=== PATIENT | male | born 1950 | race Caucasian/White ===

== ENCOUNTER → 2018-01-29 08:25 | Outpatient (CLI) | payer MEDICARE, BC, SELFPAY ==
[2018-01-29 10:32] LABS: Anion Gap 7 (5-15); BUN 23 mg/dL (7-18); BUN/Creat Ratio 16.9 RATIO (10-20); Calcium,Total 8.6 mg/dL (8.5-10.1); Chloride 106 mmol/L (98-107); Cholesterol 206 mg/dL (200); Creatinine, Serum 1.36 mg/dL (0.70-1.30); EST Glomerular Filtration Rate 56 mL/min (>60); Est Glom Filt Rate - Afr Amer 67 mL/min (>60); Glucose 86 mg/dL (74-106); High Density Lipoprotein 40 mg/dL; PSA,Total - Annual Screen 2.56 ng/mL (0.00-4.00); Potassium 4.4 mmol/L (3.5-5.1); Sodium Level 143 mmol/L (136-145); Triglycerides 203 mg/dL; Very Low Density Lipoprotein 41 mg/dL (5-40)
== END ==
PROVIDERS: Family Provider Family Medicine; PCP Family Medicine; Visit Provider Family Medicine
DX: I10 Essential (primary) hypertension (principal); Z12.5 Encounter for screening for malignant neoplasm of prostate; E78.5 Hyperlipidemia, unspecified
CPT/HCPCS: 36415; 80048; 80061; 84153; G0103

== ENCOUNTER → 2018-05-14 08:52 | Outpatient (CLI) | payer MEDICARE, BC, SELFPAY ==
[2014-10-29 06:19] VITALS: BMI 26.1
[2018-05-14 10:35] LABS: Anion Gap 8 (5-15); BUN 18 mg/dL (7-18); BUN/Creat Ratio 16.1 RATIO (10-20); Calcium,Total 8.6 mg/dL (8.5-10.1); Chloride 108 mmol/L (98-107); Cholesterol 210 mg/dL (200); Creatinine, Serum 1.12 mg/dL (0.70-1.30); EST Glomerular Filtration Rate 69 mL/min (>60); Est Glom Filt Rate - Afr Amer 84 mL/min (>60); Glucose 83 mg/dL (74-106); High Density Lipoprotein 46 mg/dL; Potassium 4.2 mmol/L (3.5-5.1); Sodium Level 144 mmol/L (136-145); Triglycerides 176 mg/dL; Very Low Density Lipoprotein 35 mg/dL (5-40)
== END ==
PROVIDERS: Family Provider Family Medicine; PCP Family Medicine; Visit Provider Family Medicine
DX: I10 Essential (primary) hypertension (principal); E78.5 Hyperlipidemia, unspecified
CPT/HCPCS: 36415; 80048; 80061

== ENCOUNTER → 2019-02-03 15:52 | Outpatient (CLI) | payer MEDICARE, OTHER, SELFPAY ==
--- NOTE | 2019-02-03 15:54 | US_ITS ---
STUDY: THYROID ULTRASOUND REASON FOR EXAM: Male, 68 years old. Thyromegaly TECHNIQUE: Ultrasound evaluation of the thyroid was performed with real-time and static buenrostro-scale imaging. COMPARISON: None. FINDINGS: RIGHT LOBE: The right lobe of the thyroid gland measures 4.0 x 1.6 x 1.9 cm. There is a heterogeneous echotexture. There are no demonstrated solid, cystic or complex lesions. LEFT LOBE: The left lobe of the thyroid gland measures 3.3 x 1.5 x 1.7 cm. There is a heterogeneous echotexture. There are no demonstrated solid, cystic or complex lesions. ISTHMUS: The isthmus measures 4 mm . The regional lymph nodes are normal. US/Thyroid IMPRESSION: Mild heterogeneity of the thyroid without nodules noted. Electronically Signed: Maximo Eisenberg DO at 19:45 EST Tel [phone], Service support ,
== END ==
PROVIDERS: Family Provider Family Medicine; PCP Family Medicine; Referring Provider Family Medicine; Visit Provider Family Medicine
DX: E01.0 Iodine-deficiency related diffuse (endemic) goiter (principal)
CPT/HCPCS: 76536

== ENCOUNTER → 2019-02-04 09:18 | Outpatient (CLI) | payer MEDICARE, OTHER, SELFPAY ==
[2014-10-29 06:19] VITALS: BMI 26.1
[2019-02-04 10:30] LABS: Absolute Lymphocyte Count 1.39 X10^3/uL (0.83-4.51); Basophil# 0.05 X10^3/uL; Basophil% 0.8 % (0-1); Eosinophil# 0.36 X10^3/uL; Eosinophils% 5.8 % (0-5); Hematocrit 50.7 % (40-54); Hemoglobin 16.1 g/dL (13.0-16.5); Lymphocyte # 1.39 X10^3/ul (4.0); Lymphocyte % 22.2 % (19-41); Mean Corp Hgb Conc 31.8 g/dL (32-36); Mean Corpuscular Hgb 29.7 pg (27.0-32.0); Mean Corpuscular Volume 93.4 fL (80-94); Mean Platelet Vol. 9.6 fl (6.2-12.0); Monocyte# 0.48 X10^3/uL; Monocyte% 7.7 % (0-10); NRBC Flagged by Analyzer 0 % (0-5); Neutrophil # 3.95 X10^3/uL (2.7-7.7); Neutrophil % 63.2 % (47-70); Platelet Count 202 K/mm3 (150-450); RBC Distribution Width CV 13.6 % (11.6-14.6); RBC Distribution Width SD 46.1 fl (35.1-43.9); Red Blood Count 5.43 M/mm3 (4.6-6.2); White Blood Count 6.3 K/mm3 (4.4-11.0)
[2019-02-04 11:06] LABS: ALB/GLOB Ratio 1.1 RATIO (0.9-2.4); AST(SGOT) 12 U/L (15-37); Alanine Aminotransfer ALT/SGPT 17 U/L (16-61); Albumin, Serum 3.9 g/dL (3.2-5.0); Alkaline Phosphatase 92 U/L (45-117); Anion Gap 5 (5-15); BUN 22 mg/dL (7-18); BUN/Creat Ratio 17.5 RATIO (10-20); Calcium,Total 9.1 mg/dL (8.5-10.1); Chloride 107 mmol/L (98-107); Cholesterol 208 mg/dL (200); Creatinine, Serum 1.26 mg/dL (0.70-1.30); EST Glomerular Filtration Rate 60 mL/min (>60); Est Glom Filt Rate - Afr Amer 73 mL/min (>60); Globulin 3.7 g/dL (2.2-4.2); Glucose 89 mg/dL (74-106); High Density Lipoprotein 39 mg/dL; Potassium 3.8 mmol/L (3.5-5.1); Protein, Total 7.6 g/dL (6.4-8.2); Sodium Level 140 mmol/L (136-145); T4 Free Direct 0.84 ng/dL (0.76-1.46); Thyroid Stim Hormone (TSH) 3.54 uIU/mL (0.358-3.74); Triglycerides 264 mg/dL; Very Low Density Lipoprotein 53 mg/dL (5-40)
[2019-02-05 18:50] LABS: Anti-Thyroglobulin AB < 1.0 IU/mL (0.0-0.9); Thyroglobulin, Serum Qt. 14.5 ng/mL (1.4-29.2); Thyroid Peroxidase AB 11 IU/mL (0-34)
== END ==
PROVIDERS: Family Provider Family Medicine; PCP Family Medicine; Referring Provider Family Medicine; Visit Provider Family Medicine
DX: I10 Essential (primary) hypertension (principal); E78.5 Hyperlipidemia, unspecified; E01.0 Iodine-deficiency related diffuse (endemic) goiter
CPT/HCPCS: 36415; 80053; 80061; 84432; 84439; 84443; 85025; 86376; 86800

== ENCOUNTER → 2019-02-14 09:58 | Outpatient (CLI) | payer MEDICARE, OTHER, SELFPAY ==
[2014-10-29 06:19] VITALS: BMI 26.1
[2019-02-14 11:55] LABS: Anion Gap 6 (5-15); BUN 22 mg/dL (7-18); BUN/Creat Ratio 16.5 RATIO (10-20); Calcium,Total 8.8 mg/dL (8.5-10.1); Chloride 111 mmol/L (98-107); Creatinine, Serum 1.33 mg/dL (0.70-1.30); EST Glomerular Filtration Rate 57 mL/min (>60); Est Glom Filt Rate - Afr Amer 69 mL/min (>60); Glucose 123 mg/dL (74-106); Potassium 4.2 mmol/L (3.5-5.1); Sodium Level 145 mmol/L (136-145)
== END ==
PROVIDERS: Family Provider Family Medicine; PCP Family Medicine; Referring Provider Family Medicine; Visit Provider Family Medicine
DX: I10 Essential (primary) hypertension (principal)
CPT/HCPCS: 36415; 80048

== ENCOUNTER → 2019-03-12 15:51 | Outpatient (CLI) | payer MEDICARE, OTHER, SELFPAY ==
[2014-10-29 06:19] VITALS: BMI 26.1
[2019-03-12 17:46] LABS: PSA,Total - Annual Screen 3.08 ng/mL (0.00-4.00)
== END ==
PROVIDERS: Family Provider Family Medicine; PCP Family Medicine; Referring Provider Family Medicine; Visit Provider Family Medicine
DX: Z12.5 Encounter for screening for malignant neoplasm of prostate (principal)
CPT/HCPCS: 36415; 84153; G0103

== ENCOUNTER → 2019-09-15 08:39 | Outpatient (CLI) | payer MEDICARE, OTHER, SELFPAY ==
[2014-10-29 06:19] VITALS: BMI 26.1
[2019-09-15 09:57] LABS: Absolute Lymphocyte Count 1.19 X10^3/uL (0.83-4.51); Absolute Neutrophil Count 4.3 X10^3/uL (2.0-7.7); Basophil# 0.03 X10^3/uL; Basophil% 0.5 % (0-1); Eosinophil# 0.36 X10^3/uL; Eosinophils% 5.6 % (0-5); Hemoglobin 15.6 g/dL (13.0-16.5); Lymphocyte # 1.19 X10^3/ul (4.0); Lymphocyte % 18.5 % (19-41); Mean Corp Hgb Conc 31.8 g/dL (32-36); Mean Corpuscular Hgb 30.4 pg (27.0-32.0); Mean Corpuscular Volume 95.3 fL (80-94); Mean Platelet Vol. 9.7 fl (6.2-12.0); Monocyte# 0.53 X10^3/uL; Monocyte% 8.3 % (0-10); NRBC Flagged by Analyzer 0 % (0-5); Neutrophil # 4.27 X10^3/uL (2.7-7.7); Neutrophil % 66.5 % (47-70); Platelet Count 185 K/mm3 (150-450); RBC Distribution Width CV 13.9 % (11.6-14.6); RBC Distribution Width SD 48.3 fl (35.1-43.9); Red Blood Count 5.14 M/mm3 (4.6-6.2); White Blood Count 6.4 K/mm3 (4.4-11.0)
[2019-09-15 10:29] LABS: ALB/GLOB Ratio 0.9 RATIO (0.9-2.4); AST(SGOT) 14 U/L (15-37); Alanine Aminotransfer ALT/SGPT 25 U/L (16-61); Albumin, Serum 3.6 g/dL (3.2-5.0); Alkaline Phosphatase 89 U/L (45-117); Anion Gap 5 (5-15); BUN 23 mg/dL (7-18); BUN/Creat Ratio 17.3 RATIO (10-20); Chloride 109 mmol/L (98-107); Cholesterol 216 mg/dL (200); Creatinine, Serum 1.33 mg/dL (0.70-1.30); EST Glomerular Filtration Rate 57 mL/min (>60); Est Glom Filt Rate - Afr Amer 69 mL/min (>60); Globulin 3.8 g/dL (2.2-4.2); Glucose 104 mg/dL (74-106); High Density Lipoprotein 32 mg/dL; Potassium 4.3 mmol/L (3.5-5.1); Protein, Total 7.4 g/dL (6.4-8.2); Sodium Level 141 mmol/L (136-145); Triglycerides 432 mg/dL
== END ==
PROVIDERS: PCP Family Medicine; Referring Provider Family Medicine; Visit Provider Family Medicine
DX: I10 Essential (primary) hypertension (principal); E78.5 Hyperlipidemia, unspecified
CPT/HCPCS: 36415; 80053; 80061; 85025

== ENCOUNTER → 2019-12-11 08:16 | Outpatient (CLI) | payer MEDICARE, OTHER, SELFPAY ==
[2014-10-29 06:19] VITALS: BMI 26.1
[2019-12-11 10:16] LABS: Absolute Lymphocyte Count 1.33 X10^3/uL (0.83-4.51); Absolute Neutrophil Count 4.4 X10^3/uL (2.0-7.7); Basophil# 0.03 X10^3/uL; Basophil% 0.4 % (0-1); Eosinophil# 0.43 X10^3/uL; Eosinophils% 6.3 % (0-5); Hematocrit 47.6 % (40-54); Hemoglobin 15.2 g/dL (13.0-16.5); Lymphocyte # 1.33 X10^3/ul (4.0); Lymphocyte % 19.5 % (19-41); Mean Corp Hgb Conc 31.9 g/dL (32-36); Mean Corpuscular Volume 94.1 fL (80-94); Mean Platelet Vol. 9.4 fl (6.2-12.0); Monocyte% 8.8 % (0-10); NRBC Flagged by Analyzer 0 % (0-5); Neutrophil # 4.41 X10^3/uL (2.7-7.7); Neutrophil % 64.6 % (47-70); Platelet Count 226 K/mm3 (150-450); RBC Distribution Width CV 13.5 % (11.6-14.6); RBC Distribution Width SD 46.7 fl (35.1-43.9); Red Blood Count 5.06 M/mm3 (4.6-6.2); White Blood Count 6.8 K/mm3 (4.4-11.0)
[2019-12-11 10:34] LABS: PTHIN 104.3 pg/mL (18.4-80.1)
[2019-12-11 10:36] LABS: Vitamin D,25 Hydroxy 38.4 ng/mL
[2019-12-11 10:46] LABS: AST(SGOT) 16 U/L (15-37); Alanine Aminotransfer ALT/SGPT 27 U/L (16-61); Albumin, Serum 3.7 g/dL (3.2-5.0); Alkaline Phosphatase 94 U/L (45-117); Anion Gap 7 (5-15); BUN 21 mg/dL (7-18); BUN/Creat Ratio 18.1 RATIO (10-20); Chloride 104 mmol/L (98-107); Cholesterol 217 mg/dL (200); Creatinine, Serum 1.16 mg/dL (0.70-1.30); EST Glomerular Filtration Rate 66 mL/min (>60); Est Glom Filt Rate - Afr Amer 80 mL/min (>60); Globulin 3.8 g/dL (2.2-4.2); Glucose 91 mg/dL (74-106); High Density Lipoprotein 37 mg/dL; Potassium 4.3 mmol/L (3.5-5.1); Protein, Total 7.5 g/dL (6.4-8.2); Sodium Level 139 mmol/L (136-145); Triglycerides 287 mg/dL; Very Low Density Lipoprotein 57 mg/dL (5-40)
[2019-12-11 11:00] LABS: Protein, Urine (Random) 16.6 mg/dL (<11.9); Protein:Creat Ratio 392 mg/g CRE (0-200)
== END ==
PROVIDERS: PCP Family Medicine; Referring Provider Family Medicine; Visit Provider Family Medicine
DX: N18.3 Chronic kidney disease, stage 3 (moderate) (principal); E78.5 Hyperlipidemia, unspecified
CPT/HCPCS: 36415; 80053; 80061; 82306; 82570; 83970; 84156; 85025

== ENCOUNTER → 2020-04-14 08:09 | Outpatient (CLI) | payer MEDICARE, OTHER, SELFPAY ==
[2014-10-29 06:19] VITALS: BMI 26.1
[2020-04-14 08:12] LABS: Bacteria 0 SEEN /hpf (None Seen); Mucous, Urine 0 SEEN /hpf (<or=2+); Red Blood Cells-Urine 0 SEEN /hpf (0-5); Squamous Epithelial Cells - UA 0 SEEN /hpf (0-5); White Blood Cells 0 SEEN /hpf (0-5)
[2020-04-14 10:15] LABS: Absolute Lymphocyte Count 1.32 X10^3/uL (0.83-4.51); Absolute Neutrophil Count 3.9 X10^3/uL (2.0-7.7); Basophil# 0.03 X10^3/uL; Basophil% 0.5 % (0-1); Eosinophil# 0.53 X10^3/uL; Eosinophils% 8.5 % (0-5); Hematocrit 47.4 % (40-54); Hemoglobin 15.3 g/dL (13.0-16.5); Lymphocyte # 1.32 X10^3/ul (4.0); Lymphocyte % 21.2 % (19-41); Mean Corp Hgb Conc 32.3 g/dL (32-36); Mean Corpuscular Hgb 30.3 pg (27.0-32.0); Mean Corpuscular Volume 93.9 fL (80-94); Mean Platelet Vol. 9.7 fl (6.2-12.0); Monocyte# 0.44 X10^3/uL; Monocyte% 7.1 % (0-10); NRBC Flagged by Analyzer 0 % (0-5); Neutrophil % 62.4 % (47-70); Platelet Count 224 K/mm3 (150-450); RBC Distribution Width CV 13.8 % (11.6-14.6); RBC Distribution Width SD 47.2 fl (35.1-43.9); Red Blood Count 5.05 M/mm3 (4.6-6.2); White Blood Count 6.2 K/mm3 (4.4-11.0)
[2020-04-14 10:28] LABS: Color, Urine Yellow (Yellow); Glucose, Dipstick Normal (Normal); Ketone-Dipstick Negative (Negative); Leukocyte Esterase-Dipstick Negative /ul (Negative); Nitrite-Dipstick Negative (Negative); Occult Blood-Urine Negative /ul (Negative); Protein-Dipstick Negative (Negative); Specific Gravity, Urine 1.025 (1.002-1.030); Urine Bilirubin Dipstick Negative (Negative); Urine Clarity Clear (Clear); Urine Urobilinogen Normal (Normal); Urine pH 6.5 (5.0 - 8.0)
[2020-04-14 10:35] LABS: Protein, Urine (Random) 14.5 mg/dL (<11.9); Protein:Creat Ratio 148 mg/g CRE (0-200)
[2020-04-14 10:38] LABS: PTHIN 101.3 pg/mL (18.4-80.1)
[2020-04-14 10:39] LABS: AST(SGOT) 11 U/L (15-37); Alanine Aminotransfer ALT/SGPT 24 U/L (16-61); Albumin, Serum 3.7 g/dL (3.2-5.0); Alkaline Phosphatase 93 U/L (45-117); Anion Gap 5 (5-15); BUN 20 mg/dL (7-18); BUN/Creat Ratio 17.1 RATIO (10-20); Calcium,Total 8.9 mg/dL (8.5-10.1); Chloride 111 mmol/L (98-107); Cholesterol 195 mg/dL (200); Creatinine, Serum 1.17 mg/dL (0.70-1.30); EST Glomerular Filtration Rate 66 mL/min (>60); Est Glom Filt Rate - Afr Amer 79 mL/min (>60); Globulin 3.6 g/dL (2.2-4.2); Glucose 106 mg/dL (74-106); High Density Lipoprotein 40 mg/dL; Potassium 3.7 mmol/L (3.5-5.1); Protein, Total 7.3 g/dL (6.4-8.2); Sodium Level 143 mmol/L (136-145); Triglycerides 218 mg/dL; Very Low Density Lipoprotein 44 mg/dL (5-40)
== END ==
PROVIDERS: PCP Family Medicine; Referring Provider Family Medicine; Visit Provider Family Medicine
DX: I12.9 Hypertensive chronic kidney disease with stage 1 through stage 4 chronic kidney disease, or unspecified chronic kidney disease (principal); N18.30 Chronic kidney disease, stage 3 unspecified; E21.3 Hyperparathyroidism, unspecified; E78.5 Hyperlipidemia, unspecified
CPT/HCPCS: 36415; 80053; 80061; 81001; 82570; 83970; 84156; 85025

== ENCOUNTER 2020-05-26 07:41 | Outpatient (RCR) | payer MEDICARE, OTHER, SELFPAY ==
[2014-10-29 06:19] VITALS: BMI 26.1
[2020-05-26] MEDS: COVID-19 VACC, MRNA(PFIZER)/PF 30 MCG/0.3 ML SYRINGE IM (14:38)
[2020-06-16] MEDS: COVID-19 VACC, MRNA(PFIZER)/PF 30 MCG/0.3 ML SYRINGE IM (14:13)
== END 2020-05-26 23:59 ==
LOC: IMMUN 07:41
PROVIDERS: PCP Family Medicine; Visit Provider Family Medicine
DX: Z23 Encounter for immunization (principal)
CPT/HCPCS: 0001A; 0002A; 91300

== ENCOUNTER → 2020-07-29 10:43 | Outpatient (CLI) | payer MEDICARE, OTHER, SELFPAY ==
[2014-10-29 06:19] VITALS: BMI 26.1
[2020-07-29 10:54] LABS: Bacteria 0 SEEN /hpf (None Seen); Mucous, Urine 0 SEEN /hpf (<or=2+); Red Blood Cells-Urine 0 SEEN /hpf (0-5); Squamous Epithelial Cells - UA 0 SEEN /hpf (0-5); White Blood Cells 0 SEEN /hpf (0-5)
[2020-07-29 12:05] LABS: Absolute Lymphocyte Count 1.48 X10^3/uL (0.83-4.51); Absolute Neutrophil Count 3.7 X10^3/uL (2.0-7.7); Basophil# 0.03 X10^3/uL; Basophil% 0.5 % (0-1); Eosinophil# 0.45 X10^3/uL; Eosinophils% 6.9 % (0-5); Lymphocyte # 1.48 X10^3/ul (0.83-4.51); Lymphocyte % 22.7 % (19-41); Mean Corp Hgb Conc 32.7 g/dL (32-36); Mean Corpuscular Hgb 30.2 pg (27.0-32.0); Mean Corpuscular Volume 92.5 fL (80-94); Mean Platelet Vol. 9.9 fl (6.2-12.0); Monocyte# 0.82 X10^3/uL; Monocyte% 12.6 % (0-10); NRBC Flagged by Analyzer 0 % (0-5); Neutrophil # 3.74 X10^3/uL (2.7-7.7); Neutrophil % 57.1 % (47-70); Platelet Count 180 K/mm3 (150-450); RBC Distribution Width CV 13.4 % (11.6-14.6); White Blood Count 6.5 K/mm3 (4.4-11.0)
[2020-07-29 12:08] LABS: Color, Urine Yellow (Yellow); Glucose, Dipstick Normal (Normal); Ketone-Dipstick Negative (Negative); Leukocyte Esterase-Dipstick Negative /ul (Negative); Nitrite-Dipstick Negative (Negative); Occult Blood-Urine Negative /ul (Negative); Protein-Dipstick Negative (Negative); Urine Bilirubin Dipstick Negative (Negative); Urine Clarity Clear (Clear); Urine Urobilinogen Normal (Normal)
[2020-07-29 12:12] LABS: Protein, Urine (Random) 19.7 mg/dL (<11.9); Protein:Creat Ratio 189 mg/g CRE (0-200)
[2020-07-29 12:20] LABS: AST(SGOT) 18 U/L (15-37); Alanine Aminotransfer ALT/SGPT 22 U/L (16-61); Albumin, Serum 3.7 g/dL (3.2-5.0); Alkaline Phosphatase 86 U/L (45-117); Anion Gap 5 (5-15); BUN 21 mg/dL (7-18); BUN/Creat Ratio 15.8 RATIO (10-20); Calcium,Total 9.2 mg/dL (8.5-10.1); Chloride 106 mmol/L (98-107); Cholesterol 192 mg/dL (200); Creatinine, Serum 1.33 mg/dL (0.70-1.30); EST Glomerular Filtration Rate 57 mL/min (>60); Est Glom Filt Rate - Afr Amer 68 mL/min (>60); Globulin 3.8 g/dL (2.2-4.2); Glucose 93 mg/dL (74-106); High Density Lipoprotein 41 mg/dL; Phosphorus 3.2 mg/dL (2.5-4.9); Potassium 4.4 mmol/L (3.5-5.1); Protein, Total 7.5 g/dL (6.4-8.2); Sodium Level 139 mmol/L (136-145); Triglycerides 180 mg/dL; Very Low Density Lipoprotein 36 mg/dL (5-40)
[2020-07-29 12:46] LABS: PTHIN 122.8 pg/mL (18.4-80.1)
== END ==
PROVIDERS: PCP Family Medicine; Referring Provider Family Medicine; Visit Provider Family Medicine
DX: I12.9 Hypertensive chronic kidney disease with stage 1 through stage 4 chronic kidney disease, or unspecified chronic kidney disease (principal); N18.30 Chronic kidney disease, stage 3 unspecified; E21.3 Hyperparathyroidism, unspecified; E78.5 Hyperlipidemia, unspecified
CPT/HCPCS: 36415; 80053; 80061; 81001; 82570; 83970; 84100; 84156; 85025

== ENCOUNTER → 2020-12-05 16:59 | Outpatient (CLI) | payer MEDICARE, OTHER, SELFPAY ==
[2020-12-05 17:08] LABS: Bacteria 0 SEEN /hpf (None Seen); Mucous, Urine 0 SEEN /hpf (<or=2+); Red Blood Cells-Urine 0 SEEN /hpf (0-5); Squamous Epithelial Cells - UA 0 SEEN /hpf (0-5)
[2020-12-05 17:54] LABS: Absolute Lymphocyte Count 1.44 X10^3/uL (0.83-4.51); Absolute Neutrophil Count 4.3 X10^3/uL (2.0-7.7); Basophil# 0.03 X10^3/uL; Basophil% 0.4 % (0-1); Eosinophil# 0.56 X10^3/uL; Hemoglobin 15.4 g/dL (13.0-16.5); Lymphocyte # 1.44 X10^3/ul (0.83-4.51); Lymphocyte % 20.5 % (19-41); Mean Corp Hgb Conc 32.8 g/dL (32-36); Mean Corpuscular Hgb 30.1 pg (27.0-32.0); Mean Corpuscular Volume 91.8 fL (80-94); Mean Platelet Vol. 9.9 fl (6.2-12.0); Monocyte# 0.69 X10^3/uL; Monocyte% 9.8 % (0-10); NRBC Flagged by Analyzer 0 % (0-5); Neutrophil # 4.27 X10^3/uL (2.7-7.7); Platelet Count 197 K/mm3 (150-450); RBC Distribution Width CV 13.7 % (11.6-14.6); Red Blood Count 5.12 M/mm3 (4.6-6.2)
[2020-12-05 17:56] LABS: Color, Urine Yellow (Yellow); Glucose, Dipstick Normal (Normal); Ketone-Dipstick Negative (Negative); Leukocyte Esterase-Dipstick Negative /ul (Negative); Nitrite-Dipstick Negative (Negative); Occult Blood-Urine Negative /ul (Negative); Protein-Dipstick 15 mg/dl (Negative); Specific Gravity, Urine 1.025 (1.002-1.030); Urine Bilirubin Dipstick Negative (Negative); Urine Clarity Clear (Clear); Urine Urobilinogen Normal (Normal)
[2020-12-05 18:06] LABS: Protein:Creat Ratio 112 mg/g CRE (0-200)
[2020-12-05 18:12] LABS: White Blood Cells 0-5 SEEN /hpf (0-5)
[2020-12-05 19:06] LABS: AST(SGOT) 12 U/L (15-37); Alanine Aminotransfer ALT/SGPT 22 U/L (16-61); Albumin, Serum 3.6 g/dL (3.2-5.0); Alkaline Phosphatase 83 U/L (45-117); Anion Gap 8 (5-15); BUN 21 mg/dL (7-18); BUN/Creat Ratio 16.3 RATIO (10-20); Calcium,Total 8.9 mg/dL (8.5-10.1); Chloride 109 mmol/L (98-107); Cholesterol 188 mg/dL (200); Creatinine, Serum 1.29 mg/dL (0.70-1.30); EST Glomerular Filtration Rate 59 mL/min (>60); Est Glom Filt Rate - Afr Amer 71 mL/min (>60); Globulin 3.6 g/dL (2.2-4.2); Glucose 109 mg/dL (74-106); High Density Lipoprotein 32 mg/dL; Potassium 3.8 mmol/L (3.5-5.1); Protein, Total 7.2 g/dL (6.4-8.2); Sodium Level 143 mmol/L (136-145); Triglycerides 558 mg/dL
[2020-12-06 08:31] LABS: PTHIN 109.3 pg/mL (18.4-80.1)
== END ==
PROVIDERS: PCP Family Medicine; Referring Provider Family Medicine; Visit Provider Family Medicine
DX: N18.30 Chronic kidney disease, stage 3 unspecified (principal); E78.5 Hyperlipidemia, unspecified; E21.3 Hyperparathyroidism, unspecified
CPT/HCPCS: 36415; 80053; 80061; 81001; 82570; 83970; 84156; 85025

== ENCOUNTER 2021-06-08 07:24 | Outpatient (CLI) | payer MEDICARE, OTHER, SELFPAY ==
[2021-06-08 07:30] LABS: Bacteria 0 SEEN /hpf (None Seen); Mucous, Urine 0 SEEN /hpf (<or=2+); Red Blood Cells-Urine 0 SEEN /hpf (0-5); Squamous Epithelial Cells - UA 0 SEEN /hpf (0-5); White Blood Cells 0 SEEN /hpf (0-5)
[2021-06-08 09:57] LABS: Absolute Lymphocyte Count 1.41 X10^3/uL (0.83-4.51); Absolute Neutrophil Count 4.3 X10^3/uL (2.0-7.7); Basophil# 0.05 X10^3/uL; Basophil% 0.7 % (0-1); Eosinophil# 0.61 X10^3/uL; Eosinophils% 8.5 % (0-5); Hematocrit 48.4 % (40-54); Hemoglobin 15.9 g/dL (13.0-16.5); Lymphocyte # 1.41 X10^3/ul (0.83-4.51); Lymphocyte % 19.7 % (19-41); Mean Corp Hgb Conc 32.9 g/dL (32-36); Mean Corpuscular Hgb 30.6 pg (27.0-32.0); Mean Corpuscular Volume 93.3 fL (80-94); Mean Platelet Vol. 10.4 fl (6.2-12.0); Monocyte# 0.74 X10^3/uL; Monocyte% 10.4 % (0-10); NRBC Flagged by Analyzer 0 % (0-5); Neutrophil % 60.3 % (47-70); Platelet Count 201 K/mm3 (150-450); RBC Distribution Width CV 13.7 % (11.6-14.6); RBC Distribution Width SD 46.8 fl (35.1-43.9); Red Blood Count 5.19 M/mm3 (4.6-6.2); White Blood Count 7.1 K/mm3 (4.4-11.0)
[2021-06-08 09:58] LABS: Color, Urine Yellow (Yellow); Glucose, Dipstick Normal (Normal); Ketone-Dipstick Negative (Negative); Leukocyte Esterase-Dipstick Negative /ul (Negative); Nitrite-Dipstick Negative (Negative); Occult Blood-Urine Negative /ul (Negative); Protein-Dipstick 15 mg/dl (Negative); Specific Gravity, Urine 1.015 (1.002-1.030); Urine Bilirubin Dipstick Negative (Negative); Urine Clarity Clear (Clear); Urine Urobilinogen Normal (Normal); Urine pH 6.5 (5.0 - 8.0)
[2021-06-08 10:14] LABS: AST(SGOT) 11 U/L (15-37); Alanine Aminotransfer ALT/SGPT 22 U/L (16-61); Albumin, Serum 3.6 g/dL (3.2-5.0); Alkaline Phosphatase 87 U/L (45-117); Anion Gap 3 (5-15); BUN 20 mg/dL (7-18); BUN/Creat Ratio 16.9 RATIO (10-20); Calcium,Total 8.9 mg/dL (8.5-10.1); Chloride 107 mmol/L (98-107); Cholesterol 184 mg/dL (200); Creatinine, Serum 1.18 mg/dL (0.70-1.30); EST Glomerular Filtration Rate 65 mL/min (>60); Est Glom Filt Rate - Afr Amer 78 mL/min (>60); Globulin 3.6 g/dL (2.2-4.2); Glucose 98 mg/dL (74-106); High Density Lipoprotein 35 mg/dL; Phosphorus 3.2 mg/dL (2.5-4.9); Potassium 4.2 mmol/L (3.5-5.1); Protein, Total 7.2 g/dL (6.4-8.2); Sodium Level 141 mmol/L (136-145); Triglycerides 220 mg/dL; Very Low Density Lipoprotein 44 mg/dL (5-40)
[2021-06-08 11:34] LABS: PTHIN 139.9 pg/mL (18.4-80.1)
== END 2021-06-08 23:59 | disposition home or self-care (01) ==
LOC: MTLAB 07:26
PROVIDERS: PCP Family Medicine; Referring Provider Family Medicine; Visit Provider Family Medicine
DX: N18.30 Chronic kidney disease, stage 3 unspecified (principal); E78.5 Hyperlipidemia, unspecified
CPT/HCPCS: 36415; 80053; 80061; 81001; 83970; 84100; 85025

== ENCOUNTER 2021-06-09 09:48 | Outpatient (CLI) | payer MEDICARE, OTHER, SELFPAY | END 2021-06-09 23:59 | disposition home or self-care (01) | LOC: MFPLAB 09:49 | PROVIDERS: PCP Family Medicine; Referring Provider Family Medicine; Visit Provider Family Medicine | DX: Z00.00 Encounter for general adult medical examination without abnormal findings (principal) ==

== ENCOUNTER 2021-10-16 06:06 | Day surgery (SDC) | payer MEDICARE, OTHER, SELFPAY ==
[2021-10-16 06:36] VITALS: BP 119/70; PULSE 50; RESP 16; TEMP 36.7; O2SAT 98; BMI 27.1
--- NOTE | 2021-10-16 06:42 | PCM.HP.STD ---
[facility] - General General Date of Admission: 10/16/21 Date of Service: 10/16/21 Chief Complaint: Screening colonoscopy HPI Narrative BRADLEY VERMA, is a 71 M who presents for screening colonoscopy. He has past medical history of hypertension. He is not having any problems with his bowels. He is not abdominal pain. He is not have any nausea, vomiting or diarrhea. He does not have any chest pain or shortness of breath. Overall is in very good health. [facility] Medical History (Updated 10/11/21 @ 12:23 by Stacia Mary) Alcohol use Arthritis History of edema Hypertension Non-smoker Wears glasses Home Medications amlodipine 10 mg tablet 10 mg PO DAILY 10/11/21 [History Last Taken 10/15/21] lisinopril 20 mg tablet 20 mg PO DAILY 10/11/21 [History Last Taken 10/15/21] metoprolol tartrate 100 mg tablet 100 mg PO BID 10/11/21 [History Last Taken 10/15/21] Allergy/AdvReac Type Severity Reaction Status Date / Time No Known Allergies Allergy Verified 10/11/21 12:14 Surgical History (Updated 10/11/21 @ 12:23 by Stacia Mary) History of hydrocelectomy Hx of inguinal hernia repair Social History Smoking Status: Never smoker ROS Review of Systems ROS Unobtainable: other Constitutional Constitutional: Denies fatigue, fever(s), poor appetite, weight gain or weight loss ENT HEENT: Denies mouth lesions Cardiovascular Cardiovascular: Denies abdominal bloating, abdominal edema or abdominal pain Respiratory/Chest Respiratory/Chest: Denies change in mental status, change in phlegm color, chest congestion or chest tightness Gastrointestinal Gastrointestinal: Denies belching, bloating, change in bowel habits, change in stool character, chewing difficulty, coffee ground emesis, constipation, cramping, diarrhea, dyspepsia, dysphagia, early satiety, excessive flatus, fecal incontinence, heartburn, hematemesis, hematochezia, hemorrhoids, loose stools, melena, nausea, odynophagia, rectal bleeding, tenesmus, vomiting or weight changes Genitourinary Genitourinary: Denies abdominal discomfort, burning urination or itching Musculoskeletal Musculoskeletal: Reports as per HPI; Denies muscle weakness or myalgias Integumentary Integumentary: Denies jaundice Neurologic Neurologic: Denies lack of coordination or weakness Psychiatric Psychiatric: Denies confusion, depression, memory loss, mood swings, paranoia or suicidal ideation Endocrine Endocrinology: Denies systems reviewed and no addt'l complaints, except as documented Hematologic/Lymphatic Hematologic/Lymphatic: Denies anemia, easy bleeding, easy bruising or lymphadenopathy Allergic/Immunologic Allergic/Immunologic: Denies systems reviewed and no addt'l complaints, except as documented Physical Exam Const alert, oriented x3, no apparent distress, healthy appearing and well nourished General Appearance: cooperative, comfortable, well kempt and well developed Orientation / Consciousness: awake and oriented to person HEENT Head and Scalp: normocephalic and atraumatic Face and Sinus: normal facial exam Mouth: oral and palatal mucosa normal Eyes General Eye: normal appearance of both eyes Neck full ROM Lymph Lymphatic: no lymphadenopathy noted Chest inspection of chest normal Resp normal respiratory effort and no use of accessory muscles Cardio regular rate and regular rhythm GI normal to inspection, nondistended, normoactive bowel sounds, soft to palpation, non-tender, non-distended and no masses Auscultation: normoactive bowel sounds Palpation: soft Percussion: normal to percussion Rectal Exam: visual inspection normal and normal sphincter tone no CVA tenderness Back/Spine no CVA tenderness and normal ROM Extremity normal to inspection Peripheral Pulses: Yes pulses 2+ throughout Skin no rashes or lesions noted General Skin Exam: no breakdown, elasticity normal and turgor normal Neuro oriented x3 Motor Exam: strength 5/5 throughout Psych mental status grossly normal Appearance: grossly normal Attitude: calm Activity / Motor Behavior: appropriate eye contact Speech: normal speech Thought Process: normal thought process Thought Content: normal thought content Attention / Concentration: attention grossly intact Memory / Cognition: memory grossly intact Insight: insight good Judgement: judgement good Assessment & Plan Assessment/Plan (1) Encounter for screening for malignant neoplasm of colon: PLAN: 71-year-old gentleman comes in for screening colonoscopy. He was explained alternatives, risk, benefits including not withstanding bleeding, infection, sepsis, perforation, missed polyps, need for emergent surgery . He will have an ASA of 1.
[2021-10-16] MEDS: Lactated Ringers 1,000 ML 15 ML IV (06:51)
[2021-10-16 08:06] VITALS: BP 105/66; BP 119/70; PULSE 67; RESP 18; TEMP 36.7; O2SAT 90
--- NOTE | 2021-10-16 08:08 | OP.COLON_ITS ---
Patient Name: Lenin Trinh Procedure Date: 10/16/2021 7:42 AM Date of : 1950 Age: 71 Procedure: Colonoscopy Indications: Screening for colorectal malignant neoplasm Providers: Jonathan Willoughby DO Medicines: Monitored Anesthesia Care Patient Profile: This is a 71 year old male. Refer to note in patient chart for documentation of history and physical. Last Colonoscopy: 10 years ago. Complications: No immediate complications. Procedure: Pre-Anesthesia Assessment: - Prior to the procedure, a History and Physical was performed, and patient medications and allergies were reviewed. The patient is competent. The risks and benefits of the procedure and the sedation options and risks were discussed with the patient. All questions were answered and informed consent was obtained. Patient identification and proposed procedure were verified by the physician in the pre-procedure area. Mental Status Examination: alert and oriented. Airway Examination: normal oropharyngeal airway and neck mobility. Respiratory Examination: clear to auscultation. CV Examination: normal. Prophylactic Antibiotics: The patient does not require prophylactic antibiotics. Prior Anticoagulants: The patient has taken no previous anticoagulant or antiplatelet agents. After reviewing the risks and benefits, the patient was deemed in satisfactory condition to undergo the procedure. The anesthesia plan was to use moderate sedation / analgesia (conscious sedation). Immediately prior to administration of medications, the patient was re-assessed for adequacy to receive sedatives. The heart rate, respiratory rate, oxygen saturations, blood pressure, adequacy of pulmonary ventilation, and response to care were monitored throughout the procedure. The physical status of the patient was re-assessed after the procedure. After I obtained informed consent, the scope was passed under direct vision. Throughout the procedure, the patient's blood pressure, pulse, and oxygen saturations were monitored continuously. The pediatric colonoscope was introduced through the anus and advanced to the cecum, identified by appendiceal orifice and ileocecal valve. The colonoscopy was performed without difficulty. The patient tolerated the procedure well. The quality of the bowel preparation was adequate. Scope In: 7:50:34 AM Scope Withdrawal Time 0 hours 7 minutes 19 seconds Scope Out: 8:00:53 AM Total Procedure Duration Time 0 hours 10 minutes 19 seconds Findings: Multiple small and large-mouthed diverticula were found in the recto-sigmoid colon, sigmoid colon, descending colon and splenic flexure. There was no evidence of diverticular bleeding. Solid stool was found in the rectum, in the recto-sigmoid colon and in the sigmoid colon, interfering with visualization. Impression: - Diverticulosis in the recto-sigmoid colon, in the sigmoid colon, in the descending colon and at the splenic flexure. There was no evidence of diverticular bleeding. - Stool in the rectum, in the recto-sigmoid colon and in the sigmoid colon. - No specimens collected. Recommendation: - Discharge patient to home. - Resume previous diet. - Continue present medications. - Repeat colonoscopy in 5 years for surveillance. Procedure Code(s): --- Professional --- G0121, Colorectal cancer screening; colonoscopy on individual not meeting criteria for high risk CPT copyright 2017 [employer]. All rights reserved. The codes documented in this report are preliminary and upon medical billing coder review may be revised to meet current compliance requirements. Jonathan Willoughby DO 10/16/2021 8:07:39 AM This report has been signed electronically. Number of Addenda: 1 Note Initiated On: 10/16/2021 7:42 AM Addendum Number: 1 Addendum Date: 12/27/2021 6:10:33 AM MAC was used as sedation for this procedure. Jonathan Willoughby DO 12/27/2021 6:10:43 AM This report has been signed electronically.
--- NOTE | 2021-10-16 08:09 | OP.CCLET_ITS ---
12/27/2021 Samuel Bazan [address] [place] [address] Re : Colonoscopy procedure for Lenin Trinh Dear Dr. Bazan This procedure was performed on Saturday, October 16, 2021. My impressions and recommendations are as follows: Impressions : - Diverticulosis in the recto-sigmoid colon, in the sigmoid colon, in the descending colon and at the splenic flexure. There was no evidence of diverticular bleeding. - Stool in the rectum, in the recto-sigmoid colon and in the sigmoid colon. - No specimens collected. Recommendations : - Discharge patient to home. - Resume previous diet. - Continue present medications. - Repeat colonoscopy in 5 years for surveillance. My findings are described in the full procedure note, which is enclosed. If I can be of further assistance, please feel free to contact me at . Sincerely, Jonathan Willoughby, 10/16/2021 8:07:39 AM This report has been signed electronically.
[2021-10-16 08:10] VITALS: BP 119/70; BP 98/63; PULSE 64; RESP 18; O2SAT 96
[2021-10-16 08:15] VITALS: BP 119/70; BP 99/71; PULSE 64; RESP 18; O2SAT 97
[2021-10-16 08:20] VITALS: BP 119/70; BP 99/76; PULSE 65; RESP 18; TEMP 36.8; O2SAT 97
[2021-10-16 08:42] VITALS: BP 119/70
== END 2021-10-16 08:48 | disposition home or self-care (01) ==
LOC: EN 06:06 → AC 06:07
PROVIDERS: PCP Family Medicine; Referring Provider Family Medicine; Visit Provider Internal Medicine Gastroenterology
PROC: 0DJD8ZZ Inspection of Lower Intestinal Tract, Via Natural or Artificial Opening Endoscopic (ICD-10-PCS; CPT 45378; principal; 2021-10-16 07:10)
DX: Z12.11 Encounter for screening for malignant neoplasm of colon (principal); K57.30 Diverticulosis of large intestine without perforation or abscess without bleeding; I10 Essential (primary) hypertension; M19.90 Unspecified osteoarthritis, unspecified site
CPT/HCPCS: G0121; J2405

== ENCOUNTER → 2021-12-06 | Outpatient (CLI) | payer MEDICARE, OTHER, SELFPAY ==
[2021-12-06 08:15] LABS: Bacteria 0 SEEN /hpf (None Seen); Mucous, Urine 0 SEEN /hpf (<or=2+); Red Blood Cells-Urine 0 SEEN /hpf (0-5); Squamous Epithelial Cells - UA 0 SEEN /hpf (0-5); White Blood Cells 0 SEEN /hpf (0-5)
[2021-12-06 10:07] LABS: Basophil# 0.04 X10^3/uL; Basophil% 0.5 % (0-1); Eosinophil# 0.59 X10^3/uL; Eosinophils% 6.9 % (0-5); Hematocrit 50.1 % (40-54); Hemoglobin 16.8 g/dL (13.0-16.5); Lymphocyte % 15.2 % (19-41); Mean Corp Hgb Conc 33.5 g/dL (32-36); Mean Corpuscular Hgb 31.5 pg (27.0-32.0); Mean Platelet Vol. 10.1 fl (6.2-12.0); Monocyte# 0.62 X10^3/uL; Monocyte% 7.2 % (0-10); NRBC Flagged by Analyzer 0 % (0-5); Neutrophil # 5.98 X10^3/uL (2.7-7.7); Neutrophil % 69.8 % (47-70); Platelet Count 186 K/mm3 (150-450); RBC Distribution Width CV 13.9 % (11.6-14.6); RBC Distribution Width SD 47.7 fl (35.1-43.9); Red Blood Count 5.33 M/mm3 (4.6-6.2); White Blood Count 8.6 K/mm3 (4.4-11.0)
[2021-12-06 10:08] LABS: Color, Urine Yellow (Yellow); Glucose, Dipstick Normal (Normal); Ketone-Dipstick Negative (Negative); Leukocyte Esterase-Dipstick Negative /ul (Negative); Nitrite-Dipstick Negative (Negative); Occult Blood-Urine Negative /ul (Negative); Protein-Dipstick Negative (Negative); Urine Bilirubin Dipstick Negative (Negative); Urine Clarity Clear (Clear); Urine Urobilinogen Normal (Normal)
[2021-12-06 10:34] LABS: AST(SGOT) 20 U/L (15-37); Alanine Aminotransfer ALT/SGPT 27 U/L (16-61); Albumin, Serum 3.8 g/dL (3.2-5.0); Alkaline Phosphatase 84 U/L (45-117); Anion Gap 6 (5-15); BUN 16 mg/dL (7-18); BUN/Creat Ratio 14.3 RATIO (10-20); Calcium,Total 9.3 mg/dL (8.5-10.1); Chloride 106 mmol/L (98-107); Cholesterol 175 mg/dL (200); Creatinine, Serum 1.12 mg/dL (0.70-1.30); EST Glomerular Filtration Rate 69 mL/min (>60); Est Glom Filt Rate - Afr Amer 83 mL/min (>60); Globulin 3.9 g/dL (2.2-4.2); Glucose 107 mg/dL (74-106); High Density Lipoprotein 37 mg/dL; PSA,Total - Annual Screen 3.26 ng/mL (0.00-4.00); Potassium 4.4 mmol/L (3.5-5.1); Protein, Total 7.7 g/dL (6.4-8.2); Sodium Level 138 mmol/L (136-145); Triglycerides 288 mg/dL; Very Low Density Lipoprotein 58 mg/dL (5-40)
[2021-12-06 10:38] LABS: PTHIN 117.2 pg/mL (18.4-80.1)
[2021-12-06 22:46] LABS: Hemoglobin A1c 5.9 % (3.8-5.6)
== END | disposition home or self-care (01) ==
LOC: MFPLAB 08:13
PROVIDERS: PCP Family Medicine; Referring Provider Family Medicine; Visit Provider Family Medicine
DX: R73.09 Other abnormal glucose (principal); I10 Essential (primary) hypertension; Z12.5 Encounter for screening for malignant neoplasm of prostate
CPT/HCPCS: 36415; 80053; 80061; 81001; 83036; 83970; 84153; 85025; G0103

== ENCOUNTER → 2022-06-12 | Outpatient (CLI) | payer MEDICARE, OTHER, SELFPAY ==
[2022-06-12 12:30] LABS: Protein:Creat Ratio 263 mg/g CRE (0-200)
[2022-06-12 12:56] LABS: AST(SGOT) 16 U/L (15-37); Alanine Aminotransfer ALT/SGPT 24 U/L (16-61); Albumin, Serum 3.8 g/dL (3.2-5.0); Alkaline Phosphatase 86 U/L (45-117); Anion Gap 6 (5-15); BUN 21 mg/dL (7-18); BUN/Creat Ratio 17.9 RATIO (10-20); Calcium,Total 9.1 mg/dL (8.5-10.1); Chloride 106 mmol/L (98-107); Cholesterol 205 mg/dL (200); Creatinine, Serum 1.17 mg/dL (0.70-1.30); EST Glomerular Filtration Rate 65 mL/min (>60); Est Glom Filt Rate - Afr Amer 79 mL/min (>60); Globulin 3.7 g/dL (2.2-4.2); Glucose 101 mg/dL (74-106); High Density Lipoprotein 39 mg/dL; Protein, Total 7.5 g/dL (6.4-8.2); Sodium Level 141 mmol/L (136-145); Triglycerides 273 mg/dL; Very Low Density Lipoprotein 55 mg/dL (5-40)
[2022-06-12 12:59] LABS: Vitamin D,25 Hydroxy 25.4 ng/mL
[2022-06-12 13:05] LABS: Absolute Lymphocyte Count 1.47 X10^3/uL (0.83-4.51); Absolute Neutrophil Count 4.5 X10^3/uL (2.0-7.7); Basophil# 0.05 X10^3/uL; Basophil% 0.7 % (0-1); Eosinophil# 0.54 X10^3/uL; Eosinophils% 7.5 % (0-5); Hematocrit 50.5 % (40-54); Lymphocyte # 1.47 X10^3/ul (0.83-4.51); Lymphocyte % 20.3 % (19-41); Mean Corp Hgb Conc 31.7 g/dL (32-36); Mean Corpuscular Hgb 29.7 pg (27.0-32.0); Mean Corpuscular Volume 93.9 fL (80-94); Mean Platelet Vol. 10.5 fl (6.2-12.0); Monocyte# 0.62 X10^3/uL; Monocyte% 8.6 % (0-10); NRBC Flagged by Analyzer 0 % (0-5); Neutrophil # 4.53 X10^3/uL (2.7-7.7); Neutrophil % 62.6 % (47-70); PTHIN 107.5 pg/mL (18.4-80.1); Platelet Count 222 K/mm3 (150-450); RBC Distribution Width SD 48.2 fl (35.1-43.9); Red Blood Count 5.38 M/mm3 (4.6-6.2); White Blood Count 7.2 K/mm3 (4.4-11.0)
[2022-06-12 16:48] LABS: Hemoglobin A1c 5.7 % (3.8-5.6)
== END | disposition home or self-care (01) ==
LOC: MFPLAB 10:17
PROVIDERS: PCP Family Medicine; Referring Provider Family Medicine; Visit Provider Family Medicine
DX: I12.9 Hypertensive chronic kidney disease with stage 1 through stage 4 chronic kidney disease, or unspecified chronic kidney disease (principal); N18.30 Chronic kidney disease, stage 3 unspecified; R73.09 Other abnormal glucose; E78.5 Hyperlipidemia, unspecified
CPT/HCPCS: 36415; 80053; 80061; 82306; 82570; 83036; 83970; 84156; 85025

== ENCOUNTER → 2022-10-17 | Outpatient (CLI) | payer MEDICARE, OTHER, SELFPAY ==
[2022-10-17 08:07] LABS: Bacteria 0 SEEN /hpf (None Seen); Mucous, Urine 0 SEEN /hpf (<or=2+); Red Blood Cells-Urine 0 SEEN /hpf (0-5); Squamous Epithelial Cells - UA 0 SEEN /hpf (0-5); White Blood Cells 0 SEEN /hpf (0-5)
[2022-10-17 10:44] LABS: Absolute Lymphocyte Count 1.47 X10^3/uL (0.83-4.51); Absolute Neutrophil Count 3.5 X10^3/uL (2.0-7.7); Basophil# 0.03 X10^3/uL; Basophil% 0.5 % (0-1); Eosinophil# 0.52 X10^3/uL; Eosinophils% 8.5 % (0-5); Hematocrit 50.1 % (40-54); Lymphocyte # 1.47 X10^3/ul (0.83-4.51); Lymphocyte % 24.1 % (19-41); Mean Corp Hgb Conc 31.9 g/dL (32-36); Mean Platelet Vol. 10.3 fl (6.2-12.0); Monocyte# 0.56 X10^3/uL; Monocyte% 9.2 % (0-10); NRBC Flagged by Analyzer 0 % (0-5); Neutrophil % 57.4 % (47-70); Platelet Count 180 K/mm3 (150-450); RBC Distribution Width CV 14.1 % (11.6-14.6); RBC Distribution Width SD 48.3 fl (35.1-43.9); Red Blood Count 5.33 M/mm3 (4.6-6.2); White Blood Count 6.1 K/mm3 (4.4-11.0)
[2022-10-17 10:57] LABS: Protein, Urine (Random) 14.9 mg/dL (<11.9); Protein:Creat Ratio 210 mg/g CRE (0-200)
[2022-10-17 11:00] LABS: Color, Urine Yellow (Yellow); Glucose, Dipstick Normal (Normal); Ketone-Dipstick Negative (Negative); Leukocyte Esterase-Dipstick Negative /ul (Negative); Nitrite-Dipstick Negative (Negative); Occult Blood-Urine Negative /ul (Negative); Protein-Dipstick Negative (Negative); Urine Bilirubin Dipstick Negative (Negative); Urine Clarity Clear (Clear); Urine Urobilinogen Normal (Normal)
[2022-10-17 11:24] LABS: PTHIN 128.9 pg/mL (18.4-80.1)
[2022-10-17 11:53] LABS: AST(SGOT) 15 U/L (15-37); Alanine Aminotransfer ALT/SGPT 24 U/L (16-61); Albumin, Serum 3.6 g/dL (3.2-5.0); Alkaline Phosphatase 82 U/L (45-117); Anion Gap 3 (5-15); BUN 23 mg/dL (7-18); BUN/Creat Ratio 18.9 RATIO (10-20); Calcium,Total 8.6 mg/dL (8.5-10.1); Chloride 109 mmol/L (98-107); Cholesterol 182 mg/dL (200); Creatinine, Serum 1.22 mg/dL (0.70-1.30); EST Glomerular Filtration Rate 62 mL/min (>60); Est Glom Filt Rate - Afr Amer 75 mL/min (>60); Globulin 3.6 g/dL (2.2-4.2); Glucose 97 mg/dL (74-106); High Density Lipoprotein 35 mg/dL; Phosphorus 2.8 mg/dL (2.5-4.9); Potassium 4.3 mmol/L (3.5-5.1); Protein, Total 7.2 g/dL (6.4-8.2); Sodium Level 140 mmol/L (136-145); Thyroid Stim Hormone (TSH) 4.33 uIU/mL (0.358-3.74); Triglycerides 267 mg/dL; Very Low Density Lipoprotein 53 mg/dL (5-40)
[2022-10-17 16:11] LABS: Hemoglobin A1c 5.8 % (3.8-5.6)
[2022-10-19 08:37] LABS: T4 Free Direct 0.78 ng/dL (0.76-1.46)
[2022-10-22 17:07] LABS: Anti-Thyroglobulin AB < 1.0 IU/mL (0.0-0.9); Thyroglobulin, Serum Qt. 14.9 ng/mL (1.4-29.2); Thyroid Peroxidase AB < 9 IU/mL (0-34)
== END | disposition home or self-care (01) ==
LOC: MFPLAB 08:05
PROVIDERS: PCP Family Medicine; Visit Provider Family Medicine
DX: R79.89 Other specified abnormal findings of blood chemistry (principal); N18.30 Chronic kidney disease, stage 3 unspecified; I12.9 Hypertensive chronic kidney disease with stage 1 through stage 4 chronic kidney disease, or unspecified chronic kidney disease; R73.02 Impaired glucose tolerance (oral)
CPT/HCPCS: 36415; 80053; 80061; 81001; 82570; 83036; 83970; 84100; 84156; 84432; 84439; 84443; 85025; 86376; 86800

== ENCOUNTER → 2023-03-05 | Outpatient (CLI) | payer MEDICARE, OTHER, SELFPAY ==
[2023-03-05 08:07] LABS: Bacteria 0 SEEN /hpf (None Seen); Mucous, Urine 0 SEEN /hpf (<or=2+); Red Blood Cells-Urine 0 SEEN /hpf (0-5); Squamous Epithelial Cells - UA 0 SEEN /hpf (0-5); White Blood Cells 0 SEEN /hpf (0-5)
[2023-03-05 10:03] LABS: Color, Urine Yellow (Yellow); Glucose, Dipstick Normal (Normal); Ketone-Dipstick Negative (Negative); Leukocyte Esterase-Dipstick Negative /ul (Negative); Nitrite-Dipstick Negative (Negative); Occult Blood-Urine Negative /ul (Negative); Protein-Dipstick Negative (Negative); Urine Bilirubin Dipstick Negative (Negative); Urine Clarity Clear (Clear); Urine Urobilinogen Normal (Normal)
[2023-03-05 10:10] LABS: Absolute Lymphocyte Count 1.65 X10^3/uL (0.83-4.51); Absolute Neutrophil Count 4.2 X10^3/uL (2.0-7.7); Basophil# 0.04 X10^3/uL; Basophil% 0.6 % (0-1); Eosinophil# 0.59 X10^3/uL; Eosinophils% 8.1 % (0-5); Hematocrit 49.1 % (40-54); Hemoglobin 15.8 g/dL (13.0-16.5); Lymphocyte # 1.65 X10^3/ul (0.83-4.51); Lymphocyte % 22.8 % (19-41); Mean Corp Hgb Conc 32.2 g/dL (32-36); Mean Corpuscular Hgb 30.3 pg (27.0-32.0); Mean Corpuscular Volume 94.1 fL (80-94); Mean Platelet Vol. 10.4 fl (6.2-12.0); Monocyte% 9.7 % (0-10); NRBC Flagged by Analyzer 0 % (0-5); Neutrophil # 4.23 X10^3/uL (2.7-7.7); Neutrophil % 58.4 % (47-70); Platelet Count 207 K/mm3 (150-450); Red Blood Count 5.22 M/mm3 (4.6-6.2); White Blood Count 7.2 K/mm3 (4.4-11.0)
[2023-03-05 10:17] LABS: Protein:Creat Ratio 271 mg/g CRE (0-200)
[2023-03-05 10:37] LABS: PTHIN 142.5 pg/mL (18.4-80.1)
[2023-03-05 10:39] LABS: ALB/GLOB Ratio 0.9 RATIO (0.9-2.4); AST(SGOT) 13 U/L (15-37); Alanine Aminotransfer ALT/SGPT 22 U/L (16-61); Albumin, Serum 3.7 g/dL (3.2-5.0); Alkaline Phosphatase 79 U/L (45-117); Anion Gap 5 (5-15); BUN 20 mg/dL (7-18); BUN/Creat Ratio 17.1 RATIO (10-20); Calcium,Total 9.3 mg/dL (8.5-10.1); Chloride 110 mmol/L (98-107); Cholesterol 194 mg/dL (200); Creatinine, Serum 1.17 mg/dL (0.70-1.30); EST Glomerular Filtration Rate 65 mL/min (>60); Est Glom Filt Rate - Afr Amer 79 mL/min (>60); Globulin 3.9 g/dL (2.2-4.2); Glucose 94 mg/dL (74-106); High Density Lipoprotein 39 mg/dL; PSA,Total - Annual Screen 3.68 ng/mL (0.00-4.00); Phosphorus 3.2 mg/dL (2.5-4.9); Potassium 4.2 mmol/L (3.5-5.1); Protein, Total 7.6 g/dL (6.4-8.2); Sodium Level 141 mmol/L (136-145); T4 Free Direct 0.84 ng/dL (0.76-1.46); Thyroid Stim Hormone (TSH) 5.79 uIU/mL (0.358-3.74); Triglycerides 213 mg/dL; Very Low Density Lipoprotein 43 mg/dL (5-40)
[2023-03-05 10:41] LABS: Vitamin D,25 Hydroxy 26.8 ng/mL
[2023-03-05 10:59] LABS: Hemoglobin A1c 5.8 % (3.8-5.6)
== END | disposition home or self-care (01) ==
LOC: MFPLAB 08:04
PROVIDERS: PCP Family Medicine; Visit Provider Family Medicine
DX: Z12.5 Encounter for screening for malignant neoplasm of prostate (principal); N18.30 Chronic kidney disease, stage 3 unspecified; R73.02 Impaired glucose tolerance (oral); E78.1 Pure hyperglyceridemia; I12.9 Hypertensive chronic kidney disease with stage 1 through stage 4 chronic kidney disease, or unspecified chronic kidney disease
CPT/HCPCS: 80053; 80061; 81001; 82306; 82570; 83036; 83970; 84100; 84153; 84156; 84439; 84443; 85025; G0103

== ENCOUNTER → 2023-07-09 | Outpatient (CLI) | payer MEDICARE, OTHER, SELFPAY ==
[2023-07-09 08:02] LABS: Bacteria 0 SEEN /hpf (None Seen); Mucous, Urine 0 SEEN /hpf (<or=2+); Red Blood Cells-Urine 0 SEEN /hpf (0-5); Squamous Epithelial Cells - UA 0 SEEN /hpf (0-5); White Blood Cells 0 SEEN /hpf (0-5)
[2023-07-09 09:57] LABS: Color, Urine Yellow (Yellow); Glucose, Dipstick Normal (Normal); Ketone-Dipstick Negative (Negative); Leukocyte Esterase-Dipstick Negative /ul (Negative); Nitrite-Dipstick Negative (Negative); Occult Blood-Urine Negative /ul (Negative); Protein-Dipstick Negative (Negative); Urine Bilirubin Dipstick Negative (Negative); Urine Clarity Clear (Clear); Urine Urobilinogen Normal (Normal)
[2023-07-09 09:58] LABS: Absolute Lymphocyte Count 1.55 X10^3/uL (0.83-4.51); Basophil# 0.07 X10^3/uL; Basophil% 0.9 % (0-1); Eosinophil# 0.61 X10^3/uL; Eosinophils% 7.7 % (0-5); Hematocrit 50.4 % (40-54); Hemoglobin 16.3 g/dL (13.0-16.5); Lymphocyte # 1.55 X10^3/ul (0.83-4.51); Lymphocyte % 19.4 % (19-41); Mean Corp Hgb Conc 32.3 g/dL (32-36); Mean Corpuscular Hgb 29.5 pg (27.0-32.0); Mean Corpuscular Volume 91.3 fL (80-94); Mean Platelet Vol. 9.9 fl (6.2-12.0); Monocyte# 0.72 X10^3/uL; NRBC Flagged by Analyzer 0 % (0-5); Neutrophil # 4.99 X10^3/uL (2.7-7.7); Neutrophil % 62.6 % (47-70); Platelet Count 187 K/mm3 (150-450); RBC Distribution Width CV 13.9 % (11.6-14.6); RBC Distribution Width SD 46.7 fl (35.1-43.9); Red Blood Count 5.52 M/mm3 (4.6-6.2)
[2023-07-09 10:19] LABS: PTHIN 80.7 pg/mL (18.4-80.1)
[2023-07-09 10:25] LABS: Hemoglobin A1c 5.8 % (3.8-5.6)
[2023-07-09 10:32] LABS: ALB/GLOB Ratio 0.9 RATIO (0.9-2.4); AST(SGOT) 18 U/L (15-37); Alanine Aminotransfer ALT/SGPT 23 U/L (16-61); Albumin, Serum 3.6 g/dL (3.2-5.0); Alkaline Phosphatase 78 U/L (45-117); Anion Gap 6 (5-15); BUN 23 mg/dL (7-18); BUN/Creat Ratio 17.8 RATIO (10-20); Calcium,Total 9.1 mg/dL (8.5-10.1); Chloride 105 mmol/L (98-107); Cholesterol 185 mg/dL (200); Creatinine, Serum 1.29 mg/dL (0.70-1.30); EST Glomerular Filtration Rate 58 mL/min (>60); Est Glom Filt Rate - Afr Amer 70 mL/min (>60); Globulin 3.8 g/dL (2.2-4.2); Glucose 103 mg/dL (74-106); High Density Lipoprotein 36 mg/dL; Phosphorus 3.2 mg/dL (2.5-4.9); Potassium 3.8 mmol/L (3.5-5.1); Protein, Total 7.4 g/dL (6.4-8.2); Sodium Level 140 mmol/L (136-145); T4 Free Direct 0.83 ng/dL (0.76-1.46); Thyroid Stim Hormone (TSH) 4.92 uIU/mL (0.358-3.74); Triglycerides 293 mg/dL; Very Low Density Lipoprotein 59 mg/dL (5-40)
[2023-07-09 10:38] LABS: Protein, Urine (Random) 18.9 mg/dL (<11.9); Protein:Creat Ratio 289 mg/g CRE (0-200)
== END | disposition home or self-care (01) ==
PROVIDERS: PCP Family Medicine; Referring Provider Family Medicine; Visit Provider Family Medicine
DX: I12.9 Hypertensive chronic kidney disease with stage 1 through stage 4 chronic kidney disease, or unspecified chronic kidney disease (principal); N18.30 Chronic kidney disease, stage 3 unspecified; E03.8 Other specified hypothyroidism; R73.02 Impaired glucose tolerance (oral)
CPT/HCPCS: 36415; 80053; 80061; 81001; 82570; 83036; 83970; 84100; 84156; 84439; 84443; 85025

== ENCOUNTER 2023-08-07 03:38 | Emergency (ER) | payer MEDICARE, OTHER, SELFPAY ==
[2023-08-07 03:41] VITALS: BP 123/50; PULSE 73; RESP 18; TEMP 39.1; O2SAT 98; BMI 29.9
[2023-08-07 03:43] VITALS: BP 123/50; PULSE 83; RESP 19; TEMP 39.1; O2SAT 96
--- NOTE | 2023-08-07 03:45 | ED.VIS.LOWEX ---
HPI History of Present Illness Chief Complaint: General Illness Informant: patient and EMS Narrative Narrative: Patient woke up around 2 hours ago at 1:30 AM feeling cold and having chills, states he decided to put on his close and get back into bed to try to get warm. Eventually he got up and checked his temperature and he was measuring 100.5. He had an unusual pain in his right medial thigh so he called EMS bring him to the hospital now the pain is barely there anymore but he still feels cold. No other symptoms. [place] fine when he went to bed. No known sick contacts. No travel out of the area. No unusual food intake. Lives with his who is not ill right now. Does not do any IV drugs. No recent hospitalization or surgery. [facility] Medical History Wears glasses Alcohol use Arthritis Non-smoker History of edema Hypertension Home Medications ?Medication ?Instructions ?Recorded ?Last Taken ?Type amlodipine 10 mg tablet 10 mg PO DAILY 10/11/21 10/15/21 History lisinopril 20 mg tablet 20 mg PO DAILY 10/11/21 10/15/21 History metoprolol tartrate 100 mg tablet 100 mg PO BID 10/11/21 10/15/21 History levofloxacin 750 mg tablet 750 mg PO Q24H #5 tabs 08/07/23 Unknown Rx Allergy/AdvReac Type Severity Reaction Status Date / Time No Known Allergies Allergy Verified 10/11/21 12:14 Surgical History Hx of inguinal hernia repair History of hydrocelectomy Social History Smoking Status: Never smoker ROS ROS ED Constitutional Constitutional ED: Reports chills and fever(s) Eyes Eyes: Denies change in vision or diplopia ENT ENT ED: Denies rhinorrhea or sore throat Cardiovascular Cardiovascular: Denies chest pain or palpitations Respiratory/Chest Respiratory/Chest: Denies cough or dyspnea Gastrointestinal Gastrointestinal: Denies abdominal pain, diarrhea, nausea or vomiting Genitourinary Genitourinary ED: Denies dysuria or hematuria Musculoskeletal Musculoskeletal: Reports as per HPI and extremity pain; Denies back pain or neck pain Integumentary Denies abscess or rash Neurologic Neurologic: Denies headache(s), paresthesias or weakness Psychiatric Psychiatric: Denies anxiety or suicidal thoughts EXAM Physical Exam Const Vital Signs: 08/07/23 03:41 08/07/23 03:43 08/07/23 03:48 Temperature 102.3 F H 102.3 F H Temperature Source Oral Oral Pulse Rate 73 83 Respiratory Rate 18 19 H Respiratory Effort Normal Respiratory Pattern Normal Blood Pressure 123/50 H 123/50 H Blood Pressure Mean 74 74 Pulse Ox 98 96 Oxygen Delivery Method Room Air Room Air Positive well nourished and well developed General Appearance ED: well developed and NAD HEENT Reports moist mucous membranes HEENT Narrative: TMs normal bilaterally. Throat normal. normocephalic and atraumatic Eyes PERRL and EOMs intact bilaterally Neck full ROM and supple Neck Narrative: No cervical lymphadenopathy. Full range of motion no meningismus. Chest Wall inspection of chest normal and palpation of chest normal Resp normal respiratory effort and clear to auscultation bilaterally Cardio regular rate, regular rhythm and no murmurs GI non-tender and non-distended Auscultation: normoactive bowel sounds Palpation: soft Back/Spine no CVA tenderness General Back: other FROM Extremity normal to inspection Extremity Narrative: Normal inspection of right thigh which is nontender, there is no palpable cords, rash, lesions, or palpable lymphadenopathy in the groin/medial thigh. Full range of motion all joints all 4 extremities, all compartments soft and nondistended. No asymmetry in the lower extremities. No wounds or nidus for any obvious infection. General Extremety ED: Negative for edema, pulses abnormal or tenderness General Extremity: Negative for edema or pulses abnormal Neuro oriented x3, CN's II-XII intact bilaterally and no sensory deficits noted Sensorium / Orientation: awake and alert Motor Exam: strength 5/5 throughout Psych mental status grossly normal Skin no rashes or lesions noted and no wounds MDM MDM MDM Narrative Medical decision making narrative: Patient here is a 102.3 temperature. He took aspirin earlier were given him Tylenol, he does not have any other symptoms right now. Going to screen him for causes of fevers with labs to put in contacts, COVID/influenza/RSV swab, chest x-ray, urinalysis. My interpretation 2 view chest x-ray shows no acute infiltrates; radiology's interpretation is that there may be atelectasis versus an early infiltrate in the right lower lobe. Given his lack of symptoms and normal exam, normal pulse oximetry, lack of tachycardia my suspicion is that this is atelectasis. However I can appreciate the fact that he is 73. The rest of his testing is noted. There is no other clear sign of an etiology for his fever. He was given Tylenol he is doing very well right now he is asymptomatic and his leg does not hurt anymore. It is normal on inspection and palpation. I reassured him and family, discussed with 2 other family members that arrived a little after the initial evaluation. Also did a COVID/influenza/RSV swab that is negative. They are in agreement, this could very easily be a different virus. Could also be early pneumonia that he has not developed symptoms with. Could also be shingles that started hurting him in the leg and has not developed a rash yet, I do not think there is a blood clot since his leg is normal and symmetric and asymptomatic at this time, and there is no sign of cellulitis to treat right now. I am going to give him a [id number] prescription for Levaquin, if he develops respiratory symptoms specifically then I recommend taking the prescription until it is completely gone, otherwise I would follow-up with his doctor for repeat evaluation. Lab Data Attestation: I reviewed the patient's lab results. Labs: Laboratory Results - last 24 hr 08/07/23 08/07/23 04:15 04:30 WBC 13.9 H RBC 5.18 Hgb 15.5 Hct 47.7 MCV 92.1 MCH 29.9 MCHC 32.5 RDW Std Deviation 47.1 H RDW Coeff of Taisha 13.7 Plt Count 159 MPV 9.1 Immature Gran % (Auto) 0.600 Neut % (Auto) 91.3 H Lymph % (Auto) 4.2 L [place] % (Auto) 2.0 Eos % (Auto) 1.5 Baso % (Auto) 0.4 Absolute Neuts (auto) 12.7 H Absolute Lymphs (auto) 0.59 L Nucleated RBC % 0 Sodium 140 Potassium 3.7 Chloride 106 Carbon Dioxide 26.0 Anion Gap 8 BUN 32 H Creatinine 1.45 H Estim Creat Clear Calc 52.37 Est GFR (MDRD) Af Amer 61 Est GFR (MDRD) Non-Af 51 L BUN/Creatinine Ratio 22.1 H Glucose 126 H Calcium 9.1 Urine Color Yellow Urine Clarity Clear Urine pH 7.0 Ur Specific [place] 1.010 Urine Protein Negative Urine Glucose (UA) Normal Urine Ketones Negative Urine Occult Blood Negative Urine Nitrite Negative Urine Bilirubin Negative Urine Urobilinogen Normal Ur Leukocyte Esterase Negative Urine RBC 0 SEEN Urine WBC 0 SEEN Ur Squamous Epith Cells 0 SEEN Urine Bacteria 0 SEEN Urine Mucus 0 SEEN Radiography Diagnostic Testing: Clinical Impression(s) from Imaging Studies Chest X-Ray 08/07/23 03:53 IMPRESSION: Patchy lingular airspace disease atelectasis may represent pneumonia. Electronically Signed: Evelin Banuelos MD at 5:02 EDT Reading Location ID and State: [address] [place] [address] , Service support , Discharge Plan Triage Chief Complaint: General Illness Other Complaint: Lower Extremity Injury ED Provider: Sid Kang Dx/Rx/DC Orders Clinical Impression: Fever Instructions: ED FUO Adult Prescriptions: New levofloxacin 750 mg tablet 750 mg PO Q24H Qty: 5 0RF No Action metoprolol tartrate 100 mg Tablet 100 mg PO BID lisinopril 20 mg Tablet 20 mg PO DAILY amlodipine 10 mg Tablet 10 mg PO DAILY Primary Care Provider: Samuel Bazan Referrals: Samuel Bazan MD [Primary Care Provider] - (call for follow up appt) Activity Restrictions/Additional Instructions: Fill and take antibiotic if you develop respiratory symptoms such as cough, trouble breathing, significant congestion. Print Language: [place] Disposition Disposition: Home, Self Care
--- NOTE | 2023-08-07 03:53 | RAD_ITS ---
STUDY: X-RAY CHEST REASON FOR EXAM: Male, 73 years old patient with fever. TECHNIQUE: PA and lateral views of the chest. COMPARISON: Prior comparison studies are not available for review at this time. FINDINGS: Cardiac monitoring leads are present. Lungs are expanded. There is suggestion for a patchy lingular airspace disease and possible pneumonia. There is no demonstrated pleural abnormality. Normal size heart. Normal mediastinum and abdon. Normal visualized pulmonary arteries. There is atherosclerotic calcification of the aortic arch with tortuosity. There are diffuse degenerative changes of the visualized thoracic spine. Normal visualized ribs, clavicles, and shoulders. There is no demonstrated abnormality of the visualized soft tissue structures of the upper abdomen. RAD/Chest PA and Lateral IMPRESSION: Patchy lingular airspace disease atelectasis may represent pneumonia. Electronically Signed: Evelin Baunelos MD at 5:02 EDT ,
[2023-08-07 04:21] LABS: Absolute Lymphocyte Count 0.59 X10^3/uL (0.83-4.51); Absolute Neutrophil Count 12.7 X10^3/uL (2.0-7.7); Basophil# 0.05 X10^3/uL; Basophil% 0.4 % (0-1); Eosinophil# 0.21 X10^3/uL; Eosinophils% 1.5 % (0-5); Hematocrit 47.7 % (40-54); Hemoglobin 15.5 g/dL (13.0-16.5); Lymphocyte # 0.59 X10^3/ul (0.83-4.51); Lymphocyte % 4.2 % (19-41); Mean Corp Hgb Conc 32.5 g/dL (32-36); Mean Corpuscular Hgb 29.9 pg (27.0-32.0); Mean Corpuscular Volume 92.1 fL (80-94); Mean Platelet Vol. 9.1 fl (6.2-12.0); Monocyte# 0.28 X10^3/uL; NRBC Flagged by Analyzer 0 % (0-5); Neutrophil # 12.72 X10^3/uL (2.7-7.7); Neutrophil % 91.3 % (47-70); POSITIVE DIFFERENTIAL YES; Platelet Count 159 K/mm3 (150-450); RBC Distribution Width CV 13.7 % (11.6-14.6); RBC Distribution Width SD 47.1 fl (35.1-43.9); Red Blood Count 5.18 M/mm3 (4.6-6.2); White Blood Count 13.9 K/mm3 (4.4-11.0)
[2023-08-07] MEDS: Acetaminophen 500 MG Tablet 1000 MG PO (04:21)
[2023-08-07 04:42] LABS: Bacteria 0 SEEN /hpf (None Seen); Mucous, Urine 0 SEEN /hpf (<or=2+); Red Blood Cells-Urine 0 SEEN /hpf (0-5); Squamous Epithelial Cells - UA 0 SEEN /hpf (0-5); White Blood Cells 0 SEEN /hpf (0-5)
[2023-08-07 04:43] LABS: Color, Urine Yellow (Yellow); Glucose, Dipstick Normal (Normal); Ketone-Dipstick Negative (Negative); Leukocyte Esterase-Dipstick Negative /ul (Negative); Nitrite-Dipstick Negative (Negative); Occult Blood-Urine Negative /ul (Negative); Protein-Dipstick Negative (Negative); Urine Bilirubin Dipstick Negative (Negative); Urine Clarity Clear (Clear); Urine Urobilinogen Normal (Normal)
[2023-08-07 04:53] LABS: Anion Gap 8 (5-15); BUN 32 mg/dL (7-18); BUN/Creat Ratio 22.1 RATIO (10-20); Calcium,Total 9.1 mg/dL (8.5-10.1); Chloride 106 mmol/L (98-107); Creatinine, Serum 1.45 mg/dL (0.70-1.30); EST Glomerular Filtration Rate 51 mL/min (>60); Est Glom Filt Rate - Afr Amer 61 mL/min (>60); Estimated Creatinine Clearance 52.37 ml/min; Glucose 126 mg/dL (74-106); Potassium 3.7 mmol/L (3.5-5.1); Sodium Level 140 mmol/L (136-145)
[2023-08-07 06:05] VITALS: BP 115/64; PULSE 68; RESP 17; TEMP 36.9; O2SAT 98
== END 2023-08-07 06:06 | disposition home or self-care (01) ==
PROVIDERS: Emergency Provider Emergency Medicine; PCP Family Medicine; Visit Provider Emergency Medicine
DX: R50.9 Fever, unspecified (principal); I10 Essential (primary) hypertension
CPT/HCPCS: 71046; 80048; 81001; 85025; 87631; 99283; A4216

== ENCOUNTER → 2023-08-09 | Outpatient (CLI) | payer MEDICARE, OTHER, SELFPAY ==
--- NOTE | 2023-08-09 10:23 | VDLE_ITS ---
Reason For Study: Right leg edema RIGHT LEFT GSV is normal. CFV is compressible, spontaneous, phasic, CFV is compressible, spontaneous, phasic, competent, and demonstrates normal competent and demonstrates normal augmentation. augmentation. FV is compressible, spontaneous, phasic, competent and demonstrates normal augmentation. POP V is compressible, spontaneous, phasic, competent and demonstrates normal augmentation. T/P Trunk is compressible. PTV is compressible. RT PerV is compressible. Multiple vascularized lymph nodes noted in the right groin with the largest measuring 2.97 x 1.3 cm. Procedure This is a venous duplex using B-mode, color flow and spectral Doppler. Exam performed in department. A preliminary report was called and/or faxed to Dr. Bazan. VL/Venous Duplex US, Unilateral Interpretation Summary There is no evidence of right lower extremity deep vein thrombosis. Right great saphenous vein appears patent and compressible segmentally. Several right groin lymph nodes no oumar the largest being 2.97 x 1.3 cm Normal flow patterns left common femoral vein Ordering Physician: Samuel Bazan Referring Physician: Samuel Bazan Performed By: Dolores Travis RVT
--- NOTE | 2023-08-09 11:13 | RAD_ITS ---
INDICATION: CHEST PAIN EXAMINATION/TECHNIQUE: X-RAY - XR Chest 2 Views COMPARISON: 08/07/2023 FINDINGS: LINES/DEVICES: None. LUNGS: No consolidation, edema or effusion. No pneumothorax. MEDIASTINUM AND CARDIOVASCULAR STRUCTURES: Cardiac silhouette not enlarged. Central airways and mediastinal contour are unremarkable. BONES AND SOFT TISSUES: No acute changes. RAD/Chest PA and Lateral IMPRESSION: No radiographic evidence of acute cardiopulmonary disease. Electronically Signed: Romeo Whittington MD at 20:23 EDT ,
== END | disposition home or self-care (01) ==
PROVIDERS: PCP Family Medicine; Referring Provider Family Medicine; Visit Provider Family Medicine
DX: R60.0 Localized edema (principal); R93.89 Abnormal findings on diagnostic imaging of other specified body structures
CPT/HCPCS: 71046; 93971

== ENCOUNTER 2023-08-12 16:15 | Inpatient (IN) | payer MEDICARE, OTHER, SELFPAY ==
[2023-08-12 16:16] VITALS: BP 107/64; PULSE 55; RESP 18; TEMP 36.3; O2SAT 96; BMI 28.5
[2023-08-12 17:21] LABS: Hematocrit 46.2 % (40-54); Hemoglobin 15.2 g/dL (13.0-16.5); Mean Corp Hgb Conc 32.9 g/dL (32-36); Mean Corpuscular Hgb 30.2 pg (27.0-32.0); Mean Corpuscular Volume 91.8 fL (80-94); Mean Platelet Vol. 9.3 fl (6.2-12.0); POSITIVE COUNT YES; POSITIVE MORPHOLOGY YES; Platelet Count 226 K/mm3 (150-450); RBC Distribution Width CV 14.6 % (11.6-14.6); RBC Distribution Width SD 48.8 fl (35.1-43.9); Red Blood Count 5.03 M/mm3 (4.6-6.2); White Blood Count 11.8 K/mm3 (4.4-11.0)
[2023-08-12 17:22] LABS: Differential Indicated MANUAL DIFF
[2023-08-12] MEDS: Piperacil/Tazobactam 4.5 GM in 0.9% Normal Saline (100mL MB+) 100 ML IV (17:28)
[2023-08-12 17:33] LABS: International Normalized Ratio 1.2; Prothrombin Time (Protime)PT. 15.3 SECONDS (11.7-14.9)
[2023-08-12 17:34] LABS: Partial Thromboplast Time 30.6 Seconds (24.1-36.2)
[2023-08-12 17:41] LABS: AST(SGOT) 23 U/L (15-37); Alanine Aminotransfer ALT/SGPT 41 U/L (16-61); Albumin, Serum 2.8 g/dL (3.2-5.0); Alkaline Phosphatase 88 U/L (45-117); Anion Gap 4 (5-15); BUN 46 mg/dL (7-18); BUN/Creat Ratio 25.4 RATIO (10-20); Bilirubin, Direct 0.11 mg/dL (0.00-0.30); Calcium,Total 9.1 mg/dL (8.5-10.1); Chloride 105 mmol/L (98-107); Creatinine, Serum 1.81 mg/dL (0.70-1.30); EST Glomerular Filtration Rate 39 mL/min (>60); Est Glom Filt Rate - Afr Amer 48 mL/min (>60); Estimated Creatinine Clearance 42.31 ml/min; Globulin 4.4 g/dL (2.2-4.2); Glucose 111 mg/dL (74-106); Potassium 3.7 mmol/L (3.5-5.1); Protein, Total 7.2 g/dL (6.4-8.2); Sodium Level 138 mmol/L (136-145)
--- NOTE | 2023-08-12 17:52 | EX.ED.DYSGE1 ---
HPI History of Present Illness Chief Complaint: Lower Extremity Injury Informant: patient and spouse/S.O. [facility] Medical History Wears glasses Alcohol use Arthritis Non-smoker History of edema Hypertension Home Medications ?Medication ?Instructions ?Recorded ?Last Taken ?Type amlodipine 10 mg tablet 10 mg PO DAILY 10/11/21 08/12/23 History lisinopril 20 mg tablet 20 mg PO DAILY 10/11/21 08/12/23 History hydrochlorothiazide 12.5 mg tablet 12.5 mg PO DAILY 08/07/23 08/12/23 History doxycycline monohydrate 100 mg 100 mg PO BID 08/12/23 08/12/23 History capsule metoprolol succinate 100 mg 100 mg PO DAILY 08/12/23 08/12/23 History tablet,extended release 24 hr Allergy/AdvReac Type Severity Reaction Status Date / Time No Known Allergies Allergy Verified 08/12/23 16:16 Surgical History Hx of inguinal hernia repair History of hydrocelectomy Social History Smoking Status: Never smoker ROS ROS ED Constitutional Constitutional ED: Reports fever(s); Denies chills or weight loss Eyes Eyes: Denies change in vision or diplopia ENT ENT ED: Denies ear pain, rhinorrhea or sore throat Cardiovascular Cardiovascular: Denies chest pain, orthopnea, palpitations or racing heartbeat Respiratory/Chest Respiratory/Chest: Denies cough, dyspnea or orthopnea Gastrointestinal Gastrointestinal: Denies abdominal pain, diarrhea, nausea or vomiting Genitourinary Genitourinary ED: Denies dysuria, hematuria or urinary frequency Musculoskeletal Musculoskeletal: Denies arthralgias, back pain, myalgias or neck pain Integumentary Reports rash; Denies abscess Neurologic Neurologic: Denies headache(s) or weakness Psychiatric Psychiatric: Denies anxiety, depression, suicidal ideation or suicidal thoughts Endocrine Endocrinology: Denies polydipsia, polyphagia or polyuria Allergic/Immunologic Allergic/Immunologic ED: Denies mouth swelling, tongue swelling or urticaria EXAM Physical Exam Const Vital Signs: 08/12/23 16:16 Temperature 97.3 F L Temperature Source Temporal Pulse Rate 55 L Respiratory Rate 18 Blood Pressure 107/64 Blood Pressure Mean 78 Pulse Ox 96 Oxygen Delivery Method Room Air Positive well nourished and well developed General Appearance ED: well developed HEENT Reports normocephalic, head/scalp atraumatic and moist mucous membranes Eyes PERRL and EOMs intact bilaterally Neck no lymphadenopathy, supple and no JVD Resp normal respiratory effort and clear to auscultation bilaterally Cardio regular rate, regular rhythm and no murmurs GI normal to inspection, nondistended, normoactive bowel sounds and non-tender Palpation: soft Back/Spine no CVA tenderness and normal ROM Extremity Extremity Narrative: Right leg and foot demonstrates erythema increased warmth and swelling. Tender to palpation. General Extremety ED: Yes edema General Extremity: edema right lower extremity Neuro oriented x3 and CN's II-XII intact bilaterally Sensorium / Orientation: alert Motor Exam: strength 5/5 throughout Psych mental status grossly normal Mood & Affect: Negative for depressed or tearful Skin no rashes or lesions noted and no wounds MDM MDM MDM Narrative Medical decision making narrative: White count is slightly elevated 11.8. Normal coags. His creatinine however is elevated at 1.81 with a BUN of 46. He denies any change in urine. He states he has been hydrating. Lactic acid is normal. Went ahead and obtain blood cultures. Also provided vancomycin and Zosyn to the patient and IV fluids. We are waiting on a urine specimen. My plan is admission to the hospital. I am wondering if he could have a streptococcal infection and nephritis secondary. The calf is still nontender and the thigh is asymptomatic. He recently underwent a duplex ultrasound send do not feel strongly need to repeat this at this time. History & Record Review Discussion w/independent historian: Patient and Family Lab Data Attestation: I reviewed the patient's lab results. Labs: Laboratory Results - last 24 hr 08/12/23 08/12/23 17:00 18:07 WBC 11.8 H RBC 5.03 Hgb 15.2 Hct 46.2 MCV 91.8 MCH 30.2 MCHC 32.9 RDW Std Deviation 48.8 H RDW Coeff of Taisha 14.6 Plt Count 226 MPV 9.3 Neut % (Auto) Not Reportable Absolute Neuts (auto) 8.9 H Absolute Lymphs (auto) 1.88 Total Counted 100 Neutrophils % (Manual) 74 H Band Neutrophils % 1 Lymphocytes % (Manual) 16 L Monocytes % (Manual) 8 Eosinophils % (Manual) 1 Diff Path Review May foll Platelet Estimate ADEQUATE RBC Morphology NORM C+C PT 15.3 H INR 1.2 APTT 30.6 Sodium 138 Potassium 3.7 Chloride 105 Carbon Dioxide 29.0 Anion Gap 4 L BUN 46 H Creatinine 1.81 H Estim Creat Clear Calc 42.31 Est GFR (MDRD) Af Amer 48 L Est GFR (MDRD) Non-Af 39 L BUN/Creatinine Ratio 25.4 H Glucose 111 H Lactic Acid 1.0 Calcium 9.1 Total Bilirubin 0.50 Direct Bilirubin 0.11 AST 23 ALT 41 Alkaline Phosphatase 88 Total Protein 7.2 Albumin 2.8 L Globulin 4.4 H Urine Color Yellow Urine Clarity Clear Urine pH 5.0 Ur Specific [place] 1.025 Urine Protein 15 H Urine Glucose (UA) Normal Urine Ketones Negative Urine Occult Blood Negative Urine Nitrite Negative Urine Bilirubin Negative Urine Urobilinogen 1 H Ur Leukocyte Esterase Negative Urine RBC 0 SEEN Urine WBC 0 SEEN Ur Squamous Epith Cells 0 SEEN Urine Bacteria 0 SEEN Urine Mucus 0 SEEN Management Discussion w/another healthcare provider: Hospitalist (Dr. Leahy) Discharge Plan Dx/Rx/DC Orders Clinical Impression: AMRITA (acute kidney injury), Cellulitis of leg, right Disposition Disposition: Acute Care Hospital [facility]
[2023-08-12 17:53] LABS: Eosinophil 1 % (0-5); Lymphocyte 16 % (19-41); Monocyte 8 % (0-10); Neutrophil-Band 1 % (0-5); Neutrophil-Segmented 74 % (47-70); Total Cells Counted 100 (MANUAL DIFF)
[2023-08-12 17:54] LABS: Platelet Estimate ADEQUATE (ADEQ); Red Cell Morphology NORM C+C NORMAL (NORM C&C)
[2023-08-12 17:55] LABS: Absolute Lymphocyte Count 1.88 X10^3/uL (0.83-4.51); Absolute Neutrophil Count 8.9 X10^3/uL (2.0-7.7)
[2023-08-12] MEDS: 0.9% Normal Saline (1000mL) 1,000 ML 200 ML IV (18:00)
[2023-08-12] MEDS: Vancomycin HCl 2,000 MG in 0.9% Normal Saline (500mL Bag) 500 ML 250 MG IV (18:09)
[2023-08-12 18:44] LABS: Bacteria 0 SEEN /hpf (None Seen); Glucose, Dipstick Normal (Normal); Ketone-Dipstick Negative (Negative); Leukocyte Esterase-Dipstick Negative /ul (Negative); Mucous, Urine 0 SEEN /hpf (<or=2+); Nitrite-Dipstick Negative (Negative); Occult Blood-Urine Negative /ul (Negative); Protein-Dipstick 15 mg/dl (Negative); Red Blood Cells-Urine 0 SEEN /hpf (0-5); Specific Gravity, Urine 1.025 (1.002-1.030); Squamous Epithelial Cells - UA 0 SEEN /hpf (0-5); Urine Bilirubin Dipstick Negative (Negative); Urine Urobilinogen 1 mg/dl (Normal); White Blood Cells 0 SEEN /hpf (0-5)
--- NOTE | 2023-08-12 18:45 | PCM.HP.STD ---
HPI - General General Date of Admission: 08/12/23 Date of Service: 08/12/23 Chief Complaint: lower extremity injury HPI Narrative BRADLEY VERMA, is a 73 M with a PMH as outlined who presents via the ED on 08/12/2023 with a complaint of right leg pain which had been going on for about 5 days. He started having a fever 5 fays ago and came in to the ED. He was discharged home on PO levaquin. He subsequently developed swelling and redness of his RLE. He went to his PCP where he had a duplex that was negative and started on PO doxycycline. His redness and swelling of the RLE however worsened, with associated pain.. He now thinks he may have been injured by piece of metal which possibly cut him through his jeans a month ago. He denied any chest pain, shortness of breath, palpitations, dizziness, nausea or vomiting or any other. Never had cellulitis like this before and denies being diabetic. Review of systems otherwise negative. Vitals in the ED were BP of 107/64, IN of 55, RR of 18, temp of 97.3F and oxygen sats of 96% on room air. CBC showed wbc of 11.8, Hb of 15.2, platelets of 226. INR is 1.2. Chemistry showed sodium of 138, potassium of 3.7, bicarb of 29 and Cr of 1.81, with baseline being normal. He is being admitted for cellulitis of the RLE, failed outpatient therapy. [facility] Medical History Wears glasses Alcohol use Arthritis Non-smoker History of edema Hypertension Home Medications ?Medication ?Instructions ?Recorded ?Last Taken ?Type amlodipine 10 mg tablet 10 mg PO DAILY 10/11/21 08/12/23 History lisinopril 20 mg tablet 20 mg PO DAILY 10/11/21 08/12/23 History hydrochlorothiazide 12.5 mg tablet 12.5 mg PO DAILY 08/07/23 08/12/23 History doxycycline monohydrate 100 mg 100 mg PO BID 08/12/23 08/12/23 History capsule metoprolol succinate 100 mg 100 mg PO DAILY 08/12/23 08/12/23 History tablet,extended release 24 hr Allergy/AdvReac Type Severity Reaction Status Date / Time No Known Allergies Allergy Verified 08/12/23 16:16 Surgical History Hx of inguinal hernia repair History of hydrocelectomy Social History Smoking Status: Never smoker ROS Constitutional Constitutional: Reports fever(s); Denies anorexia, chills, fatigue, malaise or weakness Eyes Eyes: Denies change in vision ENT HEENT: Denies dysphagia or sore throat Cardiovascular Cardiovascular: Denies chest pain, dyspnea on exertion, edema, lightheadedness, orthopnea, palpitations, paroxysmal nocturnal dyspnea or rapid heart rate Respiratory/Chest Respiratory/Chest: Denies cough, dyspnea, shortness of breath at rest, shortness of breath with exertion or wheezing Gastrointestinal Gastrointestinal: Denies abdominal pain, constipation, diarrhea, nausea or vomiting Genitourinary Genitourinary: Denies burning urination Musculoskeletal Musculoskeletal: Denies back pain or joint swelling Neurologic Neurologic: Denies confusion, dizziness, focal weakness, headache(s), numbness, paresthesias, seizure-like activity, seizures or syncope Psychiatric Psychiatric: Denies anxiety or depression Endocrine Endocrinology: Denies change in body appearance Vital Signs Vital Signs Vital Signs: 08/12/23 16:16 Temperature 97.3 F L Temperature Source Temporal Pulse Rate 55 L Respiratory Rate 18 Blood Pressure 107/64 Blood Pressure Mean 78 Pulse Ox 96 Oxygen Delivery Method Room Air Weight Weight: 204 lb 9.6 oz Body Mass Index (BMI) 28.5 Physical Exam Const alert, oriented x3 and no apparent distress General Appearance: cooperative and uncooperative HEENT normocephalic, head/scalp atraumatic, hearing grossly normal bilaterally, moist oral mucous membranes and oropharynx normal Mouth: oral and palatal mucosa normal Eyes PERRL, EOMs intact bilaterally and conjunctivae normal Neck no lymphadenopathy, supple and no JVD Resp normal respiratory effort, no retractions, no use of accessory muscles and clear to auscultation bilaterally Cardio regular rate, regular rhythm, S1 normal heart sound, S2 normal heart sound and no murmurs GI normal to inspection, nondistended, normoactive bowel sounds, soft to palpation, non-tender and non-distended Extremity Extremity Narrative: RLE is edematous from foot to just below the knee, with diffuse erythema and 2+ pitting pedal edema; moderate differential warmth. DP pulse palpable Skin Skin Narrative: as under extremities Neuro CN's II-XII intact bilaterally, moves all extremities and no focal motor deficits Sensorium / Orientation: awake and alert Motor Exam: strength 5/5 throughout Psych affect normal Results Lab / Micro Data 08/12/23 17:00 08/12/23 17:00 Labs: Laboratory Results - last 24 hr 08/12/23 17:00: WBC 11.8 H, RBC 5.03, Hgb 15.2, Hct 46.2, MCV 91.8, MCH 30.2, MCHC 32.9, RDW Std Deviation 48.8 H, RDW Coeff of Taisha 14.6, Plt Count 226, MPV 9.3, Neut % (Auto) Not Reportable, Absolute Neuts (auto) 8.9 H, Absolute Lymphs (auto) 1.88, Total Counted 100, Neutrophils % (Manual) 74 H, Band Neutrophils % 1, Lymphocytes % (Manual) 16 L, Monocytes % (Manual) 8, Eosinophils % (Manual) 1, Diff Path Review July, Platelet Estimate ADEQUATE, RBC Morphology NORM C+C, PT 15.3 H, INR 1.2, APTT 30.6, Sodium 138, Potassium 3.7, Chloride 105, Carbon Dioxide 29.0, Anion Gap 4 L, BUN 46 H, Creatinine 1.81 H, Estim Creat Clear Calc 42.31, Est GFR (MDRD) Af Amer 48 L, Est GFR (MDRD) Non-Af 39 L, BUN/Creatinine Ratio 25.4 H, Glucose 111 H, Lactic Acid 1.0, Calcium 9.1, Total Bilirubin 0.50, Direct Bilirubin 0.11, AST 23, ALT 41, Alkaline Phosphatase 88, Total Protein 7.2, Albumin 2.8 L, Globulin 4.4 H Assessment & Plan Assessment/Plan (1) Cellulitis of leg, right: (2) AMRITA (acute kidney injury): PLAN: Plan #Cellulitis of RLE failed outpatient therapy. Was placed on oral doxycycline by his PCP but his right lower extremity redness and swelling persisted. Symptoms have been going on for about 4 to 5 days. He had a duplex done on outpatient basis 3 days ago and it was negative for any evidence of DVT. Admit to [facility]. Hydrate gently with IV fluids on account of AMRITA. Started on IV vancomycin and Zosyn in the ED. will continue with iV unasyn. Blood cultures pending. MRSA nasal screeen ordered . Tylenol and p.o. oxycodone as well as IV morphine prn for pain Apply Justo wraps to lower extremity. #AMRITA: Creatinine is 1.81 with a baseline of around 1.1. Creatinine was 1.45 on 08/07/2023. Will hydrate with IV fluids. Likely prerenal. Should improve with administration of fluids. If it does not improve with hydration, will work up further for AMRITA with urine electrolytes and renal USG hold lisinopril and hCTZ # Hypertension: On amlodipine, lisinopril and hydrochlorothiazide as well as metoprolol. Hold hydrochlorothiazide and lisinopril on account of AMRITA. IV hydralazine as needed. DVT prophylaxis: Lovenox renally dosed CODE STATUS: Full code Patient counseled extensively about different types of CODE STATUS including full code, DNR CCA and DNR CCA. Patient elects to be full code. Total [id number] time 17 minutes. Charges/Coding Visit Charges Inpatient E&M: 27195 Init Hosp L3 Procedures Hospitalists Procedures: [id number] Advncd Care Plan 30 Min
[2023-08-12 18:53] LABS: Color, Urine Yellow (Yellow); Urine Clarity Clear (Clear)
[2023-08-12 20:00] VITALS: BP 115/65; PULSE 59; RESP 18; TEMP 36.5; O2SAT 96
[2023-08-12 20:19] VITALS: BMI 28.3
[2023-08-12] MEDS: Acetaminophen 325 MG Tablet 650 MG PO (20:37)
[2023-08-12] MEDS: 0.9% Normal Saline (1000mL) 1,000 ML 150 ML IV (20:38)
[2023-08-12 20:41] VITALS: BP 125/70; PULSE 53; RESP 16; TEMP 37.1; O2SAT 98
[2023-08-12] MEDS: Ampicillin/Sulbactam 3 GM in 0.9% Normal Saline (100mL MB+) 100 ML IV (23:09)
[2023-08-13 03:39] VITALS: BP 120/61; PULSE 58; RESP 18; TEMP 36.4; O2SAT 99
[2023-08-13] MEDS: Acetaminophen 325 MG Tablet 650 MG PO ×4 (03:57→23:37)
[2023-08-13] MEDS: 0.9% Normal Saline (1000mL) 1,000 ML 150 ML IV (05:00)
[2023-08-13] MEDS: Ampicillin/Sulbactam 3 GM in 0.9% Normal Saline (100mL MB+) 100 ML IV ×4 (05:55→23:08)
[2023-08-13 06:39] LABS: Hematocrit 42.9 % (40-54); Hemoglobin 13.8 g/dL (13.0-16.5); Mean Corp Hgb Conc 32.2 g/dL (32-36); Mean Corpuscular Hgb 29.7 pg (27.0-32.0); Mean Corpuscular Volume 92.3 fL (80-94); Mean Platelet Vol. 9.4 fl (6.2-12.0); POSITIVE COUNT YES; POSITIVE MORPHOLOGY YES; Platelet Count 205 K/mm3 (150-450); RBC Distribution Width CV 14.5 % (11.6-14.6); RBC Distribution Width SD 49.2 fl (35.1-43.9); Red Blood Count 4.65 M/mm3 (4.6-6.2); White Blood Count 11.3 K/mm3 (4.4-11.0)
[2023-08-13 07:03] LABS: Differential Indicated MANUAL DIFF
[2023-08-13 07:18] LABS: Anion Gap 8 (5-15); BUN 32 mg/dL (7-18); BUN/Creat Ratio 27.1 RATIO (10-20); Calcium,Total 8.1 mg/dL (8.5-10.1); Chloride 108 mmol/L (98-107); Creatinine, Serum 1.18 mg/dL (0.70-1.30); EST Glomerular Filtration Rate 64 mL/min (>60); Est Glom Filt Rate - Afr Amer 78 mL/min (>60); Estimated Creatinine Clearance 62.77 ml/min; Glucose 101 mg/dL (74-106); Potassium 3.6 mmol/L (3.5-5.1); Sodium Level 141 mmol/L (136-145)
[2023-08-13 08:05] VITALS: BP 118/66; PULSE 55; RESP 16; TEMP 37; O2SAT 94
--- NOTE | 2023-08-13 09:02 | PN.HOSP_ITS ---
Subjective Subjective Doing well, redness has improved. No issues overnight Objective Data Objective Data Vital Signs: Vital Signs Temp Pulse Resp BP Pulse Ox O2 Del Method 98.6 F 55 L 16 118/66 94 Room Air 08/13/23 08:05 08/13/23 08:05 08/13/23 08:05 08/13/23 08:05 08/13/23 08:05 08/13/23 08:05 Oxygen Delivery Method Room Air Weight: 197 lb 5.019 oz Body Mass Index (BMI) 28.3 Intake & Output: Intake and Output for Last 24 Hours 08/12/23 08/13/23 08/14/23 03:59 03:59 03:59 Intake Total 2478.67 / 2478.67 712 / 712 Balance 2478.67 / 2478.67 712 / 712 Lab / Micro Data 08/13/23 05:33 08/13/23 05:33 Labs: Laboratory Results - last 24 hr 08/12/23 17:00: WBC 11.8 H, RBC 5.03, Hgb 15.2, Hct 46.2, MCV 91.8, MCH 30.2, MCHC 32.9, RDW Std Deviation 48.8 H, RDW Coeff of Taisha 14.6, Plt Count 226, MPV 9.3, Neut % (Auto) Not Reportable, Absolute Neuts (auto) 8.9 H, Absolute Lymphs (auto) 1.88, Total Counted 100, Neutrophils % (Manual) 74 H, Band Neutrophils % 1, Lymphocytes % (Manual) 16 L, Monocytes % (Manual) 8, Eosinophils % (Manual) 1, Diff Path Review July, Platelet Estimate ADEQUATE, RBC Morphology NORM C+C, PT 15.3 H, INR 1.2, APTT 30.6, Sodium 138, Potassium 3.7, Chloride 105, Carbon Dioxide 29.0, Anion Gap 4 L, BUN 46 H, Creatinine 1.81 H, Estim Creat Clear Calc 42.31, Est GFR (MDRD) Af Amer 48 L, Est GFR (MDRD) Non-Af 39 L, B UN/Creatinine Ratio 25.4 H, Glucose 111 H, Lactic Acid 1.0, Calcium 9.1, Total Bilirubin 0.50, Direct Bilirubin 0.11, AST 23, ALT 41, Alkaline Phosphatase 88, Total Protein 7.2, Albumin 2.8 L, Globulin 4.4 H 08/12/23 18:07: Urine Color Yellow, Urine Clarity Clear, Urine pH 5.0, Ur Specific [place] 1.025, Urine Protein 15 H, Urine Glucose (UA) Normal, Urine Ketones Negative, Urine Occult Blood Negative, Urine Nitrite Negative, Urine Bilirubin Negative, Urine Urobilinogen 1 H, Ur Leukocyte Esterase Negative, Urine RBC 0 SEEN, Urine WBC 0 SEEN, Ur Squamous Epith Cells 0 SEEN, Urine Bacteria 0 SEEN, Urine Mucus 0 SEEN 08/13/23 05:33: WBC 11.3 H, RBC 4.65, Hgb 13.8, Hct 42.9, MCV 92.3, MCH 29.7, MCHC 32.2, RDW Std Deviation 49.2 H, RDW Coeff of Taisha 14.5, Plt Count 205, MPV 9.4, Neut % (Auto) Not Reportable, Sodium 141, Potassium 3.6, Chloride 108 H, Carbon Dioxide 25.0, Anion Gap 8, BUN 32 H, Creatinine 1.18, Estim Creat Clear Calc 62.77, Est GFR (MDRD) Af Amer 78, Est GFR (MDRD) Non-Af 64, BUN/Creatinine Ratio 27.1 H, Glucose 101, Calcium 8.1 L Physical Exam Narrative General: Alert, Oriented x3, Cooperative, No apparent distress HEENT: Atraumatic, PERRLA, EOMI, Normocephalic Oral: Moist Mucosa Neck: Supple, No JVD Lungs:, Normal air movement, No rhonchi, No wheeze, No rales Cardiovascular: Regular rate, Regular Rhythm, Normal S1, Normal S2, No murmurs Abdomen: Soft, Non Tender, Non-Distended, No Hepato-splenomegaly Extremities: No edema, Capillary Refill Less than 3 Seconds Skin: Cellulitis in the right lower extremity improved Musculoskeletal: No Tenderness to Palpation of Joints or Extremities Neurological: No focal neurological deficits, Motor Exam 5/5 strength throughout, Sensory exam intact to light touch and pain Psych/Mental Status: Normal Affect, Appropriate Assessment & Plan Assessment/Plan (1) Cellulitis of leg, right: (2) AMRITA (acute kidney injury): PLAN: Plan 1. Right lower extremity cellulitis/AMRITA ? She failed outpatient therapy with Levaquin and doxycycline ? Blood cultures are pending ? Continue with Vanco and Unasyn ? MRSA nasal screen is pending if negative can discontinue vancomycin ? Renal function back to baseline, AMRITA has resolved we will monitor 2. Essential HTN ? Continue with his home amlodipine and metoprolol, and can resume his hydrochlorothiazide and lisinopril tomorrow ? We will monitor make adjustments as necessary DVT: Lovenox Charges/Coding Visit Charges Inpatient E&M: 89834 Subs Hosp L2
[2023-08-13 09:43] LABS: M R Staph aureus DNA By PCR Negative (Negative); Probe Check PASS; Specimen Processing Control PASS; Staph aureus DNA By PCR POSITIVE (Negative)
[2023-08-13 10:06] VITALS: BP 124/76; PULSE 64; O2SAT 98
[2023-08-13] MEDS: amLODIPine 10 MG Tablet PO (10:09)
[2023-08-13 10:10] VITALS: BP 124/76; PULSE 64
[2023-08-13] MEDS: Metoprolol(XL)Succ 100 MG Tablet PO (10:10)
--- NOTE | 2023-08-13 10:55 | CASEMGMT ---
FLORI EDWARD Assessment: Face to Face with pt for initial transition planning/care coordination assessment. FLORI EDWARD introduced self and role at [facility], pt voices understanding and consents to assessment. Pt is A&O x4 and answers all questions appropriately at this time. Pt lying in bed in no distress. Care providers, pharmacy, and demographics verified/updated. Admitting Dx: cellulitis of Right Leg PCP:Hortensia Specialists:Denies Preferred Pharmacy:[facility] Insurance: [facility] [place]: yes LNOK: Ghazala Trinh, ; Lacey Wise, dtr Living Arrangements: Pt lives with in a single story home with 2 steps to enter. Pt reports he is I in ADL's and denies concerns at home. Transportation: Pt drives self and denies concerns with transportation. DME:Pt does not use any AD but has a shower chair, canes and walker available HHC/SNF: Denies hx of Pt states no concerns with going home at time of dc. Pt reports he does not have open wounds. He states that currently his leg is being wrapped and he or his could do this at home. Pt states no further concerns/needs. CM to follow. Advised pt to ask CM if any further question/concerns/needs arise, voices understanding. Pt Goal: Home Plan: Home Cailin RUBY CM
[2023-08-13 10:56] LABS: Lymphocyte 11 % (19-41); Monocyte 10 % (0-10); Myelocyte 2 % (0-0); Neutrophil-Band 1 % (0-5); Neutrophil-Segmented 76 % (47-70); Total Cells Counted 100 (MANUAL DIFF)
[2023-08-13 10:58] LABS: Platelet Estimate ADEQUATE (ADEQ); Red Cell Morphology NORM C+C NORMAL (NORM C&C)
[2023-08-13 12:17] VITALS: BP 115/59; PULSE 62; RESP 18; TEMP 36.7; O2SAT 98
[2023-08-13 12:24] LABS: Absolute Lymphocyte Count 1.25 X10^3/uL (0.83-4.51); Absolute Neutrophil Count 8.7 X10^3/uL (2.0-7.7)
[2023-08-13] MEDS: 0.9% Normal Saline (1000mL) 1,000 ML 100 ML IV (14:25)
[2023-08-13] MEDS: oxyCODONE 5 MG Tablet PO (21:14)
[2023-08-13 21:20] VITALS: BP 131/63; PULSE 55; RESP 17; TEMP 36.8; O2SAT 96
[2023-08-14] MEDS: Ampicillin/Sulbactam 3 GM in 0.9% Normal Saline (100mL MB+) 100 ML IV ×4 (05:01→23:13)
[2023-08-14] MEDS: oxyCODONE 5 MG Tablet PO ×4 (05:03→23:19)
[2023-08-14 05:31] VITALS: BP 128/79; PULSE 53; RESP 17; TEMP 36.7; O2SAT 97
[2023-08-14 07:25] LABS: Hematocrit 43.3 % (40-54); Hemoglobin 13.9 g/dL (13.0-16.5); Mean Corp Hgb Conc 32.1 g/dL (32-36); Mean Corpuscular Hgb 29.9 pg (27.0-32.0); Mean Corpuscular Volume 93.1 fL (80-94); Mean Platelet Vol. 9.1 fl (6.2-12.0); POSITIVE COUNT YES; POSITIVE MORPHOLOGY YES; Platelet Count 231 K/mm3 (150-450); RBC Distribution Width CV 14.4 % (11.6-14.6); RBC Distribution Width SD 49.2 fl (35.1-43.9); Red Blood Count 4.65 M/mm3 (4.6-6.2); White Blood Count 9.5 K/mm3 (4.4-11.0)
[2023-08-14 07:26] LABS: Differential Indicated MANUAL DIFF
[2023-08-14 07:54] LABS: Anion Gap 4 (5-15); BUN 19 mg/dL (7-18); BUN/Creat Ratio 18.8 RATIO (10-20); Calcium,Total 8.5 mg/dL (8.5-10.1); Chloride 109 mmol/L (98-107); Creatinine, Serum 1.01 mg/dL (0.70-1.30); EST Glomerular Filtration Rate 77 mL/min (>60); Est Glom Filt Rate - Afr Amer 93 mL/min (>60); Estimated Creatinine Clearance 73.34 ml/min; Glucose 105 mg/dL (74-106); Sodium Level 138 mmol/L (136-145)
[2023-08-14] MEDS: Morphine 2 MG/ML Syringe IV (08:30)
[2023-08-14 08:32] VITALS: PULSE 62
[2023-08-14] MEDS: amLODIPine 10 MG Tablet PO (08:32)
[2023-08-14] MEDS: Metoprolol(XL)Succ 100 MG Tablet PO (08:32)
[2023-08-14 09:07] LABS: Eosinophil 7 % (0-5); Lymphocyte 17 % (19-41); Metamyelocyte 1 % (0-1); Monocyte 5 % (0-10); Myelocyte 1 % (0-0); Neutrophil-Band 1 % (0-5); Neutrophil-Segmented 66 % (47-70); Platelet Estimate ADEQUATE (ADEQ); Promyelocyte 2 % (0-0); Red Cell Morphology NORM C+C NORMAL (NORM C&C); Total Cells Counted 100 (MANUAL DIFF)
[2023-08-14 09:08] LABS: Absolute Neutrophil Count 6.4 X10^3/uL (2.0-7.7)
--- NOTE | 2023-08-14 09:10 | PN.HOSP_ITS ---
Subjective Subjective Doing well, no issues overnight. Redness is improved Objective Data Objective Data Vital Signs: Vital Signs Temp Pulse Resp BP Pulse Ox O2 Del Method 98.1 F 62 17 128/79 H 97 Room Air 08/14/23 05:31 08/14/23 08:32 08/14/23 05:31 08/14/23 05:31 08/14/23 05:31 08/14/23 05:31 Oxygen Delivery Method Room Air Weight: 197 lb 5.019 oz Body Mass Index (BMI) 28.3 Intake & Output: Intake and Output for Last 24 Hours 08/13/23 08/14/23 08/15/23 03:59 03:59 03:59 Intake Total 2478.67 / 2478.67 4198.0 / 4198.0 232 / 232 Output Total 850 / 850 500 / 500 Balance 2478.67 / 2478.67 3348.0 / 3348.0 -268 / -268 Lab / Micro Data 08/14/23 06:41 08/14/23 06:41 Labs: Laboratory Results - last 24 hr 08/13/23 05:33: Absolute Neuts (auto) 8.7 H, Absolute Lymphs (auto) 1.25, Total Counted 100, Neutrophils % (Manual) 76 H, Band Neutrophils % 1, Lymphocytes % (Manual) 11 L, Monocytes % (Manual) 10, Myelocytes % 2 H, Diff Path Review Teresa proctor, Platelet Estimate ADEQUATE, RBC Morphology NORM C+C 08/13/23 07:53: S.aureus Protein A PCR POSITIVE H, MRSA (PCR) Negative 08/14/23 06:41: WBC 9.5, RBC 4.65, Hgb 13.9, Hct 43.3, MCV 93.1, MCH 29.9, MCHC 32.1, RDW Std Deviation 49.2 H, RDW Coeff of Taisha 14.4, Plt Count 231, MPV 9.1, Neut % (Auto) Not Reportable, Absolute Neuts (auto) 6.4, Absolute Lymphs (auto) 1.60, Total Counted 100, Neutrophils % (Manual) 66, Band Neutrophils % 1, L ymphocytes % (Manual) 17 L, Monocytes % (Manual) 5, Eosinophils % (Manual) 7 H, Metamyelocytes % 1, Myelocytes % 1 H, Promyelocytes % 2 H, Diff Path Review May hitesh, Platelet Estimate ADEQUATE, RBC Morphology NORM C+C, Sodium 138, Potassium 4.0, Chloride 109 H, Carbon Dioxide 25.0, Anion Gap 4 L, BUN 19 H, Creatinine 1.01, Estim Creat Clear Calc 73.34, Est GFR (MDRD) Af Amer 93, Est GFR (MDRD) Non-Af 77, BUN/Creatinine Ratio 18.8, Glucose 105, Calcium 8.5 Physical Exam Narrative General: Alert, Oriented x3, Cooperative, No apparent distress HEENT: Atraumatic, PERRLA, EOMI, Normocephalic Oral: Moist Mucosa Neck: Supple, No JVD Lungs:, Normal air movement, No rhonchi, No wheeze, No rales Cardiovascular: Regular rate, Regular Rhythm, Normal S1, Normal S2, No murmurs Abdomen: Soft, Non Tender, Non-Distended, No Hepato-splenomegaly Extremities: No edema, Capillary Refill Less than 3 Seconds Skin: Cellulitis in the right lower extremity improved Musculoskeletal: No Tenderness to Palpation of Joints or Extremities Neurological: No focal neurological deficits, Motor Exam 5/5 strength throughout, Sensory exam intact to light touch and pain Psych/Mental Status: Normal Affect, Appropriate Assessment & Plan Assessment/Plan (1) Cellulitis of leg, right: (2) AMRITA (acute kidney injury): PLAN: Plan 1. Right lower extremity cellulitis/AMRITA ?He failed outpatient therapy with Levaquin and doxycycline ? Blood cultures are pending ?MRSA screen is negative, continue with just Unasyn ? Renal function back to baseline, AMRITA has resolved we will monitor 2. Essential HTN ? Continue with his home amlodipine and metoprolol, and can resume his hydrochlorothiazide and lisinopril tomorrow ? We will monitor make adjustments as necessary DVT: Lovenox Charges/Coding Visit Charges Inpatient E&M: 74686 Subs Hosp L2
[2023-08-14 09:32] VITALS: BP 138/78; PULSE 62; RESP 16; TEMP 36.5; O2SAT 96
--- NOTE | 2023-08-14 11:34 | CT_ITS ---
CT RIGHT LOWER EXTREMITY WITH 3-D IMAGING CLINICAL INDICATION: Leg pain and swelling, DVT negative -- Right lower extremity. TECHNIQUE: Axial CT images of the right lower extremity was performed following the intravenous administration of 100 mL Isovue-300 contrast material. Coronal and sagittal reformats were provided. The protocol utilizes one or more of the following dose reduction techniques: automated exposure control, adjustment of mA and/or kV according to patient size,and/or use of iterative reconstruction technique. RADIATION DOSAGE (If Supplied By Facility): CTDIvol = ( 15.35 ) mGy, DLP = ( 983.16 ) mGycm COMPARISON: No relevant prior comparison study available. FINDINGS: Bones: There is a 3 mm subchondral cyst in the medial talar dome. There are small benign subcortical cysts in the distal tibial metaphysis and distal fibular metaphysis. Osseous structures are intact without evidence of fracture or dislocation. No lytic or blastic osseous masses. Soft Tissues: There are 2 focal areas of atrophy and fatty infiltration in the soleus muscle (axial series 2 images 89-117), probably the sequelae of prior old injuries. The deep soft tissue structures are otherwise unremarkable. There is a posterior calcaneal tuberosity spur with small calcifications in the distal Achilles tendon. There is mild subcutaneous soft tissue edema around the calf and moderate subcutaneous soft tissue edema around the ankle. There is no drainable fluid collection or abscess. CT/Extremity Lower WITH Contrast IMPRESSION: 2 focal areas of atrophy and fatty infiltration in the soleus muscle, probably the sequelae of prior old injuries. Posterior calcaneal tuberosity spur with small calcifications in the distal Achilles tendon. Mild subcutaneous soft tissue edema around the calf and moderate subcutaneous soft tissue edema around the ankle. Electronically Signed: Alvaro Watt MD at 12:31 EDT ,
[2023-08-14] MEDS: Acetaminophen 325 MG Tablet 650 MG PO ×2 (11:35→23:19)
[2023-08-14 11:47] VITALS: BP 138/97; PULSE 59; RESP 16; TEMP 36.7; O2SAT 97
[2023-08-14 15:13] VITALS: BP 134/73; PULSE 61; RESP 16; TEMP 36.7; O2SAT 99
[2023-08-14 15:24] LABS: Pathologist Review Reviewed
[2023-08-14 15:33] LABS: Pathologist Review Reviewed
[2023-08-14 15:40] LABS: Pathologist Review Reviewed
[2023-08-14 21:00] VITALS: BP 136/76; PULSE 55; RESP 16; TEMP 36.9; O2SAT 95
[2023-08-14] MEDS: 0.9% Saline Lock 10 ML Syringe IV (23:14)
[2023-08-15 03:04] VITALS: BP 126/66; PULSE 55; RESP 16; TEMP 36.7; O2SAT 93
[2023-08-15] MEDS: 0.9% Normal Saline (250mL Bag) 250 ML 15 ML IV (05:43)
[2023-08-15] MEDS: oxyCODONE 5 MG Tablet PO ×2 (05:44→09:49)
[2023-08-15] MEDS: Ampicillin/Sulbactam 3 GM in 0.9% Normal Saline (100mL MB+) 100 ML IV (05:44)
[2023-08-15] MEDS: Acetaminophen 325 MG Tablet 650 MG PO (05:44)
[2023-08-15] MEDS: amLODIPine 10 MG Tablet PO (07:52)
[2023-08-15 07:53] VITALS: PULSE 58
[2023-08-15] MEDS: Metoprolol(XL)Succ 100 MG Tablet PO (07:53)
[2023-08-15 08:23] VITALS: BP 129/84; PULSE 58; RESP 16; TEMP 36.8; O2SAT 97
--- NOTE | 2023-08-15 10:09 | DCINST_ITS ---
Discharge Instructions Diet Discharge Diet: No restrictions Activity Discharge Activity: Return to Normal Activity Dressing / Incision Call your doctor if you observe: Fever of 101 or Higher, Shortness of breath, Dizziness, Fainting spells, Swelling in the ankles, Chest pain and Increased palpitations (irregular heartbeat) Follow Up Care Test Results: Test results from this visit will be discussed in further detail at your follow- up appointment, if applicable. Discharge Plan Admission Admit Date/Time: 08/12/23 19:10 Attending Provider: Ish Lujan Primary Care Provider: Samuel Bazan Consulting Providers: Daria Leahy Discharge Orders/Prescriptions Prescriptions: New amoxicillin-pot clavulanate 875-125 mg tablet 1 tab PO BID 5 Days Qty: 10 0RF Continued lisinopril 20 mg Tablet 20 mg PO DAILY amlodipine 10 mg Tablet 10 mg PO DAILY hydrochlorothiazide 12.5 mg tablet 12.5 mg PO DAILY metoprolol succinate 100 mg tablet extended release 24 hr 100 mg PO DAILY Discontinued doxycycline monohydrate 100 mg capsule 100 mg PO BID Referrals / Follow Up: Samuel Bazan MD [Primary Care Provider] - Within 1 Week Disposition Disposition (needs filled in before D/C Order can be placed): Home, Self Care
--- NOTE | 2023-08-15 11:00 | CASEMGMT ---
FLORI CM into pt room, pt at bedside. Pt denies any homegoing needs. He states that he feels much better than yesterday. Pt has a walker at home that he can use should he need it.
--- NOTE | 2023-08-15 12:02 | PHA.DC.MR.R ---
Pharmacy [place] Med Reconciliation Pharmacy Service has performed discharge medication reconciliation for this patient. Medication education papers prepared, patient being wheeled out when counseling was attempted. Medications reviewed. The patient's discharge medication list was reviewed for discrepancies and discrepancies were resolved. Medications at Discharge Home Medications amlodipine 10 mg tablet 10 mg PO DAILY 10/11/21 lisinopril 20 mg tablet 20 mg PO DAILY 10/11/21 hydrochlorothiazide 12.5 mg tablet 12.5 mg PO DAILY 08/07/23 metoprolol succinate 100 mg tablet,extended release 24 hr 100 mg PO DAILY 08/12/23 amoxicillin 875 mg-potassium clavulanate 125 mg tablet 1 tab PO BID 5 days #10 tabs 08/15/23
--- NOTE | 2023-08-15 14:17 | PCM.DC.SUM ---
Providers Date of Admission: 08/12/23 Primary Care Physician: Dr. Samuel Bazan MD Reason For Visit: CELLULITIS OF THE RIGHT LEG Diagnosis Discharge Diagnosis (1) Cellulitis of leg, right: Status: Acute Code(s): L03.115 - Cellulitis of right lower limb (2) AMRITA (acute kidney injury): Status: Acute Code(s): N17.9 - Acute kidney failure, unspecified Medications at Discharge Home Medications amlodipine 10 mg tablet 10 mg PO DAILY 10/11/21 lisinopril 20 mg tablet 20 mg PO DAILY 10/11/21 hydrochlorothiazide 12.5 mg tablet 12.5 mg PO DAILY 08/07/23 metoprolol succinate 100 mg tablet,extended release 24 hr 100 mg PO DAILY 08/12/23 amoxicillin 875 mg-potassium clavulanate 125 mg tablet 1 tab PO BID 5 days #10 tabs 08/15/23 Hospital Course Operations None Procedures None Summary of Care Provided Minutes Spent on Discharge: 33 Hospital Course: Per HPI: BRADLEY VERMA, is a 73 M with a PMH as outlined who presents via the ED on 08/12/2023 with a complaint of right leg pain which had been going on for about 5 days. He started having a fever 5 fays ago and came in to the ED. He was discharged home on PO levaquin. He subsequently developed swelling and redness of his RLE. He went to his PCP where he had a duplex that was negative and started on PO doxycycline. His redness and swelling of the RLE however worsened, with associated pain.. He now thinks he may have been injured by piece of metal which possibly cut him through his jeans a month ago. He denied any chest pain, shortness of breath, palpitations, dizziness, nausea or vomiting or any other. Never had cellulitis like this before and denies being diabetic. Review of systems otherwise negative. Vitals in the ED were BP of 107/64, NC of 55, RR of 18, temp of 97.3F and oxygen sats of 96% on room air. CBC showed wbc of 11.8, Hb of 15.2, platelets of 226. INR is 1.2. Chemistry showed sodium of 138, potassium of 3.7, bicarb of 29 and Cr of 1.81, with baseline being normal. He is being admitted for cellulitis of the RLE, failed outpatient therapy. Hospital Course: 1. Right lower extremity cellulitis/AMRITA?73-year-old male presented to the hospital with failure of outpatient antibiotic therapy for right lower extremity cellulitis. No obvious wounds or he said that he did scratch his leg against a metal object truck. Blood cultures have been negative and his cellulitis has improved with vancomycin and Unasyn. The vancomycin was discontinued during his hospitalization secondary to a negative MRSA screen. He was continued on Unasyn and had reduction in both swelling, redness, though he was having some pain throughout his hospitalization especially with ambulation. He had had a lower extremity Doppler on 08/09/2023 which was negative for DVT so a CT of his right lower extremity was done which did not show any focal abscess or compartment syndrome. Today his blood cultures came back negative so I discussed with him the plan for possible discharge she expressed understanding of the risk benefits of going home and would like to go home today. Will continue with 5 more days of Augmentin with outpatient follow-up to his PCP. Today he also noted that his pain was significantly improved and he can ambulate without any significant discomfort. I did discuss with him the possibility of narcotics however he he felt that his pain was well-controlled with ibuprofen. Of note on admission his renal function was elevated to creatinine of 1.81 and he was started on IV fluids and his renal function improved to 1.01 on the day of discharge. Physical Exam Narrative General: Alert, Oriented x3, Cooperative, No apparent distress HEENT: Atraumatic, PERRLA, EOMI, Normocephalic Oral: Moist Mucosa Neck: Supple, No JVD Lungs:, Normal air movement, No rhonchi, No wheeze, No rales Cardiovascular: Regular rate, Regular Rhythm, Normal S1, Normal S2, No murmurs Abdomen: Soft, Non Tender, Non-Distended, No Hepato-splenomegaly Extremities: No edema, Capillary Refill Less than 3 Seconds Skin: Cellulitis in the right lower extremity improved Musculoskeletal: No Tenderness to Palpation of Joints or Extremities Neurological: No focal neurological deficits, Motor Exam 5/5 strength throughout, Sensory exam intact to light touch and pain Psych/Mental Status: Normal Affect, Appropriate Weight / BMI Weight Weight: 197 lb 5.019 oz Body Mass Index (BMI) 28.3 ABG / Lab / Microbiology Data 08/14/23 06:41 08/14/23 06:41 Laboratory: Laboratory Results - last 24 hr 08/12/23 17:00: Diff Path Review Reviewed 08/13/23 05:33: Diff Path Review Reviewed 08/14/23 06:41: Diff Path Review Reviewed Microbiology: Microbiology 08/12/23 17:14 Blood Culture (Wb) - Anticubital Right Blood Culture - Preliminary No growth in 48 hours. 08/12/23 17:00 Blood Culture (Wb) - Anticubital Left Blood Culture - Preliminary No growth in 48 hours. D/C Instructions Discharge Diet: No restrictions Call your doctor if you observe: Fever of 101 or Higher, Shortness of breath, Dizziness, Fainting spells, Swelling in the ankles, Chest pain and Increased palpitations (irregular heartbeat) Meaningful Use Info Meaningful Use Meaningful Use Diagnoses (Choose all that apply): None applicable Ischemic Stroke Statin Dosing Therapy Reference: STATIN DOSE THERAPY REFERENCE: * Patients > 75 years receive moderate or high dose statin therapy. * Patients 75 years or YOUNGER should receive HIGH intensity statin dose unless contraindicated. You will be required to document reason for non-treatment if statin daily dose does not meet guidelines. HIGH DOSE STATIN THERAPY DAILY Atorvastatin > than or = to 40 mg Rosuvastatin > than or = to 20 mg Amlodipine + Atorvastatin > than or = to 2.5/40 mg Ezetimibe + Simvastatin 10/80 mg Simvastatin 80mg Discharge Plan Admission Admit Date/Time: 08/12/23 19:10 Attending Provider: Ish Lujan Primary Care Provider: Samuel Bazan Consulting Providers: Daria Leahy Discharge Orders/Prescriptions Prescriptions: New amoxicillin-pot clavulanate 875-125 mg tablet 1 tab PO BID 5 Days Qty: 10 0RF Continued lisinopril 20 mg Tablet 20 mg PO DAILY amlodipine 10 mg Tablet 10 mg PO DAILY hydrochlorothiazide 12.5 mg tablet 12.5 mg PO DAILY metoprolol succinate 100 mg tablet extended release 24 hr 100 mg PO DAILY Discontinued doxycycline monohydrate 100 mg capsule 100 mg PO BID Referrals / Follow Up: Samuel Bazan MD [Primary Care Provider] - 08/22/23 11:20 am Disposition Disposition (needs filled in before D/C Order can be placed): Home, Self Care Charges/Coding Visit Charges Inpatient E&M: 40697 Disch Hosp >30min
== END 2023-08-15 11:54 | disposition home or self-care (01) | DRG 603 ==
LOC: ED 18:03 → MS3 19:34
PROVIDERS: Admitting Provider Student in an Organized Health Care Education/Training Program; Emergency Provider Emergency Medicine; PCP Family Medicine; Visit Provider Family Medicine
DX: L03.115 Cellulitis of right lower limb (principal); N17.9 Acute kidney failure, unspecified; I10 Essential (primary) hypertension; Z79.899 Other long term (current) drug therapy
CPT/HCPCS: 36415; 71046; 73701; 80048; 80076; 81001; 83605; 85025; 85610; 85730; 87040; 87640; 93971; 97162; 97530; 99283; J7030; J7040; J7050; Q9967; A4216; J0295

== ENCOUNTER → 2023-09-03 | Outpatient (CLI) | payer MEDICARE, OTHER, SELFPAY ==
[2023-09-03 16:37] LABS: Anion Gap 8 (5-15); BUN 26 mg/dL (7-18); BUN/Creat Ratio 19.4 RATIO (10-20); Calcium,Total 9.3 mg/dL (8.5-10.1); Chloride 107 mmol/L (98-107); Creatinine, Serum 1.34 mg/dL (0.70-1.30); EST Glomerular Filtration Rate 56 mL/min (>60); Est Glom Filt Rate - Afr Amer 67 mL/min (>60); Glucose 129 mg/dL (74-106); Potassium 3.7 mmol/L (3.5-5.1); Sodium Level 140 mmol/L (136-145)
== END | disposition home or self-care (01) ==
LOC: MTLAB 11:36
PROVIDERS: PCP Family Medicine; Referring Provider Family Medicine; Visit Provider Family Medicine
DX: I10 Essential (primary) hypertension (principal)
CPT/HCPCS: 36415; 80048

== ENCOUNTER → 2023-12-05 | Outpatient (CLI) | payer MEDICARE, OTHER, SELFPAY ==
[2023-12-05 10:02] LABS: Absolute Lymphocyte Count 1.47 X10^3/uL (0.83-4.51); Absolute Neutrophil Count 4.8 X10^3/uL (2.0-7.7); Basophil# 0.04 X10^3/uL; Basophil% 0.5 % (0-1); Eosinophil# 0.55 X10^3/uL; Eosinophils% 7.2 % (0-5); Hematocrit 48.3 % (40-54); Hemoglobin 15.2 g/dL (13.0-16.5); Lymphocyte # 1.47 X10^3/ul (0.83-4.51); Lymphocyte % 19.3 % (19-41); Mean Corp Hgb Conc 31.5 g/dL (32-36); Mean Corpuscular Hgb 29.5 pg (27.0-32.0); Mean Corpuscular Volume 93.6 fL (80-94); Mean Platelet Vol. 10.1 fl (6.2-12.0); Monocyte# 0.74 X10^3/uL; Monocyte% 9.7 % (0-10); NRBC Flagged by Analyzer 0 % (0-5); Neutrophil % 62.9 % (47-70); Platelet Count 167 K/mm3 (150-450); RBC Distribution Width CV 14.4 % (11.6-14.6); RBC Distribution Width SD 49.6 fl (35.1-43.9); Red Blood Count 5.16 M/mm3 (4.6-6.2); White Blood Count 7.6 K/mm3 (4.4-11.0)
[2023-12-05 10:35] LABS: PTHIN 105.5 pg/mL (18.4-80.1)
[2023-12-05 10:38] LABS: Vitamin D,25 Hydroxy 32.2 ng/mL
[2023-12-05 10:39] LABS: Protein, Urine (Random) 25.6 mg/dL (<11.9); Protein:Creat Ratio 219 mg/g CRE (0-200)
[2023-12-05 10:40] LABS: Hemoglobin A1c 5.8 % (3.8-5.6)
[2023-12-05 10:53] LABS: ALB/GLOB Ratio 1.1 RATIO (0.9-2.4); AST(SGOT) 13 U/L (15-37); Alanine Aminotransfer ALT/SGPT 20 U/L (16-61); Albumin, Serum 3.6 g/dL (3.2-5.0); Alkaline Phosphatase 78 U/L (45-117); Anion Gap 4 (5-15); BUN 24 mg/dL (7-18); BUN/Creat Ratio 19.5 RATIO (10-20); Calcium,Total 9.1 mg/dL (8.5-10.1); Chloride 105 mmol/L (98-107); Cholesterol 182 mg/dL (200); Creatinine, Serum 1.23 mg/dL (0.70-1.30); EST Glomerular Filtration Rate 61 mL/min (>60); Est Glom Filt Rate - Afr Amer 74 mL/min (>60); Globulin 3.2 g/dL (2.2-4.2); Glucose 109 mg/dL (74-106); High Density Lipoprotein 35 mg/dL; Potassium 4.1 mmol/L (3.5-5.1); Protein, Total 6.8 g/dL (6.4-8.2); Sodium Level 139 mmol/L (136-145); Triglycerides 341 mg/dL; Very Low Density Lipoprotein 68 mg/dL (5-40)
== END | disposition home or self-care (01) ==
LOC: MFPLAB 08:51
PROVIDERS: PCP Family Medicine; Visit Provider Family Medicine
DX: E03.8 Other specified hypothyroidism (principal); N18.30 Chronic kidney disease, stage 3 unspecified; E78.1 Pure hyperglyceridemia; R73.02 Impaired glucose tolerance (oral)
CPT/HCPCS: 36415; 80053; 80061; 82306; 82570; 83036; 83970; 84156; 84439; 84443; 85025

== ENCOUNTER → 2023-12-13 | Outpatient (CLI) | payer MEDICARE, OTHER, SELFPAY | END | disposition home or self-care (01) | LOC: MFPLAB 16:43 | PROVIDERS: PCP Family Medicine; Visit Provider Family Medicine | DX: Z00.00 Encounter for general adult medical examination without abnormal findings (principal) ==

== ENCOUNTER → 2024-04-09 | Outpatient (CLI) | payer MEDICARE, OTHER, SELFPAY ==
[2024-04-09 09:12] LABS: Bacteria 0 SEEN /hpf (None Seen); Mucous, Urine 0 SEEN /hpf (<or=2+); Red Blood Cells-Urine 0 SEEN /hpf (0-5); Squamous Epithelial Cells - UA 0 SEEN /hpf (0-5); White Blood Cells 0 SEEN /hpf (0-5)
[2024-04-09 10:20] LABS: Absolute Lymphocyte Count 1.56 X10^3/uL (0.83-4.51); Absolute Neutrophil Count 3.9 X10^3/uL (2.0-7.7); Basophil# 0.03 X10^3/uL; Basophil% 0.5 % (0-1); Eosinophil# 0.45 X10^3/uL; Eosinophils% 6.8 % (0-5); Hematocrit 49.4 % (40-54); Hemoglobin 15.9 g/dL (13.0-16.5); Lymphocyte # 1.56 X10^3/ul (0.83-4.51); Lymphocyte % 23.5 % (19-41); Mean Corp Hgb Conc 32.2 g/dL (32-36); Mean Corpuscular Volume 93.2 fL (80-94); Mean Platelet Vol. 9.4 fl (6.2-12.0); Monocyte# 0.64 X10^3/uL; Monocyte% 9.7 % (0-10); NRBC Flagged by Analyzer 0 % (0-5); Neutrophil # 3.93 X10^3/uL (2.7-7.7); Neutrophil % 59.2 % (47-70); Platelet Count 191 K/mm3 (150-450); RBC Distribution Width CV 14.6 % (11.6-14.6); RBC Distribution Width SD 49.8 fl (35.1-43.9); White Blood Count 6.6 K/mm3 (4.4-11.0)
[2024-04-09 10:29] LABS: Color, Urine Yellow (Yellow); Glucose, Dipstick Normal (Normal); Ketone-Dipstick Negative (Negative); Leukocyte Esterase-Dipstick Negative /ul (Negative); Nitrite-Dipstick Negative (Negative); Occult Blood-Urine Negative /ul (Negative); Protein-Dipstick Negative (Negative); Urine Bilirubin Dipstick Negative (Negative); Urine Clarity Clear (Clear); Urine Urobilinogen Normal (Normal)
[2024-04-09 10:46] LABS: PTHIN 106.1 pg/mL (18.4-80.1)
[2024-04-09 10:49] LABS: ALB/GLOB Ratio 0.9 RATIO (0.9-2.4); AST(SGOT) 16 U/L (15-37); Alanine Aminotransfer ALT/SGPT 20 U/L (16-61); Albumin, Serum 3.4 g/dL (3.2-5.0); Alkaline Phosphatase 72 U/L (45-117); Anion Gap 7 (5-15); BUN 26 mg/dL (7-18); BUN/Creat Ratio 18.6 RATIO (10-20); Calcium,Total 9.1 mg/dL (8.5-10.1); Chloride 107 mmol/L (98-107); EST Glomerular Filtration Rate 53 mL/min (>60); Est Glom Filt Rate - Afr Amer 64 mL/min (>60); Globulin 3.7 g/dL (2.2-4.2); Glucose 95 mg/dL (74-106); Magnesium 2.3 mg/dL (1.6-2.6); Phosphorus 2.9 mg/dL (2.5-4.9); Potassium 4.2 mmol/L (3.5-5.1); Protein, Total 7.1 g/dL (6.4-8.2); Sodium Level 141 mmol/L (136-145); T4 Free Direct 0.79 ng/dL (0.76-1.46)
[2024-04-09 10:50] LABS: Protein, Urine (Random) 15.2 mg/dL (<11.9); Protein:Creat Ratio 130 mg/g CRE (0-200)
[2024-04-09 11:12] LABS: Hemoglobin A1c 5.9 % (3.8-5.6)
[2024-04-09 11:26] LABS: Vitamin D,25 Hydroxy 25.1 ng/mL
== END | disposition home or self-care (01) ==
LOC: MFPLAB 08:32
PROVIDERS: PCP Family Medicine; Referring Provider Family Medicine; Visit Provider Family Medicine
DX: I12.9 Hypertensive chronic kidney disease with stage 1 through stage 4 chronic kidney disease, or unspecified chronic kidney disease (principal); N18.30 Chronic kidney disease, stage 3 unspecified; E03.8 Other specified hypothyroidism; R73.02 Impaired glucose tolerance (oral)

== ENCOUNTER → 2024-08-04 | Outpatient (CLI) | payer MEDICARE, OTHER, SELFPAY ==
[2024-08-04 07:08] LABS: Bacteria 0 SEEN /hpf (None Seen); Mucous, Urine 0 SEEN /hpf (<or=2+); Red Blood Cells-Urine 0 SEEN /hpf (0-5); Squamous Epithelial Cells - UA 0 SEEN /hpf (0-5)
[2024-08-04 09:59] LABS: Absolute Lymphocyte Count 1.52 X10^3/uL (0.83-4.51); Absolute Neutrophil Count 5.2 X10^3/uL (2.0-7.7); Basophil# 0.05 X10^3/uL; Basophil% 0.6 % (0-1); Eosinophil# 0.31 X10^3/uL; Hematocrit 49.1 % (40-54); Hemoglobin 16.1 g/dL (13.0-16.5); Lymphocyte # 1.52 X10^3/ul (0.83-4.51); Lymphocyte % 19.5 % (19-41); Mean Corp Hgb Conc 32.8 g/dL (32-36); Mean Corpuscular Hgb 30.4 pg (27.0-32.0); Mean Corpuscular Volume 92.8 fL (80-94); Monocyte# 0.72 X10^3/uL; Monocyte% 9.2 % (0-10); NRBC Flagged by Analyzer 0 % (0-5); Neutrophil # 5.18 X10^3/uL (2.7-7.7); Neutrophil % 66.3 % (47-70); Platelet Count 180 K/mm3 (150-450); RBC Distribution Width CV 14.1 % (11.6-14.6); RBC Distribution Width SD 47.9 fl (35.1-43.9); Red Blood Count 5.29 M/mm3 (4.6-6.2); White Blood Count 7.8 K/mm3 (4.4-11.0)
[2024-08-04 10:14] LABS: Color, Urine Yellow (Yellow); Glucose, Dipstick Normal (Normal); Ketone-Dipstick Negative (Negative); Leukocyte Esterase-Dipstick Negative /ul (Negative); Nitrite-Dipstick Negative (Negative); Occult Blood-Urine Negative /ul (Negative); Protein-Dipstick 15 mg/dl (Negative); Urine Bilirubin Dipstick Negative (Negative); Urine Clarity Clear (Clear); Urine Urobilinogen Normal (Normal)
[2024-08-04 10:30] LABS: White Blood Cells 0-5 SEEN /hpf (0-5)
[2024-08-04 10:38] LABS: PTHIN 64 pg/mL (11-61)
[2024-08-04 10:41] LABS: Hemoglobin A1c 6.4 % (<=5.6)
[2024-08-04 10:52] LABS: ALB/GLOB Ratio 1.3 RATIO (0.9-2.4); AST(SGOT) 19 U/L (<=37); Alanine Aminotransfer ALT/SGPT 13 U/L (<=46); Albumin, Serum 4.1 g/dL (3.4-4.8); Alkaline Phosphatase 80 U/L (40-129); Anion Gap 14 (5-15); BUN 28 mg/dL (4-19); BUN/Creat Ratio 21.9 RATIO (10-20); Calcium,Total 9.3 mg/dL (7.6-11.0); Carbon Dioxide 26.6 mmol/L (21.0-32.0); Chloride 101 mmol/L (98-108); Cholesterol 203 mg/dL (<=200); Creatinine, Serum 1.29 mg/dL (0.70-1.20); EST Glomerular Filtration Rate 58 (>60); Globulin 3.1 g/dL (2.2-4.2); Glucose 100 mg/dL (70-99); High Density Lipoprotein 32 mg/dL; Low Density Lipoprotein Calc. 104 mg/dL; Potassium 3.8 mmol/L (3.3-5.1); Protein, Total 7.2 g/dL (5.9-8.4); Sodium Level 142 mmol/L (133-145); Total Bilirubin 0.68 mg/dL (0.00-1.30); Triglycerides 337 mg/dL; Very Low Density Lipoprotein 67 mg/dL (5-40); Vitamin D,25 Hydroxy 47.8 ng/mL (30-100); cholesterol:hdl ratio screen 6.44
== END | disposition home or self-care (01) ==
LOC: MTLAB 07:02
PROVIDERS: PCP Family Medicine; Referring Provider Family Medicine; Visit Provider Family Medicine
DX: E03.8 Other specified hypothyroidism (principal); R73.02 Impaired glucose tolerance (oral); I10 Essential (primary) hypertension; E55.9 Vitamin D deficiency, unspecified; E21.3 Hyperparathyroidism, unspecified
CPT/HCPCS: 36415; 80053; 80061; 81001; 82306; 83036; 83970; 84439; 84443; 85025

== ENCOUNTER 2024-10-18 12:49 | Emergency (ER) | payer MEDICARE, OTHER, SELFPAY ==
[2024-10-18 12:50] VITALS: BP 165/90; PULSE 50; RESP 14; TEMP 36.9; O2SAT 99; BMI 27.7
--- OUTSIDE RECORDS SUMMARY | 2024-10-18 13:54 | XMS RPT_ITS | CCD ---
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 Samuel Stuart Primary Care Provider Hortensia SOLO, Dr. Samuel Stuart Attending Provider [phone] Hortensia SOLO, Dr. Samuel Stuart Referring Provider Ish Lujan Attending Unavailable Samuel Bazan Primary Care Unavailable Zayraam, Daria Debby Consulting Unavailable Zayraam, Daria Debby Admitting Unavailable Ish Lujan Consulting Unavailable Samuel Bazan Attending Unavailable Samuel Bazan Primary Care Unavailable Samuel Bazan Attending Unavailable Samuel Bazan Referring Unavailable Samuel Bazan Primary Care Unavailable Samuel Bazan Attending Unavailable Samuel Bazan Primary Care Unavailable Samuel Bazan Attending Unavailable Samuel Bazan Referring Unavailable Samuel Bazan Primary Care Unavailable Ish Lujan Attending Unavailable Samuel Bazan Primary Care Unavailable Zayraam, Daria Debby Admitting Unavailable Zayraam, Daria Debby Consulting Unavailable Samuel Bazan Attending Unavailable Samuel Bazan Referring Unavailable Samuel Bazan Primary Care Unavailable Samuel Bazan Primary Care Unavailable Koram, Daria Debby Consulting Unavailable Koram, Daria Debby Attending Unavailable Koram, Daria Debby Admitting Unavailable Medications Current Medications Medication Drug Class(es) Dates Sig (Normalized) Sig (Original) acetaminophen 325 mg / oxyCODONE hydrochloride 5 mg oral tablet (2 sources) Opioid Agonist Start: 10-30-19 15 take 1 tablet by mouth every four hours as needed Oxycodone-Acetaminophe n Active 1 TABLET PO EVERY 4 HOURS NEEDED October 29, 2014 7:11am amLODIPine 10 mg oral tablet (5 sources) Dihydropyridine Calcium Channel Conor Start: 10-12-19 take 1 tablet by mouth once daily Amlodipine 10 mg Tablet Active 10 mg PO DAILY October 11, 2021 12:00am amoxicillin 875 mg / clavulanate 125 mg oral tablet (1 source) Penicillin-class Antibacterial Start: 08-15-19 Amoxicillin-Pot Clavulanate 875-125 mg tablet Active 1 {tbl} PO TWICE A DAY 12 27August 15, 2023 12:00am ciprofloxacin 500 mg oral tablet (2 sources) Quinolone Antimicrobial Start: 10-30-19 take 500 mg by mouth twice daily Ciprofloxacin Hcl Active 500 MG PO TWICE A DAY October 29, 2014 7:12am hydroCHLOROthiazide 12.5 mg oral tablet (1 source) Thiazide Diuretic Start: 08-07-19 take 1 tablet by mouth once daily Hydrochlorothiazide 12.5 mg tablet Active 12.5 mg PO DAILY August 07, 2023 12:00am lisinopril 20 mg oral tablet (5 sources) Angiotensin Converting Enzyme Inhibitor Start: 10-12-19 take 1 tablet by mouth once daily Lisinopril 20 mg Tablet Active 20 mg PO DAILY October 11, 2021 12:00am 24 hr metoprolol succinate 100 mg extended release oral tablet (6 sources) beta-Adrenergic Conor Start: 08-12-19 take 1 tablet by mouth once daily Metoprolol Succinate 100 mg tablet extended release 24 hr Active 100 mg PO DAILY August 12, 2023 12:00am Start: 10-11-2021 End: 08-12-2023 take 1 tablet by mouth twice daily Metoprolol Tartrate 100 mg Tablet Discontinued 100 mg PO TWICE A DAY October 11, 2021 12:00am August 12, 2023 6:03pm Completed/Discontinued Medications Medication Drug Class(es) Dates Sig (Normalized) Sig (Original) doxycycline monohydrate 100 mg oral capsule (1 source) Tetracycline-class Drug Start: 08-12-2023 End: 08-15-2023 take 1 capsule by mouth twice daily Doxycycline Monohydrate 100 mg capsule Discontinued 100 mg PO TWICE A DAY August 12, 2023 12:00am August 15, 2023 10:10am levoFLOXacin 750 mg oral tablet (1 source) Quinolone Antimicrobial Start: 08-07-2023 End: 08-12-2023 take 1 tablet by mouth every twenty-four hours Levofloxacin 750 mg tablet Discontinued 750 mg PO Q24H August 07, 2023 12:00am August 12, 2023 5:36pm Problems Active Problems Problem Classification Problem Date Documented Da te Episodic/Chronic Essential hypertension (1 source) Essential (primary) hypertension; Translations: [Essential (primary) hypertension] Onset: 09-12-2023 Chronic Fever of unknown origin (1 source) Fever; Translations: [Fever, unspecified] 08-15-2023 Episodic Hypertension with complications and secondary hypertension (1 source) Hypertensive chronic kidney disease with stage 1 through stage 4 chronic kidney disease, or unspecified chronic kidney disease; Translations: [Hypertensive chronic kidney disease with stage 1 through stage 4 chronic kidney disease, or unspecified chronic kidney disease] Onset: 04-29-2024 Chronic Other screening for suspected conditions (not mental disorders or infectious disease) (5 sources) Patient encounter status; Translations: [Encounter for screening for malignant neoplasm of colon] 06-30-2021 Episodic Thyroid disorders (1 source) Other specified hypothyroidism; Translations: [Other specified hypothyroidism] Onset: 08-10-2024 Chronic Past or Other Problems Problem Classification Problem Date Documented Da te Episodic/Chronic Acute and unspecified renal failure (2 sources) Acute renal failure syndrome; Translations: [Acute kidney failure, unspecified] Onset: 08-15-2023 08-23-2023 Episodic Skin and subcutaneous tissue infections (3 sources) Cellulitis of right lower limb; Translations: [Cellulitis of right lower limb] Onset: 08-15-2023 08-23-2023 Episodic Results Test Name Value Interpretation Reference Range Facility Absolute lymphocyte countOrd ered By: Samuel Bazan on 08-04-2024 Lymphocytes Auto (Unsp spec) [#/Vol] 1.52 10*3/uL 0.83-4.51 [facility] Absolute neutrophil countOrd ered By: Samuel Bazan on 08-04-2024 Neutrophils (Bld) [#/Vol] 5.2 10*3/uL 2.0-7.7 [facility] Anion gap in Serum or Plasma Ordered By: Samuel Bazan on 08-04-2024 Anion gap [Moles/Vol] 14 mmol/L - [facility] Automated lymphocyte count a s percentage of total leukocytesOrdered By: Samuel Bazan on 08-04-2024 Lymphocytes/100 WBC Auto (Unsp spec) 19.5 % 19-41 [facility] BUN/creatinine ratioOrdered By: Samuel Hortensia on 08-04-2024 Urea nitrogen/Creatinine [Mass ratio] 21.9 mg/mg High 10-20 [facility] Basophil percentageOrdered B y: Samuel Bazan on 08-04-2024 Basophils/100 WBC (Bld) 0.6 % 0-1 [facility] Bilirubin Test strip Ql (U)O rdered By: Samuel Bazan on 08-04-2024 Bilirubin Ql (U) Negative Negative [facility] Bilirubin, totalOrdered By: Samuel Bazan on 08-04-2024 Bilirubin [Mass/Vol] 0.68 mg/dL 0.00-1.30 [facility] CBC W/Diff, Automatedon 07-23 Absolute Lymph 1.52 X10 3/uL Normal 0.83-4.51 [facility] Comment on above: Order Comment: Y Performed By: #### L 100.0100, L503.6005, L300.3900, L300.4310, L500.2500, L500.3400 #### [facility] [address] [place], [address] Absolute Neut 5.2 X10 3/uL Normal 2.0-7.7 [facility] Comment on above: Order Comment: Y Performed By: #### L 100.0100, L503.6005, L300.3900, L300.4310, L500.2500, L500.3400 #### [facility] [address] [place], [address] Basophils/100 WBC (Bld) 0.6 % Normal 0-1 [facility] Comment on above: Order Comment: Y Performed By: #### L 100.0100, L503.6005, L300.3900, L300.4310, L500.2500, L500.3400 #### [facility] [address] [place], [address] Eosinophils/100 WBC (Bld) 4.0 % Normal 0-5 [facility] Comment on above: Order Comment: Y Performed By: #### L 100.0100, L503.6005, L300.3900, L300.4310, L500.2500, L500.3400 #### [facility] [address] [place], [address] Erythrocyte distribution width (RBC) [Ratio] 14.1 % Normal 11.6-14.6 [facility] Comment on above: Order Comment: Y Performed By: #### L 100.0100, L503.6005, L300.3900, L300.4310, L500.2500, L500.3400 #### [facility] [address] [place], [address] Hematocrit (Bld) [Volume fraction] 49.1 % Normal 40-54 [facility] Comment on above: Order Comment: Y Performed By: #### L 100.0100, L503.6005, L300.3900, L300.4310, L500.2500, L500.3400 #### [facility] [address] [place], [address] Hemoglobin (Bld) [Mass/Vol] 16.1 g/dL Normal 13.0-16.5 [facility] Comment on above: Order Comment: Y Performed By: #### L 100.0100, L503.6005, L300.3900, L300.4310, L500.2500, L500.3400 #### [facility] [address] [place], [address] IG% 0.400 Normal 0.0-0.9 [facility] Comment on above: Order Comment: Y Result Comment: IG% - Immature Granulocytes (promyelocytes, myelocytes and metamyelocytes) > 1% indicates that a LEFT SHIFT is Present. Performed By: #### L 100.0100, L503.6005, L300.3900, L300.4310, L500.2500, L500.3400 #### [facility] [address] [place], [address] Lymphocytes/100 WBC (Bld) 19.5 % Normal 19-41 [facility] Comment on above: Order Comment: Y Performed By: #### L 100.0100, L503.6005, L300.3900, L300.4310, L500.2500, L500.3400 #### [facility] [address] [place], [address] MCH (RBC) [Entitic mass] 30.4 pg Normal 27.0-32.0 [facility] Comment on above: Order Comment: Y Performed By: #### L 100.0100, L503.6005, L300.3900, L300.4310, L500.2500, L500.3400 #### [facility] [address] [place], [address] MCHC (RBC) [Mass/Vol] 32.8 g/dL Normal 32-36 [facility] Comment on above: Order Comment: Y Performed By: #### L 100.0100, L503.6005, L300.3900, L300.4310, L500.2500, L500.3400 #### [facility] [address] [place], [address] MCV (RBC) [Entitic vol] 92.8 fL Normal 80-94 [facility] Comment on above: Order Comment: Y Performed By: #### L 100.0100, L503.6005, L300.3900, L300.4310, L500.2500, L500.3400 #### [facility] [address] [place], [address] Monocytes/100 WBC (Bld) 9.2 % Normal 0-10 [facility] Comment on above: Order Comment: Y Performed By: #### L 100.0100, L503.6005, L300.3900, L300.4310, L500.2500, L500.3400 #### [facility] [address] [place], [address] Neutrophils/100 WBC (Bld) 66.3 % Normal 47-70 [facility] Comment on above: Order Comment: Y Performed By: #### L 100.0100, L503.6005, L300.3900, L300.4310, L500.2500, L500.3400 #### [facility] [address] [place], [address] Nucleated RBC (Bld) [#/Vol] 0 10*3/uL Normal 0-5 [facility] Comment on above: Order Comment: Y Performed By: #### L 100.0100, L503.6005, L300.3900, L300.4310, L500.2500, L500.3400 #### [facility] [address] [place], [address] Platelet mean volume (Bld) [Entitic vol] 10.0 fL Normal 6.2-12.0 [facility] Comment on above: Order Comment: Y Performed By: #### L 100.0100, L503.6005, L300.3900, L300.4310, L500.2500, L500.3400 #### [facility] [address] [place], [address] Platelets (Bld) [#/Vol] 180 10*3/uL Normal 150-450 [facility] Comment on above: Order Comment: Y Performed By: #### L 100.0100, L503.6005, L300.3900, L300.4310, L500.2500, L500.3400 #### [facility] [address] [place], [address] RBC (Bld) [#/Vol] 5.29 10*6/uL Normal 4.6-6.2 [facility] Comment on above: Order Comment: Y Performed By: #### L 100.0100, L503.6005, L300.3900, L300.4310, L500.2500, L500.3400 #### [facility] [address] [place], [place], [id number] RDW SD 47.9 fl High 35.1-43.9 [facility] Comment on above: Order Comment: Y Performed By: #### L 100.0100, L503.6005, L300.3900, L300.4310, L500.2500, L500.3400 #### [facility] [address] [place], [place], [id number] WBC (Bld) [#/Vol] 7.8 10*3/uL Normal 4.4-11.0 [facility] Comment on above: Order Comment: Y Performed By: #### L 100.0100, L503.6005, L300.3900, L300.4310, L500.2500, L500.3400 #### [facility] [address] [place], [place], [id number] Calculated very low density lipoprotein (VLDL) cholesterol measurementOrdered By: Samuel Bazan on 08-04-2024 Calculated very low density lipoprotein (VLDL) cholesterol measurement 67 mg/dL High 5-40 [facility] Carbon dioxide, total [Moles /volume] in Central venous bloodOrdered By: Samuel Bazan on 08-04-2024 CO2 [Moles/Vol] 26.6 mmol/L 21.0-32.0 [facility] Chloride assayOrdered By: Ca Bazan on 08-04-2024 Chloride [Moles/Vol] 101 mmol/L 98-108 [facility] Comprehensive Metabolic Prof ilon 08-04-2024 Albumin [Mass/Vol] 4.1 g/dL Normal 3.4-4.8 [facility] Comment on above: Order Comment: Y Performed By: #### L 100.0100, L503.6005, L300.3900, L300.4310, L500.2500, L500.3400 #### [facility] [address] [place], [address] Albumin/Globulin [Mass ratio] 1.3 {ratio} Normal 0.9-2.4 [facility] Comment on above: Order Comment: Y Performed By: #### L 100.0100, L503.6005, L300.3900, L300.4310, L500.2500, L500.3400 #### [facility] [address] [place], [address] ALK PHOS 80 U/L Normal 40-129 [facility] Comment on above: Order Comment: Y Performed By: #### L 100.0100, L503.6005, L300.3900, L300.4310, L500.2500, L500.3400 #### [facility] [address] [place], [address] ALT [Catalytic activity/Vol] 13 U/L Normal <=46 [facility] Comment on above: Order Comment: Y Performed By: #### L 100.0100, L503.6005, L300.3900, L300.4310, L500.2500, L500.3400 #### [facility] [address] [place], [address] AST [Catalytic activity/Vol] 19 U/L Normal <=37 [facility] Comment on above: Order Comment: Y Performed By: #### L 100.0100, L503.6005, L300.3900, L300.4310, L500.2500, L500.3400 #### [facility] [address] [place], [address] Bilirubin [Mass/Vol] 0.68 mg/dL Normal 0.00-1.30 [facility] Comment on above: Order Comment: Y Performed By: #### L 100.0100, L503.6005, L300.3900, L300.4310, L500.2500, L500.3400 #### [facility] [address] [place], [address] BUN/CRE 21.9 RATIO High 10-20 [facility] Comment on above: Order Comment: Y Performed By: #### L 100.0100, L503.6005, L300.3900, L300.4310, L500.2500, L500.3400 #### [facility] [address] [place], [address] Calcium [Mass/Vol] 9.3 mg/dL Normal 7.6-11.0 [facility] Comment on above: Order Comment: Y Performed By: #### L 100.0100, L503.6005, L300.3900, L300.4310, L500.2500, L500.3400 #### [facility] [address] [place], [address] Chloride [Moles/Vol] 101 mmol/L Normal 98-108 [facility] Comment on above: Order Comment: Y Performed By: #### L 100.0100, L503.6005, L300.3900, L300.4310, L500.2500, L500.3400 #### [facility] [address] [place], [address] CO2 [Moles/Vol] 26.6 mmol/L Normal 21.0-32.0 [facility] Comment on above: Order Comment: Y Performed By: #### L 100.0100, L503.6005, L300.3900, L300.4310, L500.2500, L500.3400 #### [facility] [address] [place], [address] Creatinine [Mass/Vol] 1.29 mg/dL High 0.70-1.20 [facility] Comment on above: Order Comment: Y Performed By: #### L 100.0100, L503.6005, L300.3900, L300.4310, L500.2500, L500.3400 #### [facility] [address] [place], [address] GAP 14 Normal 5-15 [facility] Comment on above: Order Comment: Y Performed By: #### L 100.0100, L503.6005, L300.3900, L300.4310, L500.2500, L500.3400 #### [facility] [address] [place], [address] GFR/1.73 sq M.predicted among non-blacks MDRD (S/P/Bld) [Vol rate/Area] 58 mL/min/{1.73_m2} Low >60 [facility] Comment on above: Order Comment: Y Result Comment: mL/m in/1.73m2 CKD-EPI Creatinine Equation (2020) Performed By: #### L 100.0100, L503.6005, L300.3900, L300.4310, L500.2500, L500.3400 #### [facility] [address] [place], [address] Globulin (S) [Mass/Vol] 3.1 g/dL Normal 2.2-4.2 [facility] Comment on above: Order Comment: Y Performed By: #### L 100.0100, L503.6005, L300.3900, L300.4310, L500.2500, L500.3400 #### [facility] [address] [place], [address] Glucose [Mass/Vol] 100 mg/dL High 70-99 [facility] Comment on above: Order Comment: Y Performed By: #### L 100.0100, L503.6005, L300.3900, L300.4310, L500.2500, L500.3400 #### [facility] [address] [place], [address] Potassium [Moles/Vol] 3.8 mmol/L Normal 3.3-5.1 [facility] Comment on above: Order Comment: Y Performed By: #### L 100.0100, L503.6005, L300.3900, L300.4310, L500.2500, L500.3400 #### [facility] [address] [place], [address] Sodium [Moles/Vol] 142 mmol/L Normal 133-145 [facility] Comment on above: Order Comment: Y Performed By: #### L 100.0100, L503.6005, L300.3900, L300.4310, L500.2500, L500.3400 #### [facility] [address] [place], [address] T PROT 7.2 g/dL Normal 5.9-8.4 [facility] Comment on above: Order Comment: Y Performed By: #### L 100.0100, L503.6005, L300.3900, L300.4310, L500.2500, L500.3400 #### [facility] [address] [place], [address] Urea nitrogen [Mass/Vol] 28 mg/dL High 4-19 [facility] Comment on above: Order Comment: Y Performed By: #### L 100.0100, L503.6005, L300.3900, L300.4310, L500.2500, L500.3400 #### [facility] [address] [place], [address] Eosinophil percentageOrdered By: Samuel Bazan on 08-04-2024 Eosinophils/100 WBC (Bld) 4.0 % 0-5 [facility] Erythrocyte distribution wid th ratioOrdered By: Samuel Bazan on 08-04-2024 Erythrocyte distribution width (RBC) [Ratio] 14.1 % 11.6-14.6 [facility] Erythrocyte distribution wid th standard deviationOrdered By: Samuel Bazan on 08-04-2024 Erythrocyte distribution width (RBC) [Ratio] 47.9 fl High 35.1-43.9 [facility] Glomerular filtration rate ( GFR) estimation/1.73 sq m using serum, plasma, or whole bOrdered By: Samuel Bazan on 08-04-2024 GFR/1.73 sq M.predicted among non-blacks MDRD (S/P/Bld) [Vol rate/Area] 58 mL/min/{1.73_m2} Low >60 [facility] Comment on above: mL/min/1.73m2 CKD-EP I Creatinine Equation (2020) Hematocrit Auto (Bld) [Volum e fraction]Ordered By: Samuel Bazan on 08-04-2024 Hematocrit (Bld) [Volume fraction] 49.1 % 40-54 [facility] Hemoglobin A1con 08-04-2024 HbA1c (Bld) [Mass fraction] 6.4 % High <=5.6 [facility] Comment on above: Order Comment: Y Result Comment: Norm al < 5.7 % Prediabetic 5.7 - 6.4 % Diabetic >or= 6.5 % Please note range changes. Performed By: #### L 100.0100, L503.6005, L300.3900, L300.4310, L500.2500, L500.3400 #### [facility] [address] [place], [address] Hemoglobin A1c percentageOrd ered By: Samuel Bazan on 08-04-2024 HbA1c (Bld) [Mass fraction] 6.4 % High <5.7 [facility] Comment on above: Normal < 5.7 % Predi abetic 5.7 - 6.4 % Diabetic >or= 6.5 % Please note range changes. Hemoglobin measurementOrdere d By: Samuel Bazan on 08-04-2024 Hemoglobin (Bld) [Mass/Vol] 16.1 g/dL 13.0-16.5 [facility] Immature granulocytes/100 WB C Auto (Bld)Ordered By: Samuel Bazan on 08-04-2024 Immature granulocytes/100 WBC (Bld) 0.400 % 0.0-0.9 [facility] Comment on above: IG% - Immature Granu locytes (promyelocytes, myelocytes and metamyelocytes) > 1% indicates that a LEFT SHIFT is Present. Ketones Test strip Ql (U)Ord ered By: Samuel Bazan on 08-04-2024 Ketones Ql (U) Negative Negative [facility] LDL calc ser/plasOrdered By: Samuel Bazan on 08-04-2024 Cholesterol in LDL [Mass/Vol] 104 mg/dL [facility] Comment on above: Clpduugghx=902-614 m g/dL & Higher Ougu=374 mg/dL or greater Laboratory - Chemistry and C hemistry - challengeOrdered By: Samuel Bazan on 08-04-2024 AST [Catalytic activity/Vol] 19 U/L <38 [facility] Lipid Profileon 08-04-2024 CHOL:HDL 6.44 Normal [facility] Comment on above: Order Comment: Y Performed By: #### L 100.0100, L503.6005, L300.3900, L300.4310, L500.2500, L500.3400 #### [facility] [address] [place], [address] Cholesterol [Mass/Vol] 203 mg/dL High <=200 [facility] Comment on above: Order Comment: Y Result Comment: Chol esterol level, Desirable <200 mg/dL Borderline high cholesterol 200-239 mg/dL High cholesterol >=240 mg/dL Recommendations of the NCEP Adult Treatment Panel for the following risk-cutoff thresholds for the [place] population. Performed By: #### L 100.0100, L503.6005, L300.3900, L300.4310, L500.2500, L500.3400 #### [facility] [address] [place], [address] Cholesterol in HDL [Mass/Vol] 32 mg/dL Low [facility] Comment on above: Order Comment: Y Result Comment: [place] onal Cholesterol Education Program (NCEP) guidelines: <40 mg/dL: Low HDL-cholesterol (major risk factor for CHD) >= 60 mg/dL: High HDL-cholesterol (negative risk factor for CHD) HDL-cholesterol is affected by a number of factors, e.g. smoking, exercise, hormones, sex and age. Performed By: #### L 100.0100, L503.6005, L300.3900, L300.4310, L500.2500, L500.3400 #### [facility] [address] [place], [address] Cholesterol in LDL [Mass/Vol] 104 mg/dL Normal [facility] Comment on above: Order Comment: Y Result Comment: Bord vburnl=080-147 mg/dL Higher Ledm=522 mg/dL or greater Performed By: #### L 100.0100, L503.6005, L300.3900, L300.4310, L500.2500, L500.3400 #### [facility] [address] [place], [address] Cholesterol in VLDL [Mass/Vol] 67 mg/dL High 5-40 [facility] Comment on above: Order Comment: Y Performed By: #### L 100.0100, L503.6005, L300.3900, L300.4310, L500.2500, L500.3400 #### [facility] [address] [place], [address] Triglyceride [Mass/Vol] 337 mg/dL High [facility] Comment on above: Order Comment: Y Result Comment: The drugs N-Acetylcysteine and Metamizole may falsely depress this assay. Normal range: <150 mg/dL Borderline High: 150-199 mg/dL High: 200-499 mg/dL Very High: >500 mg/dL Performed By: #### L 100.0100, L503.6005, L300.3900, L300.4310, L500.2500, L500.3400 #### [facility] [address] [place], [address] MCV (mean corpuscular volume ) determinationOrdered By: Samuel Bazan on 08-04-2024 MCV (RBC) [Entitic vol] 92.8 fL 80-94 [facility] Mean corpuscular hemoglobin (MCH) determinationOrdered By: Samuel Bazan on 08-04-2024 MCH (RBC) [Entitic mass] 30.4 pg 27.0-32.0 [facility] Mean corpuscular hemoglobin concentration (MCHC) determinationOrdered By: Samuel Bazan on 08-04-2024 MCHC (RBC) [Mass/Vol] 32.8 g/dL 32-36 [facility] Mean platelet volume determi nationOrdered By: Samuel Bazan on 08-04-2024 Platelet mean volume (Bld) [Entitic vol] 10.0 fL 6.2-12.0 [facility] Microscopic analysis of urin e for red blood cells (RBC)Ordered By: Samuel Bazan on 08-04-2024 Microscopic analysis of urine for red blood cells (RBC) 0 SEEN /hpf 0-5 [facility] Monocyte percentageOrdered B y: Samuel Bazan on 08-04-2024 Monocytes/100 WBC (Bld) 9.2 % 0-10 [facility] Mucus LM Ql (Urine sed)Order ed By: Samuel Bazan on 08-04-2024 Mucus Ql (Urine sed) 0 SEEN /hpf [facility] Neutrophil percentageOrdered By: Samuel Bazan on 08-04-2024 Neutrophils/100 WBC (Bld) 66.3 % 47-70 [facility] Nitrite Test strip Ql (U)Ord ered By: Samuel Bazan on 08-04-2024 Nitrite Ql (U) Negative Negative [facility] Nucleated red blood cell per centageOrdered By: Samuel Bazan on 08-04-2024 Nucleated RBC/100 WBC (Bld) [Ratio] 0 % 0-5 [facility] PTHINon 08-04-2024 PTH 64 pg/mL High 11-61 [facility] Comment on above: Order Comment: Y Performed By: #### L 100.0100, L503.6005, L300.3900, L300.4310, L500.2500, L500.3400 #### [facility] [address] [place], [place], [phone] Platelet countOrdered By: Ca Bazan on 08-04-2024 Platelets (Bld) [#/Vol] 180 10*3/uL 150-450 [facility] Potassium measurement (mass/ volume)Ordered By: Samuel Bazan on 08-04-2024 Potassium (Unsp spec) [Mass/Vol] 3.8 mmol/L 3.3-5.1 [facility] Protein Test strip Ql (U)Ord ered By: Samuel Bazan on 08-04-2024 Protein Ql (U) 15 mg/dl High Negative [facility] RBC Auto (Bld) [#/Vol]Ordere d By: Samuel Bazan on 08-04-2024 RBC (Bld) [#/Vol] 5.29 10*6/uL 4.6-6.2 [facility] Screening total cholesterol/ high density lipoprotein (HDL) cholesterol ratioOrdered By: Samuel Bazan on 08-04-2024 Cholesterol.total/Choles terol in HDL [Mass ratio] 6.44 {ratio} [facility] Serum creatinine measurement (mass/volume)Ordered By: Samuel Bazan on 08-04-2024 Creatinine [Mass/Vol] 1.29 mg/dL High 0.70-1.20 [facility] Serum globulin measurementOr dered By: Samuel Bazan on 08-04-2024 Globulin (S) [Mass/Vol] 3.1 g/dL 2.2-4.2 [facility] Serum glucose measurement (m ass/volume)Ordered By: Saumel Bazan on 08-04-2024 Glucose [Mass/Vol] 100 mg/dL High 70-99 [facility] Serum or plasma alanine hill otransferase (ALT) measurementOrdered By: Samuel Bazan on 08-04-2024 ALT [Catalytic activity/Vol] 13 U/L <47 [facility] Serum or plasma albumin chemo urement (mass/volume)Ordered By: Samuel Bazan on 08-04-2024 Albumin [Mass/Vol] 4.1 g/dL 3.4-4.8 [facility] Serum or plasma albumin/glob ulin mass ratioOrdered By: Samuel Bazan on 08-04-2024 Albumin/Globulin [Mass ratio] 1.3 {ratio} 0.9-2.4 [facility] Serum or plasma alkaline marianne sphatase measurementOrdered By: Samuel Bazan on 08-04-2024 ALP [Catalytic activity/Vol] 80 U/L 40-129 [facility] Serum or plasma calcium chemo urement (mass/volume)Ordered By: Samuel Bazan on 08-04-2024 Calcium [Mass/Vol] 9.3 mg/dL 7.6-11.0 [facility] Serum or plasma cholesterol in HDL measurement (mass/volume)Ordered By: Samuel Bazan on 08-04-2024 Cholesterol in HDL [Mass/Vol] 32 mg/dL Low >40 [facility] Comment on above: National Cholesterol Education Program (NCEP) guidelines:<40 mg/dL: Low HDL-cholesterol (major risk factor for CHD)>= 60 mg/dL: High HDL-cholesterol (negative risk factor for CHD)HDL-cholesterol is affected by a number of factors, e.g. smoking, exercise, hormones, sex and age. Serum or plasma cholesterol measurement (mass/volume)Ordered By: Samuel Bazan on 08-04-2024 Cholesterol [Mass/Vol] 203 mg/dL High <201 [facility] Comment on above: Cholesterol level, D esirable <200 mg/dLBorderline high cholesterol 200-239 mg/dLHigh cholesterol >=240 mg/dLRecommendations of the NCEP Adult Treatment Panel for the following risk-cutoff thresholds for the [place] population. Serum or plasma urea nitroge n measurement (mass/volume)Ordered By: Samuel Bazan on 08-04-2024 Urea nitrogen [Mass/Vol] 28 mg/dL High 4-19 [facility] Sodium levelOrdered By: Samuel Bazan on 08-04-2024 Sodium [Moles/Vol] 142 mmol/L 133-145 [facility] Squamous epithelial cells de tection in urine sediment by light microscopyOrdered By: Samuel Bazan on 08-04-2024 Epithelial cells.squamous LM Ql (Urine sed) 0 SEEN /hpf 0-5 [facility] T4 Free Directon 08-04-2024 T4 FREE DIRECT 0.80 ng/dL Normal 0.76-1.46 [facility] Comment on above: Order Comment: Order Date: 01/17/25Order Info: [id number] - CMPOrder Info: [id number] - LIPIDOrder Info: [id number] - TSHOrder Info: [id number] - T4F Performed By: #### L 100.0100, L503.6005, L300.3900, L300.4310, L500.2500, L500.3400 #### [facility] [address] [place], [place], [phone] T4 freeOrdered By: Samuel cheney on 08-04-2024 Free T4 [Mass/Vol] 0.80 ng/dL 0.76-1.46 [facility] TSH DL <= 0.005 mIU/L QnOrde red By: Samuel Bazan on 08-04-2024 TSH Qn 4.040 uIU/mL 0.300-4.200 [facility] Thyroid Stim Hormone (TSH)on 08-04-2024 TSH 4.040 uIU/mL Normal 0.300-4.200 [facility] Comment on above: Order Comment: Y Performed By: #### L 100.0100, L503.6005, L300.3900, L300.4310, L500.2500, L500.3400 #### [facility] [address] [place], [place], [id number] Total proteinOrdered By: Gabo Bazan on 08-04-2024 Protein [Mass/Vol] 7.2 g/dL 5.9-8.4 [facility] Triglycerides measurementOrd ered By: Samuel Bazan on 08-04-2024 Triglyceride [Mass/Vol] 337 mg/dL High <199 [facility] Comment on above: The drugs N-Acetylcy steine and Metamizole may falsely depress this assay. Normal range: <150 mg/dLBorderline High: 150-199 mg/dLHigh: 200-499 mg/dLVery High: >500 mg/dL Urinalysis, Completeon 08-04 WBC 0-5 SEEN Normal 0-5 [facility] Comment on above: Order Comment: Urine , Random Performed By: #### L 400.0001, L506.1001 #### [facility] [address] [place], [address] BACTERIA 0 SEEN Normal None Seen [facility] Comment on above: Order Comment: Urine , Random Performed By: #### L 400.0001, L506.1001 #### [facility] [address] [place], [address] EPI,SQUAMOUS 0 SEEN Normal 0-5 [facility] Comment on above: Order Comment: Urine , Random Performed By: #### L 400.0001, L506.1001 #### [facility] [address] [place], [address] Mucus Ql (Urine sed) 0 SEEN Normal [facility] Comment on above: Order Comment: Urine , Random Performed By: #### L 400.0001, L506.1001 #### [facility] [address] [place], [address] RBC 0 SEEN Normal 0-5 [facility] Comment on above: Order Comment: Urine , Random Performed By: #### L 400.0001, L506.1001 #### [facility] [address] [place], [address] Urine clarityOrdered By: Gabo Bazan on 08-04-2024 Clarity (U) Clear Clear [facility] Urine color determinationOrd ered By: Samuel Bazan on 08-04-2024 Color (U) Yellow Yellow [facility] Urine glucose detectionOrder ed By: Samuel Bazan on 08-04-2024 Glucose Ql (U) Normal mg/dl Normal [facility] Urine leukocyte esterase det ection by dipstickOrdered By: Samuel Bazan on 08-04-2024 Leukocyte esterase Test strip Ql (U) Negative Negative [facility] Urine pHOrdered By: Samuel jama on 08-04-2024 pH (U) 7.0 [pH] 5.0 - 8.0 [facility] Urine sediment bacteria coun t by microscopy (number/high power field)Ordered By: Samuel Bazan on 08-04-2024 Bacteria LM.HPF (Urine sed) [#/Area] 0 /[HPF] None Seen [facility] Urine specific gravity measu rementOrdered By: Samuel Bazan on 08-04-2024 Specific gravity (U) [Rel density] 1.010 1.002-1.030 [facility] Urine urobilinogen measureme ntOrdered By: Samuel Bazan on 08-04-2024 Urobilinogen Ql (U) Normal mg/dl Normal [facility] Vitamin D,25 Hydroxyon 08-04 Vitamin D 25-OH 47.8 ng/mL Normal 30-100 [facility] Comment on above: Order Comment: Order Date: 04/10/24 Order Info: [id number] - CMP Order Info: [id number] - LIPID Order Info: [id number] - TSH Order Info: [id number] - T4F Result Comment: Nohelia min D Status Deficiency: <20 ng/mL (50nmol/L) Insufficiency: 20-30 ng/mL (50-75 nmol/L) Sufficiency: 30-100 ng/mL (75-250 nmol/L) Toxicity: >100 ng/mL (>250 nmol/L) Performed By: #### L 400.0001, L506.1001 #### [facility] [place] [address], [address] White blood cell (WBC) count Ordered By: Samuel Bazan on 08-04-2024 WBC (Bld) [#/Vol] 7.8 10*3/uL 4.4-11.0 [facility] White blood cell countOrdere d By: Samuel Bazan on 08-04-2024 White blood cell count 0-5 SEEN /hpf 0-5 [facility] CBC W/Diff, Automatedon 03-25 Absolute Lymph 1.56 X10 3/uL Normal 0.83-4.51 [facility] Comment on above: Order Comment: Order Date: 12/13/23Order Info: [id number] - CBCD Performed By: #### L 100.0100, L503.6005, L300.3900, L300.4310, L500.2500, L500.3400 #### [facility] [address] [place], [address] Absolute Neut 3.9 X10 3/uL Normal 2.0-7.7 [facility] Comment on above: Order Comment: Order Date: 12/13/23Order Info: 018- - CBCD Performed By: #### L 100.0100, L503.6005, L300.3900, L300.4310, L500.2500, L500.3400 #### [facility] [address] [place], [address] Basophils/100 WBC (Bld) 0.5 % Normal 0-1 [facility] Comment on above: Order Comment: Order Date: 12/13/23Order Info: 018- - CBCD Performed By: #### L 100.0100, L503.6005, L300.3900, L300.4310, L500.2500, L500.3400 #### [facility] [address] [place], [address] Eosinophils/100 WBC (Bld) 6.8 % High 0-5 [facility] Comment on above: Order Comment: Order Date: 12/13/23Order Info: 018- - CBCD Performed By: #### L 100.0100, L503.6005, L300.3900, L300.4310, L500.2500, L500.3400 #### [facility] [address] [place], [address] Erythrocyte distribution width (RBC) [Ratio] 14.6 % Normal 11.6-14.6 [facility] Comment on above: Order Comment: Order Date: 12/13/23Order Info: 018- - CBCD Performed By: #### L 100.0100, L503.6005, L300.3900, L300.4310, L500.2500, L500.3400 #### [facility] [address] [place], [address] Hematocrit (Bld) [Volume fraction] 49.4 % Normal 40-54 [facility] Comment on above: Order Comment: Order Date: 12/13/23Order Info: [id number] - CBCD Performed By: #### L 100.0100, L503.6005, L300.3900, L300.4310, L500.2500, L500.3400 #### [facility] [address] [place], [address] Hemoglobin (Bld) [Mass/Vol] 15.9 g/dL Normal 13.0-16.5 [facility] Comment on above: Order Comment: Order Date: 12/13/23Order Info: [id number] - CBCD Performed By: #### L 100.0100, L503.6005, L300.3900, L300.4310, L500.2500, L500.3400 #### [facility] [address] [place], [address] IG% 0.300 Normal 0.0-0.9 [facility] Comment on above: Order Comment: Order Date: 12/13/23Order Info: [id number] - CBCD Result Comment: IG% - Immature Granulocytes (promyelocytes, myelocytes and metamyelocytes) > 1% indicates that a LEFT SHIFT is Present. Performed By: #### L 100.0100, L503.6005, L300.3900, L300.4310, L500.2500, L500.3400 #### [facility] [address] [place], [address] Lymphocytes/100 WBC (Bld) 23.5 % Normal 19-41 [facility] Comment on above: Order Comment: Order Date: 12/13/23Order Info: [id number] - CBCD Performed By: #### L 100.0100, L503.6005, L300.3900, L300.4310, L500.2500, L500.3400 #### [facility] [address] [place], [address] MCH (RBC) [Entitic mass] 30.0 pg Normal 27.0-32.0 [facility] Comment on above: Order Comment: Order Date: 12/13/23Order Info: 018- - CBCD Performed By: #### L 100.0100, L503.6005, L300.3900, L300.4310, L500.2500, L500.3400 #### [facility] [address] [place], [address] MCHC (RBC) [Mass/Vol] 32.2 g/dL Normal 32-36 [facility] Comment on above: Order Comment: Order Date: 12/13/23Order Info: 183- - CBCD Performed By: #### L 100.0100, L503.6005, L300.3900, L300.4310, L500.2500, L500.3400 #### [facility] [address] [place], [address] MCV (RBC) [Entitic vol] 93.2 fL Normal 80-94 [facility] Comment on above: Order Comment: Order Date: 12/13/23Order Info: 018- - CBCD Performed By: #### L 100.0100, L503.6005, L300.3900, L300.4310, L500.2500, L500.3400 #### [facility] [address] [place], [address] Monocytes/100 WBC (Bld) 9.7 % Normal 0-10 [facility] Comment on above: Order Comment: Order Date: 12/13/23Order Info: 018- - CBCD Performed By: #### L 100.0100, L503.6005, L300.3900, L300.4310, L500.2500, L500.3400 #### [facility] [address] [place], [address] Neutrophils/100 WBC (Bld) 59.2 % Normal 47-70 [facility] Comment on above: Order Comment: Order Date: 12/13/23Order Info: [id number] - CBCD Performed By: #### L 100.0100, L503.6005, L300.3900, L300.4310, L500.2500, L500.3400 #### [facility] [address] [place], [address] Nucleated RBC (Bld) [#/Vol] 0 10*3/uL Normal 0-5 [facility] Comment on above: Order Comment: Order Date: 12/13/23Order Info: 018- - CBCD Performed By: #### L 100.0100, L503.6005, L300.3900, L300.4310, L500.2500, L500.3400 #### [facility] [address] [place], [address] Platelet mean volume (Bld) [Entitic vol] 9.4 fL Normal 6.2-12.0 [facility] Comment on above: Order Comment: Order Date: 12/13/23Order Info: 018-1 - CBCD Performed By: #### L 100.0100, L503.6005, L300.3900, L300.4310, L500.2500, L500.3400 #### [facility] [address] [place], [address] Platelets (Bld) [#/Vol] 191 10*3/uL Normal 150-450 [facility] Comment on above: Order Comment: Order Date: 12/13/23Order Info: 018-1 - CBCD Performed By: #### L 100.0100, L503.6005, L300.3900, L300.4310, L500.2500, L500.3400 #### [facility] [address] [place], [address] RBC (Bld) [#/Vol] 5.30 10*6/uL Normal 4.6-6.2 [facility] Comment on above: Order Comment: Order Date: 12/13/23Order Info: 018- - CBCD Performed By: #### L 100.0100, L503.6005, L300.3900, L300.4310, L500.2500, L500.3400 #### [facility] [address] [place], [address] RDW SD 49.8 fl High 35.1-43.9 [facility] Comment on above: Order Comment: Order Date: 12/13/23Order Info: 018- - CBCD Performed By: #### L 100.0100, L503.6005, L300.3900, L300.4310, L500.2500, L500.3400 #### [facility] [address] [place], [place], [id number] WBC (Bld) [#/Vol] 6.6 10*3/uL Normal 4.4-11.0 [facility] Comment on above: Order Comment: Order Date: 12/13/23Order Info: [id number] - CBCD Performed By: #### L 100.0100, L503.6005, L300.3900, L300.4310, L500.2500, L500.3400 #### [facility] [address] [place], [address] Comprehensive Metabolic Prof [facility] 04-09-2024 Albumin [Mass/Vol] 3.4 g/dL Normal 3.2-5.0 [facility] Comment on above: Order Comment: Order Date: 12/13/23Order Info: [id number] - CMPOrder Info: [id number] - PHOSOrder Info: [id number] - MGOrder Info: [id number] - TSHOrder Info: 3024-7 - T4F Performed By: #### L 100.0100, L503.6005, L300.3900, L300.4310, L500.2500, L500.3400 #### [facility] [address] [place], [address] Albumin/Globulin [Mass ratio] 0.9 {ratio} Normal 0.9-2.4 [facility] Comment on above: Order Comment: Order Date: 12/13/23Order Info: [id number] - CMPOrder Info: 7-1 - PHOSOrder Info: [id number] - MGOrder Info: [id number] - TSHOrder Info: 3024-7 - T4F Performed By: #### L 100.0100, L503.6005, L300.3900, L300.4310, L500.2500, L500.3400 #### [facility] [address] [place], [address] ALK P 72 U/L Normal 45-117 [facility] Comment on above: Order Comment: Order Date: 12/13/23Order Info: 785- - CMPOrder Info: [id number] - PHOSOrder Info: [id number] - MGOrder Info: [id number] - TSHOrder Info: 3024-7 - T4F Performed By: #### L 100.0100, L503.6005, L300.3900, L300.4310, L500.2500, L500.3400 #### [facility] [address] [place], [address] ALT [Catalytic activity/Vol] 20 U/L Normal 16-61 [facility] Comment on above: Order Comment: Order Date: 12/13/23Order Info: 785-1 - CMPOrder Info: 2776- - PHOSOrder Info: [id number] - MGOrder Info: [id number] - TSHOrder Info: 3024-7 - T4F Performed By: #### L 100.0100, L503.6005, L300.3900, L300.4310, L500.2500, L500.3400 #### [facility] [address] [place], [address] AST [Catalytic activity/Vol] 16 U/L Normal 15-37 [facility] Comment on above: Order Comment: Order Date: 12/13/23Order Info: [id number] - CMPOrder Info: 7- - PHOSOrder Info: [id number] - MGOrder Info: [id number] - TSHOrder Info: 3024-7 - T4F Performed By: #### L 100.0100, L503.6005, L300.3900, L300.4310, L500.2500, L500.3400 #### [facility] [address] [place], [address] Bilirubin [Mass/Vol] 0.80 mg/dL Normal 0.20-1.00 [facility] Comment on above: Order Comment: Order Date: 12/13/23Order Info: 785-1 - CMPOrder Info: [id number] - PHOSOrder Info: [id number] - MGOrder Info: [id number] - TSHOrder Info: 3024-7 - T4F Result Comment: For patients on eltrombopag therapy, use of Dimension [place] TBIL is not recommended. Performed By: #### L 100.0100, L503.6005, L300.3900, L300.4310, L500.2500, L500.3400 #### [facility] [address] [place], [address] BUN/CRE 18.6 RATIO Normal 10-20 [facility] Comment on above: Order Comment: Order Date: 12/13/23Order Info: 07- - CMPOrder Info: [id number] - PHOSOrder Info: [id number] - MGOrder Info: [id number] - TSHOrder Info: 3024-7 - T4F Performed By: #### L 100.0100, L503.6005, L300.3900, L300.4310, L500.2500, L500.3400 #### [facility] [address] [place], [address] CA,Total 9.1 mg/dL Normal 8.5-10.1 [facility] Comment on above: Order Comment: Order Date: 12/13/23Order Info: 86-1 - CMPOrder Info: [id number] - PHOSOrder Info: [id number] - MGOrder Info: [id number] - TSHOrder Info: 3024-7 - T4F Performed By: #### L 100.0100, L503.6005, L300.3900, L300.4310, L500.2500, L500.3400 #### [facility] [address] [place], [address] Chloride [Moles/Vol] 107 mmol/L Normal 98-107 [facility] Comment on above: Order Comment: Order Date: 12/13/23Order Info: 785- - CMPOrder Info: [id number] - PHOSOrder Info: [id number] - MGOrder Info: 6-3 - TSHOrder Info: 3024-7 - T4F Performed By: #### L 100.0100, L503.6005, L300.3900, L300.4310, L500.2500, L500.3400 #### [facility] [address] [place], [address] CO2 [Moles/Vol] 28.0 mmol/L Normal 21.0-32.0 [facility] Comment on above: Order Comment: Order Date: 12/13/23Order Info: [id number] - CMPOrder Info: [id number] - PHOSOrder Info: [id number] - MGOrder Info: 6-3 - TSHOrder Info: 3024-7 - T4F Performed By: #### L 100.0100, L503.6005, L300.3900, L300.4310, L500.2500, L500.3400 #### [facility] [address] [place], [address] Creatinine [Mass/Vol] 1.40 mg/dL High 0.70-1.30 [facility] Comment on above: Order Comment: Order Date: 12/13/23Order Info: 785- - CMPOrder Info: [id number] - PHOSOrder Info: [id number] - MGOrder Info: 3 - TSHOrder Info: 3027 - T4F Result Comment: The validity of the calculated GFR GFRAA in patients over 70 years has not been determined. Clinical correlation is essential. Performed By: #### L 100.0100, L503.6005, L300.3900, L300.4310, L500.2500, L500.3400 #### [facility] [address] [place], [address] EST GFR - AA 64 mL/min Normal >60 [facility] Comment on above: Order Comment: Order Date: 12/13/23Order Info: 07 - CMPOrder Info: [id number] - PHOSOrder Info: [id number] - MGOrder Info: 3 - TSHOrder Info: 3027 - T4F Result Comment: Afri can [place] GFR Calc Performed By: #### L 100.0100, L503.6005, L300.3900, L300.4310, L500.2500, L500.3400 #### [facility] [address] [place], [place], [phone]) GAP 7 Normal 5-15 [facility] Comment on above: Order Comment: Order Date: 12/13/23Order Info: [id number] - CMPOrder Info: [id number] - PHOSOrder Info: [id number] - MGOrder Info: 3 - TSHOrder Info: 3027 - T4F Performed By: #### L 100.0100, L503.6005, L300.3900, L300.4310, L500.2500, L500.3400 #### [facility] [address] [place], [place], [phone] (433) GFR/1.73 sq M.predicted among non-blacks MDRD (S/P/Bld) [Vol rate/Area] 53 mL/min/{1.73_m2} Low >60 [facility] Comment on above: Order Comment: Order Date: 12/13/23Order Info: 07- - CMPOrder Info: [id number] - PHOSOrder Info: [id number] - MGOrder Info: [id number] - TSHOrder Info: 3024-7 - T4F Result Comment: Non- GFR Calc Performed By: #### L 100.0100, L503.6005, L300.3900, L300.4310, L500.2500, L500.3400 #### [facility] [address] [place], [address] Globulin (S) [Mass/Vol] 3.7 g/dL Normal 2.2-4.2 [facility] Comment on above: Order Comment: Order Date: 12/13/23Order Info: 785- - CMPOrder Info: [id number] - PHOSOrder Info: [id number] - MGOrder Info: [id number] - TSHOrder Info: 302-7 - T4F Performed By: #### L 100.0100, L503.6005, L300.3900, L300.4310, L500.2500, L500.3400 #### [facility] [address] [place], [address] Glucose [Mass/Vol] 95 mg/dL Normal 74-106 [facility] Comment on above: Order Comment: Order Date: 12/13/23Order Info: 07 - CMPOrder Info: [id number] - PHOSOrder Info: [id number] - MGOrder Info: 3 - TSHOrder Info: 3024-7 - T4F Performed By: #### L 100.0100, L503.6005, L300.3900, L300.4310, L500.2500, L500.3400 #### [facility] [address] [place], [address] Potassium [Moles/Vol] 4.2 mmol/L Normal 3.5-5.1 [facility] Comment on above: Order Comment: Order Date: 12/13/23Order Info: 785- - CMPOrder Info: [id number] - PHOSOrder Info: [id number] - MGOrder Info: 6-3 - TSHOrder Info: 3024-7 - T4F Performed By: #### L 100.0100, L503.6005, L300.3900, L300.4310, L500.2500, L500.3400 #### [facility] [address] [place], [address] Sodium [Moles/Vol] 141 mmol/L Normal 136-145 [facility] Comment on above: Order Comment: Order Date: 12/13/23Order Info: 785-1 - CMPOrder Info: [id number] - PHOSOrder Info: [id number] - MGOrder Info: [id number] - TSHOrder Info: 3024-7 - T4F Performed By: #### L 100.0100, L503.6005, L300.3900, L300.4310, L500.2500, L500.3400 #### [facility] [address] [place], [address] T PROT 7.1 g/dL Normal 6.4-8.2 [facility] Comment on above: Order Comment: Order Date: 12/13/23Order Info: 86-1 - CMPOrder Info: [id number] - PHOSOrder Info: [id number] - MGOrder Info: 6-3 - TSHOrder Info: 3024-7 - T4F Performed By: #### L 100.0100, L503.6005, L300.3900, L300.4310, L500.2500, L500.3400 #### [facility] [address] [place], [address] Urea nitrogen [Mass/Vol] 26 mg/dL High 7-18 [facility] Comment on above: Order Comment: Order Date: 12/13/23Order Info: [id number] - CMPOrder Info: [id number] - PHOSOrder Info: [id number] - MGOrder Info: [id number] - TSHOrder Info: 3024-7 - T4F Performed By: #### L 100.0100, L503.6005, L300.3900, L300.4310, L500.2500, L500.3400 #### [facility] [address] [place], [address] Hemoglobin A1con 04-09-2024 HbA1c (Bld) [Mass fraction] 5.9 % High 3.8-5.6 [facility] Comment on above: Order Comment: Order Date: 12/13/23Order Info: [id number] - A1C Result Comment: Norm al < 5.7 % Prediabetic 5.7 - 6.4 % Diabetic >or= 6.5 % Please note range changes. Performed By: #### L 100.0100, L503.6005, L300.3900, L300.4310, L500.2500, L500.3400 #### [facility] [address] [place], [address] Magnesiumon 04-09-2024 Magnesium [Mass/Vol] 2.3 mg/dL Normal 1.6-2.6 [facility] Comment on above: Order Comment: Order Date: 12/13/23Order Info: [id number] - CMPOrder Info: [id number] - PHOSOrder Info: [id number] - MGOrder Info: [id number] - TSHOrder Info: [id number] - T4F Performed By: #### L 100.0100, L503.6005, L300.3900, L300.4310, L500.2500, L500.3400 #### [facility] [address] [place], [address] PTHINon 04-09-2024 PTH 106.1 pg/mL High 18.4-80.1 [facility] Comment on above: Order Comment: Order Date: 12/13/23Order Info: [id number] - PTHIN Performed By: #### L 100.0100, L503.6005, L300.3900, L300.4310, L500.2500, L500.3400 #### [facility] [address] [place], [address] Phosphoruson 04-09-2024 Phosphate [Mass/Vol] 2.9 mg/dL Normal 2.5-4.9 [facility] Comment on above: Order Comment: Order Date: 12/13/23Order Info: [id number] - CMPOrder Info: [id number] - PHOSOrder Info: [id number] - MGOrder Info: [id number] - TSHOrder Info: [id number] - T4F Performed By: #### L 100.0100, L503.6005, L300.3900, L300.4310, L500.2500, L500.3400 #### [facility] [address] [place], [address] Protein+Creatinine Ratio,Uri neon 04-09-2024 PROT:CRE RATIO 130 mg/g CRE Normal 0-200 [facility] Comment on above: Performed By: #### L 100.0100, L503.6005, L300.3900, L300.4310, L500.2500, L500.3400 #### [facility] [address] [place], [address] Protein (U) [Mass/Vol] 15.2 mg/dL High <11.9 [facility] Comment on above: Performed By: #### L 100.0100, L503.6005, L300.3900, L300.4310, L500.2500, L500.3400 #### [facility] [address] [place], [address] UR CREAT 117.00 mg/dL Normal NO RANGE EST. [facility] Comment on above: Performed By: #### L 100.0100, L503.6005, L300.3900, L300.4310, L500.2500, L500.3400 #### [facility] [address] [place], [address] T4 Free Directon 04-09-2024 T4 FREE DIRECT 0.79 ng/dL Normal 0.76-1.46 [facility] Comment on above: Order Comment: Order Date: 12/13/23Order Info: [id number] - CMPOrder Info: [id number] - PHOSOrder Info: [id number] - MGOrder Info: 6-3 - TSHOrder Info: [id number] - T4F Performed By: #### L 100.0100, L503.6005, L300.3900, L300.4310, L500.2500, L500.3400 #### [facility] [address] [place], [place], [address] Thyroid Stim Hormone (TSH)on 04-09-2024 TSH 4.530 uIU/mL High 0.358-3.740 [facility] Comment on above: Order Comment: Order Date: 12/13/23Order Info: [id number] - CMPOrder Info: [id number] - PHOSOrder Info: - MGOrder Info: 6-3 - TSHOrder Info: [id number] - T4F Performed By: #### L 100.0100, L503.6005, L300.3900, L300.4310, L500.2500, L500.3400 #### [facility] [address] [place], [place], [id number] Urinalysis, Completeon 04-09 BACTERIA 0 SEEN Normal None Seen [facility] Comment on above: Order Comment: CLEAN CATCH Performed By: #### L 100.0100, L503.6005, L300.3900, L300.4310, L500.2500, L500.3400 #### [facility] [address] [place], [place], [id number] EPI,SQUAMOUS 0 SEEN Normal 0-5 [facility] Comment on above: Order Comment: CLEAN CATCH Performed By: #### L 100.0100, L503.6005, L300.3900, L300.4310, L500.2500, L500.3400 #### [facility] [address] [place], [address] Mucus Ql (Urine sed) 0 SEEN Normal [facility] Comment on above: Order Comment: CLEAN CATCH Performed By: #### L 100.0100, L503.6005, L300.3900, L300.4310, L500.2500, L500.3400 #### [facility] [address] [place], [address] RBC 0 SEEN Normal 0-5 [facility] Comment on above: Order Comment: CLEAN CATCH Performed By: #### L 100.0100, L503.6005, L300.3900, L300.4310, L500.2500, L500.3400 #### [facility] [address] [place], [address] WBC 0 SEEN Normal 0-5 [facility] Comment on above: Order Comment: CLEAN CATCH Performed By: #### L 100.0100, L503.6005, L300.3900, L300.4310, L500.2500, L500.3400 #### [facility] [address] [place], [address] Vitamin D,25 Hydroxyon 04-09 Vitamin D 25-OH 25.1 ng/mL Normal [facility] Comment on above: Order Comment: Y Result Comment: Nohelia min D 25(OH) Status Range Deficiency <20 ng/mL (50nmol/L) Insufficiency 20 - 30 ng/mL (50 - 75 nmol/L) Sufficiency 30 - 100 ng/mL (75 - 250 nmol/L) Toxicity >100 ng/mL (>250 nmol/L) Performed By: #### L 100.0100, L503.6005, L300.3900, L300.4310, L500.2500, L500.3400 #### [facility] [address] [place], [address] CBC W/Diff, Automatedon 11-23 Absolute Lymph 1.47 X10 3/uL Normal 0.83-4.51 [facility] Comment on above: Order Comment: Order Date: 07/10/23Order Info: [id number] - CBCD Performed By: #### L 100.0100, L503.6005, L300.3900, L300.4310, L500.2500, L500.3400 #### [facility] [address] [place], [address] Absolute Neut 4.8 X10 3/uL Normal 2.0-7.7 [facility] Comment on above: Order Comment: Order Date: 07/10/23Order Info: 018- - CBCD Performed By: #### L 100.0100, L503.6005, L300.3900, L300.4310, L500.2500, L500.3400 #### [facility] [address] [place], [address] Basophils/100 WBC (Bld) 0.5 % Normal 0-1 [facility] Comment on above: Order Comment: Order Date: 07/10/23Order Info: [id number] - CBCD Performed By: #### L 100.0100, L503.6005, L300.3900, L300.4310, L500.2500, L500.3400 #### [facility] [address] [place], [address] Eosinophils/100 WBC (Bld) 7.2 % High 0-5 [facility] Comment on above: Order Comment: Order Date: 07/10/23Order Info: [id number] - CBCD Performed By: #### L 100.0100, L503.6005, L300.3900, L300.4310, L500.2500, L500.3400 #### [facility] [address] [place], [address] Erythrocyte distribution width (RBC) [Ratio] 14.4 % Normal 11.6-14.6 [facility] Comment on above: Order Comment: Order Date: 07/10/23Order Info: [id number] - CBCD Performed By: #### L 100.0100, L503.6005, L300.3900, L300.4310, L500.2500, L500.3400 #### [facility] [address] [place], [address] Hematocrit (Bld) [Volume fraction] 48.3 % Normal 40-54 [facility] Comment on above: Order Comment: Order Date: 07/10/23Order Info: [id number] - CBCD Performed By: #### L 100.0100, L503.6005, L300.3900, L300.4310, L500.2500, L500.3400 #### [facility] [address] [place], [address] Hemoglobin (Bld) [Mass/Vol] 15.2 g/dL Normal 13.0-16.5 [facility] Comment on above: Order Comment: Order Date: 07/10/23Order Info: [id number] - CBCD Performed By: #### L 100.0100, L503.6005, L300.3900, L300.4310, L500.2500, L500.3400 #### [facility] [address] [place], [address] IG% 0.400 Normal 0.0-0.9 [facility] Comment on above: Order Comment: Order Date: 07/10/23Order Info: [id number] - CBCD Result Comment: IG% - Immature Granulocytes (promyelocytes, myelocytes and metamyelocytes) > 1% indicates that a LEFT SHIFT is Present. Performed By: #### L 100.0100, L503.6005, L300.3900, L300.4310, L500.2500, L500.3400 #### [facility] [address] [place], [address] Lymphocytes/100 WBC (Bld) 19.3 % Normal 19-41 [facility] Comment on above: Order Comment: Order Date: 07/10/23Order Info: [id number] - CBCD Performed By: #### L 100.0100, L503.6005, L300.3900, L300.4310, L500.2500, L500.3400 #### [facility] [address] [place], [address] MCH (RBC) [Entitic mass] 29.5 pg Normal 27.0-32.0 [facility] Comment on above: Order Comment: Order Date: 07/10/23Order Info: [id number] - CBCD Performed By: #### L 100.0100, L503.6005, L300.3900, L300.4310, L500.2500, L500.3400 #### [facility] [address] [place], [address] MCHC (RBC) [Mass/Vol] 31.5 g/dL Low 32-36 [facility] Comment on above: Order Comment: Order Date: 07/10/23Order Info: [id number] - CBCD Performed By: #### L 100.0100, L503.6005, L300.3900, L300.4310, L500.2500, L500.3400 #### [facility] [address] [place], [address] MCV (RBC) [Entitic vol] 93.6 fL Normal 80-94 [facility] Comment on above: Order Comment: Order Date: 07/10/23Order Info: [id number] - CBCD Performed By: #### L 100.0100, L503.6005, L300.3900, L300.4310, L500.2500, L500.3400 #### [facility] [address] [place], [address] Monocytes/100 WBC (Bld) 9.7 % Normal 0-10 [facility] Comment on above: Order Comment: Order Date: 07/10/23Order Info: [id number] - CBCD Performed By: #### L 100.0100, L503.6005, L300.3900, L300.4310, L500.2500, L500.3400 #### [facility] [address] [place], [address] Neutrophils/100 WBC (Bld) 62.9 % Normal 47-70 [facility] Comment on above: Order Comment: Order Date: 07/10/23Order Info: [id number] - CBCD Performed By: #### L 100.0100, L503.6005, L300.3900, L300.4310, L500.2500, L500.3400 #### [facility] [address] [place], [address] Nucleated RBC (Bld) [#/Vol] 0 10*3/uL Normal 0-5 [facility] Comment on above: Order Comment: Order Date: 07/10/23Order Info: [id number]- - CBCD Performed By: #### L 100.0100, L503.6005, L300.3900, L300.4310, L500.2500, L500.3400 #### [facility] [address] [place], [address] Platelet mean volume (Bld) [Entitic vol] 10.1 fL Normal 6.2-12.0 [facility] Comment on above: Order Comment: Order Date: 07/10/23Order Info: [id number]- - CBCD Performed By: #### L 100.0100, L503.6005, L300.3900, L300.4310, L500.2500, L500.3400 #### [facility] [address] [facility] [place] [place], [address] Platelets (Bld) [#/Vol] 167 10*3/uL Normal 150-450 [facility] Comment on above: Order Comment: Order Date: 07/10/23Order Info: [id number] - CBCD Performed By: #### L 100.0100, L503.6005, L300.3900, L300.4310, L500.2500, L500.3400 #### [facility] [address] [place], [address] RBC (Bld) [#/Vol] 5.16 10*6/uL Normal 4.6-6.2 [facility] Comment on above: Order Comment: Order Date: 07/10/23Order Info: [id number] - CBCD Performed By: #### L 100.0100, L503.6005, L300.3900, L300.4310, L500.2500, L500.3400 #### [facility] [address] [place], [address] RDW SD 49.6 fl High 35.1-43.9 [facility] Comment on above: Order Comment: Order Date: 07/10/23Order Info: [id number] - CBCD Performed By: #### L 100.0100, L503.6005, L300.3900, L300.4310, L500.2500, L500.3400 #### [facility] [address] [place], [address] WBC (Bld) [#/Vol] 7.6 10*3/uL Normal 4.4-11.0 [facility] Comment on above: Order Comment: Order Date: 07/10/23Order Info: [id number] - CBCD Performed By: #### L 100.0100, L503.6005, L300.3900, L300.4310, L500.2500, L500.3400 #### [facility] [address] [place], [place], [id number] [phone] Comprehensive Metabolic Prof kson 12-05-2023 Albumin [Mass/Vol] 3.6 g/dL Normal 3.2-5.0 [facility] Comment on above: Order Comment: Order Date: 07/10/23Order Info: [id number] - CMPOrder Info: - LIPIDOrder Info: [id number] - TSHOrder Info: 7 - T4F Performed By: #### L 100.0100, L503.6005, L300.3900, L300.4310, L500.2500, L500.3400 #### [facility] [address] [place], [address] Albumin/Globulin [Mass ratio] 1.1 {ratio} Normal 0.9-2.4 [facility] Comment on above: Order Comment: Order Date: 07/10/23Order Info: 785- - CMPOrder Info: - LIPIDOrder Info: [id number] - TSHOrder Info: [id number] - T4F Performed By: #### L 100.0100, L503.6005, L300.3900, L300.4310, L500.2500, L500.3400 #### [facility] [address] [place], [address] ALK P 78 U/L Normal 45-117 [facility] Comment on above: Order Comment: Order Date: 07/10/23Order Info: [id number] - CMPOrder Info: - LIPIDOrder Info: [id number] - TSHOrder Info: [id number] - T4F Performed By: #### L 100.0100, L503.6005, L300.3900, L300.4310, L500.2500, L500.3400 #### [facility] [address] [place], [address] ALT [Catalytic activity/Vol] 20 U/L Normal 16-61 [facility] Comment on above: Order Comment: Order Date: 07/10/23Order Info: [id number]- - CMPOrder Info: - LIPIDOrder Info: [id number] - TSHOrder Info: 7 - T4F Performed By: #### L 100.0100, L503.6005, L300.3900, L300.4310, L500.2500, L500.3400 #### [facility] [address] [place], [address] AST [Catalytic activity/Vol] 13 U/L Low 15-37 [facility] Comment on above: Order Comment: Order Date: 07/10/23Order Info: [id number] - CMPOrder Info: [id number] - LIPIDOrder Info: [id number] - TSHOrder Info: [id number] - T4F Performed By: #### L 100.0100, L503.6005, L300.3900, L300.4310, L500.2500, L500.3400 #### [facility] [address] [place], [address] Bilirubin [Mass/Vol] 0.80 mg/dL Normal 0.20-1.00 [facility] Comment on above: Order Comment: Order Date: 07/10/23Order Info: [id number] - CMPOrder Info: [id number] - LIPIDOrder Info: 3 - TSHOrder Info: 3027 - T4F Result Comment: For patients on eltrombopag therapy, use of Dimension [place] TBIL is not recommended. Performed By: #### L 100.0100, L503.6005, L300.3900, L300.4310, L500.2500, L500.3400 #### [facility] [address] [place], [address] BUN/CRE 19.5 RATIO Normal 10-20 [facility] Comment on above: Order Comment: Order Date: 07/10/23Order Info: 07-1 - CMPOrder Info: [id number] - LIPIDOrder Info: [id number] - TSHOrder Info: [id number] - T4F Performed By: #### L 100.0100, L503.6005, L300.3900, L300.4310, L500.2500, L500.3400 #### [facility] [address] [place], [address] CA,Total 9.1 mg/dL Normal 8.5-10.1 [facility] Comment on above: Order Comment: Order Date: 07/10/23Order Info: 86-1 - CMPOrder Info: [id number] - LIPIDOrder Info: [id number] - TSHOrder Info: 3024-7 - T4F Performed By: #### L 100.0100, L503.6005, L300.3900, L300.4310, L500.2500, L500.3400 #### [facility] [address] [place], [address] Chloride [Moles/Vol] 105 mmol/L Normal 98-107 [facility] Comment on above: Order Comment: Order Date: 07/10/23Order Info: 86-1 - CMPOrder Info: [id number] - LIPIDOrder Info: 3 - TSHOrder Info: [id number] - T4F Performed By: #### L 100.0100, L503.6005, L300.3900, L300.4310, L500.2500, L500.3400 #### [facility] [address] [place], [address] CO2 [Moles/Vol] 30.0 mmol/L Normal 21.0-32.0 [facility] Comment on above: Order Comment: Order Date: 07/10/23Order Info: 86-1 - CMPOrder Info: [id number] - LIPIDOrder Info: [id number] - TSHOrder Info: 3024-7 - T4F Performed By: #### L 100.0100, L503.6005, L300.3900, L300.4310, L500.2500, L500.3400 #### [facility] [address] [place], [address] Creatinine [Mass/Vol] 1.23 mg/dL Normal 0.70-1.30 [facility] Comment on above: Order Comment: Order Date: 07/10/23Order Info: 86-1 - CMPOrder Info: [id number] - LIPIDOrder Info: [id number] - TSHOrder Info: 3024-7 - T4F Result Comment: The validity of the calculated GFR GFRAA in patients over 70 years has not been determined. Clinical correlation is essential. Performed By: #### L 100.0100, L503.6005, L300.3900, L300.4310, L500.2500, L500.3400 #### [facility] [address] [place], [address] EST GFR - AA 74 mL/min Normal >60 [facility] Comment on above: Order Comment: Order Date: 07/10/23Order Info: [id number] - CMPOrder Info: [id number] - LIPIDOrder Info: 3 - TSHOrder Info: 7 - T4F Result Comment: Afri can Trinidadian GFR Calc Performed By: #### L 100.0100, L503.6005, L300.3900, L300.4310, L500.2500, L500.3400 #### [facility] [address] [place], [address] GAP 4 Low 5-15 [facility] Comment on above: Order Comment: Order Date: 07/10/23Order Info: [id number] - CMPOrder Info: [id number] - LIPIDOrder Info: 3 - TSHOrder Info: 7 - T4F Performed By: #### L 100.0100, L503.6005, L300.3900, L300.4310, L500.2500, L500.3400 #### [facility] [address] [place], [place], [address] GFR/1.73 sq M.predicted among non-blacks MDRD (S/P/Bld) [Vol rate/Area] 61 mL/min/{1.73_m2} Normal >60 [facility] Comment on above: Order Comment: Order Date: 07/10/23Order Info: [id number] - CMPOrder Info: [id number] - LIPIDOrder Info: [id number] - TSHOrder Info: [id number] - T4F Result Comment: Non- GFR Calc Performed By: #### L 100.0100, L503.6005, L300.3900, L300.4310, L500.2500, L500.3400 #### [facility] [address] [place], [address] Globulin (S) [Mass/Vol] 3.2 g/dL Normal 2.2-4.2 [facility] Comment on above: Order Comment: Order Date: 07/10/23Order Info: 785- - CMPOrder Info: [id number] - LIPIDOrder Info: 3 - TSHOrder Info: 7 - T4F Performed By: #### L 100.0100, L503.6005, L300.3900, L300.4310, L500.2500, L500.3400 #### [facility] [address] [place], [address] Glucose [Mass/Vol] 109 mg/dL High 74-106 [facility] Comment on above: Order Comment: Order Date: 07/10/23Order Info: [id number] - CMPOrder Info: - LIPIDOrder Info: [id number] - TSHOrder Info: 7 - T4F Result Comment: Fast ing Glucose result from 100 to 125 mg/dL suggests IMPAIRED HOMEOSTASIS per A.D.A. criteria. Performed By: #### L 100.0100, L503.6005, L300.3900, L300.4310, L500.2500, L500.3400 #### [facility] [address] [place], [address] Potassium [Moles/Vol] 4.1 mmol/L Normal 3.5-5.1 [facility] Comment on above: Order Comment: Order Date: 07/10/23Order Info: [id number] - CMPOrder Info: [id number] - LIPIDOrder Info: 3 - TSHOrder Info: [id number] - T4F Performed By: #### L 100.0100, L503.6005, L300.3900, L300.4310, L500.2500, L500.3400 #### [facility] [address] [place], [address] Sodium [Moles/Vol] 139 mmol/L Normal 136-145 [facility] Comment on above: Order Comment: Order Date: 07/10/23Order Info: [id number] - CMPOrder Info: [id number] - LIPIDOrder Info: [id number] - TSHOrder Info: 3024-7 - T4F Performed By: #### L 100.0100, L503.6005, L300.3900, L300.4310, L500.2500, L500.3400 #### [facility] [address] [place], [address] T PROT 6.8 g/dL Normal 6.4-8.2 [facility] Comment on above: Order Comment: Order Date: 07/10/23Order Info: [id number] - CMPOrder Info: [id number] - LIPIDOrder Info: 6-3 - TSHOrder Info: 3024-7 - T4F Performed By: #### L 100.0100, L503.6005, L300.3900, L300.4310, L500.2500, L500.3400 #### [facility] [address] [place], [address] Urea nitrogen [Mass/Vol] 24 mg/dL High 7-18 [facility] Comment on above: Order Comment: Order Date: 07/10/23Order Info: [id number] - CMPOrder Info: [id number] - LIPIDOrder Info: [id number] - TSHOrder Info: 3024-7 - T4F Performed By: #### L 100.0100, L503.6005, L300.3900, L300.4310, L500.2500, L500.3400 #### [facility] [address] [place], [address] Hemoglobin A1con 12-05-2023 HbA1c (Bld) [Mass fraction] 5.8 % High 3.8-5.6 [facility] Comment on above: Order Comment: Order Date: 07/10/23Order Info: [id number] - A1C Result Comment: Norm al < 5.7 % Prediabetic 5.7 - 6.4 % Diabetic >or= 6.5 % Please note range changes. Performed By: #### L 100.0100, L503.6005, L300.3900, L300.4310, L500.2500, L500.3400 #### [facility] [address] [place], [address] Lipid Profileon 12-05-2023 Cholesterol [Mass/Vol] 182 mg/dL Normal 200 [facility] Comment on above: Order Comment: Order Date: 07/10/23Order Info: [id number] - CMPOrder Info: [id number] - LIPIDOrder Info: [id number] - TSHOrder Info: [id number] - T4F Result Comment: <200 mg/dL Desirable 200-240 mg/dL Borderline >240 mg/dL High Risk Performed By: #### L 100.0100, L503.6005, L300.3900, L300.4310, L500.2500, L500.3400 #### [facility] [address] [place], [address] Cholesterol in HDL [Mass/Vol] 35 mg/dL Low [facility] Comment on above: Order Comment: Order Date: 07/10/23Order Info: [id number] - CMPOrder Info: [id number] - LIPIDOrder Info: [id number] - TSHOrder Info: [id number] - T4F Result Comment: The drugs N-Acetylcysteine and Metamizole may falsely depress this assay. Reference Range HDL <40 mg/dL Low HDL Cholesterol HDL >or= 60 mg/dL High HDL Cholesterol Performed By: #### L 100.0100, L503.6005, L300.3900, L300.4310, L500.2500, L500.3400 #### [facility] [address] [place], [address] Cholesterol in LDL [Mass/Vol] 79 mg/dL Normal 0-130 [facility] Comment on above: Order Comment: Order Date: 07/10/23Order Info: [id number] - CMPOrder Info: [id number] - LIPIDOrder Info: 6-3 - TSHOrder Info: 3024-7 - T4F Performed By: #### L 100.0100, L503.6005, L300.3900, L300.4310, L500.2500, L500.3400 #### [facility] [address] [place], [address] Cholesterol in VLDL [Mass/Vol] 68 mg/dL High 5-40 [facility] Comment on above: Order Comment: Order Date: 07/10/23Order Info: [id number] - CMPOrder Info: [id number] - LIPIDOrder Info: 6-3 - TSHOrder Info: 3024-7 - T4F Performed By: #### L 100.0100, L503.6005, L300.3900, L300.4310, L500.2500, L500.3400 #### [facility] [address] [place], [address] Triglyceride [Mass/Vol] 341 mg/dL High [facility] Comment on above: Order Comment: Order Date: 07/10/23Order Info: [id number] - CMPOrder Info: [id number] - LIPIDOrder Info: 6-3 - TSHOrder Info: [id number] - T4F Result Comment: The drugs N-Acetylcysteine and Metamizole may falsely depress this assay. Serum Triglycerides Reference Interval Normal <150 mg/dL Borderline high 150 - 199 mg/dL High 200 - 499 mg/dL Very High > or = 500 mg/dL Performed By: #### L 100.0100, L503.6005, L300.3900, L300.4310, L500.2500, L500.3400 #### [facility] [address] [place], [address] PTHINon 12-05-2023 PTH 105.5 pg/mL High 18.4-80.1 [facility] Comment on above: Order Comment: Order Date: 07/10/23Order Info: [id number] - PTHIN Performed By: #### L 100.0100, L503.6005, L300.3900, L300.4310, L500.2500, L500.3400 #### [facility] [address] [place], [address] Protein+Creatinine Ratio,Uri neon 12-05-2023 PROT:CRE RATIO 219 mg/g CRE High 0-200 [facility] Comment on above: Performed By: #### L 501.0900 #### [facility] [address] [place], [address] Protein (U) [Mass/Vol] 25.6 mg/dL High <11.9 [facility] Comment on above: Performed By: #### L 501.0900 #### [facility] [address] [place], [address] UR CREAT 117.00 mg/dL Normal NO RANGE EST. [facility] Comment on above: Performed By: #### L 501.0900 #### [facility] [address] [place], [address] T4 Free Directon 12-05-2023 T4 FREE DIRECT 0.80 ng/dL Normal 0.76-1.46 [facility] Comment on above: Order Comment: Order Date: 07/10/23Order Info: [id number] - CMPOrder Info: [id number] - LIPIDOrder Info: [id number] - TSHOrder Info: [id number] - T4F Performed By: #### L 100.0100, L503.6005, L300.3900, L300.4310, L500.2500, L500.3400 #### [facility] [address] [place], [address] Thyroid Stim Hormone (TSH)on 12-05-2023 TSH 4.730 uIU/mL High 0.358-3.740 [facility] [facility] Comment on [facility]: Order Comment: Order Date: 07/10/23Order Info: [id number] - CMPOrder Info: [id number] - LIPIDOrder Info: [id number] - TSHOrder Info: [id number] - T4F Performed By: #### L 100.0100, L503.6005, L300.3900, L300.4310, L500.2500, L500.3400 #### [facility] [address] [place], [address] Vitamin D,25 Hydroxyon 12-04 Vitamin D 25-OH 32.2 ng/mL Normal [facility] Comment on above: Order Comment: Order Date: 07/10/23Order Info: [id number] - [id number] Result Comment: Nohelia min D 25(OH) Status Range Deficiency <20 ng/mL (50nmol/L) Insufficiency 20 - 30 ng/mL (50 - 75 nmol/L) Sufficiency 30 - 100 ng/mL (75 - 250 nmol/L) Toxicity >100 ng/mL (>250 nmol/L) Performed By: #### L 100.0100, L503.6005, L300.3900, L300.4310, L500.2500, L500.3400 #### [facility] [address] [place], [address] Basic Metabolic Profile (BMP )on 09-03-2023 BUN/CRE 19.4 RATIO Normal 10-20 [facility] Comment on above: Order Comment: Y Performed By: #### L 100.0100, L503.6005, L300.3900, L300.4310, L500.2500, L500.3400 #### [facility] [address] [place], [address] CA,Total 9.3 mg/dL Normal 8.5-10.1 [facility] Comment on above: Order Comment: Y Performed By: #### L 100.0100, L503.6005, L300.3900, L300.4310, L500.2500, L500.3400 #### [facility] [address] [place], [address] Chloride [Moles/Vol] 107 mmol/L Normal 98-107 [facility] Comment on above: Order Comment: Y Performed By: #### L 100.0100, L503.6005, L300.3900, L300.4310, L500.2500, L500.3400 #### [facility] [address] [place], [address] CO2 [Moles/Vol] 25.0 mmol/L Normal 21.0-32.0 [facility] Comment on above: Order Comment: Y Performed By: #### L 100.0100, L503.6005, L300.3900, L300.4310, L500.2500, L500.3400 #### [facility] [address] [place], [address] Creatinine [Mass/Vol] 1.34 mg/dL High 0.70-1.30 [facility] Comment on above: Order Comment: Y Result Comment: The validity of the calculated GFR GFRAA in patients over 70 years has not been determined. Clinical correlation is essential. Performed By: #### L 100.0100, L503.6005, L300.3900, L300.4310, L500.2500, L500.3400 #### [facility] [address] [place], [address] EST GFR - AA 67 mL/min Normal >60 [facility] Comment on above: Order Comment: Y Result Comment: Afri can Trinidadian GFR Calc Performed By: #### L 100.0100, L503.6005, L300.3900, L300.4310, L500.2500, L500.3400 #### [facility] [address] [place], [address] GAP 8 Normal 5-15 [facility] Comment on above: Order Comment: Y Performed By: #### L 100.0100, L503.6005, L300.3900, L300.4310, L500.2500, L500.3400 #### [facility] [address] [place], [address] GFR/1.73 sq M.predicted among non-blacks MDRD (S/P/Bld) [Vol rate/Area] 56 mL/min/{1.73_m2} Low >60 [facility] Comment on above: Order Comment: Y Result Comment: Non- GFR Calc Performed By: #### L 100.0100, L503.6005, L300.3900, L300.4310, L500.2500, L500.3400 #### [facility] [address] [place], [address] Glucose [Mass/Vol] 129 mg/dL High 74-106 [facility] Comment on above: Order Comment: Y Result Comment: Fast ing Glucose result greater than or equal to 126 mg/dL suggests DIABETES MELLITUS per A.D.A. criteria. Performed By: #### L 100.0100, L503.6005, L300.3900, L300.4310, L500.2500, L500.3400 #### [facility] [address] [place], [address] Potassium [Moles/Vol] 3.7 mmol/L Normal 3.5-5.1 [facility] Comment on above: Order Comment: Y Performed By: #### L 100.0100, L503.6005, L300.3900, L300.4310, L500.2500, L500.3400 #### [facility] [address] [place], [address] Sodium [Moles/Vol] 140 mmol/L Normal 136-145 [facility] Comment on above: Order Comment: Y Performed By: #### L 100.0100, L503.6005, L300.3900, L300.4310, L500.2500, L500.3400 #### [facility] [address] [place], [address] Urea nitrogen [Mass/Vol] 26 mg/dL High 7-18 [facility] Comment on above: Order Comment: Y Performed By: #### L 100.0100, L503.6005, L300.3900, L300.4310, L500.2500, L500.3400 #### [facility] [address] [place], [address] Culture, Blood (WB)on 2023 CUB No growth in 5 days. Normal [facility] Comment on above: Performed By: #### L 100.0100, L503.6005, L300.3900, L300.4310, L500.2500, L500.3400 #### [facility] [address] [place], [address] Discharge Instructionon 07-24 Discharge Instruction [facility] Medical Records Department [address] [place] [address] Instructions for Home/Discharge Instructions 08/15/23 1009 MR#: [id number] Acct: [id number] Name: BRADLEY VERMA Rep #: [id number] : 1950 73 From: Ish Lujan MD PCP: Dr. Samuel Bazan MD Status:ADM IN Discharge Instructions Diet Discharge Diet: No restrictions Activity Discharge Activity: Return to Normal Activity Dressing / Incision Call your doctor if you observe: Fever of 101 or Higher, Shortness of breath, Dizziness, Fainting spells, Swelling in the ankles, Chest pain and Increased palpitations (irregular heartbeat) Follow Up Care Test Results: Test results from this visit will be discussed in further detail at your follow-up appointment, if applicable. Discharge Plan Admission Admit Date/Time: 08/12/23 19:10 Attending Provider: Ish Lujan Primary Care Provider: Samuel Bazan Consulting Providers: Daria Leahy Discharge Orders/Prescriptions Prescriptions: New amoxicillin-pot clavulanate 875-125 mg tablet 1 tab PO BID 5 Days Qty: 10 0RF Continued lisinopril 20 mg Tablet 20 mg PO DAILY amlodipine 10 mg Tablet 10 mg PO DAILY hydrochlorothiazide 12.5 mg tablet 12.5 mg PO DAILY metoprolol succinate 100 mg tablet extended release 24 hr 100 mg PO DAILY Discontinued doxycycline monohydrate 100 mg capsule 100 mg PO BID Referrals / Follow Up: Samuel Bazan MD [Primary Care Provider] - Within 1 Week Disposition Disposition (needs filled in before D/C Order can be placed): Home, Self Care 08/15/23 1011 Ish Lujan MD CC: Dr. Samuel Bazan MD; Dr. Daria Leahy MD Signed Normal [facility] Basic Metabolic Profile (BMP )on 08-14-2023 BUN/CRE 18.8 RATIO Normal - [facility] Comment on above: Performed By: #### L 100.0100, L503.6005, L300.3900, L300.4310, L500.2500, L500.3400 #### [facility] [address] [place], [address] CA,Total 8.5 mg/dL Normal 8.5-10.1 [facility] Comment on above: Performed By: #### L 100.0100, L503.6005, L300.3900, L300.4310, L500.2500, L500.3400 #### [facility] [address] [place], [address] Chloride [Moles/Vol] 109 mmol/L High 98-107 [facility] Comment on above: Performed By: #### L 100.0100, L503.6005, L300.3900, L300.4310, L500.2500, L500.3400 #### [facility] [address] [place], [address] CO2 [Moles/Vol] 25.0 mmol/L Normal 21.0-32.0 [facility] Comment on above: Performed By: #### L 100.0100, L503.6005, L300.3900, L300.4310, L500.2500, L500.3400 #### [facility] [address] [place], [address] Creatinine [Mass/Vol] 1.01 mg/dL Normal 0.70-1.30 [facility] Comment on above: Result Comment: The validity of the calculated GFR GFRAA in patients over 70 years has not been determined. Clinical correlation is essential. Performed By: #### L 100.0100, L503.6005, L300.3900, L300.4310, L500.2500, L500.3400 #### [facility] [address] [place], [address] ECRCL 73.34 ml/min Normal [facility] Comment on above: Performed By: #### L 100.0100, L503.6005, L300.3900, L300.4310, L500.2500, L500.3400 #### [facility] [address] [place], [address] EST GFR - AA 93 mL/min Normal >60 [facility] Comment on above: Result Comment: Afri can Trinidadian GFR Calc Performed By: #### L 100.0100, L503.6005, L300.3900, L300.4310, L500.2500, L500.3400 #### [facility] [address] [place], [address] GAP 4 Low 5-15 [facility] Comment on above: Performed By: #### L 100.0100, L503.6005, L300.3900, L300.4310, L500.2500, L500.3400 #### [facility] [address] [place], [address] GFR/1.73 sq M.predicted among non-blacks MDRD (S/P/Bld) [Vol rate/Area] 77 mL/min/{1.73_m2} Normal >60 [facility] Comment on above: Result Comment: Non- GFR Calc Performed By: #### L 100.0100, L503.6005, L300.3900, L300.4310, L500.2500, L500.3400 #### [facility] [address] [place], [address] Glucose [Mass/Vol] 105 mg/dL Normal 74-106 [facility] Comment on above: Result Comment: Fast ing Glucose result from 100 to 125 mg/dL suggests IMPAIRED HOMEOSTASIS per A.D.A. criteria. Performed By: #### L 100.0100, L503.6005, L300.3900, L300.4310, L500.2500, L500.3400 #### [facility] [address] [place], [address] Potassium [Moles/Vol] 4.0 mmol/L Normal 3.5-5.1 [facility] Comment on above: Performed By: #### L 100.0100, L503.6005, L300.3900, L300.4310, L500.2500, L500.3400 #### [facility] [address] [place], [address] Sodium [Moles/Vol] 138 mmol/L Normal 136-145 [facility] Comment on above: Performed By: #### L 100.0100, L503.6005, L300.3900, L300.4310, L500.2500, L500.3400 #### [facility] [address] [place], [address] Urea nitrogen [Mass/Vol] 19 mg/dL High 7-18 [facility] Comment on above: Performed By: #### L 100.0100, L503.6005, L300.3900, L300.4310, L500.2500, L500.3400 #### [facility] [address] [place], [address] CBC W/Diff, Automatedon 05-2 PATH REV Reviewed Normal [facility] Comment on above: Result Comment: Neut rophilic leukocytosis. Clinical correlation suggested. Moncho Espinosa D.O. 08/14/23 Pathologist comment added AMENDED REPORT 08/14/23 1540 PATH REV previously reported as: May foll Performed By: #### L 100.0100, L503.6005, L300.3900, L300.4310, L500.2500, L500.3400 #### [facility] [address] [place], [address] PATH REV Reviewed Normal [facility] Comment on above: Result Comment: Neut rophilic leukocytosis. Clinical correlation suggested. Moncho Espinosa D.O. 08/14/23 Pathologist comment added AMENDED REPORT 08/14/23 1533 PATH REV previously reported as: May foll Performed By: #### L 100.0100, L503.6005, L300.3900, L300.4310, L500.2500, L500.3400 #### [facility] [address] [place], [place], [address] PATH REV Reviewed Normal [facility] Comment on above: Result Comment: MILD NEUTROPHILIC LEFT SHIFT Clinical correlation suggested. Moncho Espinosa D.O. 08/14/23 AMENDED REPORT 08/14/23 1523 PATH REV previously reported as: May foll Performed By: #### L 100.0100, L503.6005, L300.3900, L300.4310, L500.2500, L500.3400 #### [facility] [address] [place], [address] Extremity Lower WITH Contras ton 08-14-2023 Extremity Lower WITH Contrast [facility] [address] [place], [place] [id number] Extremity Lower WITH Contrast MR#: [id number] Acct: [id number] Name: BRADLEY VERMA Rep #: [id number] : 1950 M 73 From: Alvaro Watt MD PCP: Dr. Samuel Bazan MD Status: ADM IN Study: Extremity Lower WITH Contrast Date of Exam: Exam# [id number] Ordering Dr: Ish Lujan MD [id number] CT RIGHT LOWER EXTREMITY WITH 3-D IMAGING CLINICAL INDICATION: Leg pain and swelling, DVT negative -- Right lower extremity. TECHNIQUE: Axial CT images of the right lower extremity was performed following the intravenous administration of 100 mL Isovue-300 contrast material. Coronal and sagittal reformats were provided. The protocol utilizes one or more of the following dose reduction techniques: automated exposure control, adjustment of mA and/or kV according to patient size,and/or use of iterative reconstruction technique. RADIATION DOSAGE (If Supplied By Facility): CTDIvol = ( 15.35 ) mGy, DLP = ( 983.16 ) mGycm COMPARISON: No relevant prior comparison study available. FINDINGS: Bones: There is a 3 mm subchondral cyst in the medial talar dome. There are small benign subcortical cysts in the distal tibial metaphysis and distal fibular metaphysis. Osseous structures are intact without evidence of fracture or dislocation. No lytic or blastic osseous masses. Soft Tissues: There are 2 focal areas of atrophy and fatty infiltration in the soleus muscle (axial series 2 images 89-117), probably the sequelae of prior old injuries. The deep soft tissue structures are otherwise unremarkable. There is a posterior calcaneal tuberosity spur with small calcifications in the distal Achilles tendon. There is mild subcutaneous soft tissue edema around the calf and moderate subcutaneous soft tissue edema around the ankle. There is no drainable fluid collection or abscess. CT/Extremity Lower WITH Contrast IMPRESSION: 2 focal areas of atrophy and fatty infiltration in the soleus muscle, probably the sequelae of prior old injuries. Posterior calcaneal tuberosity spur with small calcifications in the distal Achilles tendon. Mild subcutaneous soft tissue edema around the calf and moderate subcutaneous soft tissue edema around the ankle. Electronically Signed: Alvaro Watt MD at 12:31 EDT , CC: Dr. Samuel Bazan MD; Dr. Ish Lujan MD [employer]: Signed Normal [facility] Basic Metabolic Profile (BMP )on 08-13-2023 BUN/CRE 27.1 RATIO High 10-20 [facility] Comment on above: Performed By: #### L 100.0100, L503.6005, L300.3900, L300.4310, L500.2500, L500.3400 #### [facility] [address] [place], [address] CA,Total 8.1 mg/dL Low 8.5-10.1 [facility] Comment on above: Performed By: #### L 100.0100, L503.6005, L300.3900, L300.4310, L500.2500, L500.3400 #### [facility] [address] [place], [address] Chloride [Moles/Vol] 108 mmol/L High 98-107 [facility] Comment on above: Performed By: #### L 100.0100, L503.6005, L300.3900, L300.4310, L500.2500, L500.3400 #### [facility] [address] [place], [address] CO2 [Moles/Vol] 25.0 mmol/L Normal 21.0-32.0 [facility] Comment on above: Performed By: #### L 100.0100, L503.6005, L300.3900, L300.4310, L500.2500, L500.3400 #### [facility] [address] [place], [address] Creatinine [Mass/Vol] 1.18 mg/dL Normal 0.70-1.30 [facility] Comment on above: Result Comment: The validity of the calculated GFR GFRAA in patients over 70 years has not been determined. Clinical correlation is essential. Performed By: #### L 100.0100, L503.6005, L300.3900, L300.4310, L500.2500, L500.3400 #### [facility] [address] [place], [address] ECRCL 62.77 ml/min Normal [facility] Comment on above: Performed By: #### L 100.0100, L503.6005, L300.3900, L300.4310, L500.2500, L500.3400 #### [facility] [address] [place], [address] EST GFR - AA 78 mL/min Normal >60 [facility] Comment on above: Result Comment: Afri can Trinidadian GFR Calc Performed By: #### L 100.0100, L503.6005, L300.3900, L300.4310, L500.2500, L500.3400 #### [facility] [address] [place], [address] GAP 8 Normal 5-15 [facility] Comment on above: Performed By: #### L 100.0100, L503.6005, L300.3900, L300.4310, L500.2500, L500.3400 #### [facility] [address] [place], [address] GFR/1.73 sq M.predicted among non-blacks MDRD (S/P/Bld) [Vol rate/Area] 64 mL/min/{1.73_m2} Normal >60 [facility] Comment on above: Result Comment: Non- GFR Calc Performed By: #### L 100.0100, L503.6005, L300.3900, L300.4310, L500.2500, L500.3400 #### [facility] [address] [place], [address] Glucose [Mass/Vol] 101 mg/dL Normal 74-106 [facility] Comment on above: Result Comment: Fast ing Glucose result from 100 to 125 mg/dL suggests IMPAIRED HOMEOSTASIS per A.D.A. criteria. Performed By: #### L 100.0100, L503.6005, L300.3900, L300.4310, L500.2500, L500.3400 #### [facility] [address] [place], [address] Potassium [Moles/Vol] 3.6 mmol/L Normal 3.5-5.1 [facility] Comment on above: Performed By: #### L 100.0100, L503.6005, L300.3900, L300.4310, L500.2500, L500.3400 #### [facility] [address] [place], [address] Sodium [Moles/Vol] 141 mmol/L Normal 136-145 [facility] Comment on above: Performed By: #### L 100.0100, L503.6005, L300.3900, L300.4310, L500.2500, L500.3400 #### [facility] [address] [place], [address] Urea nitrogen [Mass/Vol] 32 mg/dL High 7-18 [facility] Comment on above: Performed By: #### L 100.0100, L503.6005, L300.3900, L300.4310, L500.2500, L500.3400 #### [facility] [address] [place], [address] MRSA Wound DNA by PCRon 07-24 MRSA DNA ASSAY Negative Normal Negative [facility] Comment on above: Order Comment: nares Performed By: #### L 100.0100, L503.6005, L300.3900, L300.4310, L500.2500, L500.3400 #### [facility] [address] [place], [address] SA DNA ASSAY Positive Abnormal Negative [facility] Comment on above: Order Comment: nares Performed By: #### L 100.0100, L503.6005, L300.3900, L300.4310, L500.2500, L500.3400 #### [facility] [address] [place], [address] Basic Metabolic Profile (BMP )on 08-12-2023 BUN/CRE 25.4 RATIO High 01-11 [facility] Comment on above: Performed By: #### L 100.0100, L503.6005, L300.3900, L300.4310, L500.2500, L500.3400 #### [facility] [address] [place], [address] CA,Total 9.1 mg/dL Normal 8.5-10.1 [facility] Comment on above: Performed By: #### L 100.0100, L503.6005, L300.3900, L300.4310, L500.2500, L500.3400 #### [facility] [address] [place], [address] Chloride [Moles/Vol] 105 mmol/L Normal 98-107 [facility] Comment on above: Performed By: #### L 100.0100, L503.6005, L300.3900, L300.4310, L500.2500, L500.3400 #### [facility] [address] [place], [address] CO2 [Moles/Vol] 29.0 mmol/L Normal 21.0-32.0 [facility] Comment on above: Performed By: #### L 100.0100, L503.6005, L300.3900, L300.4310, L500.2500, L500.3400 #### [facility] [address] [place], [address] Creatinine [Mass/Vol] 1.81 mg/dL High 0.70-1.30 [facility] Comment on above: Result Comment: The validity of the calculated GFR GFRAA in patients over 70 years has not been determined. Clinical correlation is essential. Performed By: #### L 100.0100, L503.6005, L300.3900, L300.4310, L500.2500, L500.3400 #### [facility] [address] [place], [address] ECRCL 42.31 ml/min Normal [facility] Comment on above: Performed By: #### L 100.0100, L503.6005, L300.3900, L300.4310, L500.2500, L500.3400 #### [facility] [address] [place], [address] EST GFR - AA 48 mL/min Low >60 [facility] Comment on above: Result Comment: Afri can Trinidadian GFR Calc Performed By: #### L 100.0100, L503.6005, L300.3900, L300.4310, L500.2500, L500.3400 #### [facility] [address] [place], [address] GAP 4 Low 5-15 [facility] Comment on above: Performed By: #### L 100.0100, L503.6005, L300.3900, L300.4310, L500.2500, L500.3400 #### [facility] [address] [place], [place], [id number] GFR/1.73 sq M.predicted among non-blacks MDRD (S/P/Bld) [Vol rate/Area] 39 mL/min/{1.73_m2} Low >60 [facility] Comment on above: Result Comment: Non- GFR Calc Performed By: #### L 100.0100, L503.6005, L300.3900, L300.4310, L500.2500, L500.3400 #### [facility] [address] [place], [address] Glucose [Mass/Vol] 111 mg/dL High 74-106 [facility] Comment on above: Result Comment: Fast ing Glucose result from 100 to 125 mg/dL suggests IMPAIRED HOMEOSTASIS per A.D.A. criteria. Performed By: #### L 100.0100, L503.6005, L300.3900, L300.4310, L500.2500, L500.3400 #### [facility] [address] [place], [address] Potassium [Moles/Vol] 3.7 mmol/L Normal 3.5-5.1 [facility] Comment on above: Performed By: #### L 100.0100, L503.6005, L300.3900, L300.4310, L500.2500, L500.3400 #### [facility] [address] [place], [address] Sodium [Moles/Vol] 138 mmol/L Normal 136-145 [facility] Comment on above: Performed By: #### L 100.0100, L503.6005, L300.3900, L300.4310, L500.2500, L500.3400 #### [facility] [address] [place], [address] Urea nitrogen [Mass/Vol] 46 mg/dL High 7-18 [facility] Comment on above: Performed By: #### L 100.0100, L503.6005, L300.3900, L300.4310, L500.2500, L500.3400 #### [facility] [address] [place], [address] Emergency Department Summary on 08-12-2023 Emergency Department Summary [facility] Medical Records Department [address] [place] [address] Emergency Department Summary 08/12/23 MR#: [id number] Acct: [id number] Name: BRADLEY VERMA Rep #: [id number] : 1950 73 From: Moreno Sharp DO PCP: Dr. Samuel Bazan MD Status:ADM IN Location: MT3 [id number] [facility] History of Present Illness Chief Complaint: Lower Extremity Injury Informant: patient and spouse/[facility] Medical History Wears glasses Alcohol use Arthritis Non-smoker History of edema Hypertension Home Medications ???Medication ???Instructions ???Recorded ???Last Taken ???Type amlodipine 10 mg tablet 10 mg PO DAILY 10/11/21 08/12/23 History lisinopril 20 mg tablet 20 mg PO DAILY 10/11/21 08/12/23 History hydrochlorothiazide 12.5 mg tablet 12.5 mg PO DAILY 08/07/23 08/12/23 History doxycycline monohydrate 100 mg 100 mg PO BID 08/12/23 08/12/23 History capsule metoprolol succinate 100 mg 100 mg PO DAILY 08/12/23 08/12/23 History tablet,extended release 24 hr Allergy/AdvReac Type Severity Reaction Status Date / Time No Known Allergies Allergy Verified 08/12/23 16:16 Surgical History Hx of inguinal hernia repair History of hydrocelectomy Social History Smoking Status: Never smoker ROS ROS ED Constitutional Constitutional ED: Reports fever(s); Denies chills or weight loss Eyes Eyes: Denies change in vision or diplopia ENT ENT ED: Denies ear pain, rhinorrhea or sore throat Cardiovascular Cardiovascular: Denies chest pain, orthopnea, palpitations or racing heartbeat Respiratory/Chest Respiratory/Chest: Denies cough, dyspnea or orthopnea Gastrointestinal Gastrointestinal: Denies abdominal pain, diarrhea, nausea or vomiting Genitourinary Genitourinary ED: Denies dysuria, hematuria or urinary frequency Musculoskeletal Musculoskeletal: Denies arthralgias, back pain, myalgias or neck pain Integumentary Reports rash; Denies abscess Neurologic Neurologic: Denies headache(s) or weakness Psychiatric Psychiatric: Denies anxiety, depression, suicidal ideation or suicidal thoughts Endocrine Endocrinology: Denies polydipsia, polyphagia or polyuria Allergic/Immunologic Allergic/Immunologic ED: Denies mouth swelling, tongue swelling or urticaria EXAM Physical Exam Const Vital Signs: 08/12/23 16:16 Temperature 97.3 F L Temperature Source Temporal Pulse Rate 55 L Respiratory Rate 18 Blood Pressure 107/64 Blood Pressure Mean 78 Pulse Ox 96 Oxygen Delivery Method Room Air Positive well nourished and well developed General Appearance ED: well developed HEENT Reports normocephalic, head/scalp atraumatic and moist mucous membranes Eyes PERRL and EOMs intact bilaterally Neck no lymphadenopathy, supple and no JVD Resp normal respiratory effort and clear to auscultation bilaterally Cardio regular rate, regular rhythm and no murmurs GI normal to inspection, nondistended, normoactive bowel sounds and non-tender Palpation: soft Back/Spine no CVA tenderness and normal ROM Extremity Extremity Narrative: Right leg and foot demonstrates erythema increased warmth and swelling. Tender to palpation. General Extremety ED: Yes edema General Extremity: edema right lower extremity Neuro oriented x3 and CN's II-XII intact bilaterally Sensorium / Orientation: alert Motor Exam: strength 5/5 throughout Psych mental status grossly normal Mood Affect: Negative for depressed or tearful Skin no rashes or lesions noted and no wounds MDM MDM MDM Narrative Medical decision making narrative: White count is slightly elevated 11.8. Normal coags. His creatinine however is elevated at 1.81 with a BUN of 46. He denies any change in urine. He states he has been hydrating. Lactic acid is normal. Went ahead and obtain blood cultures. Also provided vancomycin and Zosyn to the patient and IV fluids. We are waiting on a urine specimen. My plan is admission to the hospital. I am wondering if he could have a streptococcal infection and nephritis secondary. The calf is still nontender and the thigh is asymptomatic. He recently underwent a duplex ultrasound send do not feel strongly need to repeat this at this time. History Record Review Discussion w/independent historian: Patient and Family Lab Data Attestation: I reviewed the patient's lab results. Labs: Laboratory Results - last 24 hr 08/12/23 08/12/23 17:00 18:07 WBC 11.8 H RBC 5.03 Hgb 15.2 Hct 46.2 MCV 91.8 MCH 30.2 MCHC 32.9 RDW Std Deviation 48.8 H RDW Coeff of Taisha 14.6 Plt Count 226 MPV 9.3 Neut % (Auto) Not Repor (more content not included)... Normal [facility] H AND P Exam - [place] 08-12-2023 H&P Exam - Hospitalist [facility] Medical Records Department [address] [place] [address] H P Exam - Hospitalist 08/12/23 1845 MR#: [id number] Acct: [id number] Name: BRADLEY VERMA Rep #: [id number] : 1950 73 From: Daria Leahy MD PCP: Dr. Samuel Bazan MD Status:ADM IN [place] [facility] [place] HPI - General General Date of Admission: 08/12/23 Date of Service: 08/12/23 Chief Complaint: lower extremity injury HPI Narrative BRADLEY VERMA, is a 73 M with a PMH as outlined who presents via the ED on 08/12/2023 with a complaint of right leg pain which had been going on for about 5 days. He started having a fever 5 fays ago and came in to the ED. He was discharged home on PO levaquin. He subsequently developed swelling and redness of his RLE. He went to his PCP where he had a duplex that was negative and started on PO doxycycline. His redness and swelling of the RLE however worsened, with associated pain.. He now thinks he may have been injured by piece of metal which possibly cut him through his jeans a month ago. He denied any chest pain, shortness of breath, palpitations, dizziness, nausea or vomiting or any other. Never had cellulitis like this before and denies being diabetic. Review of systems otherwise negative. Vitals in the ED were BP of 107/64, UT of 55, RR of 18, temp of 97.3F and oxygen sats of 96% on room air. CBC showed wbc of 11.8, Hb of 15.2, platelets of 226. INR is 1.2. Chemistry showed sodium of 138, potassium of 3.7, bicarb of 29 and Cr of 1.81, with baseline being normal. He is being admitted for cellulitis of the RLE, failed outpatient therapy. [facility] Medical History Wears glasses Alcohol use Arthritis Non-smoker History of edema Hypertension Home Medications ???Medication ???Instructions ???Recorded ???Last Taken ???Type amlodipine 10 mg tablet 10 mg PO DAILY 10/11/21 08/12/23 History lisinopril 20 mg tablet 20 mg PO DAILY 10/11/21 08/12/23 History hydrochlorothiazide 12.5 mg tablet 12.5 mg PO DAILY 08/07/23 08/12/23 History doxycycline monohydrate 100 mg 100 mg PO BID 08/12/23 08/12/23 History capsule metoprolol succinate 100 mg 100 mg PO DAILY 08/12/23 08/12/23 History tablet,extended release 24 hr Allergy/AdvReac Type Severity Reaction Status Date / Time No Known Allergies Allergy Verified 08/12/23 16:16 Surgical History Hx of inguinal hernia repair History of hydrocelectomy Social History Smoking Status: Never smoker ROS Constitutional Constitutional: Reports fever(s); Denies anorexia, chills, fatigue, malaise or weakness Eyes Eyes: Denies change in vision ENT HEENT: Denies dysphagia or sore throat Cardiovascular Cardiovascular: Denies chest pain, dyspnea on exertion, edema, lightheadedness, orthopnea, palpitations, paroxysmal nocturnal dyspnea or rapid heart rate Respiratory/Chest Respiratory/Chest: Denies cough, dyspnea, shortness of breath at rest, shortness of breath with exertion or wheezing Gastrointestinal Gastrointestinal: Denies abdominal pain, constipation, diarrhea, nausea or vomiting Genitourinary Genitourinary: Denies burning urination Musculoskeletal Musculoskeletal: Denies back pain or joint swelling Neurologic Neurologic: Denies confusion, dizziness, focal weakness, headache(s), numbness, paresthesias, seizure-like activity, seizures or syncope Psychiatric Psychiatric: Denies anxiety or depression Endocrine Endocrinology: Denies change in body appearance Vital Signs Vital Signs Vital Signs: 08/12/23 16:16 Temperature 97.3 F L Temperature Source Temporal Pulse Rate 55 L Respiratory Rate 18 Blood Pressure 107/64 Blood Pressure Mean 78 Pulse Ox 96 Oxygen Delivery Method Room Air Weight Weight: 204 lb 9.6 oz Body Mass Index (BMI) 28.5 Physical Exam Const alert, oriented x3 and no apparent distress General Appearance: cooperative and uncooperative HEENT normocephalic, head/scalp atraumatic, hearing grossly normal bilaterally, moist oral mucous membranes and oropharynx normal Mouth: oral and palatal mucosa normal Eyes PERRL, EOMs intact bilaterally and conjunctivae normal Neck no lymphadenopathy, supple and no JVD Resp normal respiratory effort, no retractions, no use of accessory muscles and clear to auscultation bilaterally Cardio regular rate, regular rhythm, S1 normal heart sound, S2 normal heart sound and no murmurs GI normal to inspection, nondistended, normoactive bowel sounds, soft to palpation, non-tender and non- distended Extremity Extremity Narrative: RLE is edematous from foot to just below the knee, with diffuse erythema and 2+ (more content not included)... Normal [facility] Lactic Acidon 08-12-2023 Lactate [Moles/Vol] 1.0 mmol/L Normal 0.4-1.9 [facility] Comment on above: Order Comment: Y Performed By: #### L 100.0100, L503.6005, L300.3900, L300.4310, L500.2500, L500.3400 #### [facility] [address] [place], [address] Liver Profileon 08-12-2023 Albumin [Mass/Vol] 2.8 g/dL Low 3.2-5.0 [facility] Comment on above: Performed By: #### L 100.0100, L503.6005, L300.3900, L300.4310, L500.2500, L500.3400 #### [facility] [address], [place], [id number] ALK P 88 U/L Normal 45-117 [facility] Comment on above: Performed By: #### L 100.0100, L503.6005, L300.3900, L300.4310, L500.2500, L500.3400 #### [facility] [address] [place], [address] ALT [Catalytic activity/Vol] 41 U/L Normal 16-61 [facility] Comment on above: Performed By: #### L 100.0100, L503.6005, L300.3900, L300.4310, L500.2500, L500.3400 #### [facility] [address] [place], [address] AST [Catalytic activity/Vol] 23 U/L Normal 15-37 [facility] Comment on above: Performed By: #### L 100.0100, L503.6005, L300.3900, L300.4310, L500.2500, L500.3400 #### [facility] [address] [place], [address] Bilirubin [Mass/Vol] 0.50 mg/dL Normal 0.20-1.00 [facility] Comment on above: Result Comment: For patients on eltrombopag therapy, use of Dimension Pritchett TBIL is not recommended. Performed By: #### L 100.0100, L503.6005, L300.3900, L300.4310, L500.2500, L500.3400 #### [facility] [address] [place], [address] Bilirubin.direct [Mass/Vol] 0.11 mg/dL Normal 0.00-0.30 [facility] Comment on above: Performed By: #### L 100.0100, L503.6005, L300.3900, L300.4310, L500.2500, L500.3400 #### [facility] [address] [place], [address] Globulin (S) [Mass/Vol] 4.4 g/dL High 2.2-4.2 [facility] Comment on above: Performed By: #### L 100.0100, L503.6005, L300.3900, L300.4310, L500.2500, L500.3400 #### [facility] [address] [place], [address] T PROT 7.2 g/dL Normal 6.4-8.2 [facility] Comment on above: Performed By: #### L 100.0100, L503.6005, L300.3900, L300.4310, L500.2500, L500.3400 #### [facility] [address] [place], [address] Partial Thromboplast Timeon 08-12-2023 aPTT Coag (Bld) [Time] 30.6 s Normal 24.1-36.2 [facility] Comment on above: Performed By: #### L 100.0100, L503.6005, L300.3900, L300.4310, L500.2500, L500.3400 #### [facility] [address] [place], [address] Prothrombin Time w/INRon INR Coag (PPP) [Relative time] 1.2 {INR} Normal [facility] Comment on above: Performed By: #### L 100.0100, L503.6005, L300.3900, L300.4310, L500.2500, L500.3400 #### [facility] [address] [place], [address] PT Coag (PPP) [Time] 15.3 s High 11.7-14.9 [facility] Comment on above: Performed By: #### L 100.0100, L503.6005, L300.3900, L300.4310, L500.2500, L500.3400 #### [facility] [address] [place], [address] Urinalysis, Completeon 08-11 BACTERIA 0 SEEN Normal None Seen [facility] Comment on above: Order Comment: ELMA CTOR TO SPECIFY Performed By: #### L 400.0001 #### [facility] [address] [place], [address] EPI,SQUAMOUS 0 SEEN Normal 0-5 [facility] Comment on above: Order Comment: ELMA CTOR TO SPECIFY Performed By: #### L 400.0001 #### [facility] [address] [place], [address] Mucus Ql (Urine sed) 0 SEEN Normal [facility] Comment on above: Order Comment: ELMA CTOR TO SPECIFY Performed By: #### L 400.0001 #### [facility] [address] [place], [address] RBC 0 SEEN Normal 0-5 [facility] Comment on above: Order Comment: ELMA CTOR TO SPECIFY Performed By: #### L 400.0001 #### [facility] [address] [place], [address] WBC 0 SEEN Normal 0-[address] [place] [address] Comment on above: Order Comment: ELMA CTOR TO SPECIFY Performed By: #### L 400.0001 #### [facility] [address] [place], [address] Absolute lymphocyte countOrd ered By: Samuel Bazan on 07-09-2023 Lymphocytes Auto (Unsp spec) [#/Vol] 1.55 10*3/uL 0.83-4.51 [facility] Automated lymphocyte count a s percentage of total leukocytesOrdered By: Samuel Bazan on 07-09-2023 Lymphocytes/100 WBC Auto (Unsp spec) 19.4 % 19-41 [facility] Basophil percentageOrdered B y: Samuel Bazan on 07-09-2023 Basophil percentage 0 SEEN /hpf 0-5 [facility] Basophil percentage 3.2 mg/dL 2.5-4.9 [facility] Basophils/100 WBC (Bld) 0.9 % 0-1 [facility] Bilirubin [Mass/Vol] 0.80 mg/dL 0.20-1.00 [facility] Comment on above: For patients on eltr ombopag therapy, use of Dimension [place]tt TBIL is not recommended. Chloride [Moles/Vol] 105 mmol/L 98-107 [facility] Cholesterol [Mass/Vol] 185 mg/dL <200 [facility] Comment on above: <200 mg/dL Desirable 200-240 mg/dL Borderline >240 mg/dL High Risk Eosinophils/100 WBC (Bld) 7.7 % 0-5 [facility] Glucose [Mass/Vol] 103 mg/dL 74-106 [facility] Comment on above: Fasting Glucose resu lt from 100 to 125 mg/dL suggests IMPAIRED HOMEOSTASIS per A.D.A. criteria. Hemoglobin (Bld) [Mass/Vol] 16.3 g/dL 13.0-16.5 [facility] Monocytes/100 WBC (Bld) 9.0 % 0-10 [facility] Neutrophils (Bld) [#/Vol] 5.0 10*3/uL 2.0-7.7 [facility] Neutrophils/100 WBC (Bld) 62.6 % 47-70 [facility] Potassium [Moles/Vol] 3.8 mmol/L 3.5-5.1 [facility] Protein [Mass/Vol] 7.4 g/dL 6.4-8.2 [facility] Sodium [Moles/Vol] 140 mmol/L 136-145 [facility] Triglyceride [Mass/Vol] 293 mg/dL <199 [facility] Comment on above: The drugs N-Acetylcy steine and Metamizole may falsely depress this assay.Serum Triglycerides Reference Interval Normal <150 mg/dL Borderline high 150 - 199 mg/dL High 200 - 499 mg/dL Very High > or = 500 mg/dL WBC (Bld) [#/Vol] 8.0 10*3/uL 4.4-11.0 [facility] Bilirubin Test strip Ql (U)O rdered By: Samuel Bazan on 07-09-2023 Bilirubin Ql (U) Negative Negative [facility] Determination of erythrocyte mean corpuscular volume (MCV)Ordered By: Samuel Bazan on 07-09-2023 MCV (RBC) [Entitic vol] 91.3 fL 80-94 [facility] Erythrocyte distribution wid th ratioOrdered By: Samuel Bazan on 07-09-2023 Erythrocyte distribution width (RBC) [Ratio] 13.9 % 11.6-14.6 [facility] Erythrocyte distribution wid th standard deviationOrdered By: Samuel Bazan on 07-09-2023 Erythrocyte distribution width (RBC) [Entitic vol] 46.7 fL 35.1-43.9 [facility] Hematocrit Auto (Bld) [Volum e fraction]Ordered By: Samuel Bazan on 07-09-2023 Hematocrit (Bld) [Volume fraction] 50.4 % 40-54 [facility] Immature granulocytes/100 WB C Auto (Bld)Ordered By: Samuel Bazan on 07-09-2023 Immature granulocytes/100 WBC (Bld) 0.400 % 0.0-0.9 [facility] Comment on above: IG% - Immature Granu locytes (promyelocytes, myelocytes and metamyelocytes) > 1% indicates that a LEFT SHIFT is Present. Ketones Test strip Ql (U)Ord ered By: Samuel Bazan on 07-09-2023 Ketones Ql (U) Negative Negative [facility] - Chemistry and C hemistry - challengeOrdered By: Samuel Bazan on 07-09-2023 Albumin/Globulin [Mass ratio] 0.9 {ratio} 0.9-2.4 [facility] ALP [Catalytic activity/Vol] 78 U/L 45-117 [facility] ALT [Catalytic activity/Vol] 23 U/L 16-61 [facility] Cholesterol in HDL [Mass/Vol] 36 mg/dL >40 [facility] Comment on above: The drugs N-Acetylcy steine and Metamizole may falsely depress this assay. Reference Range HDL <40 mg/dL Low HDL Cholesterol HDL >or= 60 mg/dL High HDL Cholesterol Cholesterol in LDL [Mass/Vol] 90 mg/dL 0-130 [facility] CO2 [Moles/Vol] 29.0 mmol/L 21.0-32.0 [facility] Globulin (S) [Mass/Vol] 3.8 g/dL 2.2-4.2 [facility] Urea nitrogen/Creatinine [Mass ratio] 17.8 mg/mg 10-20 [facility] - Hematology and Cell countsOrdered By: Samuel Bazan on 07-09-2023 MCH (RBC) [Entitic mass] 29.5 pg 27.0-32.0 [facility] MCHC (RBC) [Mass/Vol] 32.3 g/dL 32-36 [facility] Nucleated RBC/100 WBC (Bld) [Ratio] 0 % 0-5 [facility] Platelet mean volume (Bld) [Entitic vol] 9.9 fL 6.2-12.0 [facility] Platelets (Bld) [#/Vol] 187 10*3/uL 150-450 [facility] Mucus LM Ql (Urine sed)Order ed By: Samuel Bazan on 07-09-2023 Mucus Ql (Urine sed) 0 SEEN /hpf [facility] Nitrite Test strip Ql (U)Ord ered By: Samuel Bazan on 07-09-2023 Nitrite Ql (U) Negative Negative [facility] No Panel InformationOrdered By: Samuel Bazan on 07-09-2023 Estimated GFR (MDRD) Amer 70 mL/min >60 [facility] Comment on above: GFR Calc Estimated GFR (MDRD) Non-Af Amer 58 mL/min >60 [facility] Comment on above: Non- GFR Calc Parathyroid Hormone (Intact) 80.7 pg/mL 18.4-80.1 [facility] Urine RBC 0 SEEN /hpf 0-5 [facility] VLDL Cholesterol 59 mg/dL 5-40 [facility] Protein Test strip Ql (U)Ord ered By: Samuel Bazan on 07-09-2023 Protein Ql (U) Negative Negative [facility] RBC Auto (Bld) [#/Vol]Ordere d By: Samuel Bazan on 07-09-2023 RBC (Bld) [#/Vol] 5.52 10*6/uL 4.6-6.2 [facility] Serum or plasma calcium chemo urement (mass/volume)Ordered By: Samuel Bazan on 07-09-2023 Calcium [Mass/Vol] 9.1 mg/dL 8.5-10.1 [facility] Serum or plasma creatinine m easurement (mass/volume)Ordered By: Samuel Bazan on 07-09-2023 Creatinine [Mass/Vol] 1.29 mg/dL 0.70-1.30 [facility] Comment on above: The validity of the calculated GFR & GFRAA in patients over 70 years has not been determined. Clinical correlation is essential. Serum or plasma thyroid stim ulating hormone (TSH) measurement (units/volume)Ordered By: Samuel Bazan on 07-09-2023 TSH Qn 4.92 uIU/mL 0.358-3.74 [facility] Serum or plasma urea nitroge n measurement (mass/volume)Ordered By: Samuel Bazan on 07-09-2023 Urea nitrogen [Mass/Vol] 23 mg/dL 7-18 [facility] Squamous epithelial cells de tection in urine sediment by light microscopyOrdered By: Samuel Bazan on 07-09-2023 Epithelial cells.squamous LM Ql (Urine sed) 0 SEEN /hpf 0-5 [facility] Thin prep Papanicolaou smear with manual screeningOrdered By: Samuel Bazan on 07-09-2023 Protein (U) [Mass/Vol] 18.9 mg/dL 0.0-11.8 [facility] Thin prep Papanicolaou smear with manual screening 3.6 g/dL 3.2-5.0 [facility] Thin prep Papanicolaou smear with manual screening 18 U/L 15-37 [facility] Thin prep Papanicolaou smear with manual screening 6 5-15 [facility] Thin prep Papanicolaou smear with manual screening 0.83 ng/dL 0.76-1.46 [facility] Urine blood detectionOrdered By: Samuel Bazan on 07-09-2023 RBC Ql (U) Negative Negative [facility] Urine clarityOrdered By: Gabo Bazan on 07-09-2023 Clarity (U) Clear Clear [facility] Urine color determinationOrd ered By: Samuel Bazan on 07-09-2023 Color (U) Yellow Yellow [facility] Urine creatinine measurement (mass/volume)Ordered By: Samuel Bazan on 07-09-2023 Creatinine (U) [Mass/Vol] 65.30 mg/dL NO RANGE EST. [facility] Urine glucose detectionOrder ed By: Samuel Bazan on 07-09-2023 Glucose Ql (U) Normal mg/dl Normal [facility] Urine leukocyte esterase det ection by dipstickOrdered By: Samuel Bazan on 07-09-2023 Leukocyte esterase Test strip Ql (U) Negative Negative [facility] Urine pHOrdered By: Samuel jama on 07-09-2023 pH (U) 7.0 [pH] 5.0 - 8.0 [facility] Urine protein/creatinine mas s ratioOrdered By: Samuel Bazan on 07-09-2023 Protein/Creatinine (U) [Mass ratio] 289 mg/g CRE 0-200 [facility] Urine sediment bacteria coun t by microscopy (number/high power field)Ordered By: Samuel Bazan on 07-09-2023 Bacteria LM.HPF (Urine sed) [#/Area] 0 /[HPF] None Seen [facility] Urine specific gravity measu rementOrdered By: Samuel Bazan on 07-09-2023 Specific gravity (U) [Rel density] 1.010 1.002-1.030 [facility] Urine urobilinogen measureme ntOrdered By: Samuel Bazan on 07-09-2023 Urobilinogen Ql (U) Normal mg/dl Normal [facility] Whole blood hemoglobin A1c/t otal hemoglobin ratio (mass fraction)Ordered By: Samuel Bazan on 07-09-2023 HbA1c (Bld) [Mass fraction] 5.8 % 3.8-5.6 [facility] Comment on above: Normal < 5.7 % Predi abetic 5.7 - 6.4 % Diabetic >or= 6.5 % Please note range changes. Absolute lymphocyte countOrd ered By: Samuel Bazan on 03-05-2023 Lymphocytes Auto (Unsp spec) [#/Vol] 1.65 10*3/uL 0.83-4.51 [facility] Basophil percentageOrdered B y: Samuel Bazan on 03-05-2023 Basophil percentage 0 SEEN /hpf 0-5 [facility] Basophil percentage 3.2 mg/dL 2.5-4.9 [facility] Basophils/100 WBC (Bld) 0.6 % 0-1 [facility] Bilirubin [Mass/Vol] 0.50 mg/dL 0.20-1.00 [facility] Comment on above: For patients on eltr ombopag therapy, use of Dimension Pritchett TBIL is not recommended. Chloride [Moles/Vol] 110 mmol/L 98-107 [facility] Cholesterol [Mass/Vol] 194 mg/dL <200 [facility] Comment on above: <200 mg/dL Desirable 200-240 mg/dL Borderline >240 mg/dL High Risk Eosinophils/100 WBC (Bld) 8.1 % 0-5 [facility] Glucose [Mass/Vol] 94 mg/dL 74-106 [facility] Neutrophils (Bld) [#/Vol] 4.2 10*3/uL 2.0-7.7 [facility] Neutrophils/100 WBC (Bld) 58.4 % 47-70 [facility] Potassium [Moles/Vol] 4.2 mmol/L 3.5-5.1 [facility] Protein [Mass/Vol] 7.6 g/dL 6.4-8.2 [facility] Sodium [Moles/Vol] 141 mmol/L 136-145 [facility] Triglyceride [Mass/Vol] 213 mg/dL <199 [facility] Comment on above: The drugs N-Acetylcy steine and Metamizole may falsely depress this assay.Serum Triglycerides Reference Interval Normal <150 mg/dL Borderline high 150 - 199 mg/dL High 200 - 499 mg/dL Very High > or = 500 mg/dL WBC (Bld) [#/Vol] 7.2 10*3/uL 4.4-11.0 [facility] Bilirubin Test strip Ql (U)O rdered By: Samuel Bazan on 03-05-2023 Bilirubin Ql (U) Negative Negative [facility] Blood erythrocytes count (nu mber/volume)Ordered By: Samuel Bazan on 03-05-2023 RBC (Bld) [#/Vol] 5.22 10*6/uL 4.6-6.2 [facility] Blood hemoglobin measurement (mass/volume)Ordered By: Samuel Bazan on 03-05-2023 Hemoglobin (Bld) [Mass/Vol] 15.8 g/dL 13.0-16.5 [facility] Blood lymphocytes/100 leukoc ytesOrdered By: Samuel Bazan on 03-05-2023 Lymphocytes/100 WBC (Bld) 22.8 % 19-41 [facility] Blood monocytes/100 leukocyt esOrdered By: Samuel Bazan on 03-05-2023 Monocytes/100 WBC (Bld) 9.7 % 0-10 [facility] Blood platelet mean volumeOr dered By: Samuel Bazan on 03-05-2023 Platelet mean volume (Bld) [Entitic vol] 10.4 fL 6.2-12.0 [facility] Determination of erythrocyte mean corpuscular volume (MCV)Ordered By: Samuel Bazan on 03-05-2023 MCV (RBC) [Entitic vol] 94.1 fL 80-94 [facility] Hematocrit Auto (Bld) [Volum e fraction]Ordered By: Samuel Bazan on 03-05-2023 Hematocrit (Bld) [Volume fraction] 49.1 % 40-54 [facility] Ketones Test strip Ql (U)Ord ered By: Samuel Bazan on 03-05-2023 Ketones Ql (U) Negative Negative [facility] - Chemistry and C hemistry - challengeOrdered By: Samuel Bazan on 03-05-2023 ALP [Catalytic activity/Vol] 79 U/L 45-117 [facility] ALT [Catalytic activity/Vol] 22 U/L 16-61 [facility] CO2 [Moles/Vol] 26.0 mmol/L 21.0-32.0 [facility] Free T4 [Mass/Vol] 0.84 ng/dL 0.76-1.46 [facility] Globulin (S) [Mass/Vol] 3.9 g/dL 2.2-4.2 [facility] Urea nitrogen/Creatinine [Mass ratio] 17.1 mg/mg 10-20 [facility] - Hematology and Cell countsOrdered By: Samuel Bazan on 03-05-2023 Erythrocyte distribution width (RBC) [Entitic vol] 48.0 fL 35.1-43.9 [facility] Erythrocyte distribution width (RBC) [Ratio] 14.0 % 11.6-14.6 [facility] Immature granulocytes/100 WBC (Bld) 0.400 % 0.0-0.9 [facility] Comment on above: IG% - Immature Granu locytes (promyelocytes, myelocytes and metamyelocytes) > 1% indicates that a LEFT SHIFT is Present. MCH (RBC) [Entitic mass] 30.3 pg 27.0-32.0 [facility] Nucleated RBC/100 WBC (Bld) [Ratio] 0 % 0-5 [facility] MCHC Auto (RBC) [Mass/Vol]Or dered By: Samuel Bazan on 03-05-2023 MCHC (RBC) [Mass/Vol] 32.2 g/dL 32-36 [facility] Mucus LM Ql (Urine sed)Order ed By: Samuel Bazan on 03-05-2023 Mucus Ql (Urine sed) 0 SEEN /hpf [facility] Nitrite Test strip Ql (U)Ord ered By: Samuel Bazan on 03-05-2023 Nitrite Ql (U) Negative Negative [facility] No Panel InformationOrdered By: Samuel Bazan on 03-05-2023 Estimated GFR (MDRD) Amer 79 mL/min >60 [facility] Comment on above: GFR Calc Estimated GFR (MDRD) Non-Af Amer 65 mL/min >60 [facility] Comment on above: Non- GFR Calc Parathyroid Hormone (Intact) 142.5 pg/mL 18.4-80.1 [facility] Prostate Specific Antigen Screen 3.68 ng/mL 0.00-4.00 [facility] Comment on above: This test was perfor med using the TPSA assay method for the[employer] chemistry system. Values obtained with differentassay methods cannot be used interchangably.When changing PSA assays in the course of monitoring apatient, additional sequential testing should be carriedout to confirm baseline values. Thyroid Stimulating Hormone (TSH) 5.79 uIU/mL 0.358-3.74 [facility] Vitamin D 25-Hydroxy 26.8 ng/mL [facility] Comment on above: Vitamin D 25(OH) Sta tus Range Deficiency <20 ng/mL (50nmol/L) Insufficiency 20 - 30 ng/mL (50 - 75 nmol/L) Sufficiency 30 - 100 ng/mL (75 - 250 nmol/L) Toxicity >100 ng/mL (>250 nmol/L) Platelets bldOrdered By: Gabo Bazan on 03-05-2023 Platelets (Bld) [#/Vol] 207 10*3/uL 150-450 [facility] Protein Test strip Ql (U)Ord ered By: Samuel Bazan on 03-05-2023 Protein Ql (U) Negative Negative [facility] Serum or plasma albumin chemo urement (mass/volume)Ordered By: Samuel Bazan on 03-05-2023 Albumin [Mass/Vol] 3.7 g/dL 3.2-5.0 [facility] Serum or plasma albumin/glob ulin mass ratioOrdered By: Samuel Bazan on 03-05-2023 Albumin/Globulin [Mass ratio] 0.9 {ratio} 0.9-2.4 [facility] Serum or plasma calcium chemo urement (mass/volume)Ordered By: Samuel Bazan on 03-05-2023 Calcium [Mass/Vol] 9.3 mg/dL 8.5-10.1 [facility] Serum or plasma cholesterol in HDL measurement (mass/volume)Ordered By: Samuel Bazan on 03-05-2023 Cholesterol in HDL [Mass/Vol] 39 mg/dL >40 [facility] Comment on above: The drugs N-Acetylcy steine and Metamizole may falsely depress this assay. Reference Range HDL <40 mg/dL Low HDL Cholesterol HDL >or= 60 mg/dL High HDL Cholesterol Serum or plasma cholesterol in VLDL measurement (mass/volume)Ordered By: Samuel Bazan on 03-05-2023 Cholesterol in VLDL [Mass/Vol] 43 mg/dL 5-40 [facility] Serum or plasma creatinine m easurement (mass/volume)Ordered By: Samuel Bazan on 03-05-2023 Creatinine [Mass/Vol] 1.17 mg/dL 0.70-1.30 [facility] Comment on above: The validity of the calculated GFR & GFRAA in patients over 70 years has not been determined. Clinical correlation is essential. Serum or plasma low density lipoprotein (LDL) cholesterol measurement (mass/volume)Ordered By: Samuel Bazan on 03-05-2023 Cholesterol in LDL [Mass/Vol] 112 mg/dL 0-130 [facility] Serum or plasma urea nitroge n measurement (mass/volume)Ordered By: Samuel Bazan on 03-05-2023 Urea nitrogen [Mass/Vol] 20 mg/dL 7-18 [facility] Squamous epithelial cells de tection in urine sediment by light microscopyOrdered By: Samuel Bazan on 03-05-2023 Epithelial cells.squamous LM Ql (Urine sed) 0 SEEN /hpf 0-5 [facility] Thin prep Papanicolaou smear with manual screeningOrdered By: Samuel Bazan on 03-05-2023 Thin prep Papanicolaou smear with manual screening 13 U/L 15-37 [facility] Thin prep Papanicolaou smear with manual screening 5 5-15 [facility] Urine blood detectionOrdered By: Samuel Bazan on 03-05-2023 RBC Ql (U) Negative Negative [facility] RBC Ql (U) 0 SEEN /hpf 0-5 [facility] Urine clarityOrdered By: Gabo Bazan on 03-05-2023 Clarity (U) Clear Clear [facility] Urine color determinationOrd ered By: Samuel Bazan on 03-05-2023 Color (U) Yellow Yellow [facility] Urine creatinine measurement (mass/volume)Ordered By: Samuel Bazan on 03-05-2023 Creatinine (U) [Mass/Vol] 55.40 mg/dL NO RANGE EST. [facility] Urine glucose detectionOrder ed By: Samuel Bazan on 03-05-2023 Glucose Ql (U) Normal mg/dl Normal [facility] Urine leukocyte esterase det ection by dipstickOrdered By: Samuel Bazan on 03-05-2023 Leukocyte esterase Test strip Ql (U) Negative Negative [facility] Urine pHOrdered By: Samuel jama on 03-05-2023 pH (U) 7.0 [pH] 5.0 - 8.0 [facility] Urine protein measurement (m ass/volume)Ordered By: Samuel Bazan on 03-05-2023 Protein (U) [Mass/Vol] 15.0 mg/dL 0.0-11.8 [facility] Urine protein/creatinine mas s ratioOrdered By: Samuel Bazan on 03-05-2023 Protein/Creatinine (U) [Mass ratio] 271 mg/g CRE 0-200 [facility] Urine sediment bacteria coun t by microscopy (number/high power field)Ordered By: Samuel Bazan on 03-05-2023 Bacteria LM.HPF (Urine sed) [#/Area] 0 /[HPF] None Seen [facility] Urine specific gravity measu rementOrdered By: Samuel Bazan on 03-05-2023 Specific gravity (U) [Rel density] 1.010 1.002-1.030 [facility] Urobilinogen Auto test strip Ql (U)Ordered By: Samuel Bazan on 03-05-2023 Urobilinogen Ql (U) Normal mg/dl Normal [facility] Whole blood hemoglobin A1c/t otal hemoglobin ratio (mass fraction)Ordered By: Samuel Bazan on 03-05-2023 HbA1c (Bld) [Mass fraction] 5.8 % 3.8-5.6 [facility] Comment on above: Normal < 5.7 % Predi abetic 5.7 - 6.4 % Diabetic >or= 6.5 % Please note range changes. Absolute lymphocyte countOrd ered By: Samuel Bazan on 10-17-2022 Lymphocytes Auto (Unsp spec) [#/Vol] 1.47 10*3/uL 0.83-4.51 [facility] Basophil percentageOrdered B y: Samuel Bazan on 10-17-2022 Basophil percentage 0 SEEN /hpf 0-5 [facility] Basophil percentage 2.8 mg/dL 2.5-4.9 [facility] Basophils/100 WBC (Bld) 0.5 % 0-1 [facility] Bilirubin [Mass/Vol] 0.80 mg/dL 0.20-1.00 [facility] Comment on above: For patients on eltr ombopag therapy, use of Dimension [place] TBIL is not recommended. Chloride [Moles/Vol] 109 mmol/L 98-107 [facility] Cholesterol [Mass/Vol] 182 mg/dL <200 [facility] Comment on above: <200 mg/dL Desirable 200-240 mg/dL Borderline >240 mg/dL High Risk Eosinophils/100 WBC (Bld) 8.5 % 0-5 [facility] Glucose [Mass/Vol] 97 mg/dL 74-106 [facility] Neutrophils (Bld) [#/Vol] 3.5 10*3/uL 2.0-7.7 [facility] Neutrophils/100 WBC (Bld) 57.4 % 47-70 [facility] Potassium [Moles/Vol] 4.3 mmol/L 3.5-5.1 [facility] Protein [Mass/Vol] 7.2 g/dL 6.4-8.2 [facility] Sodium [Moles/Vol] 140 mmol/L 136-145 [facility] Triglyceride [Mass/Vol] 267 mg/dL <199 [facility] Comment on above: The drugs N-Acetylcy steine and Metamizole may falsely depress this assay.Serum Triglycerides Reference Interval Normal <150 mg/dL Borderline high 150 - 199 mg/dL High 200 - 499 mg/dL Very High > or = 500 mg/dL WBC (Bld) [#/Vol] 6.1 10*3/uL 4.4-11.0 [facility] Bilirubin Test strip Ql (U)O rdered By: Samuel Bazan on 10-17-2022 Bilirubin Ql (U) Negative Negative [facility] Blood erythrocytes count (nu mber/volume)Ordered By: Samuel Bazan on 10-17-2022 RBC (Bld) [#/Vol] 5.33 10*6/uL 4.6-6.2 [facility] Blood hemoglobin measurement (mass/volume)Ordered By: Samuel Bazan on 10-17-2022 Hemoglobin (Bld) [Mass/Vol] 16.0 g/dL 13.0-16.5 [facility] Blood lymphocytes/100 leukoc ytesOrdered By: Samuel Bazan on 10-17-2022 Lymphocytes/100 WBC (Bld) 24.1 % 19-41 [facility] Blood monocytes/100 leukocyt esOrdered By: Samuel Bazan on 10-17-2022 Monocytes/100 WBC (Bld) 9.2 % 0-10 [facility] Blood platelet mean volumeOr dered By: Samuel Bazan on 10-17-2022 Platelet mean volume (Bld) [Entitic vol] 10.3 fL 6.2-12.0 [facility] Determination of erythrocyte mean corpuscular volume (MCV)Ordered By: Samuel Bazan on 10-17-2022 MCV (RBC) [Entitic vol] 94.0 fL 80-94 [facility] Hematocrit Auto (Bld) [Volum e fraction]Ordered By: Samuel Bazan on 10-17-2022 Hematocrit (Bld) [Volume fraction] 50.1 % 40-54 [facility] Ketones Test strip Ql (U)Ord ered By: Samuel Bazan on 10-17-2022 Ketones Ql (U) Negative Negative [facility] Laboratory - Chemistry and C hemistry - challengeOrdered By: Samuel Bazan on 10-17-2022 ALP [Catalytic activity/Vol] 82 U/L 45-117 [facility] ALT [Catalytic activity/Vol] 24 U/L 16-61 [facility] CO2 [Moles/Vol] 28.0 mmol/L 21.0-32.0 [facility] Free T4 [Mass/Vol] 0.78 ng/dL 0.76-1.46 [facility] Globulin (S) [Mass/Vol] 3.6 g/dL 2.2-4.2 [facility] Urea nitrogen/Creatinine [Mass ratio] 18.9 mg/mg 10-20 [facility] Laboratory - Hematology and Cell countsOrdered By: Samuel Bazan on 10-17-2022 Erythrocyte distribution width (RBC) [Entitic vol] 48.3 fL 35.1-43.9 [facility] Erythrocyte distribution width (RBC) [Ratio] 14.1 % 11.6-14.6 [facility] Immature granulocytes/100 WBC (Bld) 0.300 % 0.0-0.9 [facility] Comment on above: IG% - Immature Granu locytes (promyelocytes, myelocytes and metamyelocytes) > 1% indicates that a LEFT SHIFT is Present. MCH (RBC) [Entitic mass] 30.0 pg 27.0-32.0 [facility] Nucleated RBC/100 WBC (Bld) [Ratio] 0 % 0-5 [facility] MCHC Auto (RBC) [Mass/Vol]Or dered By: Samuel Bazan on 10-17-2022 MCHC (RBC) [Mass/Vol] 31.9 g/dL 32-36 [facility] Mucus LM Ql (Urine sed)Order ed By: Samuel Bazan on 10-17-2022 Mucus Ql (Urine sed) 0 SEEN /hpf [facility] Nitrite Test strip Ql (U)Ord ered By: Samuel Bazan on 10-17-2022 Nitrite Ql (U) Negative Negative [facility] No Panel InformationOrdered By: Samuel Bazan on 10-17-2022 Estimated GFR (MDRD) Amer 75 mL/min >60 [facility] Comment on above: GFR Calc Estimated GFR (MDRD) Non-Af Amer 62 mL/min >60 [facility] Comment on above: Non- GFR Calc Parathyroid Hormone (Intact) 128.9 pg/mL 18.4-80.1 [facility] Thyroglobulin Antibody < 1.0 IU/mL 0.0-0.9 [facility] Comment on above: Thyroglobulin Antibo dy measured by Kels[employer] Thyroglobulin Level 14.9 ng/mL 1.4-29.2 [facility] Comment on above: According to the [facility] [employer],the reference interval for Thyroglobulin (TG) should berelated to euthyroid patients and not for patients whounderwent thyroidectomy. TG reference intervals for thesepatients depend on the residual mass of the thyroid tissueleft after surgery. Establishing a post-operative baselineis recommended. The assay limit of quantitation is 0.1ng/mLThyroglobulin measured by Kelsie Archie [employer] Thyroid Stimulating Hormone (TSH) 4.33 uIU/mL 0.358-3.74 [facility] Platelets bldOrdered By: Gabo Bazan on 10-17-2022 Platelets (Bld) [#/Vol] 180 10*3/uL 150-450 [facility] Protein Test strip Ql (U)Ord ered By: Samuel Bazan on 10-17-2022 Protein Ql (U) Negative Negative [facility] Serum or plasma albumin chemo urement (mass/volume)Ordered By: Samuel Bazan on 10-17-2022 Albumin [Mass/Vol] 3.6 g/dL 3.2-5.0 [facility] Serum or plasma albumin/glob ulin mass ratioOrdered By: Samuel Bazan on 10-17-2022 Albumin/Globulin [Mass ratio] 1.0 {ratio} 0.9-2.4 [facility] Serum or plasma calcium chemo urement (mass/volume)Ordered By: Samuel Bazan on 10-17-2022 Calcium [Mass/Vol] 8.6 mg/dL 8.5-10.1 [facility] Serum or plasma cholesterol in HDL measurement (mass/volume)Ordered By: Samuel Bazan on 10-17-2022 Cholesterol in HDL [Mass/Vol] 35 mg/dL >40 [facility] Comment on above: The drugs N-Acetylcy steine and Metamizole may falsely depress this assay. Reference Range HDL <40 mg/dL Low HDL Cholesterol HDL >or= 60 mg/dL High HDL Cholesterol Serum or plasma cholesterol in VLDL measurement (mass/volume)Ordered By: Samuel Bazan on 10-17-2022 Cholesterol in VLDL [Mass/Vol] 53 mg/dL 5-40 [facility] Serum or plasma creatinine m easurement (mass/volume)Ordered By: Samuel Bazan on 10-17-2022 Creatinine [Mass/Vol] 1.22 mg/dL 0.70-1.30 [facility] Comment on above: The validity of the calculated GFR & GFRAA in patients over 70 years has not been determined. Clinical correlation is essential. Serum or plasma low density lipoprotein (LDL) cholesterol measurement (mass/volume)Ordered By: Samuel Bazan on 10-17-2022 Cholesterol in LDL [Mass/Vol] 94 mg/dL 0-130 [facility] Serum or plasma thyroperoxid ase antibody assay (units/volume)Ordered By: Samuel Bazan on 10-17-2022 TPO Ab Qn [IU]/mL 0-34 [facility] Comment on above: Performed at: [address] [id number] Director: Jonas Solo PhD, Phone: [phone] Serum or plasma urea nitroge n measurement (mass/volume)Ordered By: Samuel Bazan on 10-17-2022 Urea nitrogen [Mass/Vol] 23 mg/dL 7-18 [facility] Squamous epithelial cells de tection in urine sediment by light microscopyOrdered By: Samuel Bazan on 10-17-2022 Epithelial cells.squamous LM Ql (Urine sed) 0 SEEN /hpf 0-5 [facility] Thin prep Papanicolaou smear with manual screeningOrdered By: Samuel Bazan on 10-17-2022 Thin prep Papanicolaou smear with manual screening 15 U/L 15-37 [facility] Thin prep Papanicolaou smear with manual screening 3 5-15 [facility] Urine blood detectionOrdered By: Samuel Bazan on 10-17-2022 RBC Ql (U) Negative Negative [facility] RBC Ql (U) 0 SEEN /hpf 0-5 [facility] Urine clarityOrdered By: Gabo Bazan on 10-17-2022 Clarity (U) Clear Clear [facility] Urine color determinationOrd ered By: Samuel Bazan on 10-17-2022 Color (U) Yellow Yellow [facility] Urine creatinine measurement (mass/volume)Ordered By: Samuel Bazan on 10-17-2022 Creatinine (U) [Mass/Vol] 71.10 mg/dL NO RANGE EST. [facility] Urine glucose detectionOrder ed By: Samuel Bazan on 10-17-2022 Glucose Ql (U) Normal mg/dl Normal [facility] Urine leukocyte esterase det ection by dipstickOrdered By: Samuel Bazan on 10-17-2022 Leukocyte esterase Test strip Ql (U) Negative Negative [facility] Urine pHOrdered By: Samuel jama on 10-17-2022 pH (U) 8.0 [pH] 5.0 - 8.0 [facility] Urine protein measurement (m ass/volume)Ordered By: Samuel Bazan on 10-17-2022 Protein (U) [Mass/Vol] 14.9 mg/dL 0.0-11.8 [facility] Urine protein/creatinine mas s ratioOrdered By: Samuel Bazan on 10-17-2022 Protein/Creatinine (U) [Mass ratio] 210 mg/g CRE 0-200 [facility] Urine sediment bacteria coun t by microscopy (number/high power field)Ordered By: Samuel Bazan on 10-17-2022 Bacteria LM.HPF (Urine sed) [#/Area] 0 /[HPF] None Seen [facility] Urine specific gravity measu rementOrdered By: Samuel Bazan on 10-17-2022 Specific gravity (U) [Rel density] 1.010 1.002-1.030 [facility] Urobilinogen Auto test strip Ql (U)Ordered By: Samuel Bazan on 10-17-2022 Urobilinogen Ql (U) Normal mg/dl Normal [facility] Whole blood hemoglobin A1c/t otal hemoglobin ratio (mass fraction)Ordered By: Samuel Bazan on 10-17-2022 HbA1c (Bld) [Mass fraction] 5.8 % 3.8-5.6 [facility] Comment on above: Normal < 5.7 % Predi abetic 5.7 - 6.4 % Diabetic >or= 6.5 % Please note range changes. Absolute lymphocyte countOrd ered By: Dr. Bazan on 06-12-2022 Lymphocytes Auto (Unsp spec) [#/Vol] 1.47 10*3/uL 0.83-4.51 [facility] Basophil percentageOrdered B y: Dr. Bazan on 06-12-2022 Basophils/100 WBC (Bld) 0.7 % 0-1 [facility] Bilirubin [Mass/Vol] 1.00 mg/dL 0.20-1.00 [facility] Comment on above: For patients on eltr ombopag therapy, use of Dimension [place] TBIL is not recommended. Chloride [Moles/Vol] 106 mmol/L 98-107 [facility] Cholesterol [Mass/Vol] 205 mg/dL <200 [facility] Comment on above: <200 mg/dL Desirable 200-240 mg/dL Borderline >240 mg/dL High Risk Eosinophils/100 WBC (Bld) 7.5 % 0-5 [facility] Glucose [Mass/Vol] 101 mg/dL 74-106 [facility] Comment on above: Fasting Glucose resu lt from 100 to 125 mg/dL suggests IMPAIRED HOMEOSTASIS per A.D.A. criteria. Neutrophils (Bld) [#/Vol] 4.5 10*3/uL 2.0-7.7 [facility] Neutrophils/100 WBC (Bld) 62.6 % 47-70 [facility] Potassium [Moles/Vol] 4.0 mmol/L 3.5-5.1 [facility] Protein [Mass/Vol] 7.5 g/dL 6.4-8.2 [facility] Sodium [Moles/Vol] 141 mmol/L 136-145 [facility] Triglyceride [Mass/Vol] 273 mg/dL <199 [facility] Comment on above: The drugs N-Acetylcy steine and Metamizole may falsely depress this assay.Serum Triglycerides Reference Interval Normal <150 mg/dL Borderline high 150 - 199 mg/dL High 200 - 499 mg/dL Very High > or = 500 mg/dL WBC (Bld) [#/Vol] 7.2 10*3/uL 4.4-11.0 [facility] Blood erythrocytes count (nu mber/volume)Ordered By: Dr. Bazan on 06-12-2022 RBC (Bld) [#/Vol] 5.38 10*6/uL 4.6-6.2 [facility] Blood hemoglobin measurement (mass/volume)Ordered By: Dr. Bazan on 06-12-2022 Hemoglobin (Bld) [Mass/Vol] 16.0 g/dL 13.0-16.5 [facility] Blood lymphocytes/100 leukoc ytesOrdered By: Dr. Bazan on 06-12-2022 Lymphocytes/100 WBC (Bld) 20.3 % 19-41 [facility] Blood monocytes/100 leukocyt esOrdered By: Dr. Bazan on 06-12-2022 Monocytes/100 WBC (Bld) 8.6 % 0-10 [facility] Blood platelet mean volumeOr dered By: Dr. Bazan on 06-12-2022 Platelet mean volume (Bld) [Entitic vol] 10.5 fL 6.2-12.0 [facility] Determination of erythrocyte mean corpuscular volume (MCV)Ordered By: Dr. Bazan on 06-12-2022 MCV (RBC) [Entitic vol] 93.9 fL 80-94 [facility] Hematocrit Auto (Bld) [Volum e fraction]Ordered By: Dr. Bazan on 06-12-2022 Hematocrit (Bld) [Volume fraction] 50.5 % 40-54 [facility] - Chemistry and C hemistry - challengeOrdered By: Dr. Bazan on 06-12-2022 ALP [Catalytic activity/Vol] 86 U/L 45-117 [facility] ALT [Catalytic activity/Vol] 24 U/L 16-61 [facility] CO2 [Moles/Vol] 29.0 mmol/L 21.0-32.0 [facility] Globulin (S) [Mass/Vol] 3.7 g/dL 2.2-4.2 [facility] Urea nitrogen/Creatinine [Mass ratio] 17.9 mg/mg 10-20 [facility] - Hematology and Cell countsOrdered By: Dr. Bazan on 06-12-2022 Erythrocyte distribution width (RBC) [Entitic vol] 48.2 fL 35.1-43.9 [facility] Erythrocyte distribution width (RBC) [Ratio] 14.0 % 11.6-14.6 [facility] Immature granulocytes/100 WBC (Bld) 0.300 % 0.0-0.9 [facility] Comment on above: IG% - Immature Granu locytes (promyelocytes, myelocytes and metamyelocytes) > 1% indicates that a LEFT SHIFT is Present. MCH (RBC) [Entitic mass] 29.7 pg 27.0-32.0 [facility] Nucleated RBC/100 WBC (Bld) [Ratio] 0 % 0-5 [facility] MCHC Auto (RBC) [Mass/Vol]Or dered By: Dr. Bazan on 06-12-2022 MCHC (RBC) [Mass/Vol] 31.7 g/dL 32-36 [facility] No Panel InformationOrdered By: Dr. Bazan on 06-12-2022 Estimated GFR (MDRD) Amer 79 mL/min >60 [facility] Comment on above: GFR Calc Estimated GFR (MDRD) Non-Af Amer 65 mL/min >60 [facility] Comment on above: Non- GFR Calc Parathyroid Hormone (Intact) 107.5 pg/mL 18.4-80.1 [facility] Vitamin D 25-Hydroxy 25.4 ng/mL [facility] Comment on above: Vitamin D 25(OH) Sta tus Range Deficiency <20 ng/mL (50nmol/L) Insufficiency 20 - 30 ng/mL (50 - 75 nmol/L) Sufficiency 30 - 100 ng/mL (75 - 250 nmol/L) Toxicity >100 ng/mL (>250 nmol/L) Platelets bldOrdered By: Dr. Bazan on 06-12-2022 Platelets (Bld) [#/Vol] 222 10*3/uL 150-450 [facility] Serum or plasma albumin chemo urement (mass/volume)Ordered By: Dr. Bazan on 06-12-2022 Albumin [Mass/Vol] 3.8 g/dL 3.2-5.0 [facility] Serum or plasma albumin/glob ulin mass ratioOrdered By: Dr. Bazan on 06-12-2022 Albumin/Globulin [Mass ratio] 1.0 {ratio} 0.9-2.4 [facility] Serum or plasma calcium chemo urement (mass/volume)Ordered By: Dr. Bazan on 06-12-2022 Calcium [Mass/Vol] 9.1 mg/dL 8.5-10.1 [facility] Serum or plasma cholesterol in HDL measurement (mass/volume)Ordered By: Dr. Bazan on 06-12-2022 Cholesterol in HDL [Mass/Vol] 39 mg/dL >40 [facility] Comment on above: The drugs N-Acetylcy steine and Metamizole may falsely depress this assay. Reference Range HDL <40 mg/dL Low HDL Cholesterol HDL >or= 60 mg/dL High HDL Cholesterol Serum or plasma cholesterol in VLDL measurement (mass/volume)Ordered By: Dr. Bazan on 06-12-2022 Cholesterol in VLDL [Mass/Vol] 55 mg/dL 5-40 [facility] Serum or plasma creatinine m easurement (mass/volume)Ordered By: Dr. Bazan on 06-12-2022 Creatinine [Mass/Vol] 1.17 mg/dL 0.70-1.30 [facility] Comment on above: The validity of the calculated GFR & GFRAA in patients over 70 years has not been determined. Clinical correlation is essential. Serum or plasma low density lipoprotein (LDL) cholesterol measurement (mass/volume)Ordered By: Dr. Bazan on 06-12-2022 Cholesterol in LDL [Mass/Vol] 111 mg/dL 0-130 [facility] Serum or plasma urea nitroge n measurement (mass/volume)Ordered By: Dr. Bazan on 06-12-2022 Urea nitrogen [Mass/Vol] 21 mg/dL 7-18 [facility] Thin prep Papanicolaou smear with manual screeningOrdered By: Dr. Bazan on 06-12-2022 Thin prep Papanicolaou smear with manual screening 16 U/L 15-37 [facility] Thin prep Papanicolaou smear with manual screening 6 5-15 [facility] Urine creatinine measurement (mass/volume)Ordered By: Dr. Bazan on 06-12-2022 Creatinine (U) [Mass/Vol] 64.60 mg/dL NO RANGE EST. [facility] Urine protein measurement (m ass/volume)Ordered By: Dr. Bazan on 06-12-2022 Protein (U) [Mass/Vol] 17.0 mg/dL 0.0-11.8 [facility] Urine protein/creatinine mas s ratioOrdered By: Dr. Bazan on 06-12-2022 Protein/Creatinine (U) [Mass ratio] 263 mg/g CRE 0-200 [facility] Whole blood hemoglobin A1c/t otal hemoglobin ratio (mass fraction)Ordered By: Dr. Bazan on 06-12-2022 HbA1c (Bld) [Mass fraction] 5.7 % 3.8-5.6 [facility] Comment on above: Normal < 5.7 % Predi abetic 5.7 - 6.4 % Diabetic >or= 6.5 % Please note range changes. Absolute lymphocyte counton 06-08-2021 Lymphocytes Auto (Unsp spec) [#/Vol] 1.41 10*3/uL 0.83-4.51 [facility] Work Phone: Basophil percentageon 2021 Basophil percentage 0 SEEN /hpf [facility] Work Phone: Basophil percentage 3.2 mg/dL 2.5-4.9 [facility] Work Phone: Basophils/100 WBC (Bld) 0.7 % 0-1 [facility] Work Phone: Bilirubin [Mass/Vol] 0.60 mg/dL 0.20-1.00 [facility] Work Phone: Comment on above: For patients on eltr ombopag therapy, use of Dimension Prit[place]tt TBIL is not recommended. Chloride [Moles/Vol] 107 mmol/L 98-107 [facility] Work Phone: Cholesterol [Mass/Vol] 184 mg/dL <200 [facility] Work Phone: Comment on above: <200 mg/dL Desirable 200-240 mg/dL Borderline >240 mg/dL High Risk Eosinophils/100 WBC (Bld) 8.5 % 0-5 [facility] Work Phone: Glucose [Mass/Vol] 98 mg/dL 74-106 [facility] Work Phone: Neutrophils (Bld) [#/Vol] 4.3 10*3/uL 2.0-7.7 [facility] Work Phone: Neutrophils/100 WBC (Bld) 60.3 % 47-70 [facility] Work Phone: Potassium [Moles/Vol] 4.2 mmol/L 3.5-5.1 [facility] Work Phone: Protein [Mass/Vol] 7.2 g/dL 6.4-8.2 [facility] Work Phone: Sodium [Moles/Vol] 141 mmol/L 136-145 [facility] Work Phone: Triglyceride [Mass/Vol] 220 mg/dL [facility] Work Phone: Comment on above: The drugs N-Acetylcy steine and Metamizole may falsely depress this assay.Serum Triglycerides Reference Interval Normal <150 mg/dL Borderline high 150 - 199 mg/dL High 200 - 499 mg/dL Very High > or = 500 mg/dL WBC (Bld) [#/Vol] 7.1 10*3/uL 4.4-11.0 [facility] Work Phone: Bilirubin Test strip Ql (U)o n 06-08-2021 Bilirubin Ql (U) Negative Negative [facility] Work Phone: [phone] Blood erythrocytes count (nu mber/volume)on 06-08-2021 RBC (Bld) [#/Vol] 5.19 10*6/uL 4.6-6.2 [facility] Work Phone: Blood hemoglobin measurement (mass/volume)on 06-08-2021 Hemoglobin (Bld) [Mass/Vol] 15.9 g/dL 13.0-16.5 [facility] Work Phone: Blood lymphocytes/100 leukoc yteson 06-08-2021 Lymphocytes/100 WBC (Bld) 19.7 % 19-41 [facility] Work Phone: Blood monocytes/100 leukocyt eson 06-08-2021 Monocytes/100 WBC (Bld) 10.4 % 0-10 [facility] Work Phone: Blood platelet mean volumeon 06-08-2021 Platelet mean volume (Bld) [Entitic vol] 10.4 fL 6.2-12.0 [facility] Work Phone: Determination of erythrocyte mean corpuscular volume (MCV)on 06-08-2021 MCV (RBC) [Entitic vol] 93.3 fL 80-94 [facility] Work Phone: Hematocrit Auto (Bld) [Volum e fraction]on 06-08-2021 Hematocrit (Bld) [Volume fraction] 48.4 % 40-54 [facility] Work Phone: Ketones Test strip Ql (U)on 06-08-2021 Ketones Ql (U) Negative Negative [facility] Work Phone: Laboratory - Chemistry and C hemistry - challengeon 06-08-2021 ALP [Catalytic activity/Vol] 87 U/L 45-117 [facility] Work Phone: [phone] ALT [Catalytic activity/Vol] 22 U/L 16-61 [facility] Work Phone: CO2 [Moles/Vol] 31.0 mmol/L 21.0-32.0 [facility] Work Phone: Globulin (S) [Mass/Vol] 3.6 g/dL 2.2-4.2 [facility] Work Phone: [phone] Urea nitrogen/Creatinine [Mass ratio] 16.9 mg/mg 10-20 [facility] Work Phone: [phone] Laboratory - Hematology and Cell countson 06-08-2021 Erythrocyte distribution width (RBC) [Entitic vol] 46.8 fL 35.1-43.9 [facility] Work Phone: [phone] Erythrocyte distribution width (RBC) [Ratio] 13.7 % 11.6-14.6 [facility] Work Phone: [phone] Immature granulocytes/100 WBC (Bld) 0.400 % 0.0-0.9 [facility] Work Phone: [phone] Comment on above: IG% - Immature Granu locytes (promyelocytes, myelocytes and metamyelocytes) > 1% indicates that a LEFT SHIFT is Present. MCH (RBC) [Entitic mass] 30.6 pg 27.0-32.0 [facility] Work Phone: [phone] Nucleated RBC/100 WBC (Bld) [Ratio] 0 % 0-5 [facility] Work Phone: [phone] MCHC Auto (RBC) [Mass/Vol]on 06-08-2021 MCHC (RBC) [Mass/Vol] 32.9 g/dL 32-36 [facility] Work Phone: [phone] Mucus LM Ql (Urine sed)on Mucus Ql (Urine sed) 0 SEEN /hpf [facility] Work Phone: [phone] Nitrite Test strip Ql (U)on 06-08-2021 Nitrite Ql (U) Negative Negative [facility] Work Phone: [phone] No Panel Informationon 06-08 Estimated GFR (MDRD) Amer 78 mL/min >60 [facility] Work Phone: [phone] Comment on above: GFR Calc Estimated GFR (MDRD) Non-Af Amer 65 mL/min >60 [facility] Work Phone: [phone] Comment on above: Non- GFR Calc Parathyroid Hormone (Intact) 139.9 pg/mL 18.4-80.1 [facility] Work Phone: Platelets bldon 06-08-2021 Platelets (Bld) [#/Vol] 201 10*3/uL 150-450 [facility] Work Phone: Protein Test strip Ql (U)on 06-08-2021 Protein Ql (U) 15 mg/dl Negative [facility] Work Phone: [phone] Serum or plasma albumin chemo urement (mass/volume)on 06-08-2021 Albumin [Mass/Vol] 3.6 g/dL 3.2-5.0 [facility] Work Phone: Serum or plasma albumin/glob ulin mass ratioon 06-08-2021 Albumin/Globulin [Mass ratio] 1.0 {ratio} 0.9-2.4 [facility] Work Phone: Serum or plasma calcium chemo urement (mass/volume)on 06-08-2021 Calcium [Mass/Vol] 8.9 mg/dL 8.5-10.1 [facility] Work Phone: Serum or plasma cholesterol in HDL measurement (mass/volume)on 06-08-2021 Cholesterol in HDL [Mass/Vol] 35 mg/dL [facility] Work Phone: Comment on above: The drugs N-Acetylcy steine and Metamizole may falsely depress this assay. Reference Range HDL <40 mg/dL Low HDL Cholesterol HDL >or= 60 mg/dL High HDL Cholesterol Serum or plasma cholesterol in VLDL measurement (mass/volume)on 06-08-2021 Cholesterol in VLDL [Mass/Vol] 44 mg/dL 5-40 [facility] Work Phone: Serum or plasma creatinine m easurement (mass/volume)on 06-08-2021 Creatinine [Mass/Vol] 1.18 mg/dL 0.70-1.30 [facility] Work Phone: Comment on above: The validity of the calculated GFR & GFRAA in patients over 70 years has not been determined. Clinical correlation is essential. Serum or plasma low density lipoprotein (LDL) cholesterol measurement (mass/volume)on 06-08-2021 Cholesterol in LDL [Mass/Vol] 105 mg/dL 0-130 [facility] Work Phone: Serum or plasma urea nitroge n measurement (mass/volume)on 06-08-2021 Urea nitrogen [Mass/Vol] 20 mg/dL 7-18 [facility] Work Phone: Squamous epithelial cells de tection in urine sediment by light microscopyon 06-08-2021 Epithelial cells.squamous LM Ql (Urine sed) 0 SEEN /hpf [facility] Work Phone: Thin prep Papanicolaou smear with manual screeningon 06-08-2021 Thin prep Papanicolaou smear with manual screening 11 U/L 15-37 [facility] Work Phone: Thin prep Papanicolaou smear with manual screening 3 5-15 [facility] Work Phone: Urine blood detectionon 05-23 RBC Ql (U) Negative Negative [facility] Work Phone: RBC Ql (U) 0 SEEN /hpf [facility] Work Phone: Urine clarityon 06-08-2021 Clarity (U) Clear Clear [facility] Work Phone: Urine color determinationon 06-08-2021 Color (U) Yellow Yellow [facility] Work Phone: Urine glucose detectionon Glucose Ql (U) Normal mg/dl Normal [facility] Work Phone: Urine leukocyte esterase det ection by dipstickon 06-08-2021 Leukocyte esterase Test strip Ql (U) Negative Negative [facility] Work Phone: Urine pHon 06-08-2021 pH (U) 6.5 [pH] [facility] Work Phone: Urine sediment bacteria coun t by microscopy (number/high power field)on 06-08-2021 Bacteria LM.HPF (Urine sed) [#/Area] 0 /[HPF] None Seen [facility] Work Phone: Urine specific gravity measu rementon 06-08-2021 Specific gravity (U) [Rel density] 1.015 [facility] Work Phone: Urobilinogen Auto test strip Ql (U)on 06-08-2021 Urobilinogen Ql (U) Normal mg/dl Normal [facility] Work Phone: Encounters Encounter Date Encounter Type Care Provider Facility Start: 08-04-2024 End: 08-04-[address] Samuel Bazan MD Work Phone: [facility] Work Phone: Start: 08-04-2024 End: 08-04-[address] Samuel Bazan MD [facility] Work Phone: Start: 08-04-2024 End: 08-04-2024 ambulatory Samuel Bazan Facility:[facility] Start: 04-09-2024 End: 04-09-2024 ambulatory Samuel Bazan Facility:[facility] Start: 01-10-2024 Encounter for genera l adult medical examination without abnormal findings Samuel Bazan [facility] Start: 12-13-2023 End: 12-13-2023 ambulatory [facility] Narciso Bazan Facility:[facility] Start: 12-05-2023 End: 12-05-2023 ambulatory [facility] Narciso Bazan Facility:[facility] Start: 09-03-2023 End: 09-03-2023 ambulatory [facility] Narciso Bazan Facility:[facility] Start: 08-12-2023 End: 08-15-2023 Evaluation and management of inpatient Ish Lujan Facility:[facility] Start: 08-12-2023 ambulatory Ish Lujan Fac ility:[facility] Start: 07-09-2023 End: 07-09-2023 ambulatory [facility] Work Phone: Start: 07-09-2023 End: 07-09-2023 Patient encounter procedure [facility] Work Phone: Start: 03-05-2023 End: 03-05-2023 ambulatory [facility] Work Phone: Start: 03-05-2023 End: 03-05-2023 Patient encounter procedure [facility] Start: 10-17-2022 End: 10-17-2022 ambulatory [facility] Work Phone: Start: 10-17-2022 End: 10-17-2022 Patient encounter procedure [facility] Start: 06-12-2022 End: 06-12-2022 ambulatory [facility] Work Phone: Start: 06-12-2022 End: 06-12-2022 Patient encounter procedure [facility] Start: 06-09-2021 End: 06-09-2021 Patient encounter procedure [facility] Start: 06-08-2021 End: 06-08-2021 Patient encounter procedure [facility] Date Procedure Procedure Detail Performing Clinician Start: 08-04-2024 Urnls dip stick/tabl et reagent auto microscopy Dr. Samuel Bazan MD Work Phone: Start: 08-04-[address] Samuel Bazan MD Work Phone: Start: 08-04-2024 Vitamin D, 25-hydrox y measurement Dr. Samuel Bazan MD Work Phone: Comment on above: Vitamin D StatusDefi ciency: <20 ng/mL (50nmol/L)Insufficiency: 20-30 ng/mL (50-75 nmol/L)Sufficiency: 30-100 ng/mL (75-250 nmol/L)Toxicity: >100 ng/mL (>250 nmol/L) Immunizations Immunization Date Immunization Notes Care Provider Fa cility 06-16-2020 Covid (Pfizer) [facility] 05-26-2020 Covid (Pfizer) [facility] Payers Date Payer Category Payer Self-pay [id number] 2023 Unknown [id number] 2015 Medicare [id number] Unknown [id number] Unknown [id number] 2.16.8 [id number] Unknown [id number] 2.16.8 [id number] Unknown [id number] 2.16.8 [id number] Unknown [id number] 2.16.8 [id number] Unknown [id number] 2.16.8 [id number] Unknown [id number] 2.16.8 [id number] Unknown [id number] 2.16.8 [id number] Unknown [id number] 2.16.8 [id number] Unknown [id number] 2.16.8 [id number] Unknown [id number] 2.16.8 [id number] Social History Date Type Detail Facility Start: 10-22-2014 End: 10-11-2021 Tobacco smoking status NHIS Unknown if ever smoked [facility] Start: 1950 Sex Assigned At Male [facility] Start: 08-12-2023 Tobacco smoking stat us NHIS Never smoked tobacco (finding) [facility] Discharge summary note 08-15-2023 Note Date & Type Note Facility 08-15-2023 Note [facility] Medical Records Department [facility] [place] [address] Discharge Summary 08/15/23 1417 MR#: [id number] Acct: [id number] Name: BRADLEY VERMA Rep #: [id number] : 1950 73 From: Ish Lujan MD PCP: Dr. Samuel Bazan MD Status:DIS IN Location: [facility] [id number] Providers Date of Admission: 08/12/23 Primary Care Physician: Dr. Samuel Bazan MD Reason For Visit: CELLULITIS OF THE RIGHT LEG Diagnosis Discharge Diagnosis (1) Cellulitis of leg, right: Status: Acute Code(s): L03.115 - Cellulitis of right lower limb (2) AMRITA (acute kidney injury): Status: Acute Code(s): N17.9 - Acute kidney failure, unspecified Medications at Discharge Home Medications amlodipine 10 mg tablet 10 mg PO DAILY 10/11/21 lisinopril 20 mg tablet 20 mg PO DAILY 10/11/21 hydrochlorothiazide 12.5 mg tablet 12.5 mg PO DAILY 08/07/23 metoprolol succinate 100 mg tablet,extended release 24 hr 100 mg PO DAILY 08/12/23 amoxicillin 875 mg-potassium clavulanate 125 mg tablet 1 tab PO BID 5 days #10 tabs 08/15/23 Hospital Course Operations None Procedures None Summary of Care Provided Minutes Spent on Discharge: 33 Hospital Course: Per HPI: BRADLEY VERMA, is a 73 M with a PMH as outlined who presents via the ED on 08/12/2023 with a complaint of right leg pain which had been going on for about 5 days. He started having a fever 5 fays ago and came in to the ED. He was discharged home on PO levaquin. He subsequently developed swelling and redness of his RLE. He went to his PCP where he had a duplex that was negative and started on PO doxycycline. His redness and swelling of the RLE however worsened, with associated pain.. He now thinks he may have been injured by piece of metal which possibly cut him through his jeans a month ago. He denied any chest pain, shortness of breath, palpitations, dizziness, nausea or vomiting or any other. Never had cellulitis like this before and denies being diabetic. Review of systems otherwise negative. Vitals in the ED were BP of 107/64, UT of 55, RR of 18, temp of 97.3F and oxygen sats of 96% on room air. CBC showed wbc of 11.8, Hb of 15.2, platelets of 226. INR is 1.2. Chemistry showed sodium of 138, potassium of 3.7, bicarb of 29 and Cr of 1.81, with baseline being normal. He is being admitted for cellulitis of the RLE, failed outpatient therapy. Hospital Course: 1. Right lower extremity cellulitis/AMRITA???73-year-old male presented to the hospital with failure of outpatient antibiotic therapy for right lower extremity cellulitis. No obvious wounds or he said that he did scratch his leg against a metal object truck. Blood cultures have been negative and his cellulitis has improved with vancomycin and Unasyn. The vancomycin was discontinued during his hospitalization secondary to a negative MRSA screen. He was continued on Unasyn and had reduction in both swelling, redness, though he was having some pain throughout his hospitalization especially with ambulation. He had had a lower extremity Doppler on 08/09/2023 which was negative for DVT so a CT of his right lower extremity was done which did not show any focal abscess or compartment syndrome. Today his blood cultures came back negative so I discussed with him the plan for possible discharge she expressed understanding of the risk benefits of going home and would like to go home today. Will continue with 5 more days of Augmentin with outpatient follow-up to his PCP. Today he also noted that his pain was significantly improved and he can ambulate without any significant discomfort. I did discuss with him the possibility of narcotics however he he felt that his pain was well-controlled with ibuprofen. Of note on admission his renal function was elevated to creatinine of 1.81 and he was started on IV fluids and his renal function improved to 1.01 on the day of discharge. Physical Exam Narrative General: Alert, Oriented x3, Cooperative, No apparent distress HEENT: Atraumatic, PERRLA, EOMI, Normocephalic Oral: Moist Mucosa Neck: Supple, No JVD Lungs:, Normal air movement, No rhonchi, No wheeze, No rales Cardiovascular: Regular rate, Regular Rhythm, Normal S1, Normal S2, No murmurs Abdomen: Soft, Non Tender, Non-Distended, No Hepato-splenomegaly Extremities: No edema, Capillary Refill Less than 3 Seconds Skin: Cellulitis in the right lower extremity improved Musculoskeletal: No Tenderness to Palpation of Joints or Extremities Neurological: No focal neurological deficits, Motor Exam 5/5 strength throughout, Sensory exam intact to light touch and pain Psych/Mental Status: Normal Affect, Appropriate Weight / BMI Weight Weight: 197 lb 5.019 oz Body Mass Index (BMI) 28.3 ABG / Lab / Microbiology Data 08/14/23 06:41 08/14/23 06:41 Laboratory: Laboratory Results - last 24 hr (more content not included)... [facility] Evaluation note Note Date & Type Note Facility Evaluation note No assessment information availa ble [facility] Work Phone: Reason for referral (narrative) Note Date & Type Note Facility Reason for referral (narrative) No reason for referral information available [facility] Work Phone: Chief Complaint and Reason for Visit Chief Complaint EORDER Chief Complaint Admit Date EORDAugust 04, 2024 7:01a m Advance Directives No Advanced Directives Records Found Advance Directive Response Recorded Date/ Time Advance Directives No October 22 15 8:07am Living Will Yes October 22, 2014 8:07am Power of Phlebotomy Services Representative No October 22 5 8:07am Advance Directive Response Recorded Date/ Time Advance Directives No October 22 8:07am Living Will No October 11, 2021 12:17pm Power of Phlebotomy Services Representative No October 11 2 12:17pm Advance Directive Response Recorded Date/ Time Advance Directives No October 22 15 7:07am Living Will No October 11, 2021 11:17am Power of Phlebotomy Services Representative No October 11 2 11:17am Advance Directive Response Recorded Date/ Time Advance Directives No October 22 8:07am Summary Purpose Family History No Family History Records Found Additional Source Comments Goals (unrecognized section and content) Goals may be documented in a n alternate sectionGoals may be documented in an alternate sectionGoals may be documented in an alternate sectionGoals may be documented in an alternate sectionGoals may be documented in an alternate sectionGoals may be documented in an alternate section Care Teams (unrecognized sec tion and content) Team Status: Active Member Role Status Dates Dr. Samuel Bazan MD Family Provider Active Dr. Samuel Bazan MD Primary Care Provider Active Team Status: Inactive Member Role Status Dates Dr. Samuel Bazan MD Primary Care Pr ovider, Attending Provider, Referring Provider Active Team Status: Inactive Member Role Status Dates Dr. Samuel Bazan MD Primary Care Provider, Attend ing Provider Active Team Status: Inactive Member Role Status Dates Dr. Samuel Bazan MD Primary Care Provider Active Start: August 04, 2024 End: August 04, 2024 Dr. Samuel Bazan MD Attending Provider Active Start: August 04, 2024 End: August 04, 2024 Dr. Samuel Bazan MD Referring Provider Active Start: August 04, 2024 End: August 04, 2024 (unrecognized sect ion and content) No Status Records Found INFORMATION SOURCE (unrecogn ized section and content) DATE CREATED AUTHOR 08/11/2024 [facility] FOR RECORDS PERTAINING TO PATIENTS WHO ARE OR HAVE BEEN ENROLLED IN A CHEMICAL DEPENDENCY/SUBSTANCEABUSE PROGRAM, SOME INFORMATION MAY BE OMITTED. This clinical summary was aggregated from multiple sources. Caution should be exercised in using it in the provision of clinical care. This summary normalizes information from multiple sources, and as a consequence, information in this document may materially change the coding, format and clinical context of patient data. In addition, data may be omitted in some cases. CLINICAL DECISIONS SHOULD BE BASED ON THE PRIMARY CLINICAL RECORDS. [employer] provides no warranty or guarantee of the accuracy or completeness of information in this document.
--- NOTE | 2024-10-18 13:56 | CT_ITS ---
PROCEDURE: ABDOMEN/PELVIS W IV CONT ONLY 10/18/2024 REASON FOR EXAM: ABDOMINAL PAIN TECHNIQUE: ABDOMEN/PELVIS W IV CONT ONLY Coronal and Sagittal reconstruction series were provided. CONTRAST: Isovue-300 VOLUME: 97 mL One or more dose reduction techniques were used (e.g., Automated exposure control, adjustment of the mA and/or kV according to patient size, use of iterative reconstruction technique. RADIATION DOSE SUMMARY: CTDlvol: 30 mGy DLP: 793 mGycm FINDINGS: Lung windows are clear. Normal appearance of the liver, gallbladder and portal vein. Normal appearance of the spleen and the pancreas. Nonobstructing stone in the left renal pelvis measures 9 mm. Negative for hydronephrosis. Negative for solid renal mass. No gastric or duodenal dilatation. Subtle infiltration of the fat between the duodenum in the pancreatic head. No free air. No bowel obstruction. Normal appendix. No diverticulitis. Negative for bowel wall thickening or abscess. CT/Abdomen/Pelvis W IV Cont ONLY IMPRESSION: Subtle infiltration of the fat between the pancreatic head and duodenum. Corre late with laboratory findings to exclude pancreatitis versus duodenal inflammation. Reading Location[facility]
--- NOTE | 2024-10-18 13:57 | ED.VIS.GI ---
HPI HPI - GI History of Present Illness Chief Complaint: Abd Pain Informant: patient Abdominal Pain/Flank Pain Onset: Days (3) Context: Gradual Onset Timing: Continuous Quality: Dull Location: RLQ and LLQ Worsened by: Nothing Relieved by: Nothing Nausea/Vomiting/Emesis GI Symptom: Positive for Nausea and Vomiting Quality: Positive for Nonbilious; Negative for Blood streaks, Coffee ground or Hematemesis Diarrhea/Melena/Hematochezia GI Symptom: Negative for Diarrhea, Melena or Hematochezia Associated Symptoms Associated Symptoms: Negative for Dysuria, Frequency or Hematuria Narrative Narrative: Patient presents with abdominal pain that has been getting worse over the past 3 days. Patient states it is gradually gotten worse. Patient states it is constant. Patient states it is mainly over the lower abdomen. Patient states nothing makes it better and nothing makes it worse. Patient states his pain is dull and aching. Patient admits to some nausea and vomiting. Patient denies any hematemesis or coffee-ground emesis. Patient denies any diarrhea, melena, or hematochezia. Patient denies any dysuria, frequency, or hematuria. [facility] Medical History Wears glasses Alcohol use Arthritis Non-smoker History of edema Hypertension Home Medications ?Medication ?Instructions ?Recorded ?Last Taken ?Type amlodipine 10 mg tablet 10 mg PO DAILY 10/11/21 08/12/23 History lisinopril 20 mg tablet 20 mg PO DAILY 10/11/21 10/18/24 History hydrochlorothiazide 12.5 mg tablet 25 mg PO DAILY 08/07/23 10/18/24 History metoprolol succinate 100 mg 100 mg PO DAILY 08/12/23 10/18/24 History tablet,extended release 24 hr hydrocodone-acetaminophen 5-325mg 1 tab PO Q6H PRN PRN Pain 3 days 10/18/24 Unknown Rx 5mg-325mg #10 TABLETS metformin 500 mg tablet 500 mg PO DAILY 10/18/24 10/18/24 History ondansetron 4 mg disintegrating 4 mg PO Q8H PRN PRN Nausea #10 tabs 10/18/24 Unknown Rx tablet Allergy/AdvReac Type Severity Reaction Status Date / Time No Known Allergies Allergy Verified 10/18/24 12:51 Family History no significant family his Surgical History Hx of inguinal hernia repair History of hydrocelectomy Social History Smoking Status: Never smoker ROS ROS ED Constitutional Constitutional ED: Denies chills or fever(s) Eyes Eyes: Denies blurry vision or change in vision ENT ENT ED: Denies rhinorrhea or sore throat Cardiovascular Cardiovascular: Denies chest pain or palpitations Respiratory/Chest Respiratory/Chest: Denies cough or dyspnea Gastrointestinal Gastrointestinal: Reports abdominal pain, nausea and vomiting Genitourinary Genitourinary ED: Denies dysuria or hematuria Musculoskeletal Musculoskeletal: Denies back pain or neck pain Integumentary Denies abscess or rash Neurologic Neurologic: Denies headache(s) or weakness Allergic/Immunologic Allergic/Immunologic ED: Denies mouth swelling or urticaria EXAM Physical Exam Const Vital Signs: 10/18/24 12:50 10/18/24 14:49 Temperature 98.4 F Temperature Source Oral Pulse Rate 50 L 49 L Respiratory Rate 14 Blood Pressure 165/90 H 157/77 H Blood Pressure Mean 115 103 Pulse Ox 99 93 Oxygen Delivery Method Room Air Room Air Positive well nourished and well developed General Appearance ED: well developed and NAD HEENT Reports moist mucous membranes Neck supple and no JVD Resp normal respiratory effort and clear to auscultation bilaterally Cardio regular rate and regular rhythm GI Palpation: soft and tender epigastric, LLQ, RLQ, LUQ, RUQ, periumbilical and suprapubic; Negative for guarding or rebound tenderness present Neuro CN's II-XII intact bilaterally, moves all extremities and no sensory deficits noted Sensorium / Orientation: alert Motor Exam: strength 5/5 throughout Psych mental status grossly normal and thought process normal MDM MDM MDM Narrative Medical decision making narrative: Differential diagnosis includes bowel obstruction, perforation, dehydration, electrolyte abnormality, urinary tract infection, otitis, cholecystitis, cholelithiasis, diverticulitis, and viral illness. CT scan of the abdomen and pelvis will be obtained to assess for bowel obstruction, perforation, diverticulitis, cholecystitis, and cholelithiasis. CBC will be obtained to assess for leukocytosis and anemia. Comprehensive metabolic profile will be obtained to assess for hepatic function, renal function, and electrolyte abnormality. Lipase will be obtained to assess for pancreatitis. Urinalysis will be obtained to assess for urinary tract infection and hematuria. Lab Data Attestation: I reviewed the patient's lab results. Lab results narrative: CBC was reviewed. There is a mild leukocytosis of 13.2. Hemoglobin was elevated at 16.6. Hematocrit was normal at 48.5. Platelets were normal. Comprehensive metabolic profile was reviewed. Glucose was slightly elevated at 119. The remainder is within normal limits. Lipase was reviewed and was normal at 64. Urinalysis was reviewed. There is no evidence of urinary tract infection or hematuria. Labs: Laboratory Results - last 24 hr 10/18/24 10/18/24 13:55 14:15 WBC 13.2 H RBC 5.31 Hgb 16.6 H Hct 48.5 MCV 91.3 MCH 31.3 MCHC 34.2 RDW Std Deviation 47.6 H RDW Coeff of Taisha 14.3 Plt Count 195 MPV 9.8 Immature Gran % (Auto) 0.500 Neut % (Auto) 85.8 H Lymph % (Auto) 6.3 L [place] % (Auto) 6.4 Eos % (Auto) 0.7 Baso % (Auto) 0.3 Absolute Neuts (auto) 11.4 H Absolute Lymphs (auto) 0.84 Nucleated RBC % 0 Sodium 139 Potassium 4.4 Chloride 100 Carbon Dioxide 23.7 Anion Gap 15 BUN 17 Creatinine 1.11 Estim Creat Clear Calc 65.16 Est GFR (MDRD) Non-Af 70 BUN/Creatinine Ratio 15.4 Glucose 118 H Calcium 9.3 Total Bilirubin 0.77 AST 24 ALT 13 Alkaline Phosphatase 95 Total Protein 7.4 Albumin 4.0 Globulin 3.4 Albumin/Globulin Ratio 1.2 Lipase 64 Urine Color Yellow Urine Clarity Clear Urine pH 6.5 Ur Specific [place] 1.015 Urine Protein 30 H Urine Glucose (UA) Normal Urine Ketones 50 H Urine Occult Blood 25 H Urine Nitrite Negative Urine Bilirubin Negative Urine Urobilinogen Normal Ur Leukocyte Esterase Negative Urine RBC 0-5 SEEN Urine WBC 0 SEEN Ur Squamous Epith Cells 0 SEEN Urine Bacteria 0 SEEN Urine Mucus 0 SEEN Radiography Diagnostic Testing: Clinical Impression(s) from Imaging Studies Abdomen/Pelvis CT 10/18/24 13:56 IMPRESSION: Subtle infiltration of the fat between the pancreatic head and duodenum. Correlate with laboratory findings to exclude pancreatitis versus duodenal inflammation. Reading Location: [facility] CT scan of the abdomen and pelvis was obtained. There is no evidence of bowel obstruction or perforation. There is no free air or free fluid. There is subtle infiltration of the fat between the pancreatic head and duodenum. This was interpreted by the radiologist and was also independently reviewed by myself. Treatment and Re-Evaluation :: Patient was given IV fluids, morphine, and Zofran. Patient was feeling better on reevaluation. Patient was advised of his findings. Patient was given prescription for Zofran. Patient was given a prescription for short course of [place]. Patient was instructed to take [id number] simethicone as needed for any bloating. Patient was instructed to follow-up with his primary care physician as scheduled. Patient was instructed to return if worse in any way. Patient understood and was agreeable with the plan. All questions were answered. Discharge Plan Triage Chief Complaint: Abd Pain ED Provider: Polo Pendleton Dx/Rx/DC Orders Clinical Impression: Duodenitis, Abdominal pain Instructions: Duodenitis Prescriptions: New hydrocodone-acetaminophen 5-325 mg tablet 1 tab PO Q6H PRN PRN (Reason: Pain) 3 Days Qty: 10 0RF ondansetron 4 mg tablet,disintegrating 4 mg PO Q8H PRN PRN (Reason: Nausea) Qty: 10 0RF No Action lisinopril 20 mg Tablet 20 mg PO DAILY amlodipine 10 mg Tablet 10 mg PO DAILY hydrochlorothiazide 12.5 mg tablet 25 mg PO DAILY metoprolol succinate 100 mg tablet extended release 24 hr 100 mg PO DAILY metformin 500 mg tablet 500 mg PO DAILY Primary Care Provider: Samuel Bazan Referrals: Samuel Bazan MD [Primary Care Provider] - Keep [facility] appointment Print Language: [place]raini Disposition Disposition: Home, Self Care
[2024-10-18] MEDS: 0.9% Normal Saline (1000mL) 1,000 ML 999 ML IV (14:03)
[2024-10-18 14:09] LABS: Hematocrit 48.5 % (40-54); Hemoglobin 16.6 g/dL (13.0-16.5); Immature Granulocytes Count 0.060 X10^3/uL (0.0-0.0); Mean Corp Hgb Conc 34.2 g/dL (32-36); Mean Corpuscular Volume 91.3 fL (80-94); Mean Platelet Vol. 9.8 fl (6.2-12.0); NRBC Flagged by Analyzer 0 % (0-5); Platelet Count 195 K/mm3 (150-450); RBC Distribution Width CV 14.3 % (11.6-14.6); RBC Distribution Width SD 47.6 fl (35.1-43.9); Red Blood Count 5.31 M/mm3 (4.6-6.2); White Blood Count 13.2 K/mm3 (4.4-11.0)
[2024-10-18 14:27] LABS: Mucous, Urine 0 SEEN /hpf (<or=2+); Squamous Epithelial Cells - UA 0 SEEN /hpf (0-5)
[2024-10-18 14:33] LABS: Lipase 64 U/L (13-75)
[2024-10-18 14:34] LABS: AST(SGOT) 24 U/L (<=37); Alanine Aminotransfer ALT/SGPT 13 U/L (<=46); Albumin, Serum 4.0 g/dL (3.4-4.8); Alkaline Phosphatase 95 U/L (40-129); Anion Gap 15 (5-15); BUN 17 mg/dL (4-19); BUN/Creat Ratio 15.4 RATIO (10-20); Calcium,Total 9.3 mg/dL (7.6-11.0); Carbon Dioxide 23.7 mmol/L (21.0-32.0); Chloride 100 mmol/L (98-108); Estimated Creatinine Clearance 65.16 ml/min (50-250); Globulin 3.4 g/dL (2.2-4.2); Glucose 118 mg/dL (70-99); Potassium 4.4 mmol/L (3.3-5.1)
[2024-10-18 14:34] LABS: Color, Urine Yellow (Yellow); Glucose, Dipstick Normal (Normal); Ketone-Dipstick 50 mg/dl (Negative); Leukocyte Esterase-Dipstick Negative /ul (Negative); Nitrite-Dipstick Negative (Negative); Occult Blood-Urine 25 /ul (Negative); Protein-Dipstick 30 mg/dl (Negative); Specific Gravity, Urine 1.015 (1.002-1.030); Urine Bilirubin Dipstick Negative (Negative)
[2024-10-18 14:47] LABS: Red Blood Cells-Urine 0-5 SEEN /hpf (0-5)
[2024-10-18 14:49] VITALS: BP 157/77; PULSE 49; O2SAT 93
[2024-10-18 16:00] VITALS: PULSE 46; O2SAT 99
--- NOTE | 2024-10-18 16:22 | ED.RN ---
Called CT for update on delayed ct results. Reply was we will check on it.
[2024-10-18 17:09] VITALS: BP 176/85; PULSE 48; RESP 16; TEMP 36.9; O2SAT 99
== END 2024-10-18 17:20 | disposition home or self-care (01) ==
PROVIDERS: Emergency Provider Emergency Medicine; PCP Family Medicine; Visit Provider Emergency Medicine
DX: R10.30 Lower abdominal pain, unspecified (principal); K29.80 Duodenitis without bleeding; I10 Essential (primary) hypertension; Z79.899 Other long term (current) drug therapy
CPT/HCPCS: 74177; 80053; 81001; 83690; 85025; 96361; 96374; 96375; 99283; Q9967; A4216; J2405

== ENCOUNTER → 2024-11-13 | Outpatient (CLI) | payer MEDICARE, OTHER, SELFPAY ==
--- OUTSIDE RECORDS SUMMARY | 2024-11-13 07:21 | XMS RPT_ITS | CCD ---
Author Organization [facility] Care Team Providers Care Deep Fat Fry Cook Name Role Phone Hortensia SOLO, Dr. Samuel Stuart Primary Care Provider Hortensia SOLO, Dr. Samuel Stuart Attending Provider [phone] Hortensia SOLO, Dr. Samuel Stuart Referring Provider [phone] Dr. Polo Pendleton DO Emergency Provider Samuel Bazan Referring Unavailable Samuel Bazan Attending Unavailable Samuel Bazan Primary Care Unavailable Samuel Bazan Attending Unavailable Samuel Bazan Primary Care Unavailable Polo Pendleton Attending Unavailable Samuel Bazan Primary Care Unavailable Samuel Bazan Attending Unavailable Samuel Bazan Primary Care Unavailable Samuel Bazan Referring Unavailable Samuel Bazan Attending Unavailable Samuel Bazan Primary Care Unavailable Medications Current Medications Medication Drug Class(es) Dates Sig (Normalized) Sig (Original) acetaminophen 325 mg / HYDROcodone bitartrate 5 mg oral tablet (1 source) Opioid Agonist Start: 10-19-19 25 take 1 tablet by mouth every six hours as needed for pain Hydrocodone-Acetaminop hen 5-325 mg tablet Active 1 {tbl} PO EVERY 6 HOURS NEEDED as needed for Pain 10 3 0 October 18, 2024 Abdominal pain Unspecified abdominal pain acetaminophen 325 mg / oxyCODONE hydrochloride 5 mg oral tablet (2 sources) Opioid Agonist Start: 10-30-19 15 take 1 tablet by mouth every four hours as needed Oxycodone-Acetaminophe n Active 1 TABLET PO EVERY 4 HOURS NEEDED October 29, 2014 7:11am amLODIPine 10 mg oral tablet (6 sources) Dihydropyridine Calcium Channel Conor Start: 10-12-19 22 take 1 tablet by mouth once daily Amlodipine 10 mg Tablet Active 10 mg PO DAILY October 11, 2021 12:00am ciprofloxacin 500 mg oral tablet (2 sources) Quinolone Antimicrobial Start: 10-30-19 take 500 mg by mouth twice daily Ciprofloxacin Hcl Active 500 MG PO TWICE A DAY October 29, 2014 7:12am hydroCHLOROthiazide 12.5 mg oral tablet (2 sources) Thiazide Diuretic Start: 08-07-19 take 2 tablets by mouth once daily Hydrochlorothiazide 12.5 mg tablet Active 25 mg PO DAILY August 07, 2023 12:00am Start: 08-07-2023 take 1 tablet by candida th once daily Hydrochlorothiazide 12.5 mg tablet Active 12.5 mg PO DAILY August 07, 2023 12:00am lisinopril 20 mg oral tablet (6 sources) Angiotensin Converting Enzyme Inhibitor Start: 10-11-2021 take 1 tablet by mouth once daily Lisinopril 20 mg Tablet Active 20 mg PO DAILY October 11, 2021 12:00am metFORMIN hydrochloride 500 mg oral tablet (1 source) Biguanide Start: 10-18-2024 take 1 tablet by mouth once daily Metformin 500 mg tablet Active 500 mg PO DAILY October 18, 2024 12:00am 24 hr metoprolol succinate 100 mg extended release oral tablet (8 sources) beta-Adrenergic Conor Start: 08-12-2023 take 1 tablet by mouth once daily Metoprolol Succinate 100 mg tablet extended release 24 hr Active 100 mg PO DAILY August 12, 2023 12:00am Start: 10-11-2021 End: 08-12-2023 take 1 tablet by mouth twice daily Metoprolol Tartrate 100 mg Tablet Discontinued 100 mg PO TWICE A DAY October 11, 2021 12:00am August 12, 2023 6:03pm ondansetron 4 mg disintegrating oral tablet (1 source) Serotonin-3 Receptor Antagonist Start: 10-18-2024 take 1 tablet by mouth every eight hours as needed for nausea Ondansetron 4 mg tablet,disintegrating Active 4 mg PO EVERY 8 HOURS NEEDED as needed for Nausea 10 0 October 18, 2024 12:00am Completed/Discontinued Medications Medication Drug Class(es) Dates Sig (Normalized) Sig (Original) amoxicillin 875 mg / clavulanate 125 mg oral tablet (2 sources) Penicillin-class Antibacterial Start: 08-15-2023 End: 10-18-2024 Amoxicillin-Pot Clavulanate 875-125 mg tablet Discontinued 1 {tbl} PO TWICE A DAY 10 5 0 August 15, 2023 12:00am October 18, 2024 1:44pm doxycycline monohydrate 100 mg oral capsule (2 sources) Tetracycline-class Drug Start: 08-12-2023 End: 08-15-2023 take 1 capsule by mouth twice daily Doxycycline Monohydrate 100 mg capsule Discontinued 100 mg PO TWICE A DAY August 12, 2023 12:00am August 15, 2023 10:10am levoFLOXacin 750 mg oral tablet (2 sources) Quinolone Antimicrobial Start: 08-07-2023 End: 08-12-2023 take 1 tablet by mouth every twenty-four hours Levofloxacin 750 mg tablet Discontinued 750 mg PO Q24H 5 0 August 07, 2023 12:00am August 12, 2023 5:36pm Problems Problem Classification Problem Date Documented Da te Episodic/Chronic Abdominal pain (2 sources) Abdominal pain; Translations: [Unspecified abdominal pain] Onset: 10-26-2024 10-18-2024 Episodic Acute and unspecified renal failure (2 sources) Acute renal failure syndrome; Translations: [Acute kidney failure, unspecified] 08-23-2023 Episodic Fever of unknown origin (2 sources) Fever; Translations: [Fever, unspecified] 08-15-2023 Episodic Gastritis and duodenitis (1 source) Duodenitis; Translations: [Duodenitis without bleeding] 10-18-2024 Episodic Hypertension with complications and secondary hypertension (1 source) Hypertensive chronic kidney disease with stage 1 through stage 4 chronic kidney disease, or unspecified chronic kidney disease; Translations: [Hypertensive chronic kidney disease with stage 1 through stage 4 chronic kidney disease, or unspecified chronic kidney disease] Onset: 04-29-2024 Chronic Other screening for suspected conditions (not mental disorders or infectious disease) (6 sources) Patient encounter status; Translations: [Encounter for screening for malignant neoplasm of colon] 06-30-2021 Episodic Skin and subcutaneous tissue infections (2 sources) Cellulitis of right lower limb; Translations: [Cellulitis of right lower limb] 08-23-2023 Episodic Thyroid disorders (1 source) Other specified hypothyroidism; Translations: [Other specified hypothyroidism] Onset: 08-10-2024 Chronic Results Test Name Value Interpretation Reference Range Facility Abdomen/Pelvis W IV Cont ONL Yon 10-18-2024 Abdomen/Pelvis W IV Cont ONLY [facility] Imaging Services [address] [place], [place] [id number] Abdomen/Pelvis W IV Cont ONLY MR#: [id number] Acct: [id number] Name: BRADLEY VERMA Rep #: [id number] : 1950 M 74 From: Yuri Mulligan MD PCP: Dr. Samuel Bazan MD Status: [facility] ER Study: Abdomen/Pelvis W IV Cont ONLY Date of Exam: Exam# [id number] Ordering Dr: Polo Pendleton DO PROCEDURE: ABDOMEN/PELVIS W IV CONT ONLY 10/18/2024 REASON FOR EXAM: ABDOMINAL PAIN TECHNIQUE: ABDOMEN/PELVIS W IV CONT ONLY Coronal and Sagittal reconstruction series were provided. CONTRAST: Isovue-300 VOLUME: 97 mL One or more dose reduction techniques were used (e.g., Automated exposure control, adjustment of the mA and/or kV according to patient size, use of iterative reconstruction technique. RADIATION DOSE SUMMARY: CTDlvol: 30 mGy DLP: 793 mGycm FINDINGS: Lung windows are clear. Normal appearance of the liver, gallbladder and portal vein. Normal appearance of the spleen and the pancreas. Nonobstructing stone in the left renal pelvis measures 9 mm. Negative for hydronephrosis. Negative for solid renal mass. No gastric or duodenal dilatation. Subtle infiltration of the fat between the duodenum in the pancreatic head. No free air. No bowel obstruction. Normal appendix. No diverticulitis. Negative for bowel wall thickening or abscess. CT/Abdomen/Pelvis W IV Cont ONLY IMPRESSION: Subtle infiltration of the fat between the pancreatic head and duodenum. Correlate with laboratory findings to exclude pancreatitis versus duodenal inflammation. Reading Location: [facility] CC: Dr. Polo Pendleton DO; Dr. Samuel Bazan MD Digital Account Executive: Signed Normal [facility] Absolute lymphocyte countOrd ered By: Polo Pendleton on 10-18-2024 Lymphocytes Auto (Unsp spec) [#/Vol] 0.84 10*3/uL 0.83-4.51 [facility] Absolute neutrophil countOrd ered By: Polo Pendleton on 10-18-2024 Neutrophils (Bld) [#/Vol] 11.4 10*3/uL High 2.0-7.7 [facility] Anion gap in Serum or Plasma Ordered By: Polo Pendleton on 10-18-2024 Anion gap [Moles/Vol] 15 mmol/L 5-15 [facility] Automated lymphocyte count a s percentage of total leukocytesOrdered By: Polo Pendleton on 10-18-2024 Lymphocytes/100 WBC Auto (Unsp spec) 6.3 % Low 19-41 [facility] BUN/creatinine ratioOrdered By: Polo Pendleton on 10-18-2024 Urea nitrogen/Creatinine [Mass ratio] 15.4 mg/mg 10-20 [facility] Basophil percentageOrdered B y: Polo Pendleton on 10-18-2024 Basophils/100 WBC (Bld) 0.3 % 0-1 [facility] Bilirubin Test strip Ql (U)O rdered By: Polo Pendleton on 10-18-2024 Bilirubin Ql (U) Negative Negative [facility] Bilirubin, totalOrdered By: Polo Pendleton on 10-18-2024 Bilirubin [Mass/Vol] 0.77 mg/dL 0.00-1.30 [facility] CBC W/Diff, Automatedon 09-23 Absolute Lymph 0.84 X10 3/uL Normal 0.83-4.51 [facility] Comment on above: Performed By: #### L 501.2300, L501.5200, L509.1000, L501.9985, L500.4050, L501.9520, L506.0400, L506.1000, L100.0100 #### [facility] [address] [place], [address] Absolute Neut 11.4 X10 3/uL High 2.0-7.7 [facility] Comment on above: Performed By: #### L 501.2300, L501.5200, L509.1000, L501.9985, L500.4050, L501.9520, L506.0400, L506.1000, L100.0100 #### [facility] [address] [place], [address] Basophils/100 WBC (Bld) 0.3 % Normal 0-1 [facility] Comment on above: Performed By: #### L 501.2300, L501.5200, L509.1000, L501.9985, L500.4050, L501.9520, L506.0400, L506.1000, L100.0100 #### [facility] [address] [place], [address] Eosinophils/100 WBC (Bld) 0.7 % Normal 0-5 [facility] Comment on above: Performed By: #### L 501.2300, L501.5200, L509.1000, L501.9985, L500.4050, L501.9520, L506.0400, L506.1000, L100.0100 #### [facility] [address] [place], [address] Erythrocyte distribution width (RBC) [Ratio] 14.3 % Normal 11.6-14.6 [facility] Comment on above: Performed By: #### L 501.2300, L501.5200, L509.1000, L501.9985, L500.4050, L501.9520, L506.0400, L506.1000, L100.0100 #### [facility] [address] [place], [address] Hematocrit (Bld) [Volume fraction] 48.5 % Normal 40-54 [facility] Comment on above: Performed By: #### L 501.2300, L501.5200, L509.1000, L501.9985, L500.4050, L501.9520, L506.0400, L506.1000, L100.0100 #### [facility] [address] [place], [address] Hemoglobin (Bld) [Mass/Vol] 16.6 g/dL High 13.0-16.5 [facility] Comment on above: Performed By: #### L 501.2300, L501.5200, L509.1000, L501.9985, L500.4050, L501.9520, L506.0400, L506.1000, L100.0100 #### [facility] [address] [place], [address] IG% 0.500 Normal 0.0-0.9 [facility] Comment on above: Result Comment: IG% - Immature Granulocytes (promyelocytes, myelocytes and metamyelocytes) > 1% indicates that a LEFT SHIFT is Present. Performed By: #### L 501.2300, L501.5200, L509.1000, L501.9985, L500.4050, L501.9520, L506.0400, L506.1000, L100.0100 #### [facility] [address] [place], [address] Lymphocytes/100 WBC (Bld) 6.3 % Low 19-41 [facility] Comment on above: Performed By: #### L 501.2300, L501.5200, L509.1000, L501.9985, L500.4050, L501.9520, L506.0400, L506.1000, L100.0100 #### [facility] [address] [place], [address] MCH (RBC) [Entitic mass] 31.3 pg Normal 27.0-32.0 [facility] Comment on above: Performed By: #### L 501.2300, L501.5200, L509.1000, L501.9985, L500.4050, L501.9520, L506.0400, L506.1000, L100.0100 #### [facility] [address] [place], [address] MCHC (RBC) [Mass/Vol] 34.2 g/dL Normal 32-36 [facility] Comment on above: Performed By: #### L 501.2300, L501.5200, L509.1000, L501.9985, L500.4050, L501.9520, L506.0400, L506.1000, L100.0100 #### [facility] [address] [place], [address] MCV (RBC) [Entitic vol] 91.3 fL Normal 80-94 [facility] Comment on above: Performed By: #### L 501.2300, L501.5200, L509.1000, L501.9985, L500.4050, L501.9520, L506.0400, L506.1000, L100.0100 #### [facility] [address] [facility] [place], [address] Monocytes/100 WBC (Bld) 6.4 % Normal 0-10 [facility] Comment on above: Performed By: #### L 501.2300, L501.5200, L509.1000, L501.9985, L500.4050, L501.9520, L506.0400, L506.1000, L100.0100 #### [facility] [address] [facility] [place], [address] Neutrophils/100 WBC (Bld) 85.8 % High 47-70 [facility] Comment on above: Performed By: #### L 501.2300, L501.5200, L509.1000, L501.9985, L500.4050, L501.9520, L506.0400, L506.1000, L100.0100 #### [facility] [address] [place], [address] Nucleated RBC (Bld) [#/Vol] 0 10*3/uL Normal 0-5 [facility] Comment on above: Performed By: #### L 501.2300, L501.5200, L509.1000, L501.9985, L500.4050, L501.9520, L506.0400, L506.1000, L100.0100 #### [facility] [address] [place], [address] ( Platelet mean volume (Bld) [Entitic vol] 9.8 fL Normal 6.2-12.0 [facility] Comment on above: Performed By: #### L 501.2300, L501.5200, L509.1000, L501.9985, L500.4050, L501.9520, L506.0400, L506.1000, L100.0100 #### [facility] [address] [place], [address] ( Platelets (Bld) [#/Vol] 195 10*3/uL Normal 150-450 [facility] Comment on above: Performed By: #### L 501.2300, L501.5200, L509.1000, L501.9985, L500.4050, L501.9520, L506.0400, L506.1000, L100.0100 #### [facility] [address] [place], [address] (597) RBC (Bld) [#/Vol] 5.31 10*6/uL Normal 4.6-6.2 [facility] Comment on above: Performed By: #### L 501.2300, L501.5200, L509.1000, L501.9985, L500.4050, L501.9520, L506.0400, L506.1000, L100.0100 #### [facility] [address] [place], [address] RDW SD 47.6 fl High 35.1-43.9 [facility] Comment on above: Performed By: #### L 501.2300, L501.5200, L509.1000, L501.9985, L500.4050, L501.9520, L506.0400, L506.1000, L100.0100 #### [facility] [address] [place], [address] WBC (Bld) [#/Vol] 13.2 10*3/uL High 4.4-11.0 [facility] Comment on above: Performed By: #### L 501.2300, L501.5200, L509.1000, L501.9985, L500.4050, L501.9520, L506.0400, L506.1000, L100.0100 #### [facility] [address] [place], [address] Carbon dioxide, total [Moles /volume] in Central venous bloodOrdered By: Polo Pendleton on 10-18-2024 CO2 [Moles/Vol] 23.7 mmol/L 21.0-32.0 [facility] Chloride assayOrdered By: Eulalio Pendleton on 10-18-2024 Chloride [Moles/Vol] 100 mmol/L 98-108 [facility] Comprehensive Metabolic Prof ilon 10-18-2024 Albumin [Mass/Vol] 4.0 g/dL Normal 3.4-4.8 [facility] Comment on above: Performed By: #### L 501.2300, L501.5200, L509.1000, L501.9985, L500.4050, L501.9520, L506.0400, L506.1000, L100.0100 #### [facility] [address] [place], [address] Albumin/Globulin [Mass ratio] 1.2 {ratio} Normal 0.9-2.4 [facility] Comment on above: Performed By: #### L 501.2300, L501.5200, L509.1000, L501.9985, L500.4050, L501.9520, L506.0400, L506.1000, L100.0100 #### [facility] [address] [place], [address] ALK PHOS 95 U/L Normal 40-129 [facility] Comment on above: Performed By: #### L 501.2300, L501.5200, L509.1000, L501.9985, L500.4050, L501.9520, L506.0400, L506.1000, L100.0100 #### [facility] [address] [place], [address] ALT [Catalytic activity/Vol] 13 U/L Normal <=46 [facility] Comment on above: Result Comment: Hemo lysis present, Results??could be affected. ?? Performed By: #### L 501.2300, L501.5200, L509.1000, L501.9985, L500.4050, L501.9520, L506.0400, L506.1000, L100.0100 #### [facility] [address] [place], [place], [id number] (472) AST [Catalytic activity/Vol] 24 U/L Normal <=37 [facility] Comment on above: Result Comment: Hemo lysis present, Results??could be affected. ?? Performed By: #### L 501.2300, L501.5200, L509.1000, L501.9985, L500.4050, L501.9520, L506.0400, L506.1000, L100.0100 #### [facility] [address] [place], [address] Bilirubin [Mass/Vol] 0.77 mg/dL Normal 0.00-1.30 [facility] Comment on above: Performed By: #### L 501.2300, L501.5200, L509.1000, L501.9985, L500.4050, L501.9520, L506.0400, L506.1000, L100.0100 #### [facility] [address] [place], [address] BUN/CRE 15.4 RATIO Normal 10-20 [facility] Comment on above: Performed By: #### L 501.2300, L501.5200, L509.1000, L501.9985, L500.4050, L501.9520, L506.0400, L506.1000, L100.0100 #### [facility] [address] [place], [address] Calcium [Mass/Vol] 9.3 mg/dL Normal 7.6-11.0 [facility] Comment on above: Performed By: #### L 501.2300, L501.5200, L509.1000, L501.9985, L500.4050, L501.9520, L506.0400, L506.1000, L100.0100 #### [facility] [address] [place] [place], [address] Chloride [Moles/Vol] 100 mmol/L Normal 98-108 [facility] Comment on above: Performed By: #### L 501.2300, L501.5200, L509.1000, L501.9985, L500.4050, L501.9520, L506.0400, L506.1000, L100.0100 #### [facility] [address] [place], [address] CO2 [Moles/Vol] 23.7 mmol/L Normal 21.0-32.0 [facility] Comment on above: Performed By: #### L 501.2300, L501.5200, L509.1000, L501.9985, L500.4050, L501.9520, L506.0400, L506.1000, L100.0100 #### [facility] [address] [place], [address] Creatinine [Mass/Vol] 1.11 mg/dL Normal 0.70-1.20 [facility] Comment on above: Performed By: #### L 501.2300, L501.5200, L509.1000, L501.9985, L500.4050, L501.9520, L506.0400, L506.1000, L100.0100 #### [facility] [address] [place], [address] ECRCL 65.16 ml/min Normal 50-250 [facility] Comment on above: Performed By: #### L 501.2300, L501.5200, L509.1000, L501.9985, L500.4050, L501.9520, L506.0400, L506.1000, L100.0100 #### [facility] [address] [place], [address] GAP 15 Normal 5-15 [facility] Comment on above: Performed By: #### L 501.2300, L501.5200, L509.1000, L501.9985, L500.4050, L501.9520, L506.0400, L506.1000, L100.0100 #### [facility] [address] [place], [address] GFR/1.73 sq M.predicted among non-blacks MDRD (S/P/Bld) [Vol rate/Area] 70 mL/min/{1.73_m2} Normal >60 [facility] Comment on above: Result Comment: mL/m in/1.73m2 CKD-EPI Creatinine Equation (2020) Performed By: #### L 501.2300, L501.5200, L509.1000, L501.9985, L500.4050, L501.9520, L506.0400, L506.1000, L100.0100 #### [facility] [address] [place], [address] Globulin (S) [Mass/Vol] 3.4 g/dL Normal 2.2-4.2 [facility] Comment on above: Performed By: #### L 501.2300, L501.5200, L509.1000, L501.9985, L500.4050, L501.9520, L506.0400, L506.1000, L100.0100 #### [facility] [address] [place], [address] Glucose [Mass/Vol] 118 mg/dL High 70-99 [facility] Comment on above: Performed By: #### L 501.2300, L501.5200, L509.1000, L501.9985, L500.4050, L501.9520, L506.0400, L506.1000, L100.0100 #### [facility] [address] [place], [address] Potassium [Moles/Vol] 4.4 mmol/L Normal 3.3-5.1 [facility] Comment on above: Result Comment: Hemo lysis present, Results??could be affected. ?? Performed By: #### L 501.2300, L501.5200, L509.1000, L501.9985, L500.4050, L501.9520, L506.0400, L506.1000, L100.0100 #### [facility] [address] [place], [address] Sodium [Moles/Vol] 139 mmol/L Normal 133-145 [facility] Comment on above: Performed By: #### L 501.2300, L501.5200, L509.1000, L501.9985, L500.4050, L501.9520, L506.0400, L506.1000, L100.0100 #### [facility] [address] [place], [address] T PROT 7.4 g/dL Normal 5.9-8.4 [facility] Comment on above: Performed By: #### L 501.2300, L501.5200, L509.1000, L501.9985, L500.4050, L501.9520, L506.0400, L506.1000, L100.0100 #### [facility] [address] [place], [address] Urea nitrogen [Mass/Vol] 17 mg/dL Normal 4-19 [facility] Comment on above: Performed By: #### L 501.2300, L501.5200, L509.1000, L501.9985, L500.4050, L501.9520, L506.0400, L506.1000, L100.0100 #### [facility] [address] [place], [address] Emergency Department Summary on 10-18-2024 Emergency Department Summary [facility] Medical Records Department [address] [place] [address] Emergency Department Summary 10/18/24 MR#: [id number] Acct: [id number] Name: BRADLEY VERMA Rep #: [id number] : 1950 74 From: Polo Pendleton DO PCP: Dr. Samuel Bazan MD Status:REG ER Location: ED HPI HPI - GI History of Present Illness Chief Complaint: Abd Pain Informant: patient Abdominal Pain/Flank Pain Onset: Days (3) Context: Gradual Onset Timing: Continuous Quality: Dull Location: RLQ and LLQ Worsened by: Nothing Relieved by: Nothing Nausea/Vomiting/Emesis GI Symptom: Positive for Nausea and Vomiting Quality: Positive for Nonbilious; Negative for Blood streaks, Coffee ground or Hematemesis Diarrhea/Melena/Hemato chezia GI Symptom: Negative for Diarrhea, Melena or Hematochezia Associated Symptoms Associated Symptoms: Negative for Dysuria, Frequency or Hematuria Narrative Narrative: Patient presents with abdominal pain that has been getting worse over the past 3 days. Patient states it is gradually gotten worse. Patient states it is constant. Patient states it is mainly over the lower abdomen. Patient states nothing makes it better and nothing makes it worse. Patient states his pain is dull and aching. Patient admits to some nausea and vomiting. Patient denies any hematemesis or coffee-ground emesis. Patient denies any diarrhea, melena, or hematochezia. Patient denies any dysuria, frequency, or hematuria. [facility] Medical History Wears glasses Alcohol use Arthritis Non-smoker History of edema Hypertension Home Medications ???Medication ???Instructions ???Recorded ???Last Taken ???Type amlodipine 10 mg tablet 10 mg PO DAILY 10/11/21 08/12/23 H istory lisinopril 20 mg tablet 20 mg PO DAILY 10/11/21 10/18/24 H istory hydrochlorothiazide 12.5 mg tablet 25 mg PO DAILY 08/07/23 10/18/24 History metoprolol succinate 100 mg 100 mg PO DAILY 08/12/23 10/18/24 History tablet,extended release 24 hr hydrocodone-acetaminop hen 5-325mg 1 tab PO Q6H PRN PRN Pain 3 days 10/18/24 Unknown Rx 5mg-325mg #10 TABLETS metformin 500 mg tablet 500 mg PO DAILY 10/18/24 10/18/24 History ondansetron 4 mg disintegrating 4 mg PO Q8H PRN PRN Nausea #10 tab s 10/18/24 Unknown Rx tablet Allergy/AdvReac Type Severity Reaction Status Date / Time No Known Allergies Allergy Verified 10/18/24 12:51 Family History no significant family his Surgical History Hx of inguinal hernia repair History of hydrocelectomy Social History Smoking Status: Never smoker ROS ROS ED Constitutional Constitutional ED: Denies chills or fever(s) Eyes Eyes: Denies blurry vision or change in vision ENT ENT ED: Denies rhinorrhea or sore throat Cardiovascular Cardiovascular: Denies chest pain or palpitations Respiratory/Chest Respiratory/Chest: Denies cough or dyspnea Gastrointestinal Gastrointestinal: Reports abdominal pain, nausea and vomiting Genitourinary Genitourinary ED: Denies dysuria or hematuria Musculoskeletal Musculoskeletal: Denies back pain or neck pain Integumentary Denies abscess or rash Neurologic Neurologic: Denies headache(s) or weakness Allergic/Immunologic Allergic/Immunologic ED: Denies mouth swelling or urticaria EXAM Physical Exam Const Vital Signs: 10/18/24 12:50 10/18/24 14:49 Temperature 98.4 F Temperature Source Oral Pulse Rate 50 L 49 L Respiratory Rate 14 Blood Pressure 165/90 H 157/77 H Blood Pressure Mean 115 103 Pulse Ox 99 93 Oxygen Delivery Method Room Air Room Air Positive well nourished and well developed General Appearance ED: well developed and NAD HEENT Reports moist mucous membranes Neck supple and no JVD Resp normal respiratory effort and clear to auscultation bilaterally Cardio regular rate and regular rhythm GI Palpation: soft and tender epigastric, LLQ, RLQ, LUQ, RUQ, periumbilical and suprapubic; Negative for guarding or rebound tenderness present Neuro CN's II-XII intact bilaterally, moves all extremities and no sensory deficits noted Sensorium / Orientation: alert Motor Exam: strength 5/5 throughout Psych mental status grossly normal and thought process normal MDM MDM MDM Narrative Medical decision making narrative: Differential diagnosis includes bowel obstruction, perforation, dehydration, electrolyte abnormality, urinary tract infection, otitis, cholecystitis, cholelithiasis, diverticulitis, and viral illness. CT scan of the abdomen and pelvis will be obtained to assess for bowel obstruction, perforation, diverticulitis, cholecystitis, and cholelithiasis (more content not included)... Normal [facility] Eosinophil percentageOrdered By: Polo Pendleton on 10-18-2024 Eosinophils/100 WBC (Bld) 0.7 % 0-5 [facility] Erythrocyte distribution wid th ratioOrdered By: Polo Pendleton on 10-18-2024 Erythrocyte distribution width (RBC) [Ratio] 14.3 % 11.6-14.6 [facility] Erythrocyte distribution wid th standard deviationOrdered By: Polo Pendleton on 10-18-2024 Erythrocyte distribution width (RBC) [Ratio] 47.6 fl High 35.1-43.9 [facility] Glomerular filtration rate ( GFR) estimation/1.73 sq m using serum, plasma, or whole bOrdered By: Polo Penldeton on 10-18-2024 GFR/1.73 sq M.predicted among non-blacks MDRD (S/P/Bld) [Vol rate/Area] 70 mL/min/{1.73_m2} >60 [facility] Comment on above: mL/min/1.73m2 CKD-EP I Creatinine Equation (2020) Hematocrit Auto (Bld) [Volum e fraction]Ordered By: Polo Pendleton on 07-27-2025 Hematocrit (Bld) [Volume fraction] 48.5 % 40-54 [facility] Hemoglobin measurementOrdere d By: Polo Pendleton on 10-18-2024 Hemoglobin (Bld) [Mass/Vol] 16.6 g/dL High 13.0-16.5 [facility] Immature granulocytes/100 WB C Auto (Bld)Ordered By: Polo Pendleton on 10-18-2024 Immature granulocytes/100 WBC (Bld) 0.500 % 0.0-0.9 [facility] Comment on above: IG% - Immature Granu locytes (promyelocytes, myelocytes and metamyelocytes) > 1% indicates that a LEFT SHIFT is Present. Ketones Test strip Ql (U)Ord ered By: Polo Pendleton on 10-18-2024 Ketones Ql (U) 50 mg/dl High Negative [facility] Laboratory - Chemistry and C hemistry - challengeOrdered By: Polo Pendleton on 10-18-2024 AST [Catalytic activity/Vol] 24 U/L <38 [facility] Comment on above: Hemolysis present, R esults could be affected. Lipaseon 10-18-2024 Lipase [Catalytic activity/Vol] 64 U/L Normal 13-75 [facility] Comment on above: Result Comment: Plea se note: LIPASE revised reference range effective 22. New Lipase methodology. Expected to produce lower values than the previous assay method. NEW Reference Range: 13 - 75 U/L Performed By: #### L 501.2300, L501.5200, L509.1000, L501.9985, L500.4050, L501.9520, L506.0400, L506.1000, L100.0100 #### [facility] [address] [place], [address] Lipase measurementOrdered By : Polo Pendleton on 10-18-2024 Lipase [Catalytic activity/Vol] 64 U/L 13-75 [facility] Comment on above: Please note:LIPASE r evised reference range effective 22. New Lipase methodology. Expected to produce lower values than the previous assay method. NEW Reference Range: 13 - 75 U/L MCV (mean corpuscular volume ) determinationOrdered By: Polo Pendleton on 10-18-2024 MCV (RBC) [Entitic vol] 91.3 fL 80-94 [facility] Mean corpuscular hemoglobin (MCH) determinationOrdered By: Polo Pendleton on 10-18-2024 MCH (RBC) [Entitic mass] 31.3 pg 27.0-32.0 [facility] Mean corpuscular hemoglobin concentration (MCHC) determinationOrdered By: Polo Pendleton on 10-18-2024 MCHC (RBC) [Mass/Vol] 34.2 g/dL 32-36 [facility] Mean platelet volume determi nationOrdered By: Polo Pendleton on 10-18-2024 Platelet mean volume (Bld) [Entitic vol] 9.8 fL 6.2-12.0 [facility] Microscopic analysis of urin e for red blood cells (RBC)Ordered By: Polo Pendleton on 10-18-2024 Microscopic analysis of urine for red blood cells (RBC) 0-5 SEEN /hpf 0-5 [facility] Monocyte percentageOrdered B y: Polo Pendleton on 10-18-2024 Monocytes/100 WBC (Bld) 6.4 % 0-10 [facility] Mucus LM Ql (Urine sed)Order ed By: Polo Pendleton on 10-18-2024 Mucus Ql (Urine sed) 0 SEEN /hpf [facility] Neutrophil percentageOrdered By: Polo Pendleton on 10-18-2024 Neutrophils/100 WBC (Bld) 85.8 % High 47-70 [facility] Nitrite Test strip Ql (U)Ord ered By: Polo Pendleton on 10-18-2024 Nitrite Ql (U) Negative Negative [facility] Nucleated red blood cell per centageOrdered By: Polo Pendleton on 10-18-2024 Nucleated RBC/100 WBC (Bld) [Ratio] 0 % 0-5 [facility] Platelet countOrdered By: Eulalio Pendleton on 10-18-2024 Platelets (Bld) [#/Vol] 195 10*3/uL 150-450 [facility] Potassium measurement (mass/ volume)Ordered By: Polo Pendleton on 10-18-2024 Potassium (Unsp spec) [Mass/Vol] 4.4 mmol/L 3.3-5.1 [facility] Comment on above: Hemolysis present, R esults could be affected. Protein Test strip Ql (U)Ord ered By: Polo Pendleton on 10-18-2024 Protein Ql (U) 30 mg/dl High Negative [facility] RBC Auto (Bld) [#/Vol]Ordere d By: Polo Pendleton on 10-18-2024 RBC (Bld) [#/Vol] 5.31 10*6/uL 4.6-6.2 [facility] Serum creatinine measurement (mass/volume)Ordered By: Polo Pendleton on 10-18-2024 Creatinine [Mass/Vol] 1.11 mg/dL 0.70-1.20 [facility] Serum globulin measurementOr dered By: Polo Pendleton on 10-18-2024 Globulin (S) [Mass/Vol] 3.4 g/dL 2.2-4.2 [facility] Serum glucose measurement (m ass/volume)Ordered By: Polo Pendleton on 10-18-2024 Glucose [Mass/Vol] 118 mg/dL High 70-99 [facility] Serum or plasma alanine hill otransferase (ALT) measurementOrdered By: Polo Pendleton 10-18-2024 ALT [Catalytic activity/Vol] 13 U/L <47 [facility] Comment on above: Hemolysis present, R esults could be affected. Serum or plasma albumin chemo urement (mass/volume)Ordered By: Polo Pendleton 10-18-2024 Albumin [Mass/Vol] 4.0 g/dL 3.4-4.8 [facility] Serum or plasma albumin/glob ulin mass ratioOrdered By: Polo Pendleton 10-18-2024 Albumin/Globulin [Mass ratio] 1.2 {ratio} 0.9-2.4 [facility] Serum or plasma alkaline marianne sphatase measurementOrdered By: Polo Pendleton 10-18-2024 ALP [Catalytic activity/Vol] 95 U/L 40-129 [facility] Serum or plasma calcium chemo urement (mass/volume)Ordered By: Polo Pendleton 10-18-2024 Calcium [Mass/Vol] 9.3 mg/dL 7.6-11.0 [facility] Serum or plasma urea nitroge n measurement (mass/volume)Ordered By: Polo Pendleton on 10-18-2024 Urea nitrogen [Mass/Vol] 17 mg/dL 4-19 [facility] Sodium levelOrdered By: Polo Pendleton on 10-18-2024 Sodium [Moles/Vol] 139 mmol/L 133-145 [facility] Squamous epithelial cells de tection in urine sediment by light microscopyOrdered By: Polo Pendleton on 10-18-2024 Epithelial cells.squamous LM Ql (Urine sed) 0 SEEN /hpf 0-5 [facility] Total proteinOrdered By: Elda Pendleton on 10-18-2024 Protein [Mass/Vol] 7.4 g/dL 5.9-8.4 [facility] Urinalysis, Completeon 10-18 RBC 0-5 SEEN Normal 0-5 [facility] Comment on above: Order Comment: Order Date: 12/13/23 Order Info: [id number] - CMP Order Info: [id number] - PHOS Order Info: [id number] - MG Order Info: 3 - TSH Order Info: 7 - T4F Performed By: #### L 501.2300, L501.5200, L509.1000, L501.9985, L500.4050, L501.9520, L506.0400, L506.1000, L100.0100 #### [facility] [address]. [place], [place], [id number] BACTERIA 0 SEEN Normal None Seen [facility] Comment on above: Order Comment: Order Date: 12/13/23 Order Info: [id number] - CMP Order Info: [id number] - PHOS Order Info: [id number] - MG Order Info: 3016-3 - TSH Order Info: 3024-7 - T4F Performed By: #### L 501.2300, L501.5200, L509.1000, L501.9985, L500.4050, L501.9520, L506.0400, L506.1000, L100.0100 #### [facility] [address] [place], [place], [address] EPI,SQUAMOUS 0 SEEN Normal 0-5 [facility] Comment on above: Order Comment: Order Date: 12/13/23 Order Info: [id number] - CMP Order Info: [id number] - PHOS Order Info: [id number] - MG Order Info: 3016-3 - TSH Order Info: 3024-7 - T4F Performed By: #### L 501.2300, L501.5200, L509.1000, L501.9985, L500.4050, L501.9520, L506.0400, L506.1000, L100.0100 #### [facility] [address] [place], [address] Mucus Ql (Urine sed) 0 SEEN Normal [facility] Comment on above: Order Comment: Order Date: 12/13/23 Order Info: 07-1 - CMP Order Info: [id number]- - PHOS Order Info: [id number] - MG Order Info: 3016-3 - TSH Order Info: 3024-7 - T4F Performed By: #### L 501.2300, L501.5200, L509.1000, L501.9985, L500.4050, L501.9520, L506.0400, L506.1000, L100.0100 #### [facility] [address] [place], [place], [address] WBC 0 SEEN Normal 0-5 [facility] Comment on above: Order Comment: Order Date: 12/13/23 Order Info: [id number] - CMP Order Info: [id number] - PHOS Order Info: [id number] - MG Order Info: 3016-3 - TSH Order Info: 3024-7 - T4F Performed By: #### L 501.2300, L501.5200, L509.1000, L501.9985, L500.4050, L501.9520, L506.0400, L506.1000, L100.0100 #### [facility] [address] [place], [address] Urine clarityOrdered By: Elda Pendleton on 10-18-2024 Clarity (U) Clear Clear [facility] Urine color determinationOrd ered By: Polo Pendleton on 10-18-2024 Color (U) Yellow Yellow [facility] Urine glucose detectionOrder ed By: Polo Pendleton on 10-18-2024 Glucose Ql (U) Normal mg/dl Normal [facility] Urine leukocyte esterase det ection by dipstickOrdered By: Polo Pendleton on 10-18-2024 Leukocyte esterase Test strip Ql (U) Negative Negative [facility] Urine pHOrdered By: Polo martinez on 10-18-2024 pH (U) 6.5 [pH] 5.0 - 8.0 [facility] Urine sediment bacteria coun t by microscopy (number/high power field)Ordered By: Polo Pendleton on 10-18-2024 Bacteria LM.HPF (Urine sed) [#/Area] 0 /[HPF] None Seen [facility] Urine specific gravity measu rementOrdered By: Polo Pendleton on 10-18-2024 Specific gravity (U) [Rel density] 1.015 1.002-1.030 [facility] Urine urobilinogen measureme ntOrdered By: Polo Pendleton on 10-18-2024 Urobilinogen Ql (U) Normal mg/dl Normal [facility] White blood cell (WBC) count Ordered By: Polo Pendleton on 10-18-2024 WBC (Bld) [#/Vol] 13.2 10*3/uL High 4.4-11.0 [facility] White blood cell countOrdere d By: Polo Pendleton on 10-18-2024 White blood cell count 0 SEEN /hpf 0-5 [facility] Absolute lymphocyte countOrd ered By: Samuel Bazan on 08-04-2024 Lymphocytes Auto (Unsp spec) [#/Vol] 1.52 10*3/uL 0.83-4.51 [facility] Absolute neutrophil countOrd ered By: Samuel Bazan on 08-04-2024 Neutrophils (Bld) [#/Vol] 5.2 10*3/uL 2.0-7.7 [facility] Anion gap in Serum or Plasma Ordered By: Samuel Bazan on 08-04-2024 Anion gap [Moles/Vol] 14 mmol/L 5- [facility] Automated lymphocyte count a s percentage of total leukocytesOrdered By: Samuel Bazan on 08-04-2024 Lymphocytes/100 WBC Auto (Unsp spec) 19.5 % 19- [facility] BUN/creatinine ratioOrdered By: Samuel Bazan on 08-04-2024 Urea nitrogen/Creatinine [Mass ratio] 21.9 mg/mg High 10- [facility] Basophil percentageOrdered B y: Samuel Bazan on 08-04-2024 Basophils/100 WBC (Bld) 0.6 % 0-1 [facility] Bilirubin Test strip Ql (U)O rdered By: Samuel Bazan on 08-04-2024 Bilirubin Ql (U) Negative Negative [facility] Bilirubin, totalOrdered By: Samuel Bazan on 08-04-2024 Bilirubin [Mass/Vol] 0.68 mg/dL 0.00-1.30 [facility] CBC W/Diff, Automatedon 07-23 Absolute Lymph 1.52 X10 3/uL Normal 0.83-4.51 [facility] Comment on above: Order Comment: Order Date: 12/13/23 Order Info: [id number] - CMP Order Info: [id number] - PHOS Order Info: [id number] - MG Order Info: 3016-3 - TSH Order Info: 3024-7 - T4F Performed By: #### L 501.2300, L501.5200, L509.1000, L501.9985, L500.4050, L501.9520, L506.0400, L506.1000, L100.0100 #### [facility] [address] [place], [address] Absolute Neut 5.2 X10 3/uL Normal 2.0-7.7 [facility] Comment on above: Order Comment: Order Date: 12/13/23 Order Info: [id number] - CMP Order Info: 277-1 - PHOS Order Info: [id number] - MG Order Info: 3016-3 - TSH Order Info: 3024-7 - T4F Performed By: #### L 501.2300, L501.5200, L509.1000, L501.9985, L500.4050, L501.9520, L506.0400, L506.1000, L100.0100 #### [facility] [address] [place], [address] Basophils/100 WBC (Bld) 0.6 % Normal 0-1 [facility] Comment on above: Order Comment: Order Date: 12/13/23 Order Info: [id number] - CMP Order Info: [id number] - PHOS Order Info: [id number] - MG Order Info: 3016-3 - TSH Order Info: 3023-7 - T4F Performed By: #### L 501.2300, L501.5200, L509.1000, L501.9985, L500.4050, L501.9520, L506.0400, L506.1000, L100.0100 #### [facility] [address] [place], [address] Eosinophils/100 WBC (Bld) 4.0 % Normal 0-5 [facility] Comment on above: Order Comment: Order Date: 12/13/23 Order Info: 07-1 - CMP Order Info: [id number] - PHOS Order Info: [id number] - MG Order Info: 3016-3 - TSH Order Info: 302-7 - T4F Performed By: #### L 501.2300, L501.5200, L509.1000, L501.9985, L500.4050, L501.9520, L506.0400, L506.1000, L100.0100 #### [facility] [address] [place], [address] Erythrocyte distribution width (RBC) [Ratio] 14.1 % Normal 11.6-14.6 [facility] Comment on above: Order Comment: Order Date: 12/13/23 Order Info: 0786-1 - CMP Order Info: [id number] - PHOS Order Info: [id number] - MG Order Info: 3 - TSH Order Info: [id number] - T4F Performed By: #### L 501.2300, L501.5200, L509.1000, L501.9985, L500.4050, L501.9520, L506.0400, L506.1000, L100.0100 #### [facility] [address] [place], [place], [id number] (220) Hematocrit (Bld) [Volume fraction] 49.1 % Normal 40-54 [facility] Comment on above: Order Comment: Order Date: 12/13/23 Order Info: 0786-1 - CMP Order Info: [id number] - PHOS Order Info: [id number] - MG Order Info: 3 - TSH Order Info: 3027 - T4F Performed By: #### L 501.2300, L501.5200, L509.1000, L501.9985, L500.4050, L501.9520, L506.0400, L506.1000, L100.0100 #### [facility] [address] [place], [place], [id number] ([phone]) Hemoglobin (Bld) [Mass/Vol] 16.1 g/dL Normal 13.0-16.5 [facility] Comment on above: Order Comment: Order Date: 12/13/23 Order Info: 0786-1 - CMP Order Info: [id number] - PHOS Order Info: [id number] - MG Order Info: 3 - TSH Order Info: 3024-7 - T4F Performed By: #### L 501.2300, L501.5200, L509.1000, L501.9985, L500.4050, L501.9520, L506.0400, L506.1000, L100.0100 #### [facility] [address] [place], [address] IG% 0.400 Normal 0.0-0.9 [facility] Comment on above: Order Comment: Order Date: 12/13/23 Order Info: [id number] - CMP Order Info: 2777 - PHOS Order Info: [id number] - MG Order Info: 3 - TSH Order Info: 7 - T4F Result Comment: IG% - Immature Granulocytes (promyelocytes, myelocytes and metamyelocytes) > 1% indicates that a LEFT SHIFT is Present. Performed By: #### L 501.2300, L501.5200, L509.1000, L501.9985, L500.4050, L501.9520, L506.0400, L506.1000, L100.0100 #### [facility] [address] [place], [address] Lymphocytes/100 WBC (Bld) 19.5 % Normal 19-41 [facility] Comment on above: Order Comment: Order Date: 12/13/23 Order Info: [id number] - CMP Order Info: [id number] - PHOS Order Info: [id number] - MG Order Info: 3 - TSH Order Info: 3023-09 - T4F Performed By: #### L 501.2300, L501.5200, L509.1000, L501.9985, L500.4050, L501.9520, L506.0400, L506.1000, L100.0100 #### [facility] [address] [place], [address] MCH (RBC) [Entitic mass] 30.4 pg Normal 27.0-32.0 [facility] Comment on above: Order Comment: Order Date: 12/13/23 Order Info: 0786- - CMP Order Info: 7 - PHOS Order Info: [id number] - MG Order Info: [id number] - TSH Order Info: 30247 - T4F Performed By: #### L 501.2300, L501.5200, L509.1000, L501.9985, L500.4050, L501.9520, L506.0400, L506.1000, L100.0100 #### [facility] [address] [place], [place], [id number] MCHC (RBC) [Mass/Vol] 32.8 g/dL Normal 32-36 [facility] Comment on above: Order Comment: Order Date: 12/13/23 Order Info: 86-1 - CMP Order Info: 2777-1 - PHOS Order Info: [id number] - MG Order Info: 3016-3 - TSH Order Info: 3024-7 - T4F Performed By: #### L 501.2300, L501.5200, L509.1000, L501.9985, L500.4050, L501.9520, L506.0400, L506.1000, L100.0100 #### [facility] [address] [place], [place], [id number] MCV (RBC) [Entitic vol] 92.8 fL Normal 80-94 [facility] Comment on above: Order Comment: Order Date: 12/13/23 Order Info: 785-1 - CMP Order Info: [id number] - PHOS Order Info: [id number] - MG Order Info: 3016-3 - TSH Order Info: 3024-7 - T4F Performed By: #### L 501.2300, L501.5200, L509.1000, L501.9985, L500.4050, L501.9520, L506.0400, L506.1000, L100.0100 #### [facility] [address] [place], [place], [id number] [phone] Monocytes/100 WBC (Bld) 9.2 % Normal 0-10 [facility] Comment on above: Order Comment: Order Date: 12/13/23 Order Info: 86-1 - CMP Order Info: [id number] - PHOS Order Info: [id number] - MG Order Info: 3016-3 - TSH Order Info: 3024-7 - T4F Performed By: #### L 501.2300, L501.5200, L509.1000, L501.9985, L500.4050, L501.9520, L506.0400, L506.1000, L100.0100 #### [facility] [address] [place], [place], [phone] Neutrophils/100 WBC (Bld) 66.3 % Normal 47-70 [facility] Comment on above: Order Comment: Order Date: 12/13/23 Order Info: [id number] - CMP Order Info: 2776- - PHOS Order Info: [id number] - MG Order Info: 301-3 - TSH Order Info: 3024-7 - T4F Performed By: #### L 501.2300, L501.5200, L509.1000, L501.9985, L500.4050, L501.9520, L506.0400, L506.1000, L100.0100 #### [facility] [address] [place], [place], [id number] [phone] Nucleated RBC (Bld) [#/Vol] 0 10*3/uL Normal 0-5 [facility] Comment on above: Order Comment: Order Date: 12/13/23 Order Info: [id number] - CMP Order Info: [id number] - PHOS Order Info: [id number] - MG Order Info: 3 - TSH Order Info: 3024-7 - T4F Performed By: #### L 501.2300, L501.5200, L509.1000, L501.9985, L500.4050, L501.9520, L506.0400, L506.1000, L100.0100 #### [facility] [address] [place], [address] Platelet mean volume (Bld) [Entitic vol] 10.0 fL Normal 6.2-12.0 [facility] Comment on above: Order Comment: Order Date: 12/13/23 Order Info: 785-1 - CMP Order Info: 7 - PHOS Order Info: [id number] - MG Order Info: 3016-3 - TSH Order Info: 3024-7 - T4F Performed By: #### L 501.2300, L501.5200, L509.1000, L501.9985, L500.4050, L501.9520, L506.0400, L506.1000, L100.0100 #### [facility] [address] [place], [address] Platelets (Bld) [#/Vol] 180 10*3/uL Normal 150-450 [facility] Comment on above: Order Comment: Order Date: 12/13/23 Order Info: [id number] - CMP Order Info: [id number] - PHOS Order Info: [id number] - MG Order Info: 3016-3 - TSH Order Info: 3024-7 - T4F Performed By: #### L 501.2300, L501.5200, L509.1000, L501.9985, L500.4050, L501.9520, L506.0400, L506.1000, L100.0100 #### [facility] [address] [place], [address] RBC (Bld) [#/Vol] 5.29 10*6/uL Normal 4.6-6.2 [facility] Comment on above: Order Comment: Order Date: 12/13/23 Order Info: 785- - CMP Order Info: [id number] - PHOS Order Info: [id number] - MG Order Info: 3016-3 - TSH Order Info: 3024-7 - T4F Performed By: #### L 501.2300, L501.5200, L509.1000, L501.9985, L500.4050, L501.9520, L506.0400, L506.1000, L100.0100 #### [facility] [address] [place], [address] RDW SD 47.9 fl High 35.1-43.9 [facility] Comment on above: Order Comment: Order Date: 12/13/23 Order Info: 07-1 - CMP Order Info: [id number] - PHOS Order Info: [id number] - MG Order Info: 3016-3 - TSH Order Info: 3024-7 - T4F Performed By: #### L 501.2300, L501.5200, L509.1000, L501.9985, L500.4050, L501.9520, L506.0400, L506.1000, L100.0100 #### [facility] [address] [place], [address] WBC (Bld) [#/Vol] 7.8 10*3/uL Normal 4.4-11.0 [facility] Comment on above: Order Comment: Order Date: 12/13/23 Order Info: [id number] - CMP Order Info: [id number] - PHOS Order Info: [id number] - MG Order Info: 3013 - TSH Order Info: 3023-09 - T4F Performed By: #### L 501.2300, L501.5200, L509.1000, L501.9985, L500.4050, L501.9520, L506.0400, L506.1000, L100.0100 #### [facility] [address] [place], [address] Calculated very low density lipoprotein (VLDL) cholesterol measurementOrdered By: Samuel Bazan on 08-04-2024 Calculated very low density lipoprotein (VLDL) cholesterol measurement 67 mg/dL High 5-40 [facility] Carbon dioxide, total [Moles /volume] in Central venous bloodOrdered By: Samuel Bazan on 08-04-2024 CO2 [Moles/Vol] 26.6 mmol/L 21.0-32.0 [facility] Chloride assayOrdered By: Ca Bazan on 08-04-2024 Chloride [Moles/Vol] 101 mmol/L 98-108 [facility] Comprehensive Metabolic Prof ilon 08-04-2024 Albumin [Mass/Vol] 4.1 g/dL Normal 3.4-4.8 [facility] Comment on above: Order Comment: Order Date: 12/13/23 Order Info: [id number] - CMP Order Info: [id number] - PHOS Order Info: [id number] - MG Order Info: [id number] - TSH Order Info: 7 - T4F Performed By: #### L 501.2300, L501.5200, L509.1000, L501.9985, L500.4050, L501.9520, L506.0400, L506.1000, L100.0100 #### [facility] [address] [place], [address] Albumin/Globulin [Mass ratio] 1.3 {ratio} Normal 0.9-2.4 [facility] Comment on above: Order Comment: Order Date: 12/13/23 Order Info: 86-1 - CMP Order Info: 2777-1 - PHOS Order Info: 16494-7 - MG Order Info: 3016-3 - TSH Order Info: 3024-7 - T4F Performed By: #### L 501.2300, L501.5200, L509.1000, L501.9985, L500.4050, L501.9520, L506.0400, L506.1000, L100.0100 #### [facility] [address] [place], [address] ALK PHOS 80 U/L Normal 40-129 [facility] Comment on above: Order Comment: Order Date: 12/13/23 Order Info: 86-1 - CMP Order Info: 2777-1 - PHOS Order Info: [id number] - MG Order Info: 3016-3 - TSH Order Info: 3024-7 - T4F Performed By: #### L 501.2300, L501.5200, L509.1000, L501.9985, L500.4050, L501.9520, L506.0400, L506.1000, L100.0100 #### [facility] [address] [place], [address] ALT [Catalytic activity/Vol] 13 U/L Normal <=46 [facility] Comment on above: Order Comment: Order Date: 12/13/23 Order Info: 0786-1 - CMP Order Info: 2777-1 - PHOS Order Info: 19874-4 - MG Order Info: 3016-3 - TSH Order Info: 3024-7 - T4F Performed By: #### L 501.2300, L501.5200, L509.1000, L501.9985, L500.4050, L501.9520, L506.0400, L506.1000, L100.0100 #### [facility] [address] [place], [place], [id number] AST [Catalytic activity/Vol] 19 U/L Normal <=37 [facility] Comment on above: Order Comment: Order Date: 12/13/23 Order Info: 0786-1 - CMP Order Info: 2777-1 - PHOS Order Info: [id number] - MG Order Info: 3015-3 - TSH Order Info: 302-7 - T4F Performed By: #### L 501.2300, L501.5200, L509.1000, L501.9985, L500.4050, L501.9520, L506.0400, L506.1000, L100.0100 #### [facility] [address] [place], [address] Bilirubin [Mass/Vol] 0.68 mg/dL Normal 0.00-1.30 [facility] Comment on above: Order Comment: Order Date: 12/13/23 Order Info: 0786-1 - CMP Order Info: 2777-1 - PHOS Order Info: 90722-2 - MG Order Info: 3016-3 - TSH Order Info: 3024-7 - T4F Performed By: #### L 501.2300, L501.5200, L509.1000, L501.9985, L500.4050, L501.9520, L506.0400, L506.1000, L100.0100 #### [facility] [address] [place], [address] BUN/CRE 21.9 RATIO High 10-20 [facility] Comment on above: Order Comment: Order Date: 12/13/23 Order Info: 0786-1 - CMP Order Info: 2777-1 - PHOS Order Info: [id number] - MG Order Info: 3015-3 - TSH Order Info: 3024-7 - T4F Performed By: #### L 501.2300, L501.5200, L509.1000, L501.9985, L500.4050, L501.9520, L506.0400, L506.1000, L100.0100 #### [facility] [address] [place], [address] Calcium [Mass/Vol] 9.3 mg/dL Normal 7.6-11.0 [facility] Comment on above: Order Comment: Order Date: 12/13/23 Order Info: 07-1 - CMP Order Info: 277-1 - PHOS Order Info: [id number] - MG Order Info: 3015-3 - TSH Order Info: 3024-7 - T4F Performed By: #### L 501.2300, L501.5200, L509.1000, L501.9985, L500.4050, L501.9520, L506.0400, L506.1000, L100.0100 #### [facility] [address] [place], [address] Chloride [Moles/Vol] 101 mmol/L Normal 98-108 [facility] Comment on above: Order Comment: Order Date: 12/13/23 Order Info: 0786- - CMP Order Info: 2771 - PHOS Order Info: 71297-7 - MG Order Info: 301-3 - TSH Order Info: 3024-7 - T4F Performed By: #### L 501.2300, L501.5200, L509.1000, L501.9985, L500.4050, L501.9520, L506.0400, L506.1000, L100.0100 #### [facility] [address] [place], [address] CO2 [Moles/Vol] 26.6 mmol/L Normal 21.0-32.0 [facility] Comment on above: Order Comment: Order Date: 12/13/23 Order Info: 0786-1 - CMP Order Info: 2777-1 - PHOS Order Info: 29617-0 - MG Order Info: 3016-3 - TSH Order Info: 3024-7 - T4F Performed By: #### L 501.2300, L501.5200, L509.1000, L501.9985, L500.4050, L501.9520, L506.0400, L506.1000, L100.0100 #### [facility] [address] [place], [place], [id number] Creatinine [Mass/Vol] 1.29 mg/dL High 0.70-1.20 [facility] Comment on above: Order Comment: Order Date: 12/13/23 Order Info: 785-1 - CMP Order Info: 2776-1 - PHOS Order Info: [id number] - MG Order Info: 6-3 - TSH Order Info: 3024-7 - T4F Performed By: #### L 501.2300, L501.5200, L509.1000, L501.9985, L500.4050, L501.9520, L506.0400, L506.1000, L100.0100 #### [facility] [address] [place], [place], [address] GAP 14 Normal 5-15 [facility] Comment on above: Order Comment: Order Date: 12/13/23 Order Info: 07-1 - CMP Order Info: 277-1 - PHOS Order Info: [id number] - MG Order Info: 3016-3 - TSH Order Info: 3024-7 - T4F Performed By: #### L 501.2300, L501.5200, L509.1000, L501.9985, L500.4050, L501.9520, L506.0400, L506.1000, L100.0100 #### [facility] [address] [place], [place], [address] GFR/1.73 sq M.predicted among non-blacks MDRD (S/P/Bld) [Vol rate/Area] 58 mL/min/{1.73_m2} Low >60 [facility] Comment on above: Order Comment: Order Date: 12/13/23 Order Info: 785-1 - CMP Order Info: 2776-03 - PHOS Order Info: 37135-6 - MG Order Info: 301-3 - TSH Order Info: 3024-7 - T4F Result Comment: mL/m in/1.73m2 CKD-EPI Creatinine Equation (2020) Performed By: #### L 501.2300, L501.5200, L509.1000, L501.9985, L500.4050, L501.9520, L506.0400, L506.1000, L100.0100 #### [facility] [address] [place], [place], [address] Globulin (S) [Mass/Vol] 3.1 g/dL Normal 2.2-4.2 [facility] Comment on above: Order Comment: Order Date: 12/13/23 Order Info: 785-03 - CMP Order Info: 2776-03 - PHOS Order Info: 25438-2 - MG Order Info: 3 - TSH Order Info: 3027 - T4F Performed By: #### L 501.2300, L501.5200, L509.1000, L501.9985, L500.4050, L501.9520, L506.0400, L506.1000, L100.0100 #### [facility] [address] [place], [place], [address] Glucose [Mass/Vol] 100 mg/dL High 70-99 [facility] Comment on above: Order Comment: Order Date: 12/13/23 Order Info: 785- - CMP Order Info: 2776-1 - PHOS Order Info: [id number] - MG Order Info: 3016-3 - TSH Order Info: 3024-7 - T4F Performed By: #### L 501.2300, L501.5200, L509.1000, L501.9985, L500.4050, L501.9520, L506.0400, L506.1000, L100.0100 #### [facility] [address] [place], [address] Potassium [Moles/Vol] 3.8 mmol/L Normal 3.3-5.1 [facility] Comment on above: Order Comment: Order Date: 12/13/23 Order Info: 0786-1 - CMP Order Info: 2777-1 - PHOS Order Info: [id number] - MG Order Info: 3016-3 - TSH Order Info: 3024-7 - T4F Performed By: #### L 501.2300, L501.5200, L509.1000, L501.9985, L500.4050, L501.9520, L506.0400, L506.1000, L100.0100 #### [facility] [address] [place], [address] Sodium [Moles/Vol] 142 mmol/L Normal 133-145 [facility] Comment on above: Order Comment: Order Date: 12/13/23 Order Info: 86-1 - CMP Order Info: 2776- - PHOS Order Info: [id number] - MG Order Info: 3016-3 - TSH Order Info: 3024-7 - T4F Performed By: #### L 501.2300, L501.5200, L509.1000, L501.9985, L500.4050, L501.9520, L506.0400, L506.1000, L100.0100 #### [facility] [address] [place], [address] T PROT 7.2 g/dL Normal 5.9-8.4 [facility] Comment on above: Order Comment: Order Date: 12/13/23 Order Info: 0786-1 - CMP Order Info: 2777-1 - PHOS Order Info: 91469-6 - MG Order Info: 3016-3 - TSH Order Info: 3024-7 - T4F Performed By: #### L 501.2300, L501.5200, L509.1000, L501.9985, L500.4050, L501.9520, L506.0400, L506.1000, L100.0100 #### [facility] [address] [place], [place], [address] Urea nitrogen [Mass/Vol] 28 mg/dL High 4-19 [facility] Comment on above: Order Comment: Order Date: 12/13/23 Order Info: 0786-1 - CMP Order Info: 2777-1 - PHOS Order Info: 82362-8 - MG Order Info: 3016-3 - TSH Order Info: 3024-7 - T4F Performed By: #### L 501.2300, L501.5200, L509.1000, L501.9985, L500.4050, L501.9520, L506.0400, L506.1000, L100.0100 #### [facility] [address] [place], [place], [id number] Eosinophil percentageOrdered By: Samuel Bazan on 08-04-2024 Eosinophils/100 WBC (Bld) 4.0 % 0-5 [facility] Erythrocyte distribution wid th ratioOrdered By: Samuel Bazan on 08-04-2024 Erythrocyte distribution width (RBC) [Ratio] 14.1 % 11.6-14.6 [facility] Erythrocyte distribution wid th standard deviationOrdered By: Samuel Bazan on 08-04-2024 Erythrocyte distribution width (RBC) [Ratio] 47.9 fl High 35.1-43.9 [facility] Glomerular filtration rate ( GFR) estimation/1.73 sq m using serum, plasma, or whole bOrdered By: Samuel Bazan on 08-04-2024 GFR/1.73 sq M.predicted among non-blacks MDRD (S/P/Bld) [Vol rate/Area] 58 mL/min/{1.73_m2} Low >60 [facility] Comment on above: mL/min/1.73m2 CKD-EP I Creatinine Equation (2020) Hematocrit Auto (Bld) [Volum e fraction]Ordered By: Samuel Bazan on 08-04-2024 Hematocrit (Bld) [Volume fraction] 49.1 % 40-54 [facility] Hemoglobin A1con 08-04-2024 HbA1c (Bld) [Mass fraction] 6.4 % High <=5.6 [facility] Comment on above: Order Comment: Order Date: 12/13/23 Order Info: 0786-1 - CMP Order Info: 2777-1 - PHOS Order Info: [id number] - MG Order Info: 3016-3 - TSH Order Info: 3024-7 - T4F Result Comment: Norm al < 5.7 % Prediabetic 5.7 - 6.4 % Diabetic >or= 6.5 % Please note range changes. Performed By: #### L 501.2300, L501.5200, L509.1000, L501.9985, L500.4050, L501.9520, L506.0400, L506.1000, L100.0100 #### [facility] [place], [address] Hemoglobin A1c percentageOrd ered By: Samuel Bazan on 08-04-2024 HbA1c (Bld) [Mass fraction] 6.4 % High <5.7 [facility] Comment on above: Normal < 5.7 % Predi abetic 5.7 - 6.4 % Diabetic >or= 6.5 % Please note range changes. Hemoglobin measurementOrdere d By: Samuel Bazan on 08-04-2024 Hemoglobin (Bld) [Mass/Vol] 16.1 g/dL 13.0-16.5 [facility] Immature granulocytes/100 WB C Auto (Bld)Ordered By: Samuel Bazan on 08-04-2024 Immature granulocytes/100 WBC (Bld) 0.400 % 0.0-0.9 [facility] Comment on above: IG% - Immature Granu locytes (promyelocytes, myelocytes and metamyelocytes) > 1% indicates that a LEFT SHIFT is Present. Ketones Test strip Ql (U)Ord ered By: Samuel Bazan on 08-04-2024 Ketones Ql (U) Negative Negative [facility] LDL calc ser/plasOrdered By: Samuel Bazan on 08-04-2024 Cholesterol in LDL [Mass/Vol] 104 mg/dL [facility] Comment on above: Thftohboci=011-971 m g/dL & Higher Riif=518 mg/dL or greater Laboratory - Chemistry and C hemistry - challengeOrdered By: Samuel Bazan on 08-04-2024 AST [Catalytic activity/Vol] 19 U/L <38 [facility] Lipid Profileon 08-04-2024 CHOL:HDL 6.44 Normal [facility] Comment on above: Order Comment: Order Date: 12/13/23 Order Info: 0786-1 - CMP Order Info: 2777-1 - PHOS Order Info: [id number] - MG Order Info: 3016-3 - TSH Order Info: 7 - T4F Performed By: #### L 501.2300, L501.5200, L509.1000, L501.9985, L500.4050, L501.9520, L506.0400, L506.1000, L100.0100 #### [facility] [address] [place], [address] Cholesterol [Mass/Vol] 203 mg/dL High <=200 [facility] Comment on above: Order Comment: Order Date: 12/13/23 Order Info: 0786-1 - CMP Order Info: 277-1 - PHOS Order Info: [id number] - MG Order Info: 6-3 - TSH Order Info: 3023-7 - T4F Result Comment: Chol esterol level, Desirable <200 mg/dL Borderline high cholesterol 200-239 mg/dL High cholesterol >=240 mg/dL Recommendations of the NCEP Adult Treatment Panel for the following risk-cutoff thresholds for the [place] Citizen population. Performed By: #### L 501.2300, L501.5200, L509.1000, L501.9985, L500.4050, L501.9520, L506.0400, L506.1000, L100.0100 #### [facility] [address] [place], [address] Cholesterol in HDL [Mass/Vol] 32 mg/dL Low [facility] Comment on above: Order Comment: Order Date: 12/13/23 Order Info: 0786-1 - CMP Order Info: 2777-1 - PHOS Order Info: 33813-1 - MG Order Info: 3 - TSH Order Info: 3023-09 - T4F Result Comment: Kamilla onal Cholesterol Education Program (NCEP) guidelines: <40 mg/dL: Low HDL-cholesterol (major risk factor for CHD) >= 60 mg/dL: High HDL-cholesterol (negative risk factor for CHD) HDL-cholesterol is affected by a number of factors, e.g. smoking, exercise, hormones, sex and age. Performed By: #### L 501.2300, L501.5200, L509.1000, L501.9985, L500.4050, L501.9520, L506.0400, L506.1000, L100.0100 #### [facility] [address] [place], [place], [id number] Cholesterol in LDL [Mass/Vol] 104 mg/dL Normal [facility] Comment on above: Order Comment: Order Date: 12/13/23 Order Info: 0786 - CMP Order Info: 2776-03 - PHOS Order Info: 51825-5 - MG Order Info: 3 - TSH Order Info: 3023-09 - T4F Result Comment: Bord njlbqu=764-162 mg/dL Higher Gxbs=643 mg/dL or greater Performed By: #### L 501.2300, L501.5200, L509.1000, L501.9985, L500.4050, L501.9520, L506.0400, L506.1000, L100.0100 #### [facility] [address] [place], [place], [address] Cholesterol in VLDL [Mass/Vol] 67 mg/dL High 5-40 [facility] Comment on above: Order Comment: Order Date: 12/13/23 Order Info: 0786- - CMP Order Info: 2776-03 - PHOS Order Info: 21127-8 - MG Order Info: 3 - TSH Order Info: 3023-09 - T4F Performed By: #### L 501.2300, L501.5200, L509.1000, L501.9985, L500.4050, L501.9520, L506.0400, L506.1000, L100.0100 #### [facility] [address] [facility] [place], [address] Triglyceride [Mass/Vol] 337 mg/dL High [facility] Comment on above: Order Comment: Order Date: 12/13/23 Order Info: 0786-1 - CMP Order Info: 2777-1 - PHOS Order Info: 22012-1 - MG Order Info: 3016-3 - TSH Order Info: 3024-7 - T4F Result Comment: The drugs N-Acetylcysteine and Metamizole may falsely depress this assay. Normal range: <150 mg/dL Borderline High: 150-199 mg/dL High: 200-499 mg/dL Very High: >500 mg/dL Performed By: #### L 501.2300, L501.5200, L509.1000, L501.9985, L500.4050, L501.9520, L506.0400, L506.1000, L100.0100 #### [facility] [address] [facility] [place], [address] MCV (mean corpuscular volume ) determinationOrdered By: Samuel Bazan on 08-04-2024 MCV (RBC) [Entitic vol] 92.8 fL 80-94 [facility] Mean corpuscular hemoglobin (MCH) determinationOrdered By: Samuel Bazan on 08-04-2024 MCH (RBC) [Entitic mass] 30.4 pg 27.0-32.0 [facility] Mean corpuscular hemoglobin concentration (MCHC) determinationOrdered By: Samuel Bazan on 08-04-2024 MCHC (RBC) [Mass/Vol] 32.8 g/dL 32-36 [facility] Mean platelet volume determi nationOrdered By: Samuel Bazan on 08-04-2024 Platelet mean volume (Bld) [Entitic vol] 10.0 fL 6.2-12.0 [facility] Microscopic analysis of urin e for red blood cells (RBC)Ordered By: Samuel Bazan on 08-04-2024 Microscopic analysis of urine for red blood cells (RBC) 0 SEEN /hpf 0-5 [facility] Monocyte percentageOrdered B y: Samuel Bazan on 08-04-2024 Monocytes/100 WBC (Bld) 9.2 % 0-10 [facility] Mucus LM Ql (Urine sed)Order ed By: Samuel Bazan on 08-04-2024 Mucus Ql (Urine sed) 0 SEEN [facility] Neutrophil percentageOrdered By: Samuel Bazan on 08-04-2024 Neutrophils/100 WBC (Bld) 66.3 % 47-70 [facility] Nitrite Test strip Ql (U)Ord ered By: Samuel Bazan on 08-04-2024 Nitrite Ql (U) Negative Negative [facility] Nucleated red blood cell per centageOrdered By: Samuel Bazan on 08-04-2024 Nucleated RBC/100 WBC (Bld) [Ratio] 0 % 0-5 [facility] PTHINon 08-04-2024 PTH 64 pg/mL High 11-61 [facility] Comment on above: Order Comment: Order Date: 12/13/23 Order Info: 0786-1 - CMP Order Info: 2777-1 - PHOS Order Info: [id number] - MG Order Info: 3016-3 - TSH Order Info: 3024-7 - T4F Performed By: #### L 501.2300, L501.5200, L509.1000, L501.9985, L500.4050, L501.9520, L506.0400, L506.1000, L100.0100 #### [facility] [address] [place] [address], [address] Platelet countOrdered By: Ca Bazan on 08-04-2024 Platelets (Bld) [#/Vol] 180 10*3/uL 150-450 [facility] Potassium measurement (mass/ volume)Ordered By: Samuel Bazan on 08-04-2024 Potassium (Unsp spec) [Mass/Vol] 3.8 mmol/L 3.3-5.1 [facility] Protein Test strip Ql (U)Ord ered By: Samuel Bazan on 08-04-2024 Protein Ql (U) 15 mg/dl High Negative [facility] RBC Auto (Bld) [#/Vol]Ordere d By: Samuel Bazan on 08-04-2024 RBC (Bld) [#/Vol] 5.29 10*6/uL 4.6-6.2 [facility] Screening total cholesterol/ high density lipoprotein (HDL) cholesterol ratioOrdered By: Samuel Bazan on 08-04-2024 Cholesterol.total/Choles terol in HDL [Mass ratio] 6.44 {ratio} [facility] Serum creatinine measurement (mass/volume)Ordered By: Samuel Bazan on 08-04-2024 Creatinine [Mass/Vol] 1.29 mg/dL High 0.70-1.20 [facility] Serum globulin measurementOr dered By: Samuel Bazan on 08-04-2024 Globulin (S) [Mass/Vol] 3.1 g/dL 2.2-4.2 [facility] Serum glucose measurement (m ass/volume)Ordered By: Samuel Bazan on 08-04-2024 Glucose [Mass/Vol] 100 mg/dL High 70-99 [facility] Serum or plasma alanine hill otransferase (ALT) measurementOrdered By: Samuel Bazan on 08-04-2024 ALT [Catalytic activity/Vol] 13 U/L <47 [facility] Serum or plasma albumin chemo urement (mass/volume)Ordered By: Samuel Bazan on 08-04-2024 Albumin [Mass/Vol] 4.1 g/dL 3.4-4.8 [facility] Serum or plasma albumin/glob ulin mass ratioOrdered By: Samuel Bazan on 08-04-2024 Albumin/Globulin [Mass ratio] 1.3 {ratio} 0.9-2.4 [facility] Serum or plasma alkaline marianne sphatase measurementOrdered By: Samuel Bazan on 08-04-2024 ALP [Catalytic activity/Vol] 80 U/L 40-129 [facility] Serum or plasma calcium chemo urement (mass/volume)Ordered By: Samuel Bazan on 08-04-2024 Calcium [Mass/Vol] 9.3 mg/dL 7.6-11.0 [facility] Serum or plasma cholesterol in HDL measurement (mass/volume)Ordered By: Samuel Bazan on 08-04-2024 Cholesterol in HDL [Mass/Vol] 32 mg/dL Low >40 [facility] Comment on above: National Cholesterol Education Program (NCEP) guidelines:<40 mg/dL: Low HDL-cholesterol (major risk factor for CHD)>= 60 mg/dL: High HDL-cholesterol (negative risk factor for CHD)HDL-cholesterol is affected by a number of factors, e.g. smoking, exercise, hormones, sex and age. Serum or plasma cholesterol measurement (mass/volume)Ordered By: Samuel Bazan on 08-04-2024 Cholesterol [Mass/Vol] 203 mg/dL High <201 [facility] Comment on above: Cholesterol level, D esirable <200 mg/dLBorderline high cholesterol 200-239 mg/dLHigh cholesterol >=240 mg/dLRecommendations of the NCEP Adult Treatment Panel for the following risk-cutoff thresholds for the [place] Citizen population. Serum or plasma urea nitroge n measurement (mass/volume)Ordered By: Samuel Bazan on 08-04-2024 Urea nitrogen [Mass/Vol] 28 mg/dL High 4-19 [facility] Sodium levelOrdered By: Samuel Bazan on 08-04-2024 Sodium [Moles/Vol] 142 mmol/L 133-145 [facility] Squamous epithelial cells de tection in urine sediment by light microscopyOrdered By: Samuel Bazan on 08-04-2024 Epithelial cells.squamous LM Ql (Urine sed) 0 SEEN /hpf 0-5 [facility] T4 Free Directon 08-04-2024 T4 FREE DIRECT 0.80 ng/dL Normal 0.76-1.46 [facility] Comment on above: Order Comment: Order Date: 12/13/23 Order Info: 0786-1 - CMP Order Info: 2777-1 - PHOS Order Info: [id number] - MG Order Info: 3016-3 - TSH Order Info: 3024-7 - T4F Performed By: #### L 501.2300, L501.5200, L509.1000, L501.9985, L500.4050, L501.9520, L506.0400, L506.1000, L100.0100 #### [facility] [address] [place], [place], [id number] T4 freeOrdered By: Samuel cheney on 08-04-2024 Free T4 [Mass/Vol] 0.80 ng/dL 0.76-1.46 [facility] TSH DL <= 0.005 mIU/L QnOrde red By: Samuel Bazan on 08-04-2024 TSH Qn 4.040 uIU/mL 0.300-4.200 [facility] Thyroid Stim Hormone (TSH)on 08-04-2024 TSH 4.040 uIU/mL Normal 0.300-4.200 [facility] Comment on above: Order Comment: Order Date: 12/13/23 Order Info: 0786-1 - CMP Order Info: 2777-1 - PHOS Order Info: [id number] - MG Order Info: 3016-3 - TSH Order Info: 3024-7 - T4F Performed By: #### L 501.2300, L501.5200, L509.1000, L501.9985, L500.4050, L501.9520, L506.0400, L506.1000, L100.0100 #### [facility] [address] [place], [place], [address] Total proteinOrdered By: Gabo Bazan on 08-04-2024 Protein [Mass/Vol] 7.2 g/dL 5.9-8.4 [facility] Triglycerides measurementOrd ered By: Samuel Bazan on 08-04-2024 Triglyceride [Mass/Vol] 337 mg/dL High <199 [facility] Comment on above: The drugs N-Acetylcy steine and Metamizole may falsely depress this assay. Normal range: <150 mg/dLBorderline High: 150-199 mg/dLHigh: 200-499 mg/dLVery High: >500 mg/dL Urinalysis, Completeon 08-04 WBC 0-5 SEEN Normal 0-5 [facility] Comment on above: Order Comment: Order Date: 12/13/23 Order Info: 0565-1 - PTHIN Performed By: #### L 501.2300, L501.5200, L509.1000, L501.9985, L500.4050, L501.9520, L506.0400, L506.1000, L100.0100 #### [facility] [address] [place], [address] BACTERIA 0 SEEN Normal None Seen [facility] Comment on above: Order Comment: Order Date: 12/13/23 Order Info: 0565-1 - PTHIN Performed By: #### L 501.2300, L501.5200, L509.1000, L501.9985, L500.4050, L501.9520, L506.0400, L506.1000, L100.0100 #### [facility] [address] [place], [address] EPI,SQUAMOUS 0 SEEN Normal 0-5 [facility] Comment on above: Order Comment: Order Date: 12/13/23 Order Info: 0565-1 - PTHIN Performed By: #### L 501.2300, L501.5200, L509.1000, L501.9985, L500.4050, L501.9520, L506.0400, L506.1000, L100.0100 #### [facility] [address] [place], [address] Mucus Ql (Urine sed) 0 SEEN Normal [facility] Comment on above: Order Comment: Order Date: 12/13/23 Order Info: 0565-1 - PTHIN Performed By: #### L 501.2300, L501.5200, L509.1000, L501.9985, L500.4050, L501.9520, L506.0400, L506.1000, L100.0100 #### [facility] [address] [place], [address] RBC 0 SEEN Normal 0-5 [facility] Comment on above: Order Comment: Order Date: 12/13/23 Order Info: 0565-1 - PTHIN Performed By: #### L 501.2300, L501.5200, L509.1000, L501.9985, L500.4050, L501.9520, L506.0400, L506.1000, L100.0100 #### [facility] [place], [address] Urine clarityOrdered By: Gabo Bazan on 08-04-2024 Clarity (U) Clear Clear [facility] Urine color determinationOrd ered By: Samuel Bazan on 08-04-2024 Color (U) Yellow Yellow [facility] Urine glucose detectionOrder ed By: Samuel Bazan on 08-04-2024 Glucose Ql (U) Normal mg/dl Normal [facility] Urine leukocyte esterase det ection by dipstickOrdered By: Samuel Bazan on 08-04-2024 Leukocyte esterase Test strip Ql (U) Negative Negative [facility] Urine pHOrdered By: Samuel jama on 08-04-2024 pH (U) 7.0 [pH] 5.0 - 8.0 [facility] Urine sediment bacteria coun t by microscopy (number/high power field)Ordered By: Samuel Bazan on 08-04-2024 Bacteria LM.HPF (Urine sed) [#/Area] 0 /[HPF] None Seen [facility] Urine specific gravity measu rementOrdered By: Samuel Bazan on 08-04-2024 Specific gravity (U) [Rel density] 1.010 1.002-1.030 [facility] Urine urobilinogen measureme ntOrdered By: Samuel Bazan on 08-04-2024 Urobilinogen Ql (U) Normal mg/dl Normal [facility] Vitamin D,25 Hydroxyon 08-04 Vitamin D 25-OH 47.8 ng/mL Normal 30-100 [facility] Comment on above: Order Comment: Order Date: 12/13/23 Order Info: 0565-1 - PTHIN Result Comment: Nohelia min D Status Deficiency: <20 ng/mL (50nmol/L) Insufficiency: 20-30 ng/mL (50-75 nmol/L) Sufficiency: 30-100 ng/mL (75-250 nmol/L) Toxicity: >100 ng/mL (>250 nmol/L) Performed By: #### L 501.2300, L501.5200, L509.1000, L501.9985, L500.4050, L501.9520, L506.0400, L506.1000, L100.0100 #### [facility] [address] [place], [place], [id number] White blood cell (WBC) count Ordered By: Samuel Bazan on 08-04-2024 WBC (Bld) [#/Vol] 7.8 10*3/uL 4.4-11.0 [facility] White blood cell countOrdere d By: Samuel Bazan on 08-04-2024 White blood cell count 0-5 SEEN /hpf 0-5 [facility] CBC W/Diff, Automatedon - Absolute Lymph 1.56 X10 3/uL Normal 0.83-4.51 [facility] Comment on above: Order Comment: Order Date: 12/13/23 Order Info: 0184-1 - CBCD Performed By: #### L 501.2300, L501.5200, L509.1000, L501.9985, L500.4050, L501.9520, L506.0400, L506.1000, L100.0100 #### [facility] [address] [place], [address] Absolute Neut 3.9 X10 3/uL Normal 2.0-7.7 [facility] Comment on above: Order Comment: Order Date: 12/13/23 Order Info: 0184-1 - CBCD Performed By: #### L 501.2300, L501.5200, L509.1000, L501.9985, L500.4050, L501.9520, L506.0400, L506.1000, L100.0100 #### [facility] [address] [place], [place], [id number] Basophils/100 WBC (Bld) 0.5 % Normal 0-1 [facility] Comment on above: Order Comment: Order Date: 12/13/23 Order Info: 0184-1 - CBCD Performed By: #### L 501.2300, L501.5200, L509.1000, L501.9985, L500.4050, L501.9520, L506.0400, L506.1000, L100.0100 #### [facility] [address] [place], [address] Eosinophils/100 WBC (Bld) 6.8 % High 0-5 [facility] Comment on above: Order Comment: Order Date: 12/13/23 Order Info: 0184- - CBCD Performed By: #### L 501.2300, L501.5200, L509.1000, L501.9985, L500.4050, L501.9520, L506.0400, L506.1000, L100.0100 #### [facility] [address] [place], [address] Erythrocyte distribution width (RBC) [Ratio] 14.6 % Normal 11.6-14.6 [facility] Comment on above: Order Comment: Order Date: 12/13/23 Order Info: 0184- - CBCD Performed By: #### L 501.2300, L501.5200, L509.1000, L501.9985, L500.4050, L501.9520, L506.0400, L506.1000, L100.0100 #### [facility] [address] [place], [address] Hematocrit (Bld) [Volume fraction] 49.4 % Normal 40-54 [facility] Comment on above: Order Comment: Order Date: 12/13/23 Order Info: 0184- - CBCD Performed By: #### L 501.2300, L501.5200, L509.1000, L501.9985, L500.4050, L501.9520, L506.0400, L506.1000, L100.0100 #### [facility] [address] [place], [address] Hemoglobin (Bld) [Mass/Vol] 15.9 g/dL Normal 13.0-16.5 [facility] Comment on above: Order Comment: Order Date: 12/13/23 Order Info: 0184-1 - CBCD Performed By: #### L 501.2300, L501.5200, L509.1000, L501.9985, L500.4050, L501.9520, L506.0400, L506.1000, L100.0100 #### [facility] [address] [place], [address] IG% 0.300 Normal 0.0-0.9 [facility] Comment on above: Order Comment: Order Date: 12/13/23 Order Info: 0184-1 - CBCD Result Comment: IG% - Immature Granulocytes (promyelocytes, myelocytes and metamyelocytes) > 1% indicates that a LEFT SHIFT is Present. Performed By: #### L 501.2300, L501.5200, L509.1000, L501.9985, L500.4050, L501.9520, L506.0400, L506.1000, L100.0100 #### [facility] [address] [place], [address] Lymphocytes/100 WBC (Bld) 23.5 % Normal 19-41 [facility] Comment on above: Order Comment: Order Date: 12/13/23 Order Info: 0184-1 - CBCD Performed By: #### L 501.2300, L501.5200, L509.1000, L501.9985, L500.4050, L501.9520, L506.0400, L506.1000, L100.0100 #### [facility] [address] [place], [address] MCH (RBC) [Entitic mass] 30.0 pg Normal 27.0-32.0 [facility] Comment on above: Order Comment: Order Date: 12/13/23 Order Info: 0184-1 - CBCD Performed By: #### L 501.2300, L501.5200, L509.1000, L501.9985, L500.4050, L501.9520, L506.0400, L506.1000, L100.0100 #### [facility] [address] [place], [address] MCHC (RBC) [Mass/Vol] 32.2 g/dL Normal 32-36 [facility] Comment on above: Order Comment: Order Date: 12/13/23 Order Info: 018- - CBCD Performed By: #### L 501.2300, L501.5200, L509.1000, L501.9985, L500.4050, L501.9520, L506.0400, L506.1000, L100.0100 #### [facility] [address] [place], [address] MCV (RBC) [Entitic vol] 93.2 fL Normal 80-94 [facility] Comment on above: Order Comment: Order Date: 12/13/23 Order Info: 018- - CBCD Performed By: #### L 501.2300, L501.5200, L509.1000, L501.9985, L500.4050, L501.9520, L506.0400, L506.1000, L100.0100 #### [facility] [address] [place], [address] Monocytes/100 WBC (Bld) 9.7 % Normal 0-10 [facility] Comment on above: Order Comment: Order Date: 12/13/23 Order Info: 018- - CBCD Performed By: #### L 501.2300, L501.5200, L509.1000, L501.9985, L500.4050, L501.9520, L506.0400, L506.1000, L100.0100 #### [facility] [address] [place], [address] Neutrophils/100 WBC (Bld) 59.2 % Normal 47-70 [facility] Comment on above: Order Comment: Order Date: 12/13/23 Order Info: 0184-1 - CBCD Performed By: #### L 501.2300, L501.5200, L509.1000, L501.9985, L500.4050, L501.9520, L506.0400, L506.1000, L100.0100 #### [facility] [address] [place], [address] Nucleated RBC (Bld) [#/Vol] 0 10*3/uL Normal 0-5 [facility] Comment on above: Order Comment: Order Date: 12/13/23 Order Info: 018- - CBCD Performed By: #### L 501.2300, L501.5200, L509.1000, L501.9985, L500.4050, L501.9520, L506.0400, L506.1000, L100.0100 #### [facility] [address] [place], [address] Platelet mean volume (Bld) [Entitic vol] 9.4 fL Normal 6.2-12.0 [facility] Comment on above: Order Comment: Order Date: 12/13/23 Order Info: 0184- - CBCD Performed By: #### L 501.2300, L501.5200, L509.1000, L501.9985, L500.4050, L501.9520, L506.0400, L506.1000, L100.0100 #### [facility] [address] [place], [address] Platelets (Bld) [#/Vol] 191 10*3/uL Normal 150-450 [facility] Comment on above: Order Comment: Order Date: 12/13/23 Order Info: 0184-1 - CBCD Performed By: #### L 501.2300, L501.5200, L509.1000, L501.9985, L500.4050, L501.9520, L506.0400, L506.1000, L100.0100 #### [facility] [address] [place], [address] RBC (Bld) [#/Vol] 5.30 10*6/uL Normal 4.6-6.2 [facility] Comment on above: Order Comment: Order Date: 12/13/23 Order Info: 0184-1 - CBCD Performed By: #### L 501.2300, L501.5200, L509.1000, L501.9985, L500.4050, L501.9520, L506.0400, L506.1000, L100.0100 #### [facility] [address] [place], [address] RDW SD 49.8 fl High 35.1-43.9 [facility] Comment on above: Order Comment: Order Date: 12/13/23 Order Info: 0184-1 - CBCD Performed By: #### L 501.2300, L501.5200, L509.1000, L501.9985, L500.4050, L501.9520, L506.0400, L506.1000, L100.0100 #### [facility] [address] [place], [address] WBC (Bld) [#/Vol] 6.6 10*3/uL Normal 4.4-11.0 [facility] Comment on above: Order Comment: Order Date: 12/13/23 Order Info: 0184-1 - CBCD Performed By: #### L 501.2300, L501.5200, L509.1000, L501.9985, L500.4050, L501.9520, L506.0400, L506.1000, L100.0100 #### [facility] [address] [place], [address] Comprehensive Metabolic Prof ilon 04-09-2024 Albumin [Mass/Vol] 3.4 g/dL Normal 3.2-5.0 [facility] Comment on above: Order Comment: Order Date: 12/13/23 Order Info: 0786-1 - CMP Order Info: 2777-1 - PHOS Order Info: 38282-9 - MG Order Info: 3016-3 - TSH Order Info: 3024-7 - T4F Performed By: #### L 501.2300, L501.5200, L509.1000, L501.9985, L500.4050, L501.9520, L506.0400, L506.1000, L100.0100 #### [facility] [address] [place], [place], [address] Albumin/Globulin [Mass ratio] 0.9 {ratio} Normal 0.9-2.4 [facility] Comment on above: Order Comment: Order Date: 12/13/23 Order Info: 86-1 - CMP Order Info: 7-1 - PHOS Order Info: 78467-1 - MG Order Info: 3016-3 - TSH Order Info: 3024-7 - T4F Performed By: #### L 501.2300, L501.5200, L509.1000, L501.9985, L500.4050, L501.9520, L506.0400, L506.1000, L100.0100 #### [facility] [address] [place], [place], [id number] ALK P 72 U/L Normal 45-117 [facility] Comment on above: Order Comment: Order Date: 12/13/23 Order Info: 86-1 - CMP Order Info: 2777-1 - PHOS Order Info: 52702-8 - MG Order Info: 3016-3 - TSH Order Info: 3024-7 - T4F Performed By: #### L 501.2300, L501.5200, L509.1000, L501.9985, L500.4050, L501.9520, L506.0400, L506.1000, L100.0100 #### [facility] [address] [place], [place], [id number] ALT [Catalytic activity/Vol] 20 U/L Normal 16-61 [facility] Comment on above: Order Comment: Order Date: 12/13/23 Order Info: 0786-1 - CMP Order Info: 2777-1 - PHOS Order Info: 76773-6 - MG Order Info: 3016-3 - TSH Order Info: 3024-7 - T4F Performed By: #### L 501.2300, L501.5200, L509.1000, L501.9985, L500.4050, L501.9520, L506.0400, L506.1000, L100.0100 #### [facility] [address] [place], [address] AST [Catalytic activity/Vol] 16 U/L Normal 15-37 [facility] Comment on above: Order Comment: Order Date: 12/13/23 Order Info: 0786-1 - CMP Order Info: 2777-1 - PHOS Order Info: 62778-8 - MG Order Info: 3016-3 - TSH Order Info: 3024-7 - T4F Performed By: #### L 501.2300, L501.5200, L509.1000, L501.9985, L500.4050, L501.9520, L506.0400, L506.1000, L100.0100 #### [facility] [address] [place], [place], [address] Bilirubin [Mass/Vol] 0.80 mg/dL Normal 0.20-1.00 [facility] Comment on above: Order Comment: Order Date: 12/13/23 Order Info: 0786-1 - CMP Order Info: 2777-1 - PHOS Order Info: 05101-0 - MG Order Info: 3016-3 - TSH Order Info: 3024-7 - T4F Result Comment: For patients on eltrombopag therapy, use of Dimension [place] TBIL is not recommended. Performed By: #### L 501.2300, L501.5200, L509.1000, L501.9985, L500.4050, L501.9520, L506.0400, L506.1000, L100.0100 #### [facility] [address] [place], [place], [phone] BUN/CRE 18.6 RATIO Normal 10-20 [facility] Comment on above: Order Comment: Order Date: 12/13/23 Order Info: 0786-1 - CMP Order Info: 2777-1 - PHOS Order Info: 73424-4 - MG Order Info: 3016-3 - TSH Order Info: 3024-7 - T4F Performed By: #### L 501.2300, L501.5200, L509.1000, L501.9985, L500.4050, L501.9520, L506.0400, L506.1000, L100.0100 #### [facility] [address] [place], [place], [phone] CA,Total 9.1 mg/dL Normal 8.5-10.1 [facility] Comment on above: Order Comment: Order Date: 12/13/23 Order Info: 0786-1 - CMP Order Info: 2776-1 - PHOS Order Info: 59994-1 - MG Order Info: 3016-3 - TSH Order Info: 3024-7 - T4F Performed By: #### L 501.2300, L501.5200, L509.1000, L501.9985, L500.4050, L501.9520, L506.0400, L506.1000, L100.0100 #### [facility] [address] [place], [place], [phone] Chloride [Moles/Vol] 107 mmol/L Normal 98-107 [facility] Comment on above: Order Comment: Order Date: 12/13/23 Order Info: 0786-1 - CMP Order Info: 2777-1 - PHOS Order Info: 62218-1 - MG Order Info: 3016-3 - TSH Order Info: 3024-7 - T4F Performed By: #### L 501.2300, L501.5200, L509.1000, L501.9985, L500.4050, L501.9520, L506.0400, L506.1000, L100.0100 #### [facility] [address] [place], [address] CO2 [Moles/Vol] 28.0 mmol/L Normal 21.0-32.0 [facility] Comment on above: Order Comment: Order Date: 12/13/23 Order Info: 86-1 - CMP Order Info: 2776-03 - PHOS Order Info: 11158-9 - MG Order Info: 3 - TSH Order Info: 7 - T4F Performed By: #### L 501.2300, L501.5200, L509.1000, L501.9985, L500.4050, L501.9520, L506.0400, L506.1000, L100.0100 #### [facility] [address] [place], [address] Creatinine [Mass/Vol] 1.40 mg/dL High 0.70-1.30 [facility] Comment on above: Order Comment: Order Date: 12/13/23 Order Info: 785- - CMP Order Info: 2776-03 - PHOS Order Info: 13633-8 - MG Order Info: 3 - TSH Order Info: 7 - T4F Result Comment: The validity of the calculated GFR GFRAA in patients over 70 years has not been determined. Clinical correlation is essential. Performed By: #### L 501.2300, L501.5200, L509.1000, L501.9985, L500.4050, L501.9520, L506.0400, L506.1000, L100.0100 #### [facility] [address] [place], [address] EST GFR - AA 64 mL/min Normal >60 [facility] Comment on above: Order Comment: Order Date: 12/13/23 Order Info: 785-1 - CMP Order Info: 2776-03 - PHOS Order Info: 51881-8 - MG Order Info: 3 - TSH Order Info: 3027 - T4F Result Comment: Afri can [place] Citizen GFR Calc Performed By: #### L 501.2300, L501.5200, L509.1000, L501.9985, L500.4050, L501.9520, L506.0400, L506.1000, L100.0100 #### [facility] [address] [place], [address] GAP 7 Normal 5-15 [facility] Comment on above: Order Comment: Order Date: 12/13/23 Order Info: 785-03 - CMP Order Info: 2776-03 - PHOS Order Info: 19824-6 - MG Order Info: 3015-05 - TSH Order Info: 3023-09 - T4F Performed By: #### L 501.2300, L501.5200, L509.1000, L501.9985, L500.4050, L501.9520, L506.0400, L506.1000, L100.0100 #### [facility] [address] [place], [address] GFR/1.73 sq M.predicted among non-blacks MDRD (S/P/Bld) [Vol rate/Area] 53 mL/min/{1.73_m2} Low >60 [facility] Comment on above: Order Comment: Order Date: 12/13/23 Order Info: 785-03 - CMP Order Info: 2776-03 - PHOS Order Info: 34643-4 - MG Order Info: 3015-05 - TSH Order Info: 3023-09 - T4F Result Comment: Non- GFR Calc Performed By: #### L 501.2300, L501.5200, L509.1000, L501.9985, L500.4050, L501.9520, L506.0400, L506.1000, L100.0100 #### [facility] [address] [place], [address] Globulin (S) [Mass/Vol] 3.7 g/dL Normal 2.2-4.2 [facility] Comment on above: Order Comment: Order Date: 12/13/23 Order Info: 0786-1 - CMP Order Info: 2777-1 - PHOS Order Info: 07996-6 - MG Order Info: 3016-3 - TSH Order Info: 3024-7 - T4F Performed By: #### L 501.2300, L501.5200, L509.1000, L501.9985, L500.4050, L501.9520, L506.0400, L506.1000, L100.0100 #### [facility] [address] [place], [address] Glucose [Mass/Vol] 95 mg/dL Normal 74-106 [facility] Comment on above: Order Comment: Order Date: 12/13/23 Order Info: 785-1 - CMP Order Info: 7-1 - PHOS Order Info: 99009-1 - MG Order Info: 3016-3 - TSH Order Info: 3024-7 - T4F Performed By: #### L 501.2300, L501.5200, L509.1000, L501.9985, L500.4050, L501.9520, L506.0400, L506.1000, L100.0100 #### [facility] [address] [place], [address] Potassium [Moles/Vol] 4.2 mmol/L Normal 3.5-5.1 [facility] Comment on above: Order Comment: Order Date: 12/13/23 Order Info: 0786-1 - CMP Order Info: 2777-1 - PHOS Order Info: 32178-5 - MG Order Info: 3016-3 - TSH Order Info: 3024-7 - T4F Performed By: #### L 501.2300, L501.5200, L509.1000, L501.9985, L500.4050, L501.9520, L506.0400, L506.1000, L100.0100 #### [facility] [address] [place], [address] Sodium [Moles/Vol] 141 mmol/L Normal 136-145 [facility] Comment on above: Order Comment: Order Date: 12/13/23 Order Info: 86-1 - CMP Order Info: 2777-1 - PHOS Order Info: 69857-3 - MG Order Info: 3016-3 - TSH Order Info: 3024-7 - T4F Performed By: #### L 501.2300, L501.5200, L509.1000, L501.9985, L500.4050, L501.9520, L506.0400, L506.1000, L100.0100 #### [facility] [address] [place], [place], [id number] T PROT 7.1 g/dL Normal 6.4-8.2 [facility] Comment on above: Order Comment: Order Date: 12/13/23 Order Info: 785-1 - CMP Order Info: 2776-1 - PHOS Order Info: 94774-5 - MG Order Info: 6-3 - TSH Order Info: 3024-7 - T4F Performed By: #### L 501.2300, L501.5200, L509.1000, L501.9985, L500.4050, L501.9520, L506.0400, L506.1000, L100.0100 #### [facility] [address] [place], [place], [address] Urea nitrogen [Mass/Vol] 26 mg/dL High 7-18 [facility] Comment on above: Order Comment: Order Date: 12/13/23 Order Info: 86-1 - CMP Order Info: 7-1 - PHOS Order Info: [id number] - MG Order Info: 3016-3 - TSH Order Info: 3024-7 - T4F Performed By: #### L 501.2300, L501.5200, L509.1000, L501.9985, L500.4050, L501.9520, L506.0400, L506.1000, L100.0100 #### [facility] [address] [place], [place], [address] Hemoglobin A1con 04-09-2024 HbA1c (Bld) [Mass fraction] 5.9 % High 3.8-5.6 [facility] Comment on above: Order Comment: Order Date: 12/13/23 Order Info: 4548-4 - A1C Result Comment: Norm al < 5.7 % Prediabetic 5.7 - 6.4 % Diabetic >or= 6.5 % Please note range changes. Performed By: #### L 501.2300, L501.5200, L509.1000, L501.9985, L500.4050, L501.9520, L506.0400, L506.1000, L100.0100 #### [facility] [address] [place], [place], [address] Magnesiumon 04-09-2024 Magnesium [Mass/Vol] 2.3 mg/dL Normal 1.6-2.6 [facility] Comment on above: Order Comment: Order Date: 12/13/23 Order Info: 0786-1 - CMP Order Info: 2777-1 - PHOS Order Info: 09176-0 - MG Order Info: 3016-3 - TSH Order Info: 3024-7 - T4F Performed By: #### L 501.2300, L501.5200, L509.1000, L501.9985, L500.4050, L501.9520, L506.0400, L506.1000, L100.0100 #### [facility] [address] [place], [address] PTHINon 04-09-2024 PTH 106.1 pg/mL High 18.4-80.1 [facility] Comment on above: Order Comment: Order Date: 12/13/23 Order Info: 0565-1 - PTHIN Performed By: #### L 501.2300, L501.5200, L509.1000, L501.9985, L500.4050, L501.9520, L506.0400, L506.1000, L100.0100 #### [facility] [address] [place], [address] Phosphoruson 04-09-2024 Phosphate [Mass/Vol] 2.9 mg/dL Normal 2.5-4.9 [facility] Comment on above: Order Comment: Order Date: 12/13/23 Order Info: 0786-1 - CMP Order Info: 2777-1 - PHOS Order Info: 07063-9 - MG Order Info: 3016-3 - TSH Order Info: 3024-7 - T4F Performed By: #### L 501.2300, L501.5200, L509.1000, L501.9985, L500.4050, L501.9520, L506.0400, L506.1000, L100.0100 #### [facility] [address] [place], [address] Protein+Creatinine Ratio,Uri neon 04-09-2024 PROT:CRE RATIO 130 mg/g CRE Normal 0-200 [facility] Comment on above: Performed By: #### L 501.2300, L501.5200, L509.1000, L501.9985, L500.4050, L501.9520, L506.0400, L506.1000, L100.0100 #### [facility] [address] [place], [address] Protein (U) [Mass/Vol] 15.2 mg/dL High <11.9 [facility] Comment on above: Performed By: #### L 501.2300, L501.5200, L509.1000, L501.9985, L500.4050, L501.9520, L506.0400, L506.1000, L100.0100 #### [facility] [address] [place], [address] UR CREAT 117.00 mg/dL Normal NO RANGE EST. [facility] Comment on above: Performed By: #### L 501.2300, L501.5200, L509.1000, L501.9985, L500.4050, L501.9520, L506.0400, L506.1000, L100.0100 #### [facility] [address] [place], [place], [phone] [phone] Free Directon 04-09-2024 T4 FREE DIRECT 0.79 ng/dL Normal 0.76-1.46 [facility] Comment on above: Order Comment: Order Date: 12/13/23 Order Info: 0786- - CMP Order Info: [id number] - PHOS Order Info: 56529-7 - MG Order Info: 3016-3 - TSH Order Info: 3024-7 - T4F Performed By: #### L 501.2300, L501.5200, L509.1000, L501.9985, L500.4050, L501.9520, L506.0400, L506.1000, L100.0100 #### [facility] [address] [place], [place], [phone] ([phone]) Thyroid Stim Hormone (TSH)on 04-09-2024 TSH 4.530 uIU/mL High 0.358-3.740 [facility] Comment on above: Order Comment: Order Date: 12/13/23 Order Info: 0786- - CMP Order Info: [id number] - PHOS Order Info: 14684-7 - MG Order Info: 3016-3 - TSH Order Info: 3024-7 - T4F Performed By: #### L 501.2300, L501.5200, L509.1000, L501.9985, L500.4050, L501.9520, L506.0400, L506.1000, L100.0100 #### [facility] [address] [place], [place], [phone] ([phone]) Urinalysis, Completeon 04-09 BACTERIA 0 SEEN Normal None Seen [facility] Comment on above: Order Comment: Order Date: 12/13/23 Order Info: 0565-1 - PTHIN Performed By: #### L 501.2300, L501.5200, L509.1000, L501.9985, L500.4050, L501.9520, L506.0400, L506.1000, L100.0100 #### [facility] [address] [place], [address] EPI,SQUAMOUS 0 SEEN Normal 0-5 [facility] Comment on above: Order Comment: Order Date: 12/13/23 Order Info: 0565-1 - PTHIN Performed By: #### L 501.2300, L501.5200, L509.1000, L501.9985, L500.4050, L501.9520, L506.0400, L506.1000, L100.0100 #### [facility] [address] [place], [address] Mucus Ql (Urine sed) 0 SEEN Normal [facility] Comment on above: Order Comment: Order Date: 12/13/23 Order Info: 0565-1 - PTHIN Performed By: #### L 501.2300, L501.5200, L509.1000, L501.9985, L500.4050, L501.9520, L506.0400, L506.1000, L100.0100 #### [facility] [address] [place], [address] RBC 0 SEEN Normal 0-5 [facility] Comment on above: Order Comment: Order Date: 12/13/23 Order Info: 0565-1 - PTHIN Performed By: #### L 501.2300, L501.5200, L509.1000, L501.9985, L500.4050, L501.9520, L506.0400, L506.1000, L100.0100 #### [facility] [address] [place], [address] WBC 0 SEEN Normal 0-[address] [place] [id number] Comment on above: Order Comment: Order Date: 12/13/23 Order Info: 0565-1 - PTHIN Performed By: #### L 501.2300, L501.5200, L509.1000, L501.9985, L500.4050, L501.9520, L506.0400, L506.1000, L100.0100 #### [facility] [address] [place], [address] Vitamin D,25 Hydroxyon 04-09 Vitamin D 25-OH 25.1 ng/mL Normal [facility] Comment on above: Order Comment: Order Date: 12/13/23 Order Info: 77564-8 - VITD25 Result Comment: Nohelia min D 25(OH) Status Range Deficiency <20 ng/mL (50nmol/L) Insufficiency 20 - 30 ng/mL (50 - 75 nmol/L) Sufficiency 30 - 100 ng/mL (75 - 250 nmol/L) Toxicity >100 ng/mL (>250 nmol/L) Performed By: #### L 501.2300, L501.5200, L509.1000, L501.9985, L500.4050, L501.9520, L506.0400, L506.1000, L100.0100 #### [facility] [address] [place], [address] CBC W/Diff, Automatedon 11-23 Absolute Lymph 1.47 X10 3/uL Normal 0.83-4.51 [facility] Comment on above: Order Comment: Order Date: 12/13/23 Order Info: 0565-1 - PTHIN Performed By: #### L 501.2300, L501.5200, L509.1000, L501.9985, L500.4050, L501.9520, L506.0400, L506.1000, L100.0100 #### [facility] [address] [place], [address] Absolute Neut 4.8 X10 3/uL Normal 2.0-7.7 [facility] Comment on above: Order Comment: Order Date: 12/13/23 Order Info: 0565-1 - PTHIN Performed By: #### L 501.2300, L501.5200, L509.1000, L501.9985, L500.4050, L501.9520, L506.0400, L506.1000, L100.0100 #### [facility] [address] [place], [address] Basophils/100 WBC (Bld) 0.5 % Normal 0-1 [facility] Comment on above: Order Comment: Order Date: 12/13/23 Order Info: 0565-1 - PTHIN Performed By: #### L 501.2300, L501.5200, L509.1000, L501.9985, L500.4050, L501.9520, L506.0400, L506.1000, L100.0100 #### [facility] [address] [place], [address] Eosinophils/100 WBC (Bld) 7.2 % High 0-5 [facility] Comment on above: Order Comment: Order Date: 12/13/23 Order Info: 0565-1 - PTHIN Performed By: #### L 501.2300, L501.5200, L509.1000, L501.9985, L500.4050, L501.9520, L506.0400, L506.1000, L100.0100 #### [facility] [address] [place], [address] Erythrocyte distribution width (RBC) [Ratio] 14.4 % Normal 11.6-14.6 [facility] Comment on above: Order Comment: Order Date: 12/13/23 Order Info: 0565-1 - PTHIN Performed By: #### L 501.2300, L501.5200, L509.1000, L501.9985, L500.4050, L501.9520, L506.0400, L506.1000, L100.0100 #### [facility] [address] [place], [address] Hematocrit (Bld) [Volume fraction] 48.3 % Normal 40-54 [facility] Comment on above: Order Comment: Order Date: 12/13/23 Order Info: 0565-1 - PTHIN Performed By: #### L 501.2300, L501.5200, L509.1000, L501.9985, L500.4050, L501.9520, L506.0400, L506.1000, L100.0100 #### [facility] [address] [place], [address] Hemoglobin (Bld) [Mass/Vol] 15.2 g/dL Normal 13.0-16.5 [facility] Comment on above: Order Comment: Order Date: 12/13/23 Order Info: 0565-1 - PTHIN Performed By: #### L 501.2300, L501.5200, L509.1000, L501.9985, L500.4050, L501.9520, L506.0400, L506.1000, L100.0100 #### [facility] [address] [place], [address] IG% 0.400 Normal 0.0-0.9 [facility] Comment on above: Order Comment: Order Date: 12/13/23 Order Info: 0565-1 - PTHIN Result Comment: IG% - Immature Granulocytes (promyelocytes, myelocytes and metamyelocytes) > 1% indicates that a LEFT SHIFT is Present. Performed By: #### L 501.2300, L501.5200, L509.1000, L501.9985, L500.4050, L501.9520, L506.0400, L506.1000, L100.0100 #### [facility] [address] [place], [address] Lymphocytes/100 WBC (Bld) 19.3 % Normal 19-41 [facility] Comment on above: Order Comment: Order Date: 12/13/23 Order Info: 0565-1 - PTHIN Performed By: #### L 501.2300, L501.5200, L509.1000, L501.9985, L500.4050, L501.9520, L506.0400, L506.1000, L100.0100 #### [facility] [address] [place], [address] MCH (RBC) [Entitic mass] 29.5 pg Normal 27.0-32.0 [facility] Comment on above: Order Comment: Order Date: 12/13/23 Order Info: 0565-1 - PTHIN Performed By: #### L 501.2300, L501.5200, L509.1000, L501.9985, L500.4050, L501.9520, L506.0400, L506.1000, L100.0100 #### [facility] [address] [place], [address] MCHC (RBC) [Mass/Vol] 31.5 g/dL Low 32-36 [facility] Comment on above: Order Comment: Order Date: 12/13/23 Order Info: 0565-1 - PTHIN Performed By: #### L 501.2300, L501.5200, L509.1000, L501.9985, L500.4050, L501.9520, L506.0400, L506.1000, L100.0100 #### [facility] [address] [place], [address] MCV (RBC) [Entitic vol] 93.6 fL Normal 80-94 [facility] Comment on above: Order Comment: Order Date: 12/13/23 Order Info: 0565-1 - PTHIN Performed By: #### L 501.2300, L501.5200, L509.1000, L501.9985, L500.4050, L501.9520, L506.0400, L506.1000, L100.0100 #### [facility] [address] [place], [address] Monocytes/100 WBC (Bld) 9.7 % Normal 0-10 [facility] Comment on above: Order Comment: Order Date: 12/13/23 Order Info: 0565-1 - PTHIN Performed By: #### L 501.2300, L501.5200, L509.1000, L501.9985, L500.4050, L501.9520, L506.0400, L506.1000, L100.0100 #### [facility] [address] [place], [address] Neutrophils/100 WBC (Bld) 62.9 % Normal 47-70 [facility] Comment on above: Order Comment: Order Date: 12/13/23 Order Info: 0565-1 - PTHIN Performed By: #### L 501.2300, L501.5200, L509.1000, L501.9985, L500.4050, L501.9520, L506.0400, L506.1000, L100.0100 #### [facility] [address] [place], [address] Nucleated RBC (Bld) [#/Vol] 0 10*3/uL Normal 0-5 [facility] Comment on above: Order Comment: Order Date: 12/13/23 Order Info: 0565- - PTHIN Performed By: #### L 501.2300, L501.5200, L509.1000, L501.9985, L500.4050, L501.9520, L506.0400, L506.1000, L100.0100 #### [facility] [address] [place], [address] Platelet mean volume (Bld) [Entitic vol] 10.1 fL Normal 6.2-12.0 [facility] Comment on above: Order Comment: Order Date: 12/13/23 Order Info: 0565-1 - PTHIN Performed By: #### L 501.2300, L501.5200, L509.1000, L501.9985, L500.4050, L501.9520, L506.0400, L506.1000, L100.0100 #### [facility] [address] [place], [address] Platelets (Bld) [#/Vol] 167 10*3/uL Normal 150-450 [facility] Comment on above: Order Comment: Order Date: 12/13/23 Order Info: 0565-1 - PTHIN Performed By: #### L 501.2300, L501.5200, L509.1000, L501.9985, L500.4050, L501.9520, L506.0400, L506.1000, L100.0100 #### [facility] [address] [place], [address] RBC (Bld) [#/Vol] 5.16 10*6/uL Normal 4.6-6.2 [facility] Comment on above: Order Comment: Order Date: 12/13/23 Order Info: 0565-1 - PTHIN Performed By: #### L 501.2300, L501.5200, L509.1000, L501.9985, L500.4050, L501.9520, L506.0400, L506.1000, L100.0100 #### [facility] [address] [place], [address] RDW SD 49.6 fl High 35.1-43.9 [facility] Comment on above: Order Comment: Order Date: 12/13/23 Order Info: 0565-1 - PTHIN Performed By: #### L 501.2300, L501.5200, L509.1000, L501.9985, L500.4050, L501.9520, L506.0400, L506.1000, L100.0100 #### [facility] [address] [place], [address] WBC (Bld) [#/Vol] 7.6 10*3/uL Normal 4.4-11.0 [facility] Comment on above: Order Comment: Order Date: 12/13/23 Order Info: 0565-1 - PTHIN Performed By: #### L 501.2300, L501.5200, L509.1000, L501.9985, L500.4050, L501.9520, L506.0400, L506.1000, L100.0100 #### [facility] [address] [place], [place], [address] Comprehensive Metabolic Prof ilon 12-05-2023 Albumin [Mass/Vol] 3.6 g/dL Normal 3.2-5.0 [facility] Comment on above: Order Comment: Order Date: 12/13/23 Order Info: 0786-1 - CMP Order Info: 2776-1 - PHOS Order Info: 36695-6 - MG Order Info: 301-3 - TSH Order Info: 7 - T4F Performed By: #### L 501.2300, L501.5200, L509.1000, L501.9985, L500.4050, L501.9520, L506.0400, L506.1000, L100.0100 #### [facility] [address] [place], [address] Albumin/Globulin [Mass ratio] 1.1 {ratio} Normal 0.9-2.4 [facility] Comment on above: Order Comment: Order Date: 12/13/23 Order Info: 86-1 - CMP Order Info: 2776-1 - PHOS Order Info: 16328-3 - MG Order Info: 3016-3 - TSH Order Info: 7 - T4F Performed By: #### L 501.2300, L501.5200, L509.1000, L501.9985, L500.4050, L501.9520, L506.0400, L506.1000, L100.0100 #### [facility] [address] [place], [place], [address] ALK P 78 U/L Normal 45-117 [facility] Comment on above: Order Comment: Order Date: 12/13/23 Order Info: 0786-1 - CMP Order Info: 2777-1 - PHOS Order Info: 50319-0 - MG Order Info: 3016-3 - TSH Order Info: 3024-7 - T4F Performed By: #### L 501.2300, L501.5200, L509.1000, L501.9985, L500.4050, L501.9520, L506.0400, L506.1000, L100.0100 #### [facility] [address] [place], [address] ALT [Catalytic activity/Vol] 20 U/L Normal 16-61 [facility] Comment on above: Order Comment: Order Date: 12/13/23 Order Info: 0786-1 - CMP Order Info: 2777-1 - PHOS Order Info: 27272-5 - MG Order Info: 3016-3 - TSH Order Info: 3024-7 - T4F Performed By: #### L 501.2300, L501.5200, L509.1000, L501.9985, L500.4050, L501.9520, L506.0400, L506.1000, L100.0100 #### [facility] [address] [place], [address] AST [Catalytic activity/Vol] 13 U/L Low 15-37 [facility] Comment on above: Order Comment: Order Date: 12/13/23 Order Info: 0786-1 - CMP Order Info: 2777-1 - PHOS Order Info: 20575-2 - MG Order Info: 3016-3 - TSH Order Info: 3024-7 - T4F Performed By: #### L 501.2300, L501.5200, L509.1000, L501.9985, L500.4050, L501.9520, L506.0400, L506.1000, L100.0100 #### [facility] [address] [place], [address] Bilirubin [Mass/Vol] 0.80 mg/dL Normal 0.20-1.00 [facility] Comment on above: Order Comment: Order Date: 12/13/23 Order Info: 0786-1 - CMP Order Info: 2777-1 - PHOS Order Info: 48892-8 - MG Order Info: 3 - TSH Order Info: 302-7 - T4F Result Comment: For patients on eltrombopag therapy, use of Dimension [place] TBIL is not recommended. Performed By: #### L 501.2300, L501.5200, L509.1000, L501.9985, L500.4050, L501.9520, L506.0400, L506.1000, L100.0100 #### [facility] [address] [place], [address] BUN/CRE 19.5 RATIO Normal 10-20 [facility] Comment on above: Order Comment: Order Date: 12/13/23 Order Info: 0786- - CMP Order Info: 27709-22 - PHOS Order Info: 85157-0 - MG Order Info: 3 - TSH Order Info: 7 - T4F Performed By: #### L 501.2300, L501.5200, L509.1000, L501.9985, L500.4050, L501.9520, L506.0400, L506.1000, L100.0100 #### [facility] [address] [place], [address] CA,Total 9.1 mg/dL Normal 8.5-10.1 [facility] Comment on above: Order Comment: Order Date: 12/13/23 Order Info: 0786- - CMP Order Info: 27709-22 - PHOS Order Info: 80747-8 - MG Order Info: 3013 - TSH Order Info: 3024-7 - T4F Performed By: #### L 501.2300, L501.5200, L509.1000, L501.9985, L500.4050, L501.9520, L506.0400, L506.1000, L100.0100 #### [facility] [address] [place], [address] Chloride [Moles/Vol] 105 mmol/L Normal 98-107 [facility] Comment on above: Order Comment: Order Date: 12/13/23 Order Info: 86-1 - CMP Order Info: 2777-1 - PHOS Order Info: 47473-7 - MG Order Info: 3013 - TSH Order Info: 302-7 - T4F Performed By: #### L 501.2300, L501.5200, L509.1000, L501.9985, L500.4050, L501.9520, L506.0400, L506.1000, L100.0100 #### [facility] [address] [place], [place], [address] CO2 [Moles/Vol] 30.0 mmol/L Normal 21.0-32.0 [facility] Comment on above: Order Comment: Order Date: 12/13/23 Order Info: 785-03 - CMP Order Info: 1 - PHOS Order Info: 86194-3 - MG Order Info: 3 - TSH Order Info: 3027 - T4F Performed By: #### L 501.2300, L501.5200, L509.1000, L501.9985, L500.4050, L501.9520, L506.0400, L506.1000, L100.0100 #### [facility] [address] [place], [place], [address] Creatinine [Mass/Vol] 1.23 mg/dL Normal 0.70-1.30 [facility] Comment on above: Order Comment: Order Date: 12/13/23 Order Info: 07-1 - CMP Order Info: 2777-1 - PHOS Order Info: 62818-9 - MG Order Info: 3013 - TSH Order Info: 3024-7 - T4F Result Comment: The validity of the calculated GFR GFRAA in patients over 70 years has not been determined. Clinical correlation is essential. Performed By: #### L 501.2300, L501.5200, L509.1000, L501.9985, L500.4050, L501.9520, L506.0400, L506.1000, L100.0100 #### [facility] [address] [place], [place], [address] EST GFR - AA 74 mL/min Normal >60 [facility] Comment on above: Order Comment: Order Date: 12/13/23 Order Info: 86-1 - CMP Order Info: 2776-03 - PHOS Order Info: 26783-8 - MG Order Info: 3013 - TSH Order Info: 7 - T4F Result Comment: Afri can [place] Citizen GFR Calc Performed By: #### L 501.2300, L501.5200, L509.1000, L501.9985, L500.4050, L501.9520, L506.0400, L506.1000, L100.0100 #### [facility] [address] [place], [place], [address] GAP 4 Low 5-15 [facility] Comment on above: Order Comment: Order Date: 12/13/23 Order Info: 785-03 - CMP Order Info: 2776-03 - PHOS Order Info: [id number] - MG Order Info: 3 - TSH Order Info: 3023-09 - T4F Performed By: #### L 501.2300, L501.5200, L509.1000, L501.9985, L500.4050, L501.9520, L506.0400, L506.1000, L100.0100 #### [facility] [address] [place], [place], [address] GFR/1.73 sq M.predicted among non-blacks MDRD (S/P/Bld) [Vol rate/Area] 61 mL/min/{1.73_m2} Normal >60 [facility] Comment on above: Order Comment: Order Date: 12/13/23 Order Info: 785-1 - CMP Order Info: 2771 - PHOS Order Info: 70260-0 - MG Order Info: 3016-3 - TSH Order Info: 302-7 - T4F Result Comment: Non- GFR Calc Performed By: #### L 501.2300, L501.5200, L509.1000, L501.9985, L500.4050, L501.9520, L506.0400, L506.1000, L100.0100 #### [facility] [address] [place], [address] Globulin (S) [Mass/Vol] 3.2 g/dL Normal 2.2-4.2 [facility] Comment on above: Order Comment: Order Date: 12/13/23 Order Info: 785-1 - CMP Order Info: 277-1 - PHOS Order Info: 05873-0 - MG Order Info: 301-3 - TSH Order Info: 3027 - T4F Performed By: #### L 501.2300, L501.5200, L509.1000, L501.9985, L500.4050, L501.9520, L506.0400, L506.1000, L100.0100 #### [facility] [address] [place], [address] Glucose [Mass/Vol] 109 mg/dL High 74-106 [facility] Comment on above: Order Comment: Order Date: 12/13/23 Order Info: 785- - CMP Order Info: 27709-22 - PHOS Order Info: 37297-7 - MG Order Info: 3016-3 - TSH Order Info: 3024-7 - T4F Result Comment: Fast ing Glucose result from 100 to 125 mg/dL suggests IMPAIRED HOMEOSTASIS per A.D.A. criteria. Performed By: #### L 501.2300, L501.5200, L509.1000, L501.9985, L500.4050, L501.9520, L506.0400, L506.1000, L100.0100 #### [facility] [address] [place], [address] Potassium [Moles/Vol] 4.1 mmol/L Normal 3.5-5.1 [facility] Comment on above: Order Comment: Order Date: 12/13/23 Order Info: 07-1 - CMP Order Info: 2777-1 - PHOS Order Info: 30389-2 - MG Order Info: 3016-3 - TSH Order Info: 3024-7 - T4F Performed By: #### L 501.2300, L501.5200, L509.1000, L501.9985, L500.4050, L501.9520, L506.0400, L506.1000, L100.0100 #### [facility] [address] [place], [address] Sodium [Moles/Vol] 139 mmol/L Normal 136-145 [facility] Comment on above: Order Comment: Order Date: 12/13/23 Order Info: 07- - CMP Order Info: 2776-03 - PHOS Order Info: [id number] - MG Order Info: 301-3 - TSH Order Info: 3024-7 - T4F Performed By: #### L 501.2300, L501.5200, L509.1000, L501.9985, L500.4050, L501.9520, L506.0400, L506.1000, L100.0100 #### [facility] [address] [place], [place], [address] (837) T PROT 6.8 g/dL Normal 6.4-8.2 [facility] Comment on above: Order Comment: Order Date: 12/13/23 Order Info: 0786- - CMP Order Info: 27709-22 - PHOS Order Info: 19431-6 - MG Order Info: 301-3 - TSH Order Info: 3024-7 - T4F Performed By: #### L 501.2300, L501.5200, L509.1000, L501.9985, L500.4050, L501.9520, L506.0400, L506.1000, L100.0100 #### [facility] [address] [place], [address] Urea nitrogen [Mass/Vol] 24 mg/dL High 7-18 [facility] Comment on above: Order Comment: Order Date: 12/13/23 Order Info: 0786- - CMP Order Info: 2776-03 - PHOS Order Info: 33021-7 - MG Order Info: 3 - TSH Order Info: 3023-09 - T4F Performed By: #### L 501.2300, L501.5200, L509.1000, L501.9985, L500.4050, L501.9520, L506.0400, L506.1000, L100.0100 #### [facility] [address] [place], [place], [address] Hemoglobin A1con 12-05-2023 HbA1c (Bld) [Mass fraction] 5.8 % High 3.8-5.6 [facility] Comment on above: Order Comment: Order Date: 12/13/23 Order Info: 0565-1 - PTHIN Result Comment: Norm al < 5.7 % Prediabetic 5.7 - 6.4 % Diabetic >or= 6.5 % Please note range changes. Performed By: #### L 501.2300, L501.5200, L509.1000, L501.9985, L500.4050, L501.9520, L506.0400, L506.1000, L100.0100 #### [facility] [address] [place], [address] Lipid Profileon 12-05-2023 Cholesterol [Mass/Vol] 182 mg/dL Normal 200 [facility] Comment on above: Order Comment: Order Date: 12/13/23 Order Info: 0786- - CMP Order Info: 2776-03 - PHOS Order Info: 33354-4 - MG Order Info: 3 - TSH Order Info: 3023-09 - T4F Result Comment: <200 mg/dL Desirable 200-240 mg/dL Borderline >240 mg/dL High Risk Performed By: #### L 501.2300, L501.5200, L509.1000, L501.9985, L500.4050, L501.9520, L506.0400, L506.1000, L100.0100 #### [facility] [address] [place], [address] Cholesterol in HDL [Mass/Vol] 35 mg/dL Low [facility] Comment on above: Order Comment: Order Date: 12/13/23 Order Info: 07- - CMP Order Info: 2777-1 - PHOS Order Info: [id number] - MG Order Info: 3016-3 - TSH Order Info: 3027 - T4F Result Comment: The drugs N-Acetylcysteine and Metamizole may falsely depress this assay. Reference Range HDL <40 mg/dL Low HDL Cholesterol HDL >or= 60 mg/dL High HDL Cholesterol Performed By: #### L 501.2300, L501.5200, L509.1000, L501.9985, L500.4050, L501.9520, L506.0400, L506.1000, L100.0100 #### [facility] [address] [place], [address] Cholesterol in LDL [Mass/Vol] 79 mg/dL Normal 0-130 [facility] Comment on above: Order Comment: Order Date: 12/13/23 Order Info: 785-03 - CMP Order Info: 2776-03 - PHOS Order Info: 98882-2 - MG Order Info: 3013 - TSH Order Info: 7 - T4F Performed By: #### L 501.2300, L501.5200, L509.1000, L501.9985, L500.4050, L501.9520, L506.0400, L506.1000, L100.0100 #### [facility] [address] [place], [address] Cholesterol in VLDL [Mass/Vol] 68 mg/dL High 5-40 [facility] Comment on above: Order Comment: Order Date: 12/13/23 Order Info: 785-1 - CMP Order Info: 2777-1 - PHOS Order Info: 03103-7 - MG Order Info: 3016-3 - TSH Order Info: 3024-7 - T4F Performed By: #### L 501.2300, L501.5200, L509.1000, L501.9985, L500.4050, L501.9520, L506.0400, L506.1000, L100.0100 #### [facility] [address] [place], [address] Triglyceride [Mass/Vol] 341 mg/dL High [facility] Comment on above: Order Comment: Order Date: 12/13/23 Order Info: 0786-1 - CMP Order Info: 2777-1 - PHOS Order Info: 81414-8 - MG Order Info: 3016-3 - TSH Order Info: 3024-7 - T4F Result Comment: The drugs N-Acetylcysteine and Metamizole may falsely depress this assay. Serum Triglycerides Reference Interval Normal <150 mg/dL Borderline high 150 - 199 mg/dL High 200 - 499 mg/dL Very High > or = 500 mg/dL Performed By: #### L 501.2300, L501.5200, L509.1000, L501.9985, L500.4050, L501.9520, L506.0400, L506.1000, L100.0100 #### [facility] [address] [place], [address] PTHINon 12-05-2023 PTH 105.5 pg/mL High 18.4-80.1 [facility] Comment on above: Order Comment: Order Date: 12/13/23 Order Info: 0565-1 - PTHIN Performed By: #### L 501.2300, L501.5200, L509.1000, L501.9985, L500.4050, L501.9520, L506.0400, L506.1000, L100.0100 #### [facility] [address] [place], [address] Protein+Creatinine Ratio,Uri neon 12-05-2023 PROT:CRE RATIO 219 mg/g CRE High 0-200 [facility] Comment on above: Performed By: #### L 501.0900 #### [facility] [address] [place], [address] Protein (U) [Mass/Vol] 25.6 mg/dL High <11.9 [facility] Comment on above: Performed By: #### L 501.0900 #### [facility] [address] [place], [address] UR CREAT 117.00 mg/dL Normal NO RANGE EST. [facility] Comment on above: Performed By: #### L 501.0900 #### [facility] [address] [place], [address] T4 Free Directon 12-05-2023 T4 FREE DIRECT 0.80 ng/dL Normal 0.76-1.46 [facility] Comment on above: Order Comment: Order Date: 12/13/23 Order Info: 0786-1 - CMP Order Info: 27709-22 - PHOS Order Info: 02767-1 - MG Order Info: 3 - TSH Order Info: 7 - T4F Performed By: #### L 501.2300, L501.5200, L509.1000, L501.9985, L500.4050, L501.9520, L506.0400, L506.1000, L100.0100 #### [facility] [address] [place], [address] Thyroid Stim Hormone (TSH)on 12-05-2023 TSH 4.730 uIU/mL High 0.358-3.740 [facility] Comment on above: Order Comment: Order Date: 12/13/23 Order Info: [id number] - CMP Order Info: [id number] - PHOS Order Info: [id number] - MG Order Info: [id number] - TSH Order Info: [id number] - T4F Performed By: #### L 501.2300, L501.5200, L509.1000, L501.9985, L500.4050, L501.9520, L506.0400, L506.1000, L100.0100 #### [facility] [address] [place], [place], [address] Vitamin D,25 Hydroxyon 12-04 Vitamin D 25-OH 32.2 ng/mL Normal [facility] Comment on above: Order Comment: Order Date: 12/13/23 Order Info: [id number] - PTHIN Result Comment: Nohelai min D 25(OH) Status Range Deficiency <20 ng/mL (50nmol/L) Insufficiency 20 - 30 ng/mL (50 - 75 nmol/L) Sufficiency 30 - 100 ng/mL (75 - 250 nmol/L) Toxicity >100 ng/mL (>250 nmol/L) Performed By: #### L 501.2300, L501.5200, L509.1000, L501.9985, L500.4050, L501.9520, L506.0400, L506.1000, L100.0100 #### [facility] [address] [place], [place], [address] Absolute lymphocyte countOrd ered By: Samuel Bazan on 07-09-2023 Lymphocytes Auto (Unsp spec) [#/Vol] 1.55 10*3/uL 0.83-4.51 [facility] Automated lymphocyte count a s percentage of total leukocytesOrdered By: Samuel Bazan on 07-09-2023 Lymphocytes/100 WBC Auto (Unsp spec) 19.4 % 19-41 [facility] Basophil percentageOrdered B y: Samuel Bazan on 07-09-2023 Basophil percentage 0 SEEN /hpf 0-5 [facility] Basophil percentage 3.2 mg/dL 2.5-4.9 [facility] Basophils/100 WBC (Bld) 0.9 % 0-1 [facility] Bilirubin [Mass/Vol] 0.80 mg/dL 0.20-1.00 [facility] Comment on above: For patients on eltr ombopag therapy, use of Dimension [place] TBIL is not recommended. Chloride [Moles/Vol] 105 mmol/L 98-107 [facility] Cholesterol [Mass/Vol] 185 mg/dL <200 [facility] Comment on above: <200 mg/dL Desirable 200-240 mg/dL Borderline >240 mg/dL High Risk Eosinophils/100 WBC (Bld) 7.7 % 0-5 [facility] Glucose [Mass/Vol] 103 mg/dL 74-106 [facility] Comment on above: Fasting Glucose resu lt from 100 to 125 mg/dL suggests IMPAIRED HOMEOSTASIS per A.D.A. criteria. Hemoglobin (Bld) [Mass/Vol] 16.3 g/dL 13.0-16.5 [facility] Monocytes/100 WBC (Bld) 9.0 % 0-10 [facility] Neutrophils (Bld) [#/Vol] 5.0 10*3/uL 2.0-7.7 [facility] Neutrophils/100 WBC (Bld) 62.6 % 47-70 [facility] Potassium [Moles/Vol] 3.8 mmol/L 3.5-5.1 [facility] Protein [Mass/Vol] 7.4 g/dL 6.4-8.2 [facility] Sodium [Moles/Vol] 140 mmol/L 136-145 [facility] Triglyceride [Mass/Vol] 293 mg/dL <199 [facility] Comment on above: The drugs N-Acetylcy steine and Metamizole may falsely depress this assay.Serum Triglycerides Reference Interval Normal <150 mg/dL Borderline high 150 - 199 mg/dL High 200 - 499 mg/dL Very High > or = 500 mg/dL WBC (Bld) [#/Vol] 8.0 10*3/uL 4.4-11.0 [facility] Bilirubin Test strip Ql (U)O rdered By: Samuel Bazan on 07-09-2023 Bilirubin Ql (U) Negative Negative [facility] Determination of erythrocyte mean corpuscular volume (MCV)Ordered By: Samuel Bazan on 07-09-2023 MCV (RBC) [Entitic vol] 91.3 fL 80-94 [facility] Erythrocyte distribution wid th ratioOrdered By: Samuel Bazan on 07-09-2023 Erythrocyte distribution width (RBC) [Ratio] 13.9 % 11.6-14.6 [facility] Erythrocyte distribution wid th standard deviationOrdered By: Samuel Bazan on 07-09-2023 Erythrocyte distribution width (RBC) [Entitic vol] 46.7 fL 35.1-43.9 [facility] Hematocrit Auto (Bld) [Volum e fraction]Ordered By: Samuel Bazan on 07-09-2023 Hematocrit (Bld) [Volume fraction] 50.4 % 40-54 [facility] Immature granulocytes/100 WB C Auto (Bld)Ordered By: Samuel Bazan on 07-09-2023 Immature granulocytes/100 WBC (Bld) 0.400 % 0.0-0.9 [facility] Comment on above: IG% - Immature Granu locytes (promyelocytes, myelocytes and metamyelocytes) > 1% indicates that a LEFT SHIFT is Present. Ketones Test strip Ql (U)Ord ered By: Samuel Bazan on 07-09-2023 Ketones Ql (U) Negative Negative [facility] Laboratory - Chemistry and C hemistry - challengeOrdered By: Samuel Bazan on 07-09-2023 Albumin/Globulin [Mass ratio] 0.9 {ratio} 0.9-2.4 [facility] ALP [Catalytic activity/Vol] 78 U/L 45-117 [facility] ALT [Catalytic activity/Vol] 23 U/L 16-61 [facility] Cholesterol in HDL [Mass/Vol] 36 mg/dL >40 [facility] Comment on above: The drugs N-Acetylcy steine and Metamizole may falsely depress this assay. Reference Range HDL <40 mg/dL Low HDL Cholesterol HDL >or= 60 mg/dL High HDL Cholesterol Cholesterol in LDL [Mass/Vol] 90 mg/dL 0-130 [facility] CO2 [Moles/Vol] 29.0 mmol/L 21.0-32.0 [facility] Globulin (S) [Mass/Vol] 3.8 g/dL 2.2-4.2 [facility] Urea nitrogen/Creatinine [Mass ratio] 17.8 mg/mg 10-20 [facility] Laboratory - Hematology and Cell countsOrdered By: Samuel Bazan on 07-09-2023 MCH (RBC) [Entitic mass] 29.5 pg 27.0-32.0 [facility] MCHC (RBC) [Mass/Vol] 32.3 g/dL 32-36 [facility] Nucleated RBC/100 WBC (Bld) [Ratio] 0 % 0-5 [facility] Platelet mean volume (Bld) [Entitic vol] 9.9 fL 6.2-12.0 [facility] Platelets (Bld) [#/Vol] 187 10*3/uL 150-450 [facility] Mucus LM Ql (Urine sed)Order ed By: Samuel Bazan on 07-09-2023 Mucus Ql (Urine sed) 0 SEEN /hpf [facility] Nitrite Test strip Ql (U)Ord ered By: Samuel Bazan on 07-09-2023 Nitrite Ql (U) Negative Negative [facility] No Panel InformationOrdered By: Samuel Bazan on 07-09-2023 Estimated GFR (MDRD) Amer 70 mL/min >60 [facility] Comment on above: GFR Calc Estimated GFR (MDRD) Non-Af Amer 58 mL/min >60 [facility] Comment on above: Non- GFR Calc Parathyroid Hormone (Intact) 80.7 pg/mL 18.4-80.1 [facility] Urine RBC 0 SEEN /hpf 0-5 [facility] VLDL Cholesterol 59 mg/dL 5-40 [facility] Protein Test strip Ql (U)Ord ered By: Samuel Bazan on 07-09-2023 Protein Ql (U) Negative Negative [facility] RBC Auto (Bld) [#/Vol]Ordere d By: Samuel Bazan on 07-09-2023 RBC (Bld) [#/Vol] 5.52 10*6/uL 4.6-6.2 [facility] Serum or plasma calcium chemo urement (mass/volume)Ordered By: Samuel Bazan on 07-09-2023 Calcium [Mass/Vol] 9.1 mg/dL 8.5-10.1 [facility] Serum or plasma creatinine m easurement (mass/volume)Ordered By: Samuel Bazan on 07-09-2023 Creatinine [Mass/Vol] 1.29 mg/dL 0.70-1.30 [facility] Comment on above: The validity of the calculated GFR & GFRAA in patients over 70 years has not been determined. Clinical correlation is essential. Serum or plasma thyroid stim ulating hormone (TSH) measurement (units/volume)Ordered By: Samuel Bazan on 07-09-2023 TSH Qn 4.92 uIU/mL 0.358-3.74 [facility] Serum or plasma urea nitroge n measurement (mass/volume)Ordered By: Samuel Bazan on 07-09-2023 Urea nitrogen [Mass/Vol] 23 mg/dL 7-18 [facility] Squamous epithelial cells de tection in urine sediment by light microscopyOrdered By: Samuel Bazan on 07-09-2023 Epithelial cells.squamous LM Ql (Urine sed) 0 SEEN /hpf 0-5 [facility] Thin prep Papanicolaou smear with manual screeningOrdered By: Samuel Bazan on 07-09-2023 Protein (U) [Mass/Vol] 18.9 mg/dL 0.0-11.8 [facility] Thin prep Papanicolaou smear with manual screening 3.6 g/dL 3.2-5.0 [facility] Thin prep Papanicolaou smear with manual screening 18 U/L 15-37 [facility] Thin prep Papanicolaou smear with manual screening 6 5-15 [facility] Thin prep Papanicolaou smear with manual screening 0.83 ng/dL 0.76-1.46 [facility] Urine blood detectionOrdered By: Samuel Bazan on 07-09-2023 RBC Ql (U) Negative Negative [facility] Urine clarityOrdered By: Gabo Bazan on 07-09-2023 Clarity (U) Clear Clear [facility] Urine color determinationOrd ered By: Samuel Bazan on 07-09-2023 Color (U) Yellow Yellow [facility] Urine creatinine measurement (mass/volume)Ordered By: Samuel Bazan on 07-09-2023 Creatinine (U) [Mass/Vol] 65.30 mg/dL NO RANGE EST. [facility] Urine glucose detectionOrder ed By: Samuel Bazan on 07-09-2023 Glucose Ql (U) Normal mg/dl Normal [facility] Urine leukocyte esterase det ection by dipstickOrdered By: Samuel Bazan on 07-09-2023 Leukocyte esterase Test strip Ql (U) Negative Negative [facility] Urine pHOrdered By: Samuel jama on 07-09-2023 pH (U) 7.0 [pH] 5.0 - 8.0 [facility] Urine protein/creatinine mas s ratioOrdered By: Samuel Bazan on 07-09-2023 Protein/Creatinine (U) [Mass ratio] 289 mg/g CRE 0-200 [facility] Urine sediment bacteria coun t by microscopy (number/high power field)Ordered By: Samuel Bazan on 07-09-2023 Bacteria LM.HPF (Urine sed) [#/Area] 0 /[HPF] None Seen [facility] Urine specific gravity measu rementOrdered By: Samuel Bazan on 07-09-2023 Specific gravity (U) [Rel density] 1.010 1.002-1.030 [facility] Urine urobilinogen measureme ntOrdered By: Samuel Bazan on 07-09-2023 Urobilinogen Ql (U) Normal mg/dl Normal [facility] Whole blood hemoglobin A1c/t otal hemoglobin ratio (mass fraction)Ordered By: Samuel Bazan on 07-09-2023 HbA1c (Bld) [Mass fraction] 5.8 % 3.8-5.6 [facility] Comment on above: Normal < 5.7 % Predi abetic 5.7 - 6.4 % Diabetic >or= 6.5 % Please note range changes. Absolute lymphocyte countOrd ered By: Samuel Bazan on 03-05-2023 Lymphocytes Auto (Unsp spec) [#/Vol] 1.65 10*3/uL 0.83-4.51 [facility] Basophil percentageOrdered B y: Samuel Bazan on 03-05-2023 Basophil percentage 0 SEEN /hpf 0-5 [facility] Basophil percentage 3.2 mg/dL 2.5-4.9 [facility] Basophils/100 WBC (Bld) 0.6 % 0-1 [facility] Bilirubin [Mass/Vol] 0.50 mg/dL 0.20-1.00 [facility] Comment on above: For patients on eltr ombopag therapy, use of Dimension [place] TBIL is not recommended. Chloride [Moles/Vol] 110 mmol/L 98-107 [facility] Cholesterol [Mass/Vol] 194 mg/dL <200 [facility] Comment on above: <200 mg/dL Desirable 200-240 mg/dL Borderline >240 mg/dL High Risk Eosinophils/100 WBC (Bld) 8.1 % 0-5 [facility] Glucose [Mass/Vol] 94 mg/dL 74-106 [facility] Neutrophils (Bld) [#/Vol] 4.2 10*3/uL 2.0-7.7 [facility] Neutrophils/100 WBC (Bld) 58.4 % 47-70 [facility] Potassium [Moles/Vol] 4.2 mmol/L 3.5-5.1 [facility] Protein [Mass/Vol] 7.6 g/dL 6.4-8.2 [facility] Sodium [Moles/Vol] 141 mmol/L 136-145 [facility] Triglyceride [Mass/Vol] 213 mg/dL <199 [facility] Comment on above: The drugs N-Acetylcy steine and Metamizole may falsely depress this assay.Serum Triglycerides Reference Interval Normal <150 mg/dL Borderline high 150 - 199 mg/dL High 200 - 499 mg/dL Very High > or = 500 mg/dL WBC (Bld) [#/Vol] 7.2 10*3/uL 4.4-11.0 [facility] Bilirubin Test strip Ql (U)O rdered By: Samuel Bazan on 03-05-2023 Bilirubin Ql (U) Negative Negative [facility] Blood erythrocytes count (nu mber/volume)Ordered By: Samuel Bazan on 03-05-2023 RBC (Bld) [#/Vol] 5.22 10*6/uL 4.6-6.2 [facility] Blood hemoglobin measurement (mass/volume)Ordered By: Samuel Bazan on 03-05-2023 Hemoglobin (Bld) [Mass/Vol] 15.8 g/dL 13.0-16.5 [facility] Blood lymphocytes/100 leukoc ytesOrdered By: Samuel Bazan on 03-05-2023 Lymphocytes/100 WBC (Bld) 22.8 % 19-41 [facility] Blood monocytes/100 leukocyt esOrdered By: Samuel Bazan on 03-05-2023 Monocytes/100 WBC (Bld) 9.7 % 0-10 [facility] Blood platelet mean volumeOr dered By: Samuel Bazan on 03-05-2023 Platelet mean volume (Bld) [Entitic vol] 10.4 fL 6.2-12.0 [facility] Determination of erythrocyte mean corpuscular volume (MCV)Ordered By: Samuel Bazan on 03-05-2023 MCV (RBC) [Entitic vol] 94.1 fL 80-94 [facility] Hematocrit Auto (Bld) [Volum e fraction]Ordered By: Samuel Bazan on 03-05-2023 Hematocrit (Bld) [Volume fraction] 49.1 % 40-54 [facility] Ketones Test strip Ql (U)Ord ered By: Samuel Bazan on 03-05-2023 Ketones Ql (U) Negative Negative [facility] Laboratory - Chemistry and C hemistry - challengeOrdered By: Samuel Bazan on 03-05-2023 ALP [Catalytic activity/Vol] 79 U/L 45-117 [facility] ALT [Catalytic activity/Vol] 22 U/L 16-61 [facility] CO2 [Moles/Vol] 26.0 mmol/L 21.0-32.0 [facility] Free T4 [Mass/Vol] 0.84 ng/dL 0.76-1.46 [facility] Globulin (S) [Mass/Vol] 3.9 g/dL 2.2-4.2 [facility] Urea nitrogen/Creatinine [Mass ratio] 17.1 mg/mg 10-20 [facility] Laboratory - Hematology and Cell countsOrdered By: Samuel Bazan on 03-05-2023 Erythrocyte distribution width (RBC) [Entitic vol] 48.0 fL 35.1-43.9 [facility] Erythrocyte distribution width (RBC) [Ratio] 14.0 % 11.6-14.6 [facility] Immature granulocytes/100 WBC (Bld) 0.400 % 0.0-0.9 [facility] Comment on above: IG% - Immature Granu locytes (promyelocytes, myelocytes and metamyelocytes) > 1% indicates that a LEFT SHIFT is Present. MCH (RBC) [Entitic mass] 30.3 pg 27.0-32.0 [facility] Nucleated RBC/100 WBC (Bld) [Ratio] 0 % 0-5 [facility] MCHC Auto (RBC) [Mass/Vol]Or dered By: Samuel Bazan on 03-05-2023 MCHC (RBC) [Mass/Vol] 32.2 g/dL 32-36 [facility] Mucus LM Ql (Urine sed)Order ed By: Samuel Bazan on 03-05-2023 Mucus Ql (Urine sed) 0 SEEN /hpf [facility] Nitrite Test strip Ql (U)Ord ered By: Samuel Bazan on 03-05-2023 Nitrite Ql (U) Negative Negative [facility] No Panel InformationOrdered By: Samuel Bazan on 03-05-2023 Estimated GFR (MDRD) Amer 79 mL/min >60 [facility] Comment on above: GFR Calc Estimated GFR (MDRD) Non-Af Amer 65 mL/min >60 [facility] Comment on above: Non- GFR Calc Parathyroid Hormone (Intact) 142.5 pg/mL 18.4-80.1 [facility] Prostate Specific Antigen Screen 3.68 ng/mL 0.00-4.00 [facility] Comment on above: This test was perfor med using the TPSA assay method for the[employer] chemistry system. Values obtained with differentassay methods cannot be used interchangably.When changing PSA assays in the course of monitoring apatient, additional sequential testing should be carriedout to confirm baseline values. Thyroid Stimulating Hormone (TSH) 5.79 uIU/mL 0.358-3.74 [facility] Vitamin D 25-Hydroxy 26.8 ng/mL [facility] Comment on above: Vitamin D 25(OH) Sta tus Range Deficiency <20 ng/mL (50nmol/L) Insufficiency 20 - 30 ng/mL (50 - 75 nmol/L) Sufficiency 30 - 100 ng/mL (75 - 250 nmol/L) Toxicity >100 ng/mL (>250 nmol/L) Platelets bldOrdered By: Gabo Bazan on 03-05-2023 Platelets (Bld) [#/Vol] 207 10*3/uL 150-450 [facility] Protein Test strip Ql (U)Ord ered By: Samuel Bazan on 03-05-2023 Protein Ql (U) Negative Negative [facility] Serum or plasma albumin chemo urement (mass/volume)Ordered By: Samuel Bazan on 03-05-2023 Albumin [Mass/Vol] 3.7 g/dL 3.2-5.0 [facility] Serum or plasma albumin/glob ulin mass ratioOrdered By: Samuel Bazan on 03-05-2023 Albumin/Globulin [Mass ratio] 0.9 {ratio} 0.9-2.4 [facility] Serum or plasma calcium chemo urement (mass/volume)Ordered By: Samuel Bazan on 03-05-2023 Calcium [Mass/Vol] 9.3 mg/dL 8.5-10.1 [facility] Serum or plasma cholesterol in HDL measurement (mass/volume)Ordered By: Samuel Bazan on 03-05-2023 Cholesterol in HDL [Mass/Vol] 39 mg/dL >40 [facility] Comment on above: The drugs N-Acetylcy steine and Metamizole may falsely depress this assay. Reference Range HDL <40 mg/dL Low HDL Cholesterol HDL >or= 60 mg/dL High HDL Cholesterol Serum or plasma cholesterol in VLDL measurement (mass/volume)Ordered By: Samuel Bazan on 03-05-2023 Cholesterol in VLDL [Mass/Vol] 43 mg/dL 5-40 [facility] Serum or plasma creatinine m easurement (mass/volume)Ordered By: Samuel Bazan on 03-05-2023 Creatinine [Mass/Vol] 1.17 mg/dL 0.70-1.30 [facility] Comment on above: The validity of the calculated GFR & GFRAA in patients over 70 years has not been determined. Clinical correlation is essential. Serum or plasma low density lipoprotein (LDL) cholesterol measurement (mass/volume)Ordered By: Samuel Bazan on 03-05-2023 Cholesterol in LDL [Mass/Vol] 112 mg/dL 0-130 [facility] Serum or plasma urea nitroge n measurement (mass/volume)Ordered By: Samuel Bazan on 03-05-2023 Urea nitrogen [Mass/Vol] 20 mg/dL 7-18 [facility] Squamous epithelial cells de tection in urine sediment by light microscopyOrdered By: Samuel Bazan on 03-05-2023 Epithelial cells.squamous LM Ql (Urine sed) 0 SEEN /hpf 0-5 [facility] Thin prep Papanicolaou smear with manual screeningOrdered By: Samuel Bazan on 03-05-2023 Thin prep Papanicolaou smear with manual screening 13 U/L 15-37 [facility] Thin prep Papanicolaou smear with manual screening 5 5-15 [facility] Urine blood detectionOrdered By: Samuel Bazan on 03-05-2023 RBC Ql (U) Negative Negative [facility] RBC Ql (U) 0 SEEN /hpf 0-5 [facility] Urine clarityOrdered By: Gabo Bazan on 03-05-2023 Clarity (U) Clear Clear [facility] Urine color determinationOrd ered By: Samuel Bazan on 03-05-2023 Color (U) Yellow Yellow [facility] Urine creatinine measurement (mass/volume)Ordered By: Samuel Bazan on 03-05-2023 Creatinine (U) [Mass/Vol] 55.40 mg/dL NO RANGE EST. [facility] Urine glucose detectionOrder ed By: Samuel Bazan on 03-05-2023 Glucose Ql (U) Normal mg/dl Normal [facility] Urine leukocyte esterase det ection by dipstickOrdered By: Samuel Bazan on 03-05-2023 Leukocyte esterase Test strip Ql (U) Negative Negative [facility] Urine pHOrdered By: Samuel jama on 03-05-2023 pH (U) 7.0 [pH] 5.0 - 8.0 [facility] Urine protein measurement (m ass/volume)Ordered By: Smauel Bazan on 03-05-2023 Protein (U) [Mass/Vol] 15.0 mg/dL 0.0-11.8 [facility] Urine protein/creatinine mas s ratioOrdered By: Samuel Bazan on 03-05-2023 Protein/Creatinine (U) [Mass ratio] 271 mg/g CRE 0-200 [facility] Urine sediment bacteria coun t by microscopy (number/high power field)Ordered By: Samuel Bazan on 03-05-2023 Bacteria LM.HPF (Urine sed) [#/Area] 0 /[HPF] None Seen [facility] Urine specific gravity measu rementOrdered By: Samuel Bazan on 03-05-2023 Specific gravity (U) [Rel density] 1.010 1.002-1.030 [facility] Urobilinogen Auto test strip Ql (U)Ordered By: Samuel Bazan on 03-05-2023 Urobilinogen Ql (U) Normal mg/dl Normal [facility] Whole blood hemoglobin A1c/t otal hemoglobin ratio (mass fraction)Ordered By: Samuel Bazan on 03-05-2023 HbA1c (Bld) [Mass fraction] 5.8 % 3.8-5.6 [facility] Comment on above: Normal < 5.7 % Predi abetic 5.7 - 6.4 % Diabetic >or= 6.5 % Please note range changes. Absolute lymphocyte countOrd ered By: Samuel Bazan on 10-17-2022 Lymphocytes Auto (Unsp spec) [#/Vol] 1.47 10*3/uL 0.83-4.51 [facility] Basophil percentageOrdered B y: Samuel Bazan on 10-17-2022 Basophil percentage 0 SEEN /hpf 0-5 [facility] Basophil percentage 2.8 mg/dL 2.5-4.9 [facility] Basophils/100 WBC (Bld) 0.5 % 0-1 [facility] Bilirubin [Mass/Vol] 0.80 mg/dL 0.20-1.00 [facility] Comment on above: For patients on eltr ombopag therapy, use of Dimension [place] TBIL is not recommended. Chloride [Moles/Vol] 109 mmol/L 98-107 [facility] Cholesterol [Mass/Vol] 182 mg/dL <200 [facility] Comment on above: <200 mg/dL Desirable 200-240 mg/dL Borderline >240 mg/dL High Risk Eosinophils/100 WBC (Bld) 8.5 % 0-5 [facility] Glucose [Mass/Vol] 97 mg/dL 74-106 [facility] Neutrophils (Bld) [#/Vol] 3.5 10*3/uL 2.0-7.7 [facility] Neutrophils/100 WBC (Bld) 57.4 % 47-70 [facility] Potassium [Moles/Vol] 4.3 mmol/L 3.5-5.1 [facility] Protein [Mass/Vol] 7.2 g/dL 6.4-8.2 [facility] Sodium [Moles/Vol] 140 mmol/L 136-145 [facility] Triglyceride [Mass/Vol] 267 mg/dL <199 [facility] Comment on above: The drugs N-Acetylcy steine and Metamizole may falsely depress this assay.Serum Triglycerides Reference Interval Normal <150 mg/dL Borderline high 150 - 199 mg/dL High 200 - 499 mg/dL Very High > or = 500 mg/dL WBC (Bld) [#/Vol] 6.1 10*3/uL 4.4-11.0 [facility] Bilirubin Test strip Ql (U)O rdered By: Samuel Bazan on 10-17-2022 Bilirubin Ql (U) Negative Negative [facility] Blood erythrocytes count (nu mber/volume)Ordered By: Samuel Bazan on 10-17-2022 RBC (Bld) [#/Vol] 5.33 10*6/uL 4.6-6.2 [facility] Blood hemoglobin measurement (mass/volume)Ordered By: Samuel Bazan on 10-17-2022 Hemoglobin (Bld) [Mass/Vol] 16.0 g/dL 13.0-16.5 [facility] Blood lymphocytes/100 leukoc ytesOrdered By: Samuel Bazan on 10-17-2022 Lymphocytes/100 WBC (Bld) 24.1 % 19-41 [facility] Blood monocytes/100 leukocyt esOrdered By: Samuel Bazan on 10-17-2022 Monocytes/100 WBC (Bld) 9.2 % 0-10 [facility] Blood platelet mean volumeOr dered By: Samuel Bazan on 10-17-2022 Platelet mean volume (Bld) [Entitic vol] 10.3 fL 6.2-12.0 [facility] Determination of erythrocyte mean corpuscular volume (MCV)Ordered By: Samuel Bazan on 10-17-2022 MCV (RBC) [Entitic vol] 94.0 fL 80-94 [facility] Hematocrit Auto (Bld) [Volum e fraction]Ordered By: Samuel Bazan on 10-17-2022 Hematocrit (Bld) [Volume fraction] 50.1 % 40-54 [facility] Ketones Test strip Ql (U)Ord ered By: Samuel Bazan on 10-17-2022 Ketones Ql (U) Negative Negative [facility] Laboratory - Chemistry and C hemistry - challengeOrdered By: Samuel Bazan on 10-17-2022 ALP [Catalytic activity/Vol] 82 U/L 45-117 [facility] ALT [Catalytic activity/Vol] 24 U/L 16-61 [facility] CO2 [Moles/Vol] 28.0 mmol/L 21.0-32.0 [facility] Free T4 [Mass/Vol] 0.78 ng/dL 0.76-1.46 [facility] Globulin (S) [Mass/Vol] 3.6 g/dL 2.2-4.2 [facility] Urea nitrogen/Creatinine [Mass ratio] 18.9 mg/mg 10-20 [facility] Laboratory - Hematology and Cell countsOrdered By: Samuel Bazan on 10-17-2022 Erythrocyte distribution width (RBC) [Entitic vol] 48.3 fL 35.1-43.9 [facility] Erythrocyte distribution width (RBC) [Ratio] 14.1 % 11.6-14.6 [facility] Immature granulocytes/100 WBC (Bld) 0.300 % 0.0-0.9 [facility] Comment on above: IG% - Immature Granu locytes (promyelocytes, myelocytes and metamyelocytes) > 1% indicates that a LEFT SHIFT is Present. MCH (RBC) [Entitic mass] 30.0 pg 27.0-32.0 [facility] Nucleated RBC/100 WBC (Bld) [Ratio] 0 % 0-5 [facility] MCHC Auto (RBC) [Mass/Vol]Or dered By: Samuel Bazan on 10-17-2022 MCHC (RBC) [Mass/Vol] 31.9 g/dL 32-36 [facility] Mucus LM Ql (Urine sed)Order ed By: Samuel Bazan on 10-17-2022 Mucus Ql (Urine sed) 0 SEEN /hpf [facility] Nitrite Test strip Ql (U)Ord ered By: Samuel Bazan on 10-17-2022 Nitrite Ql (U) Negative Negative [facility] No Panel InformationOrdered By: Samuel Bazan on 10-17-2022 Estimated GFR (MDRD) Amer 75 mL/min >60 [facility] Comment on above: GFR Calc Estimated GFR (MDRD) Non-Af Amer 62 mL/min >60 [facility] Comment on above: Non- GFR Calc Parathyroid Hormone (Intact) 128.9 pg/mL 18.4-80.1 [facility] Thyroglobulin Antibody < 1.0 IU/mL 0.0-0.9 [facility] Comment on above: Thyroglobulin Antibo dy measured by Kelsie CoulterMethodology Thyroglobulin Level 14.9 ng/mL 1.4-29.2 [facility] Comment on above: According to the [facility] [employer] of Clinical Biochemistry,the reference interval for Thyroglobulin (TG) should berelated to euthyroid patients and not for patients whounderwent thyroidectomy. TG reference intervals for thesepatients depend on the residual mass of the thyroid tissueleft after surgery. Establishing a post-operative baselineis recommended. The assay limit of quantitation is 0.1ng/mLThyroglobulin measured by Kelsie Archie ImmunometricAssay Thyroid Stimulating Hormone (TSH) 4.33 uIU/mL 0.358-3.74 [facility] Platelets bldOrdered By: Gabo Bazan on 10-17-2022 Platelets (Bld) [#/Vol] 180 10*3/uL 150-450 [facility] Protein Test strip Ql (U)Ord ered By: Samuel Bazan on 10-17-2022 Protein Ql (U) Negative Negative [facility] Serum or plasma albumin chemo urement (mass/volume)Ordered By: Samuel Bazan on 10-17-2022 Albumin [Mass/Vol] 3.6 g/dL 3.2-5.0 [facility] Serum or plasma albumin/glob ulin mass ratioOrdered By: Samuel Bazan on 10-17-2022 Albumin/Globulin [Mass ratio] 1.0 {ratio} 0.9-2.4 [facility] Serum or plasma calcium chemo urement (mass/volume)Ordered By: Samuel Bazan on 10-17-2022 Calcium [Mass/Vol] 8.6 mg/dL 8.5-10.1 [facility] Serum or plasma cholesterol in HDL measurement (mass/volume)Ordered By: Samuel Bazan on 10-17-2022 Cholesterol in HDL [Mass/Vol] 35 mg/dL >40 [facility] Comment on above: The drugs N-Acetylcy steine and Metamizole may falsely depress this assay. Reference Range HDL <40 mg/dL Low HDL Cholesterol HDL >or= 60 mg/dL High HDL Cholesterol Serum or plasma cholesterol in VLDL measurement (mass/volume)Ordered By: Samuel Bazan on 10-17-2022 Cholesterol in VLDL [Mass/Vol] 53 mg/dL 5-40 [facility] Serum or plasma creatinine m easurement (mass/volume)Ordered By: Samuel Bazan on 10-17-2022 Creatinine [Mass/Vol] 1.22 mg/dL 0.70-1.30 [facility] Comment on above: The validity of the calculated GFR & GFRAA in patients over 70 years has not been determined. Clinical correlation is essential. Serum or plasma low density lipoprotein (LDL) cholesterol measurement (mass/volume)Ordered By: Samuel Bazan on 10-17-2022 Cholesterol in LDL [Mass/Vol] 94 mg/dL 0-130 [facility] Serum or plasma thyroperoxid ase antibody assay (units/volume)Ordered By: Sameul Bazan on 10-17-2022 TPO Ab Qn [IU]/mL 0-34 [facility] Comment on above: Performed at: [facility] [employer] Director: Jonas Solo PhD, Phone: [phone] Serum or plasma urea nitroge n measurement (mass/volume)Ordered By: Samuel Bazan on 10-17-2022 Urea nitrogen [Mass/Vol] 23 mg/dL 7-18 [facility] Squamous epithelial cells de tection in urine sediment by light microscopyOrdered By: Samuel Bazan on 10-17-2022 Epithelial cells.squamous LM Ql (Urine sed) 0 SEEN /hpf 0-5 [facility] Thin prep Papanicolaou smear with manual screeningOrdered By: Samuel Bazan on 10-17-2022 Thin prep Papanicolaou smear with manual screening 15 U/L 15-37 [facility] Thin prep Papanicolaou smear with manual screening 3 5-15 [facility] Urine blood detectionOrdered By: Samuel Bazan on 10-17-2022 RBC Ql (U) Negative Negative [facility] RBC Ql (U) 0 SEEN /hpf 0-5 [facility] Urine clarityOrdered By: Gabo Bazan on 10-17-2022 Clarity (U) Clear Clear [facility] Urine color determinationOrd ered By: Samuel Bazan on 10-17-2022 Color (U) Yellow Yellow [facility] Urine creatinine measurement (mass/volume)Ordered By: Samuel Bazan on 10-17-2022 Creatinine (U) [Mass/Vol] 71.10 mg/dL NO RANGE EST. [facility] Urine glucose detectionOrder ed By: Samuel Bazan on 10-17-2022 Glucose Ql (U) Normal mg/dl Normal [facility] Urine leukocyte esterase det ection by dipstickOrdered By: Samuel Bazan on 10-17-2022 Leukocyte esterase Test strip Ql (U) Negative Negative [facility] Urine pHOrdered By: Samuel jama on 10-17-2022 pH (U) 8.0 [pH] 5.0 - 8.0 [facility] Urine protein measurement (m ass/volume)Ordered By: Samuel Bazan on 10-17-2022 Protein (U) [Mass/Vol] 14.9 mg/dL 0.0-11.8 [facility] Urine protein/creatinine mas s ratioOrdered By: Samuel Bazan on 10-17-2022 Protein/Creatinine (U) [Mass ratio] 210 mg/g CRE 0-200 [facility] Urine sediment bacteria coun t by microscopy (number/high power field)Ordered By: Samuel Bazan on 10-17-2022 Bacteria LM.HPF (Urine sed) [#/Area] 0 /[HPF] None Seen [facility] Urine specific gravity measu rementOrdered By: Samuel Bazan on 10-17-2022 Specific gravity (U) [Rel density] 1.010 1.002-1.030 [facility] Urobilinogen Auto test strip Ql (U)Ordered By: Samuel Bazan on 10-17-2022 Urobilinogen Ql (U) Normal mg/dl Normal [facility] Whole blood hemoglobin A1c/t otal hemoglobin ratio (mass fraction)Ordered By: Samuel Bazan on 10-17-2022 HbA1c (Bld) [Mass fraction] 5.8 % 3.8-5.6 [facility] Comment on above: Normal < 5.7 % Predi abetic 5.7 - 6.4 % Diabetic >or= 6.5 % Please note range changes. Absolute lymphocyte countOrd ered By: Dr. Bazan on 06-12-2022 Lymphocytes Auto (Unsp spec) [#/Vol] 1.47 10*3/uL 0.83-4.51 [facility] Basophil percentageOrdered B y: Dr. Bazan on 06-12-2022 Basophils/100 WBC (Bld) 0.7 % 0-1 [facility] Bilirubin [Mass/Vol] 1.00 mg/dL 0.20-1.00 [facility] Comment on above: For patients on eltr ombopag therapy, use of Dimension [place] TBIL is not recommended. Chloride [Moles/Vol] 106 mmol/L 98-107 [facility] Cholesterol [Mass/Vol] 205 mg/dL <200 [facility] Comment on above: <200 mg/dL Desirable 200-240 mg/dL Borderline >240 mg/dL High Risk Eosinophils/100 WBC (Bld) 7.5 % 0-5 [facility] Glucose [Mass/Vol] 101 mg/dL 74-106 [facility] Comment on above: Fasting Glucose resu lt from 100 to 125 mg/dL suggests IMPAIRED HOMEOSTASIS per A.D.A. criteria. Neutrophils (Bld) [#/Vol] 4.5 10*3/uL 2.0-7.7 [facility] Neutrophils/100 WBC (Bld) 62.6 % 47-70 [facility] Potassium [Moles/Vol] 4.0 mmol/L 3.5-5.1 [facility] Protein [Mass/Vol] 7.5 g/dL 6.4-8.2 [facility] Sodium [Moles/Vol] 141 mmol/L 136-145 [facility] Triglyceride [Mass/Vol] 273 mg/dL <199 [facility] Comment on above: The drugs N-Acetylcy steine and Metamizole may falsely depress this assay.Serum Triglycerides Reference Interval Normal <150 mg/dL Borderline high 150 - 199 mg/dL High 200 - 499 mg/dL Very High > or = 500 mg/dL WBC (Bld) [#/Vol] 7.2 10*3/uL 4.4-11.0 [facility] Blood erythrocytes count (nu mber/volume)Ordered By: Dr. Bazan on 06-12-2022 RBC (Bld) [#/Vol] 5.38 10*6/uL 4.6-6.2 [facility] Blood hemoglobin measurement (mass/volume)Ordered By: Dr. Bazan on 06-12-2022 Hemoglobin (Bld) [Mass/Vol] 16.0 g/dL 13.0-16.5 [facility] Blood lymphocytes/100 leukoc ytesOrdered By: Dr. Bazan on 06-12-2022 Lymphocytes/100 WBC (Bld) 20.3 % 19-41 [facility] Blood monocytes/100 leukocyt esOrdered By: Dr. Bazan on 06-12-2022 Monocytes/100 WBC (Bld) 8.6 % 0-10 [facility] Blood platelet mean volumeOr dered By: Dr. Bazan on 06-12-2022 Platelet mean volume (Bld) [Entitic vol] 10.5 fL 6.2-12.0 [facility] Determination of erythrocyte mean corpuscular volume (MCV)Ordered By: Dr. Bazan on 06-12-2022 MCV (RBC) [Entitic vol] 93.9 fL 80-94 [facility] Hematocrit Auto (Bld) [Volum e fraction]Ordered By: Dr. Bazan on 06-12-2022 Hematocrit (Bld) [Volume fraction] 50.5 % 40-54 [facility] Laboratory - Chemistry and C hemistry - challengeOrdered By: Dr. Bazan on 06-12-2022 ALP [Catalytic activity/Vol] 86 U/L 45-117 [facility] ALT [Catalytic activity/Vol] 24 U/L 16-61 [facility] CO2 [Moles/Vol] 29.0 mmol/L 21.0-32.0 [facility] Globulin (S) [Mass/Vol] 3.7 g/dL 2.2-4.2 [facility] Urea nitrogen/Creatinine [Mass ratio] 17.9 mg/mg 10-20 [facility] Laboratory - Hematology and Cell countsOrdered By: Dr. Bazan on 06-12-2022 Erythrocyte distribution width (RBC) [Entitic vol] 48.2 fL 35.1-43.9 [facility] Erythrocyte distribution width (RBC) [Ratio] 14.0 % 11.6-14.6 [facility] Immature granulocytes/100 WBC (Bld) 0.300 % 0.0-0.9 [facility] Comment on above: IG% - Immature Granu locytes (promyelocytes, myelocytes and metamyelocytes) > 1% indicates that a LEFT SHIFT is Present. MCH (RBC) [Entitic mass] 29.7 pg 27.0-32.0 [facility] Nucleated RBC/100 WBC (Bld) [Ratio] 0 % 0-5 [facility] MCHC Auto (RBC) [Mass/Vol]Or dered By: Dr. Bazan on 06-12-2022 MCHC (RBC) [Mass/Vol] 31.7 g/dL 32-36 [facility] No Panel InformationOrdered By: Dr. Bazan on 06-12-2022 Estimated GFR (MDRD) Amer 79 mL/min >60 [facility] Comment on above: GFR Calc Estimated GFR (MDRD) Non-Af Amer 65 mL/min >60 [facility] Comment on above: Non- GFR Calc Parathyroid Hormone (Intact) 107.5 pg/mL 18.4-80.1 [facility] Vitamin D 25-Hydroxy 25.4 ng/mL [facility] Comment on above: Vitamin D 25(OH) Sta tus Range Deficiency <20 ng/mL (50nmol/L) Insufficiency 20 - 30 ng/mL (50 - 75 nmol/L) Sufficiency 30 - 100 ng/mL (75 - 250 nmol/L) Toxicity >100 ng/mL (>250 nmol/L) Platelets bldOrdered By: Dr. Bazan on 06-12-2022 Platelets (Bld) [#/Vol] 222 10*3/uL 150-450 [facility] Serum or plasma albumin chemo urement (mass/volume)Ordered By: Dr. Bazan on 06-12-2022 Albumin [Mass/Vol] 3.8 g/dL 3.2-5.0 [facility] Serum or plasma albumin/glob ulin mass ratioOrdered By: Dr. Bazan on 06-12-2022 Albumin/Globulin [Mass ratio] 1.0 {ratio} 0.9-2.4 [facility] Serum or plasma calcium chemo urement (mass/volume)Ordered By: Dr. Bazan on 06-12-2022 Calcium [Mass/Vol] 9.1 mg/dL 8.5-10.1 [facility] Serum or plasma cholesterol in HDL measurement (mass/volume)Ordered By: Dr. Bazan on 06-12-2022 Cholesterol in HDL [Mass/Vol] 39 mg/dL >40 [facility] Comment on above: The drugs N-Acetylcy steine and Metamizole may falsely depress this assay. Reference Range HDL <40 mg/dL Low HDL Cholesterol HDL >or= 60 mg/dL High HDL Cholesterol Serum or plasma cholesterol in VLDL measurement (mass/volume)Ordered By: Dr. Bazan on 06-12-2022 Cholesterol in VLDL [Mass/Vol] 55 mg/dL 5-40 [facility] Serum or plasma creatinine m easurement (mass/volume)Ordered By: Dr. Bazan on 06-12-2022 Creatinine [Mass/Vol] 1.17 mg/dL 0.70-1.30 [facility] Comment on above: The validity of the calculated GFR & GFRAA in patients over 70 years has not been determined. Clinical correlation is essential. Serum or plasma low density lipoprotein (LDL) cholesterol measurement (mass/volume)Ordered By: Dr. Bazan on 06-12-2022 Cholesterol in LDL [Mass/Vol] 111 mg/dL 0-130 [facility] Serum or plasma urea nitroge n measurement (mass/volume)Ordered By: Dr. Bazan on 06-12-2022 Urea nitrogen [Mass/Vol] 21 mg/dL 7-18 [facility] Thin prep Papanicolaou smear with manual screeningOrdered By: Dr. Bazan on 06-12-2022 Thin prep Papanicolaou smear with manual screening 16 U/L 15-37 [facility] Thin prep Papanicolaou smear with manual screening 6 5-15 [facility] Urine creatinine measurement (mass/volume)Ordered By: Dr. Bazan on 06-12-2022 Creatinine (U) [Mass/Vol] 64.60 mg/dL NO RANGE EST. [facility] Urine protein measurement (m ass/volume)Ordered By: Dr. Bazan on 06-12-2022 Protein (U) [Mass/Vol] 17.0 mg/dL 0.0-11.8 [facility] Urine protein/creatinine mas s ratioOrdered By: Dr. Bazan on 06-12-2022 Protein/Creatinine (U) [Mass ratio] 263 mg/g CRE 0-200 [facility] Whole blood hemoglobin A1c/t otal hemoglobin ratio (mass fraction)Ordered By: Dr. Bazan on 06-12-2022 HbA1c (Bld) [Mass fraction] 5.7 % 3.8-5.6 [facility] Comment on above: Normal < 5.7 % Predi abetic 5.7 - 6.4 % Diabetic >or= 6.5 % Please note range changes. Absolute lymphocyte counton 06-08-2021 Lymphocytes Auto (Unsp spec) [#/Vol] 1.41 10*3/uL 0.83-4.51 [facility] Work Phone: Basophil percentageon 2021 Basophil percentage 0 SEEN /hpf [facility] Work Phone: Basophil percentage 3.2 mg/dL 2.5-4.9 [facility] Work Phone: Basophils/100 WBC (Bld) 0.7 % 0-1 [facility] Work Phone: Bilirubin [Mass/Vol] 0.60 mg/dL 0.20-1.00 [facility] Work Phone: Comment on above: For patients on eltr ombopag therapy, use of Dimension [place] TBIL is not recommended. Chloride [Moles/Vol] 107 mmol/L 98-107 [facility] Work Phone: Cholesterol [Mass/Vol] 184 mg/dL <200 [facility] Work Phone: Comment on above: <200 mg/dL Desirable 200-240 mg/dL Borderline >240 mg/dL High Risk Eosinophils/100 WBC (Bld) 8.5 % 0-5 [facility] Work Phone: Glucose [Mass/Vol] 98 mg/dL 74-106 [facility] Work Phone: [phone] Neutrophils (Bld) [#/Vol] 4.3 10*3/uL 2.0-7.7 [facility] Work Phone: [phone] Neutrophils/100 WBC (Bld) 60.3 % 47-70 [facility] Work Phone: [phone] Potassium [Moles/Vol] 4.2 mmol/L 3.5-5.1 [facility] Work Phone: Protein [Mass/Vol] 7.2 g/dL 6.4-8.2 [facility] Work Phone: [phone] Sodium [Moles/Vol] 141 mmol/L 136-145 [facility] Work Phone: [phone] Triglyceride [Mass/Vol] 220 mg/dL [facility] Work Phone: Comment on above: The drugs N-Acetylcy steine and Metamizole may falsely depress this assay.Serum Triglycerides Reference Interval Normal <150 mg/dL Borderline high 150 - 199 mg/dL High 200 - 499 mg/dL Very High > or = 500 mg/dL WBC (Bld) [#/Vol] 7.1 10*3/uL 4.4-11.0 [facility] Work Phone: [phone] Bilirubin Test strip Ql (U)o n 06-08-2021 Bilirubin Ql (U) Negative Negative [facility] Work Phone: [phone] Blood erythrocytes count (nu mber/volume)on 06-08-2021 RBC (Bld) [#/Vol] 5.19 10*6/uL 4.6-6.2 [facility] Work Phone: [phone] Blood hemoglobin measurement (mass/volume)on 06-08-2021 Hemoglobin (Bld) [Mass/Vol] 15.9 g/dL 13.0-16.5 [facility] Work Phone: [phone] Blood lymphocytes/100 leukoc yteson 06-08-2021 Lymphocytes/100 WBC (Bld) 19.7 % 19-41 [facility] Work Phone: Blood monocytes/100 leukocyt eson 06-08-2021 Monocytes/100 WBC (Bld) 10.4 % 0-10 [facility] Work Phone: Blood platelet mean volumeon 06-08-2021 Platelet mean volume (Bld) [Entitic vol] 10.4 fL 6.2-12.0 [facility] Work Phone: Determination of erythrocyte mean corpuscular volume (MCV)on 06-08-2021 MCV (RBC) [Entitic vol] 93.3 fL 80-94 [facility] Work Phone: Hematocrit Auto (Bld) [Volum e fraction]on 06-08-2021 Hematocrit (Bld) [Volume fraction] 48.4 % 40-54 [facility] Work Phone: Ketones Test strip Ql (U)on 06-08-2021 Ketones Ql (U) Negative Negative [facility] Work Phone: Laboratory - Chemistry and C hemistry - challengeon 06-08-2021 ALP [Catalytic activity/Vol] 87 U/L 45-117 [facility] Work Phone: ALT [Catalytic activity/Vol] 22 U/L 16-61 [facility] Work Phone: CO2 [Moles/Vol] 31.0 mmol/L 21.0-32.0 [facility] Work Phone: Globulin (S) [Mass/Vol] 3.6 g/dL 2.2-4.2 [facility] Work Phone: Urea nitrogen/Creatinine [Mass ratio] 16.9 mg/mg 10-20 [facility] Work Phone: Laboratory - Hematology and Cell countson 06-08-2021 Erythrocyte distribution width (RBC) [Entitic vol] 46.8 fL 35.1-43.9 [facility] Work Phone: Erythrocyte distribution width (RBC) [Ratio] 13.7 % 11.6-14.6 [facility] Work Phone: Immature granulocytes/100 WBC (Bld) 0.400 % 0.0-0.9 [facility] Work Phone: Comment on above: IG% - Immature Granu locytes (promyelocytes, myelocytes and metamyelocytes) > 1% indicates that a LEFT SHIFT is Present. MCH (RBC) [Entitic mass] 30.6 pg 27.0-32.0 [facility] Work Phone: Nucleated RBC/100 WBC (Bld) [Ratio] 0 % 0-5 [facility] Work Phone: MCHC Auto (RBC) [Mass/Vol]on 06-08-2021 MCHC (RBC) [Mass/Vol] 32.9 g/dL 32-36 [facility] Work Phone: Mucus LM Ql (Urine sed)on Mucus Ql (Urine sed) 0 SEEN /hpf [facility] Work Phone: Nitrite Test strip Ql (U)on 06-08-2021 Nitrite Ql (U) Negative Negative [facility] Work Phone: No Panel Informationon 06-08 Estimated GFR (MDRD) Amer 78 mL/min >60 [facility] Work Phone: Comment on above: GFR Calc Estimated GFR (MDRD) Non-Af Amer 65 mL/min >60 [facility] Work Phone: Comment on above: Non- GFR Calc Parathyroid Hormone (Intact) 139.9 pg/mL 18.4-80.1 [facility] Work Phone: Platelets bldon 06-08-2021 Platelets (Bld) [#/Vol] 201 10*3/uL 150-450 [facility] Work Phone: Protein Test strip Ql (U)on 06-08-2021 Protein Ql (U) 15 mg/dl Negative [facility] Work Phone: Serum or plasma albumin chemo urement (mass/volume)on 06-08-2021 Albumin [Mass/Vol] 3.6 g/dL 3.2-5.0 [facility] Work Phone: Serum or plasma albumin/glob ulin mass ratioon 06-08-2021 Albumin/Globulin [Mass ratio] 1.0 {ratio} 0.9-2.4 [facility] Work Phone: Serum or plasma calcium chemo urement (mass/volume)on 06-08-2021 Calcium [Mass/Vol] 8.9 mg/dL 8.5-10.1 [facility] Work Phone: Serum or plasma cholesterol in HDL measurement (mass/volume)on 06-08-2021 Cholesterol in HDL [Mass/Vol] 35 mg/dL [facility] Work Phone: Comment on above: The drugs N-Acetylcy steine and Metamizole may falsely depress this assay. Reference Range HDL <40 mg/dL Low HDL Cholesterol HDL >or= 60 mg/dL High HDL Cholesterol Serum or plasma cholesterol in VLDL measurement (mass/volume)on 06-08-2021 Cholesterol in VLDL [Mass/Vol] 44 mg/dL 5-40 [facility] Work Phone: Serum or plasma creatinine m easurement (mass/volume)on 06-08-2021 Creatinine [Mass/Vol] 1.18 mg/dL 0.70-1.30 [facility] Work Phone: Comment on above: The validity of the calculated GFR & GFRAA in patients over 70 years has not been determined. Clinical correlation is essential. Serum or plasma low density lipoprotein (LDL) cholesterol measurement (mass/volume)on 06-08-2021 Cholesterol in LDL [Mass/Vol] 105 mg/dL 0-130 [facility] Work Phone: Serum or plasma urea nitroge n measurement (mass/volume)on 06-08-2021 Urea nitrogen [Mass/Vol] 20 mg/dL 7-18 [facility] Work Phone: [phone] Squamous epithelial cells de tection in urine sediment by light microscopyon 06-08-2021 Epithelial cells.squamous LM Ql (Urine sed) 0 SEEN /hpf [facility] Work Phone: Thin prep Papanicolaou smear with manual screeningon 06-08-2021 Thin prep Papanicolaou smear with manual screening 11 U/L 15-37 [facility] Work Phone: Thin prep Papanicolaou smear with manual screening 3 5-15 [facility] Work Phone: Urine blood detectionon 05-23 RBC Ql (U) Negative Negative [facility] Work Phone: RBC Ql (U) 0 SEEN /hpf [facility] Work Phone: Urine clarityon 06-08-2021 Clarity (U) Clear Clear [facility] Work Phone: Urine color determinationon 06-08-2021 Color (U) Yellow Yellow [facility] Work Phone: Urine glucose detectionon Glucose Ql (U) Normal mg/dl Normal [facility] Work Phone: Urine leukocyte esterase det ection by dipstickon 06-08-2021 Leukocyte esterase Test strip Ql (U) Negative Negative [facility] Work Phone: Urine pHon 06-08-2021 pH (U) 6.5 [pH] [facility] Work Phone: Urine sediment bacteria coun t by microscopy (number/high power field)on 06-08-2021 Bacteria LM.HPF (Urine sed) [#/Area] 0 /[HPF] None Seen [facility] Work Phone: Urine specific gravity measu rementon 06-08-2021 Specific gravity (U) [Rel density] 1.015 [facility] Work Phone: Urobilinogen Auto test strip Ql (U)on 06-08-2021 Urobilinogen Ql (U) Normal mg/dl Normal [facility] Work Phone: Vital Signs Date Time Vital Sign Value Performing Clinician Faci lity 07-27-2025 17:09-0400 Body temperature 98.4 [degF] Dr. Samuel Bazan MD Work Phone: [facility] 10-18-2024 17:09-0400 Diastolic blood pressure 85 mm[Hg] Dr. Samuel Bazan MD Work Phone: [facility] 10-18-2024 17:09-0400 Heart rate 48 /min Dr. Samuel Bazan MD Work Phone: [facility] 10-18-2024 17:09-0400 Respiratory rate 16 /min Dr. Samuel Bazan MD Work Phone: [facility] 10-18-2024 17:09-0400 SaO2% (BldA) [Mass fraction] 99 % Dr. Samuel Bazan MD Work Phone: [facility] 10-18-2024 17:09-0400 Systolic blood pressure 176 mm[Hg] Dr. Samuel Bazan MD Work Phone: [facility] 10-18-2024 12:50-0400 Body height 177.[address] Samuel Bazan MD Work Phone: [facility] 10-18-2024 12:50-0400 Body mass index (BMI) [Ratio] 27.7 kg/m2 Dr. Smauel Bazan MD Work Phone: [facility] 10-18-2024 12:50-0400 Body weight 87.[address] Samuel Bazan MD Work Phone: [facility] Encounters Encounter Date Encounter Type Care Provider Facility Start: 10-18-2024 End: 10-18-2024 Emergency department patient visit Dr. Samuel Bazan MD Work Phone: -Emergency Department Work Phone: Start: 08-04-2024 End: 08-04-[address] Samuel Bazan MD Work Phone: [facility] Work Phone: Start: 08-04-2024 End: 08-04-[address] Samuel Bazan MD [facility] Work Phone: Start: 08-04-2024 End: 08-04-2024 ambulatory Samuel Bazan Facility:[facility] Start: 04-09-2024 End: 04-09-2024 ambulatory Samuel Bazan Facility:[facility] Start: 01-10-2024 Encounter for genera l adult medical examination without abnormal findings Samuel Bazan [facility] Start: 12-13-2023 End: 12-13-2023 ambulatory Samuel Bazan Facility:[facility] Start: 12-05-2023 End: 12-05-2023 ambulatory Samuel Bazan Facility:[facility] Start: 07-09-2023 End: 07-09-2023 ambulatory [facility] Work Phone: Start: 07-09-2023 End: 07-09-2023 Patient encounter procedure [facility] Work Phone: Start: 03-05-2023 End: 03-05-2023 ambulatory [facility] Work Phone: Start: 03-05-2023 End: 03-05-2023 Patient encounter procedure [facility] Start: 10-17-2022 End: 10-17-2022 ambulatory [facility] Work Phone: Start: 10-17-2022 End: 10-17-2022 Patient encounter procedure [facility] Start: 06-12-2022 End: 06-12-2022 ambulatory [facility] Work Phone: Start: 06-12-2022 End: 06-12-2022 Patient encounter procedure [facility] Start: 06-09-2021 End: 06-09-2021 Patient encounter procedure [facility] Start: 06-08-2021 End: 06-08-2021 Patient encounter procedure [facility] [place] Procedures Date Procedure Procedure Detail Performing Clinician Start: 10-18-2024 Urnls dip stick/tabl et reagent auto microscopy Dr. Samuel Bazan MD Work Phone: Start: 10-18-2024 Computed tomography of abdomen and pelvis with intravenous contrast Dr. Samuel Bazan MD Work Phone: Start: 10-18-[address] Samuel Bazan MD Work Phone: Start: 08-04-2024 Urnls dip stick/tabl et reagent auto microscopy Dr. Samuel Bazan MD Work Phone: Start: 08-04-[address] Samuel Bazan MD Work Phone: Start: 08-04-2024 Vitamin D, 25-hydrox y measurement Dr. Samuel Bazan MD Work Phone: Comment on above: Vitamin D StatusDefi ciency: <20 ng/mL (50nmol/L)Insufficiency: 20-30 ng/mL (50-75 nmol/L)Sufficiency: 30-100 ng/mL (75-250 nmol/L)Toxicity: >100 ng/mL (>250 nmol/L) Plan of Treatment Date Care Activity Detail Author Start: 10-18-2024 [facility] Patient Education Duodenitis [facility] Work Phone: Immunizations Immunization Date Immunization Notes Care Provider Fa cility 06-16-2020 Covid (Pfizer) [facility] 05-26-2020 Covid (Pfizer) [facility] Payers Date Payer Category Payer Self-pay [id number] 2023 Unknown [id number] 2015 Medicare [id number] Unknown [id number] Unknown [id number] 2.16.8 [id number] Unknown [id number] 2.16.8 [id number] Unknown [id number] 2.16.8 [id number] Unknown [id number] 2.16.8 [id number] Unknown [id number] 2.16.8 [id number] Social History Date Type Detail Facility Start: 10-22-2014 End: 10-11-2021 Tobacco smoking status MSIS Unknown if ever smoked [facility] Start: 1950 Sex Assigned At Male [facility] Start: 08-12-2023 End: 10-18-2024 Tobacco smoking status NHIS Never smoked tobacco (finding) [facility] Discharge summary 10-18-2024 Note Date & Type Note Facility 10-18-2024 Discharge summary [facility] Radiology Diagnostic study note 10-18-2024 Note Date & Type Note Facility 10-18-2024 Radiology Diagnostic study note [facility] Imaging Services [address] [place] [address] [id number] Abdomen/Pelvis W IV Cont ONLY MR#: [id number] Acct: [id number] Name: BRADLEY VERMA Rep #: [id number] : 1950 M 74 From: Margarito Mulligan MD PCP: Dr. Samuel Bazan MD Status: RE G ER Study:Abdomen/Pelvis W IV Cont ONLY Date of E xam: 10/18/24 Exam# [id number] Ordering Dr: Polo Pendleton DO PROCEDURE: ABDOMEN/PELVIS W IV CONT ONLY 10/18/2024 REASON FOR EXAM: ABDOMINAL PAIN TECHNIQUE: ABDOMEN/PELVIS W IV CONT ONLY Coronal and Sagittal reconstruction series were provided. CONTRAST: Isovue-300 VOLUME: 97 mL One or more dose reduction techniques were used (e.g., Automated exposure control, adjustment of the mA and/or kV according to patient size, use of iterative reconstruction technique. RADIATION DOSE SUMMARY: CTDlvol: 30 mGy DLP: 793 mGycm FINDINGS: Lung windows are clear. Normal appearance of the liver, gallbladder and portal vein. Normal appearance of the spleen and the pancreas. Nonobstructing stone in the left renal pelvis measures 9 mm. Negative for hydronephrosis. Negative for solid renal mass. No gastric or duodenal dilatation. Subtle infiltration of the fat between the duodenum in the pancreatic head. No free air. No bowel obstruction. Normal appendix. No diverticulitis. Negative for bowel wall thickening or abscess. CT/Abdomen/Pelvis W IV Cont ONLY IMPRESSION: Subtle infiltration of the fat between the pancreatic head and duodenum. Correlate with laboratory findings to exclude pancreatitis versus duodenal inflammation. Reading Location: [facility] CC: Dr. Polo Pendleton DO; Dr. Samuel Bazan MD ~ Digital Account Executive: Signed [facility] Discharge summary 10-18-2024 Note Date & Type Note Facility 10-18-2024 Discharge summary Note Date/Time October 18, 2024 5:14pm [facility] Medical Records Department [address] [place] [address] Emergency Department Summary 10/18/24 MR#: [id number] Acct: [id number] Name: BRADLEY VERMA Rep #:[id number] 7 : 1950 74 From: Polo Cesar PCP: Dr. Samuel Bazan MD Status:RE G ER Location: ED HPI HPI - GI History of Present Illness Chief Complaint: Abd Pain Informant: patient Abdominal Pain/Flank Pain Onset: Days (3) Context: Gradual Onset Timing: Continuous Quality: Dull Location: RLQ and LLQ Worsened by: Nothing Relieved by: Nothing Nausea/Vomiting/Emesis GI Symptom: Positive for Nausea and Vomiting Quality: Positive for Nonbilious; Negative for Blood streaks, Coffee ground or Hematemesis Diarrhea/Melena/Hematochezia GI Symptom: Negative for Diarrhea, Melena or Hematochezia Associated Symptoms Associated Symptoms: Negative for Dysuria, Frequency or Hematuria Narrative Narrative: Patient presents with abdominal pain that has been getting worse over the past 3days. Patient states it is gradually gotten worse. Patient states it is constant. Patient states it is mainly over the lower abdomen. Patient states nothing makes it better and nothing makes it worse. Patient states his pain is dull and aching. Patient admits to some nausea and vomiting. Patient denies any hematemesis or coffee-ground emesis. Patient denies any diarrhea, melena, or hematochezia. Patient denies any dysuria, frequency, or hematuria. [facility] Medical History Wears glasses Alcohol use Arthritis Non-smoker History of edema Hypertension Home Medications ?Medication ?Instructions ?Recorded ?Last Taken ?Type amlodipine 10 mg tablet 10 mg PO DAILY 10/11/2107/24 History lisinopril 20 mg tablet 20 mg PO DAILY 10/11/2109/23 History hydrochlorothiazide 12.5 mg tablet 25 mg PO DAILY 07/2310/18/24 History metoprolol succinate 100 mg 100 mg PO DAILY 08/12/23 0 10/18/24 History tablet,extended release 24 hr hydrocodone-acetaminophen 5-325mg 1 tab PO Q6H PRN PRN Pain 3 days 10/18/24 Unknown Rx 5mg-325mg #10 TABLETS metformin 500 mg tablet 500 mg PO DAILY 10/18/24 History ondansetron 4 mg disintegrating 4 mg PO Q8H PRN PRN Na usea #10 tabs 10/18/24 Unknown Rx tablet Allergy/AdvReac Type Severity Reaction Status Date / Time No Known Allergies Allergy Verified 10/18/24 12:51 Family History no significant family his Surgical History Hx of inguinal hernia repair History of hydrocelectomy Social History Smoking Status: Never smoker ROS ROS ED Constitutional Constitutional ED: Denies chills or fever(s) Eyes Eyes: Denies blurry vision or change in vision ENT ENT ED: Denies rhinorrhea or sore throat Cardiovascular Cardiovascular: Denies chest pain or palpitations Respiratory/Chest Respiratory/Chest: Denies cough or dyspnea Gastrointestinal Gastrointestinal: Reports abdominal pain, nausea and vomiting Genitourinary Genitourinary ED: Denies dysuria or hematuria Musculoskeletal Musculoskeletal: Denies back pain or neck pain Integumentary Denies abscess or rash Neurologic Neurologic: Denies headache(s) or weakness Allergic/Immunologic Allergic/Immunologic ED: Denies mouth swelling or urticaria EXAM Physical Exam Const Vital Signs: 10/18/24 12:50 10/18/24 14:49 Temperature 98.4 F Temperature Source Oral Pulse Rate 50 L 49 L Respiratory Rate 14 Blood Pressure 165/90 H 157/77 H Blood Pressure Mean 115 103 Pulse Ox 99 93 Oxygen Delivery Method Room Air Room Air Positive well nourished and well developed General Appearance ED: well developed and NAD HEENT Reports moist mucous membranes Neck supple and no JVD Resp normal respiratory effort and clear to auscultation bilaterally Cardio regular rate and regular rhythm GI Palpation: soft and tender epigastric, LLQ, RLQ, LUQ, RUQ, periumbilical and suprapubic; Negative for guarding or rebound tenderness present Neuro CN's II-XII intact bilaterally, moves all extremities and no sensory deficits noted Sensorium / Orientation: alert Motor Exam: strength 5/5 throughout Psych mental status grossly normal and thought process normal MDM MDM MDM Narrative Medical decision making narrative: Differential diagnosis includes bowel obstruction, perforation, dehydration, electrolyte abnormality, urinary tract infection, otitis, cholecystitis, cholelithiasis, diverticulitis, and viral illness. CT scan of the abdomen and pelvis will be obtained to assess for bowel obstruction, perforation, diverticulitis, cholecystitis, and cholelithiasis. CBC will be obtained to assess for leukocytosis and anemia. Comprehensive metabolic profile will be obtained to assess for hepatic function, renal function, and electrolyte abnormality. Lipase will be obtained to assess for pancreatitis. Urinalysis will be obtained to assess for urinary tract infection and hematuria. Lab Data Attestation: I reviewed the patient's lab results. Lab results narrative: CBC was reviewed. There is a mild leukocytosis of 13.2. Hemoglobin was elevated at 16.6. Hematocrit was normal at 48.5. Platelets were normal. Comprehensive metabolic profile was reviewed. Glucose was slightly elevated at 119. The remainder is within normal limits. Lipase was reviewed and was normalat 64. Urinalysis was reviewed. There is no evidence of urinary tract infection or hematuria. Labs: Laboratory Results - last 24 hr 10/18/24 10/18/24 13:55 14:15 WBC 13.2 H RBC 5.31 Hgb 16.6 H Hct 48.5 MCV 91.3 MCH 31.3 MCHC 34.2 RDW Std Deviation 47.6 H RDW Coeff of Taisha 14.3 Plt Count 195 MPV 9.8 Immature Gran % (Auto) 0.500 Neut % (Auto) 85.8 H Lymph % (Auto) 6.3 L [place] % (Auto) 6.4 Eos % (Auto) 0.7 Baso % (Auto) 0.3 Absolute Neuts (auto) 11.4 H Absolute Lymphs (auto) 0.84 Nucleated RBC % 0 Sodium 139 Potassium 4.4 Chloride 100 Carbon Dioxide 23.7 Anion Gap 15 BUN 17 Creatinine 1.11 Estim Creat Clear Calc 65.16 Est GFR (MDRD) Non-Af 70 BUN/Creatinine Ratio 15.4 Glucose 118 H Calcium 9.3 Total Bilirubin 0.77 AST 24 ALT 13 Alkaline Phosphatase 95 Total Protein 7.4 Albumin 4.0 Globulin 3.4 Albumin/Globulin Ratio 1.2 Lipase 64 Urine Color Yellow Urine Clarity Clear Urine pH 6.5 Ur Specific [place] 1.015 Urine Protein 30 H Urine Glucose (UA) Normal Urine Ketones 50 H Urine Occult Blood 25 H Urine Nitrite Negative Urine Bilirubin Negative Urine Urobilinogen Normal Ur Leukocyte Esterase Negative Urine RBC 0-5 SEEN Urine WBC 0 SEEN Ur Squamous Epith Cells 0 SEEN Urine Bacteria 0 SEEN Urine Mucus 0 SEEN Radiography Diagnostic Testing: Clinical Impression(s) from Imaging Studies Abdomen/Pelvis CT 10/18/24 13:56 IMPRESSION: Subtle infiltration of the fat between the pancreatic head and duodenum. Correlate with laboratory findings to exclude pancreatitis versus duodenal inflammation. Reading Location: [facility] CT scan of the abdomen and pelvis was obtained. There is no evidence of bowel obstruction or perforation. There is no free air or free fluid. There is subtle infiltration of the fat between the pancreatic head and duodenum. This was interpreted by the radiologist and was also independently reviewed by myself. Treatment and Re-Evaluation :: Patient was given IV fluids, morphine, and Zofran. Patient was feeling better on reevaluation. Patient was advised of his findings. Patient was given prescription for Zofran. Patient was given a prescription for short course of [place]. Patient was instructed to take [id number] simethicone as needed for any bloating. Patient was instructed to follow-up with his primary care physician as scheduled. Patient was instructed to return if worse in any way. Patient understood and was agreeable with the plan. All questions were answered. Discharge Plan Triage Chief Complaint: Abd Pain ED Provider: Polo Pendleton Dx/Rx/DC Orders Clinical Impression: Duodenitis, Abdominal pain Instructions: Duodenitis Prescriptions: New hydrocodone-acetaminophen 5-325 mg tablet 1 tab PO Q6H PRN PRN (Reason: Pain) 3 Days Qty: 10 0RF ondansetron 4 mg tablet,disintegrating 4 mg PO Q8H PRN PRN (Reason: Nausea) Qty: 10 0RF No Action lisinopril 20 mg Tablet 20 mg PO DAILY amlodipine 10 mg Tablet 10 mg PO DAILY hydrochlorothiazide 12.5 mg tablet 25 mg PO DAILY metoprolol succinate 100 mg tablet extended release 24 hr 100 mg PO DAILY metformin 500 mg tablet 500 mg PO DAILY Primary Care Provider: Samuel Bazan Referrals: Samuel Bazan MD [Primary Care Provider] - Keep Siva appointment Print Language: Belarusian Disposition Disposition: Home, Self Care What to do if you have Problems For any increased pain, shortness of breath, bleeding, nausea or vomiting, chestpain, or any unexpected problems, contact your Primary Care Provider. Call [facility] ([phone]) or report to the closest Emergency Room. Call 911 if necessary. 10/18/24 [id number] <Electronically signed by Polo Pendleton DO> Cosigner Signature (if applicable): CC: Dr. Samuel Bazan MD ~ Signed [facility] Work Phone: Evaluation note Note Date & Type Note Facility Evaluation note No assessment information availa ble [facility] Work Phone: Reason for referral (narrative) Note Date & Type Note Facility Reason for referral (narrative) No reason for referral information available [facility] Work Phone: Chief Complaint and Reason for Visit Chief Complaint EORDER Chief Complaint Admit Date EORDAugust 04, 2024 7:01a m Chief Complaint Admit Date EOAugust 04 2025 7:01a m ABD October 18, 2024 12:4 9pm Advance Directives No Advanced Directives Records Found Advance Directive Response Recorded Date/ Time Advance Directives No October 22 8:07am Living Will Yes October 22, 2014 8:07am Power of [employer] No October 22 5 8:07am Advance Directive Response Recorded Date/ Time Advance Directives No October 22 8:07am Living Will No October 11, 2021 12:17pm Power of [employer] No October 11 12:17pm Advance Directive Response Recorded Date/ Time Advance Directives No October 22 7:07am Living Will No October 11, 2021 11:17am Power of [employer] No October 11 11:17am Advance Directive Response Recorded Date/ Time Advance Directives No October 22 8:07am Advance Directive Response Recorded Date/ Time Do you have a Healthcare Power of [employer]? No October 18, 2024 1:40pm Advance Directives No October 22 8:07am Summary [...] August 04, 2024 End: August 04, 2024 Team Status: Active Member Role/Relationship Status Dates Dr. Samuel Bazan MD Primary Care Provider Active Team Status: Inactive Member Role/Relationship Status Dates Dr. Samuel Bazan MD Primary Care Provider Active Start: August 04, 2024 End: August 04, 2024 Dr. Samuel Bazan MD Attending Provider Active Start: August 04, 2024 End: August 04, 2024 Dr. Samuel Bazan MD Referring Provider Active Start: August 04, 2024 End: August 04, 2024 Team Status: Inactive Member Role/Relationship Status Dates Dr. Samuel Bazan MD Primary Care Provider Active Start: October 18, 2024 End: October 18, 2024 Dr. Polo Pendleton DO Emergency Provider Active Start: October 18, 2024 End: October 18, 2024 (unrecognized sect ion and content) No Status Records Found INFORMATION SOURCE (unrecogn ized section and content) DATE CREATED AUTHOR 10/27/2024 [facility] FOR RECORDS PERTAINING TO PATIENTS WHO ARE [...] BE BASED ON THE PRIMARY CLINICAL RECORDS. [employer] provides no warranty or guarantee of the accuracy or completeness of information in this document.
[2024-11-13 10:13] LABS: Hematocrit 44.9 % (40-54); Hemoglobin 14.7 g/dL (13.0-16.5); Immature Granulocytes Count 0.020 X10^3/uL (0.0-0.0); Mean Corp Hgb Conc 32.7 g/dL (32-36); Mean Corpuscular Volume 93.3 fL (80-94); Mean Platelet Vol. 10.0 fl (6.2-12.0); NRBC Flagged by Analyzer 0 % (0-5); Platelet Count 180 K/mm3 (150-450); RBC Distribution Width CV 14.1 % (11.6-14.6); RBC Distribution Width SD 48.4 fl (35.1-43.9); Red Blood Count 4.81 M/mm3 (4.6-6.2); White Blood Count 6.3 K/mm3 (4.4-11.0)
[2024-11-13 10:37] LABS: Creatinine, Urine (random) 171.00 mg/dL (39.00-259.00); Protein, Urine (Random) 14.8 mg/dL (0.0-12.0); Protein:Creat Ratio 87 mg/g CRE (0-200)
[2024-11-13 10:59] LABS: AST(SGOT) 19 U/L (<=37); Alanine Aminotransfer ALT/SGPT 20 U/L (<=46); Albumin, Serum 3.9 g/dL (3.4-4.8); Alkaline Phosphatase 78 U/L (40-129); Anion Gap 11 (5-15); BUN 21 mg/dL (4-19); BUN/Creat Ratio 17.3 RATIO (10-20); Calcium,Total 9.3 mg/dL (7.6-11.0); Carbon Dioxide 27.9 mmol/L (21.0-32.0); Chloride 104 mmol/L (98-108); Cholesterol 177 mg/dL (<=200); Globulin 2.8 g/dL (2.2-4.2); Glucose 97 mg/dL (70-99); Low Density Lipoprotein Calc. 88 mg/dL; Potassium 4.7 mmol/L (3.3-5.1); Triglycerides 276 mg/dL; Very Low Density Lipoprotein 55 mg/dL (5-40); Vitamin D,25 Hydroxy 41.5 ng/mL (30-100); cholesterol:hdl ratio screen 5.21
== END | disposition home or self-care (01) ==
PROVIDERS: PCP Family Medicine; Referring Provider Family Medicine; Visit Provider Family Medicine
DX: I10 Essential (primary) hypertension (principal); E03.8 Other specified hypothyroidism; R73.02 Impaired glucose tolerance (oral); E55.9 Vitamin D deficiency, unspecified; E78.1 Pure hyperglyceridemia
CPT/HCPCS: 36415; 80053; 80061; 82306; 82570; 83036; 84156; 84439; 84443; 85025